=== PATIENT | male | born 1945 | race Caucasian/White ===

== ENCOUNTER 2021-08-14 10:15 | Inpatient (IN) | payer MEDICARE, SELFPAY ==
--- NOTE | ~2021-08-14 | CT_ITS ---
EXAMINATION: CT HEAD WITHOUT CONTRAST CLINICAL INFORMATION: New onset of psychosis. COMPARISON: No relevant prior imaging. TECHNIQUE: Contiguous axial imaging was performed from the skull base to vertex without intravenous administration of contrast. This CT examination was performed using dose optimization techniques as appropriate, variously including the following: *Automated exposure control *Adjustment of mA and/or kV according to patient size (this includes techniques or standardized protocols for targeted exams where dose is matched to indication/reason for exam; i.e. extremities or head) *Use of iterative reconstruction technique DLP: 1026 mGy-cm FINDINGS: There is gliosis and encephalomalacia involving left posterior temporal lobe that most likely represents chronic changes of an old infarct within the vascular territory of the left middle cerebral artery. Scattered chronic small vessel ischemic changes are visualized numerous chronic small vessel seen changes are also visualized within the supratentorial white matter. Grossly no evidence of acute territorial infarct. No acute hemorrhage or abnormal extra-axial collection. Lateral and third ventricles are proportionate to the subarachnoid spaces. No hydrocephalus. The calvarium and skull base are intact. Mastoid air cells and middle ear cavities are well-aerated. No active paranasal sinus disease. CT/CT head/brain wo con IMPRESSION: There are chronic changes related to an old infarct within the vascular territory of left middle cerebral artery and scattered chronic small vessel ischemic changes within the supratentorial white matter. No evidence of acute territorial infarct or hemorrhage.
[2021-08-14 11:03] VITALS: BMI 30.8
[2021-08-14 11:07] VITALS: BP 119/63; PULSE 79; TEMP 35.2; O2SAT 97
--- NOTE | 2021-08-14 14:44 | PC.ADMIT ---
Patient 75 years old Telugu speaking. Admitted in the Unit today ( 08/14/21) at 10:37 AM, for the diagnosis of Adjustment D/O with disturbance of conduct. Referred from [facility] accompanies with his . Appeared Anxious, well dressed . Hx of hemorrhagic stroke and Chronic Hypertension controlled with medications. Reported hallucinations (visual and auditory).Denies SI/HI Patient alert , oriented in person and place. Patient Ambulated around the unit independently. No complaint of chest pain.No jugular vein distention,no edema, HS/LS/ BS not listen to. Patient declined complete assessment . No complaint about nausea, no vomiting, no constipation. Pressure ulcer stage 1 in the lower back. Patient admitted for evaluation and treatment.
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
--- NOTE | 2021-08-14 16:12 | MHC.CLN ---
NUTRITION RECOMMEND DIET CHANGE FROM REGULAR TO 2 GRAM SODIUM DUE TO HX STROKE AND CHRONIC HTN.
[2021-08-14 19:30] VITALS: BP 118/90; PULSE 72; RESP 18; TEMP 36.6; O2SAT 92
[2021-08-14] MEDS: Haloperidol Lactate 5 MG/ML VIAL IM (19:34)
[2021-08-14 19:45] VITALS: BP 126/98; PULSE 66; RESP 18; TEMP 36.6
[2021-08-14 20:00] VITALS: BP 112/72; PULSE 83; RESP 18; TEMP 36.7
[2021-08-14] MEDS: Rivastigmine Tartrate 1.5 MG CAPSULE PO (22:38)
[2021-08-14] MEDS: risperiDONE 0.25 MG TABLET PO (22:39)
[2021-08-14] MEDS: traZODone HCL 50 MG TABLET PO (22:39)
--- NOTE | 2021-08-14 23:23 | PC.NURSE ---
1600 to 1900 pt. with increasingly intrusive, aggressive behavior due to sundowning. Attempting to touch/hold hands with female pts. Wandering into rooms. Stealing food at mealtimes from other residents and food truck. Increasingly angry affect , restlessness, and agitation with redirection. Staff met physioloigic needs, attempted to provide low stim, diversional activities, and arranged chairs in environment arms length apart. Contacted psych and received order for oral PRN, which pt. refused. At approx. 1900 resident attempting to lift furniture in common area and then wandered down hallway. Two staff distantly escorted resident and he charged at staff with raised fist but did not make contact. Code assist called with response from security, who escorted him to his room. call or contact centre coach psych notified and ordered Haldol IM stat. Medication restraint protocol initiated. Medication administered IM without need for physical hold. Hospitalist notified 1954. Resident placed on 1:1 with male staff. /HCP given update at 2014. She confirms that he responds better to male staff. Pt. continued with restless behavior in room. Had one more minor episode of aggression toward 1:1. Took scheduled meds fed to him in apple sauce without difficulty and rested in bed at 2230.
[2021-08-15 07:00] VITALS: BMI 31.8
[2021-08-15 08:16] VITALS: BP 109/57; PULSE 64
[2021-08-15] MEDS: Sertraline HCL 50 MG TABLET PO (08:16)
[2021-08-15] MEDS: Cyanocobalamin (Vitamin B-12) 1,000 MCG TABLET 1000 MCG PO (08:16)
[2021-08-15] MEDS: risperiDONE 0.25 MG TABLET PO ×3 (08:16→18:32)
[2021-08-15] MEDS: atenoloL 50 MG TABLET PO (08:16)
[2021-08-15] MEDS: Rivastigmine Tartrate 1.5 MG CAPSULE PO ×2 (08:16→19:44)
[2021-08-15 08:54] VITALS: BP 109/57; PULSE 64; TEMP 35.6; O2SAT 95
--- NOTE | 2021-08-15 12:15 | P.PNPSI_ITS ---
Subjective Subjective Date of Service: 08/15/21 Reason For Visit: Adjustment D/O w/Distrubance of conduct Subjective Notes: Conditional Voluntary Healthcare Proxy: Yes Guardianship: No Medical Problems Affecting Mental Status: No Interim History: The nursing staff reported that the patient was barely oriented to self and yesterday he got agitated and needed to be restrained chemically. Current he is on one-to-one for safety. On interview, the patient was pleasantly confused and could not remember what happened yesterday. We will continue the titration of Risperdal as per the plan that we had with her Review of Systems Acute medical concerns: No Medical Review of Systems: unchanged Mental Status Exam Mental Status Exam Patient Appearance: Well Grooomed Patient Orientation: Person Level of Consciousness: Alert Patient Behavior: Guarded and Passive Mood Description: Constricted Affect Description: Depressed Patient Cognition Impaired: Yes Ability to Follow Directions: Fair Speech Pattern: Aphasic Hallucinations: Auditory Delusions: Paranoid Ideation Thought Process: Illogical and Evasive Thought Content: positive for Poverty of Content and positive for Thought Blocking Judgement: Fair Diagnostics Vital Signs (24Hr): Vital Signs - 24 hr 08/14/21 19:30 08/14/21 19:45 08/14/21 20:00 Temperature 97.9 F 97.8 F 98.1 F Pulse Rate 72 66 83 Respiratory Rate 18 18 18 Blood Pressure 118/90 H 126/98 H 112/72 Pulse Oximetry 92 08/15/21 08:16 08/15/21 08:54 Temperature 96.1 F L Pulse Rate 64 64 Respiratory Rate Blood Pressure 109/57 L 109/57 L Pulse Oximetry 95 Body Mass Index 31.8 Medications Medications Current Medications Acetaminophen (Acetaminophen 325 Mg Tablet) 650 mg PO Q6H PRN PRN Reason: Headache/Pain Mild Scale (1-3) Al Hydroxide/Mg Hydroxide (Magnesium Hydrox/Alum Hydrox 30 Ml Oral.Susp) 30 ml PO Q6H PRN PRN Reason: Heartburn/Nausea Atenolol (Atenolol 50 Mg Tablet) 50 mg PO DAILY MDEARDO; Protocol Last Admin: 08/15/21 08:16 Dose: 50 mg Documented by: Cyanocobalamin (Cyanocobalamin (Vitamin B-12) 1,000 Mcg Tablet) 1,000 mcg PO DAILY [facility]ARD[facility] Last Admin: 08/15/21 08:16 Dose: 1,000 mcg Documented by: Magnesium Hydroxide (Milk Of Magnesia 30 Ml Oral.Susp) 30 ml PO DAILY PRN PRN Reason: Constipation Risperidone (Risperidone 0.25 Mg Tablet) 0.25 mg PO TID [facility] Last Admin: 08/15/21 08:16 Dose: 0.25 mg Documented by: Risperidone (Risperidone 0.25 Mg Tablet) 0.25 mg PO Q4H PRN PRN Reason: anxiety/restlessness Rivastigmine Tartrate (Rivastigmine Tartrate 1.5 Mg Capsule) 1.5 mg PO BID [facility] Last Admin: 08/15/21 08:16 Dose: 1.5 mg Documented by: Sertraline HCl (Sertraline Hcl 50 Mg Tablet) 50 mg PO DAILY [facility] Last Admin: 08/15/21 08:16 Dose: 50 mg Documented by: Trazodone HCl (Trazodone Hcl 50 Mg Tablet) 50 mg PO BEDTIME PRN PRN Reason: Insomnia Trazodone HCl (Trazodone Hcl 50 Mg Tablet) 50 mg PO BEDTIME [facility] Last Admin: 08/14/21 22:39 Dose: 50 mg Documented by: Allergies Allergies Allergy/AdvReac Type Severity Reaction Status Date / Time No Known Allergies Allergy Verified 08/14/21 11:06 Assessment & Plan Assessment & Plan (1) Vascular dementia: Status: Acute Code(s): F01.50 - Vascular dementia without behavioral disturbance (2) Psychosis: Status: Acute Code(s): F29 - Unspecified psychosis not due to a substance or known physiological cond ition Assessment and Plan: The patient is an elderly male, , 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 Plan 1. Increase Risperdal. 2. Gather more collateral I spent minutes with the patient and/or on the patient floor today, greater than?50% of which was spent counseling/coordinating care. Reason for contiued inpatient stay Substantial Risk for: inability to function, rapid decompensation and med/psych decompensation
[2021-08-15] MEDS: risperiDONE 1 MG TABLET PO (16:19)
[2021-08-15] MEDS: traZODone HCL 50 MG TABLET PO ×2 (19:45→21:28)
[2021-08-15 21:00] VITALS: BP 120/61; PULSE 73; RESP 19; TEMP 36.6; O2SAT 98
[2021-08-16 06:00] VITALS: BP 113/65; PULSE 68; TEMP 36.9; O2SAT 98
[2021-08-16] MEDS: Rivastigmine Tartrate 1.5 MG CAPSULE PO ×2 (09:17→19:50)
[2021-08-16] MEDS: Cyanocobalamin (Vitamin B-12) 1,000 MCG TABLET 1000 MCG PO (09:17)
[2021-08-16] MEDS: risperiDONE 0.25 MG TABLET PO (09:18)
[2021-08-16] MEDS: Sertraline HCL 50 MG TABLET PO (09:18)
[2021-08-16] MEDS: atenoloL 50 MG TABLET PO (09:18)
[2021-08-16] MEDS: Donepezil HCl 10 MG TABLET PO (09:18)
--- NOTE | 2021-08-16 14:08 | P.PNPSI_ITS ---
Subjective Subjective Date of Service: 08/16/21 Reason For Visit: Adjustment D/O w/Distrubance of conduct Subjective Notes: Conditional Voluntary Interim History: The nursing staff reported the patient had several PRNs last day. He took Risperdal at 17:00 and he was agitated and aggressive. The staff has noticed that the patient starts ing at 14:00 approximately. On interview, the patient was pleasantly confused. Medication Compliance: Yes Side effects from medications: No Attending Groups: Intermittent Review of Systems Acute medical concerns: No Medical Review of Systems: unchanged Mental Status Exam Mental Status Exam Patient Appearance: Well Grooomed Patient Orientation: Person Level of Consciousness: Awake, Disoriented and Restless Patient Behavior: Restless Mood Description: Withdrawn Affect Description: Labile Patient Cognition Impaired: Yes Ability to Follow Directions: Fair Speech Pattern: Clear Hallucinations: None Delusions: Not Present Thought Process: Illogical Thought Content: positive for Poverty of Content and positive for Tangential Judgement: Poor Diagnostics Vital Signs (24Hr): Vital Signs - 24 hr 08/15/21 21:00 08/16/21 06:00 Temperature 97.8 F 98.4 F Pulse Rate 73 68 Respiratory Rate 19 Blood Pressure 120/61 113/65 Pulse Oximetry 98 98 Body Mass Index 31.8 Imaging Radiology Impressions: ITS Impressions Head CT 08/15/21 09:00 IMPRESSION: There are chronic changes related to an old infarct within the vascular territory of left middle cerebral artery and scattered chronic small vessel ischemic changes within the supratentorial white matter. No evidence of acute territorial infarct or hemorrhage. Medications Medications Current Medications Acetaminophen (Acetaminophen 325 Mg Tablet) 650 mg PO Q6H PRN PRN Reason: Headache/Pain Mild Scale (1-3) Al Hydroxide/Mg Hydroxide (Magnesium Hydrox/Alum Hydrox 30 Ml Oral.Susp) 30 ml PO Q6H PRN PRN Reason: Heartburn/Nausea Atenolol (Atenolol 50 Mg Tablet) 50 mg PO DAILY [facility]; Protocol Last Admin: 08/16/21 09:18 Dose: 50 mg Documented by: Atorvastatin Calcium (Atorvastatin Calcium 10 Mg Tablet) 10 mg PO BEDTIME MEDARD[facility] Cyanocobalamin (Cyanocobalamin (Vitamin B-12) 1,000 Mcg Tablet) 1,000 mcg PO DAILY [facility] Last Admin: 08/16/21 09:17 Dose: 1,000 mcg Documented by: Donepezil HCl (Donepezil Hcl 10 Mg Tablet) 10 mg PO DAILY [facility] Last Admin: 08/16/21 09:18 Dose: 10 mg Documented by: Magnesium Hydroxide (Milk Of Magnesia 30 Ml Oral.Susp) 30 ml PO DAILY PRN PRN Reason: Constipation Risperidone (Risperidone 0.25 Mg Tablet) 0.25 mg PO Q4H PRN PRN Reason: anxiety/restlessness Last Admin: 08/15/21 18:32 Dose: 0.25 mg Documented by: Risperidone (Risperidone 0.25 Mg Tablet) 0.25 mg PO DAILY [facility] Last Admin: 08/16/21 09:18 Dose: 0.25 mg Documented by: Risperidone (Risperidone 1 Mg Tablet) 1 mg PO DAILY@1700 [facility] Last Admin: 08/15/21 16:19 Dose: 1 mg Documented by: Rivastigmine Tartrate (Rivastigmine Tartrate 1.5 Mg Capsule) 1.5 mg PO BID [facility] Last Admin: 08/16/21 09:17 Dose: 1.5 mg Documented by: Sertraline HCl (Sertraline Hcl 50 Mg Tablet) 50 mg PO DAILY [facility] Last Admin: 08/16/21 09:18 Dose: 50 mg Documented by: Trazodone HCl (Trazodone Hcl 50 Mg Tablet) 50 mg PO BEDTIME PRN PRN Reason: Insomnia Last Admin: 08/15/21 21:28 Dose: 50 mg Documented by: Trazodone HCl (Trazodone Hcl 50 Mg Tablet) 50 mg PO BEDTIME [facility] Last Admin: 08/15/21 19:45 Dose: 50 mg Documented by: Allergies Allergies Allergy/AdvReac Type Severity Reaction Status Date / Time No Known Allergies Allergy Verified 08/14/21 11:06 Assessment & Plan Assessment & Plan (1) Vascular dementia: Status: Acute Code(s): F01.50 - Vascular dementia without behavioral disturbance (2) Psychosis: Status: Acute Code(s): F29 - Unspecified psychosis not due to a substance or known physiological condition Assessment and Plan: The patient is an elderly male, , 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 Plan 1. Increase Risperdal. 2. Gather more collateral. 3. Add trazodone 25 mg at 15:00 I spent minutes with the patient and/or on the patient floor today, greater than?50% of which was spent counseling/coordinating care. Reason for contiued inpatient stay Substantial Risk for: stable for discharge, rapid decompensation and med/psych decompensation
[2021-08-16] MEDS: traZODone HCL 25 MG HALFTAB PO (15:29)
[2021-08-16] MEDS: risperiDONE 1 MG TABLET PO ×2 (17:15→19:51)
[2021-08-16] MEDS: Atorvastatin Calcium 10 MG TABLET PO (19:50)
[2021-08-16] MEDS: traZODone HCL 50 MG TABLET PO (20:28)
[2021-08-16 20:54] VITALS: BP 112/80; PULSE 75; RESP 19; TEMP 36.9; O2SAT 95
[2021-08-17] MEDS: Donepezil HCl 10 MG TABLET PO (08:01)
[2021-08-17] MEDS: Rivastigmine Tartrate 1.5 MG CAPSULE PO ×2 (08:01→19:34)
[2021-08-17] MEDS: Sertraline HCL 50 MG TABLET PO (08:01)
[2021-08-17] MEDS: traZODone HCL 25 MG HALFTAB PO (08:01)
[2021-08-17] MEDS: Cyanocobalamin (Vitamin B-12) 1,000 MCG TABLET 1000 MCG PO (08:02)
[2021-08-17] MEDS: atenoloL 50 MG TABLET PO (08:02)
[2021-08-17 09:04] VITALS: BP 92/55; PULSE 71; RESP 14; TEMP 36.3; O2SAT 94
[2021-08-17] MEDS: risperiDONE 0.25 MG TABLET PO ×3 (13:00→21:53)
--- NOTE | 2021-08-17 13:45 | HO.PSYCHPN ---
Subjective Subjective Date of Service: 08/17/21 Reason For Visit: Adjustment D/O w/Distrubance of conduct Interim History: Patient seen and discussed with his that was visiting. Patient has new onset GILL. says this is completely new. Patient has no CP, SOB. No hx of kidney or liver disease. Disinhibited per staff. Needs PRNs which is helping. He took Risperdal at 17:00 The staff has noticed that the patient starts sundowning at 14:00 approximately. On interview, the patient was pleasantly confused. Medication Compliance: Yes Side effects from medications: No Review of Systems Acute medical concerns: Yes 2-3 + GILL Review of Systems Review of Systems Yes all other systems are reviewed and are negative Mental Status Exam Mental Status Exam Patient Appearance: Well Grooomed Patient Orientation: Person Level of Consciousness: Awake, Disoriented and Restless Patient Behavior: Restless Mood Description: Withdrawn Affect Description: Calm and Relaxed Patient Cognition Impaired: Yes Ability to Follow Directions: Fair Speech Pattern: Clear Memory Description: Immediate Impaired Thought Process: Disoriented and Confusion Diagnostics Vital Signs (24Hr): Vital Signs - 24 hr 08/16/21 20:54 08/17/21 09:04 Temperature 98.4 F 97.4 F Pulse Rate 75 71 Respiratory Rate 19 14 Blood Pressure 112/80 92/55 L Pulse Oximetry 95 94 Body Mass Index 31.8 Imaging Radiology Impressions: ITS Impressions Head CT 08/15/21 09:00 IMPRESSION: There are chronic changes related to an old infarct within the vascular territory of left middle cerebral artery and scattered chronic small vessel ischemic changes within the supratentorial white matter. No evidence of acute territorial infarct or hemorrhage. Medications Medications Current Medications Acetaminophen (Acetaminophen 325 Mg Tablet) 650 mg PO Q6H PRN PRN Reason: Headache/Pain Mild Scale (1-3) Al Hydroxide/Mg Hydroxide (Magnesium Hydrox/Alum Hydrox 30 Ml Oral.Susp) 30 ml PO Q6H PRN PRN Reason: Heartburn/Nausea Atenolol (Atenolol 50 Mg Tablet) 50 mg PO DAILY [facility]; Protocol Last Admin: 08/17/21 08:02 Dose: 50 mg Documented by: Atorvastatin Calcium (Atorvastatin Calcium 10 Mg Tablet) 10 mg PO BEDTIME [facility] Last Admin: 08/16/21 19:50 Dose: 10 mg Documented by: Cyanocobalamin (Cyanocobalamin (Vitamin B-12) 1,000 Mcg Tablet) 1,000 mcg PO DAILY [facility] Last Admin: 08/17/21 08:02 Dose: 1,000 mcg Documented by: Donepezil HCl (Donepezil Hcl 10 Mg Tablet) 10 mg PO DAILY [facility] Last Admin: 08/17/21 08:01 Dose: 10 mg Documented by: Magnesium Hydroxide (Milk Of Magnesia 30 Ml Oral.Susp) 30 ml PO DAILY PRN PRN Reason: Constipation Risperidone (Risperidone 0.25 Mg Tablet) 0.25 mg PO Q4H PRN PRN Reason: anxiety/restlessness Last Admin: 08/17/21 13:00 Dose: 0.25 mg Documented by: Risperidone (Risperidone 1 Mg Tablet) 1 mg PO DAILY@1700 [facility] Last Admin: 08/16/21 17:15 Dose: 1 mg Documented by: Risperidone (Risperidone 1 Mg Tablet) 1 mg PO BEDTIME [facility] Last Admin: 08/16/21 19:51 Dose: 1 mg Documented by: Rivastigmine Tartrate (Rivastigmine Tartrate 1.5 Mg Capsule) 1.5 mg PO BID [facility] Last Admin: 08/17/21 08:01 Dose: 1.5 mg Documented by: Sertraline HCl (Sertraline Hcl 50 Mg Tablet) 50 mg PO DAILY [facility] Last Admin: 08/17/21 08:01 Dose: 50 mg Documented by: Trazodone HCl (Trazodone Hcl 50 Mg Tablet) 50 mg PO BEDTIME PRN PRN Reason: Insomnia Last Admin: 08/15/21 21:28 Dose: 50 mg Documented by: Trazodone HCl (Trazodone Hcl 50 Mg Tablet) 50 mg PO BEDTIME [facility] Last Admin: 08/16/21 20:28 Dose: 50 mg Documented by: Trazodone HCl (Trazodone Hcl 25 Mg Halftab) 25 mg PO DAILY [facility] Last Admin: 08/17/21 08:01 Dose: 25 mg Documented by: Allergies Allergies Allergy/AdvReac Type Severity Reaction Status Date / Time No Known Allergies Allergy Verified 08/14/21 11:06 Assessment & Plan Assessment & Plan (1) Vascular dementia: Status: Acute Code(s): F01.50 - Vascular dementia without behavioral disturbance (2) Psychosis: Status: Acute Code(s): F29 - Unspecified psychosis not due to a substance or known physiological condition Assessment and Plan: The patient is an elderly male, , 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 Plan - Continue current medications. Responds well to PRN. - Consult medicine for new onset GILL. I spent minutes with the patient and/or on the patient floor today, greater than?50% of which was spent counseling/coordinating care. Reason for contiued inpatient stay Substantial Risk for: harm to others, inability to function and rapid decompensation
[2021-08-17] MEDS: traZODone HCL 50 MG TABLET PO ×2 (14:48→21:53)
[2021-08-17] MEDS: risperiDONE 1 MG TABLET PO ×2 (16:39→19:33)
[2021-08-17] MEDS: Loperamide HCl 2 MG CAPSULE 4 MG PO (16:39)
[2021-08-17] MEDS: Atorvastatin Calcium 10 MG TABLET PO (19:33)
[2021-08-17 21:05] VITALS: BP 112/65; PULSE 75; RESP 18; TEMP 36.4; O2SAT 95
[2021-08-18 11:05] VITALS: BP 106/78; PULSE 73
[2021-08-18] MEDS: Sertraline HCL 50 MG TABLET PO (11:05)
[2021-08-18] MEDS: atenoloL 50 MG TABLET PO (11:05)
[2021-08-18] MEDS: Donepezil HCl 10 MG TABLET PO (11:05)
[2021-08-18] MEDS: Cyanocobalamin (Vitamin B-12) 1,000 MCG TABLET 1000 MCG PO (11:05)
[2021-08-18] MEDS: traZODone HCL 25 MG HALFTAB PO (11:05)
[2021-08-18] MEDS: Rivastigmine Tartrate 1.5 MG CAPSULE PO ×2 (11:05→19:43)
[2021-08-18 11:16] VITALS: BP 106/78; PULSE 73; RESP 14; TEMP 36.2; O2SAT 94
[2021-08-18] MEDS: risperiDONE 0.25 MG TABLET PO ×2 (13:25→17:52)
[2021-08-18] MEDS: traZODone HCL 50 MG TABLET PO ×2 (13:47→19:43)
--- NOTE | 2021-08-18 16:16 | HO.PM.IMCN ---
History of Present Illness Data of Consult Service Date: 08/18/21 Requesting physician: Con Epstein HPI Asked to see this 75-year-old gentleman for concerns of bilateral lower leg edema. Per staff patient has not been exhibiting any signs of shortness of breath or volunteering any cardiac symptoms. Vital signs including sats have been stable Review of Systems Review of Systems: Review with staff: Denies chest pain Denies shortness of breath Denies nausea vomiting diarrhea PMFSH Pertinent family history: . Social History Household Members: Spouse Housing: Condominium Do you presently have visiting nurse or other home services: No Patient Tobacco Use Status: Former Tobacco user Smoked in Last 30 Days: No Patient Interested in Nicotine Replacement: No Second Hand Smoke Exposure: No Use of substances other than those prescribed or required for medical reasons: No Currently Displaying Signs/Symptoms of Drug Intoxication Withdrawal: No Have you been hit, kicked, punched, or otherwise hurt by someone within the past year? If so, by whom?: No Do you feel safe in your current relationship?: No Is there a partner from a previous relationship who is making you feel unsafe now?: No Are you made to feel afraid or neglected: No Advance Directives: Yes Advance Directives Information Provided: No (declined) Advance Directives on File: No Do you have thoughts of harming others: None Do you have a plan to hurt others: No Plan Recently lost weight without trying: No How much weight loss: Not applicable Eating poorly because of decreased appetite: No Nutrition screen score: 0 Nutrition Risks: No Nutritional Risk Poor oral hygiene: No service: No Sexual orientation: Straight/Heterosexual Meds Allergies Allergy/AdvReac Type Severity Reaction Status Date / Time No Known Allergies Allergy Verified 08/14/21 11:06 Active Medications: Current Medications Acetaminophen (Acetaminophen 325 Mg Tablet) 650 mg PO Q6H PRN PRN Reason: Headache/Pain Mild Scale (1-3) Al Hydroxide/Mg Hydroxide (Magnesium Hydrox/Alum Hydrox 30 Ml Oral.Susp) 30 ml PO Q6H PRN PRN Reason: Heartburn/Nausea Atenolol (Atenolol 50 Mg Tablet) 50 mg PO DAILY MEDARDO; Protocol Last Admin: 08/18/21 11:05 Dose: 50 mg Documented by: Atorvastatin Calcium (Atorvastatin Calcium 10 Mg Tablet) 10 mg PO BEDTIME [facility] Last Admin: 08/17/21 19:33 Dose: 10 mg Documented by: Cyanocobalamin (Cyanocobalamin (Vitamin B-12) 1,000 Mcg Tablet) 1,000 mcg PO DAILY [facility] Last Admin: 08/18/21 11:05 Dose: 1,000 mcg Documented by: Donepezil HCl (Donepezil Hcl 10 Mg Tablet) 10 mg PO DAILY [facility] Last Admin: 08/18/21 11:05 Dose: 10 mg Documented by: Loperamide HCl (Loperamide Hcl 2 Mg Capsule) 4 mg PO Q4H PRN PRN Reason: Diarrhea Last Admin: 08/17/21 16:39 Dose: 4 mg Documented by: Magnesium Hydroxide (Milk Of Magnesia 30 Ml Oral.Susp) 30 ml PO DAILY PRN PRN Reason: Constipation Risperidone (Risperidone 0.25 Mg Tablet) 0.25 mg PO Q4H PRN PRN Reason: anxiety/restlessness Last Admin: 08/18/21 13:25 Dose: 0.25 mg Documented by: Risperidone (Risperidone 1 Mg Tablet) 1 mg PO DAILY@1700 [facility] Last Admin: 08/17/21 16:39 Dose: 1 mg Documented by: Risperidone (Risperidone 1 Mg Tablet) 1 mg PO BEDTIME [facility] Last Admin: 08/17/21 19:33 Dose: 1 mg Documented by: Rivastigmine Tartrate (Rivastigmine Tartrate 1.5 Mg Capsule) 1.5 mg PO BID [facility] Last Admin: 08/18/21 11:05 Dose: 1.5 mg Documented by: Sertraline HCl (Sertraline Hcl 50 Mg Tablet) 50 mg PO DAILY [facility] Last Admin: 08/18/21 11:05 Dose: 50 mg Documented by: Trazodone HCl (Trazodone Hcl 50 Mg Tablet) 50 mg PO BEDTIME PRN PRN Reason: Insomnia Last Admin: 08/18/21 13:47 Dose: 50 mg Documented by: Trazodone HCl (Trazodone Hcl 50 Mg Tablet) 50 mg PO BEDTIME [facility] Last Admin: 08/17/21 14:48 Dose: 50 mg Documented by: Trazodone HCl (Trazodone Hcl 25 Mg Halftab) 25 mg PO DAILY [facility] Last Admin: 08/18/21 11:05 Dose: 25 mg Documented by: Home Medications Medication Instructions Recorded Confirmed Last Taken Type Exelon Patch 1 mg TRANSDERMAL DAILY 08/14/21 08/14/21 08/14/21 09:00 History Seroquel 1 tab PO QPM 08/14/21 08/14/21 Unknown History atenolol 1 mg PO DAILY 08/14/21 08/14/21 Unknown History donepezil 1 tab PO DAILY 08/14/21 08/14/21 Unknown History gabapentin 1 cap PO DAILY 08/14/21 08/14/21 Unknown History lisinopril 1 tab PO DAILY 08/14/21 08/14/21 Unknown History sertraline 1 tab PO DAILY 08/14/21 08/14/21 08/12/21 23:10 History simvastatin 1 tab PO DAILY 08/14/21 08/14/21 Unknown History Physical Exam Vital Signs and Narrative: Vital Signs: Last Vital Signs Temp 97.1 F 08/18/21 11:16 Pulse 73 08/18/21 11:16 Resp 14 08/18/21 11:16 BP 106/78 08/18/21 11:16 Pulse Ox 94 08/18/21 11:16 Body Mass Index 31.8 Const: Other: Awake, confused. No acute distress HENMT: Other: Oral and posterior pharynx clear Neck: Other: No JVD seated upright Resp: Other: Clear to auscultation bilaterally. No rales rhonchi or wheezes Cardio: Other: No S4; positive S1-S2; no S3 murmurs rubs or gallops GI: Other: Soft nontender nondistended with normoactive bowel sounds. There is no appreciable hepatosplenomegaly Neuro: Other: Cranial nerves 2-12 were grossly intact as tested. Motor is 5/5 in all extremities. Sensation intact. Cognition; confuse Extrem: Other: Trace edema bilaterally Assessment and Plan (1) Dependent edema: Status: Acute Discussed with staff states patient's legs are edematous when he goes to bed but when he arises they are completely normal and by lunch time they begin to swell. They are relieved by elevation. At this time no further workup is indicated. Please call if any further issues
[2021-08-18] MEDS: risperiDONE 1 MG TABLET PO ×2 (16:49→19:43)
--- NOTE | 2021-08-18 17:02 | PC.NURSE ---
Patient seen by hospitalist for LLE. No SOB, no cardiac symptoms noted. VSS. Patient encouraged to elevate legs during the day.Will continue to monitor.
[2021-08-18] MEDS: Atorvastatin Calcium 10 MG TABLET PO (19:43)
--- NOTE | 2021-08-18 19:50 | P.PNPSI_ITS ---
Subjective Subjective Date of Service: 08/18/21 Reason For Visit: Adjustment D/O w/Distrubance of conduct Interim History: Patient seen. Had diarrhea yesterday. Responded well to imodium. His GILL is better. Responding to leg elevation. He offers no complaints. His agitation has been controlled with the Trazodone and Risperidone. Patient offers no complaints of chest pain, SOB and has no complaints of pain. On interview, the patient was pleasantly confused. While eating lunch, saw anselmo eldridge take a napkin that was partially in his plate and soaked with gravy, fold the napkin and attempt to eat it. Patient was redirected and he responded. Review of Systems Review of Systems Review with staff: Denies chest pain Denies shortness of breath Denies nausea vomiting diarrhea Yes all other systems are reviewed and are negative Mental Status Exam Mental Status Exam Patient Appearance: Well Grooomed Patient Orientation: Person Level of Consciousness: Awake, Disoriented and Restless Patient Behavior: Restless Mood Description: Withdrawn Affect Description: Calm and Relaxed Patient Cognition Impaired: Yes Ability to Follow Directions: Fair Speech Pattern: Clear Memory Description: Immediate Impaired Diagnostics Vital Signs (24Hr): Vital Signs - 24 hr 08/17/21 21:05 08/18/21 11:05 08/18/21 11:16 Temperature 97.6 F 97.1 F Pulse Rate 75 73 73 Respiratory Rate 18 14 Blood Pressure 112/65 106/78 106/78 Pulse Oximetry 95 94 Body Mass Index 31.8 Imaging Radiology Impressions: ITS Impressions Head CT 08/15/21 09:00 IMPRESSION: There are chronic changes related to an old infarct within the vascular territory of left middle cerebral artery and scattered chronic small vessel ischemic changes within the supratentorial white matter. No evidence of acute territorial infarct or hemorrhage. Medications Medications Current Medications Acetaminophen (Acetaminophen 325 Mg Tablet) 650 mg PO Q6H PRN PRN Reason: Headache/Pain Mild Scale (1-3) Al Hydroxide/Mg Hydroxide (Magnesium Hydrox/Alum Hydrox 30 Ml Oral.Susp) 30 ml PO Q6H PRN PRN Reason: Heartburn/Nausea Atenolol (Atenolol 50 Mg Tablet) 50 mg PO DAILY [facility]ARD[facility]; Protocol Last Admin: 08/18/21 11:05 Dose: 50 mg Documented by: Atorvastatin Calcium (Atorvastatin Calcium 10 Mg Tablet) 10 mg PO BEDTIME [facility] Last Admin: 08/18/21 19:43 Dose: 10 mg Documented by: Cyanocobalamin (Cyanocobalamin (Vitamin B-12) 1,000 Mcg Tablet) 1,000 mcg PO DAILY [facility] Last Admin: 08/18/21 11:05 Dose: 1,000 mcg Documented by: Donepezil HCl (Donepezil Hcl 10 Mg Tablet) 10 mg PO DAILY [facility] Last Admin: 08/18/21 11:05 Dose: 10 mg Documented by: Loperamide HCl (Loperamide Hcl 2 Mg Capsule) 4 mg PO Q4H PRN PRN Reason: Diarrhea Last Admin: 08/17/21 16:39 Dose: 4 mg Documented by: Magnesium Hydroxide (Milk Of Magnesia 30 Ml Oral.Susp) 30 ml PO DAILY PRN PRN Reason: Constipation Risperidone (Risperidone 0.25 Mg Tablet) 0.25 mg PO Q4H PRN PRN Reason: anxiety/restlessness Last Admin: 08/18/21 17:52 Dose: 0.25 mg Documented by: Risperidone (Risperidone 1 Mg Tablet) 1 mg PO DAILY@1700 [facility] Last Admin: 08/18/21 16:49 Dose: 1 mg Documented by: Risperidone (Risperidone 1 Mg Tablet) 1 mg PO BEDTIME [facility] Last Admin: 08/18/21 19:43 Dose: 1 mg Documented by: Rivastigmine Tartrate (Rivastigmine Tartrate 1.5 Mg Capsule) 1.5 mg PO BID [facility] Last Admin: 08/18/21 19:43 Dose: 1.5 mg Documented by: Sertraline HCl (Sertraline Hcl 50 Mg Tablet) 50 mg PO DAILY [facility] Last Admin: 08/18/21 11:05 Dose: 50 mg Documented by: Trazodone HCl (Trazodone Hcl 50 Mg Tablet) 50 mg PO BEDTIME PRN PRN Reason: Insomnia Last Admin: 08/18/21 13:47 Dose: 50 mg Documented by: Trazodone HCl (Trazodone Hcl 50 Mg Tablet) 50 mg PO BEDTIME [facility] Last Admin: 08/18/21 19:43 Dose: 50 mg Documented by: Trazodone HCl (Trazodone Hcl 25 Mg Halftab) 25 mg PO DAILY [facility] Last Admin: 08/18/21 11:05 Dose: 25 mg Documented by: Allergies Allergies Allergy/AdvReac Type Severity Reaction Status Date / Time No Known Allergies Allergy Verified 08/14/21 11:06 Assessment & Plan Assessment & Plan (1) Dependent edema: Status: Acute Code(s): R60.9 - Edema, unspecified (2) Vascular dementia: Status: Acute Code(s): F01.50 - Vascular dementia without behavioral disturbance (3) Psychosis: Status: Acute Code(s): F29 - Unspecified psychosis not due to a substance or known physiological condition Assessment and Plan: The patient is an elderly male, , 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 Plan - Continue current medications. Responds well to PRN. Assessment and Plan: Discussed with staff states patient's legs are edematous when he goes to bed but when he arises they are completely normal and by lunch time they begin to swell. They are relieved by elevation. At this time no further workup is indicated. Please call if any further issues I spent minutes with the patient and/or on the patient floor today, greater than?50% of which was spent counseling/coordinating care. Reason for contiued inpatient stay Substantial Risk for: inability to function and rapid decompensation
[2021-08-18 20:59] VITALS: BP 113/56; PULSE 79; RESP 18; TEMP 36.9; O2SAT 97
[2021-08-19 09:49] VITALS: BP 142/61; PULSE 62; TEMP 35.5; O2SAT 93
[2021-08-19 10:29] VITALS: BP 142/61; PULSE 62
[2021-08-19] MEDS: Rivastigmine Tartrate 1.5 MG CAPSULE PO ×2 (10:29→19:44)
[2021-08-19] MEDS: atenoloL 50 MG TABLET PO (10:29)
[2021-08-19] MEDS: Donepezil HCl 10 MG TABLET PO (10:30)
[2021-08-19] MEDS: Sertraline HCL 50 MG TABLET PO (10:30)
[2021-08-19] MEDS: traZODone HCL 25 MG HALFTAB PO ×2 (10:30→18:07)
[2021-08-19] MEDS: Cyanocobalamin (Vitamin B-12) 1,000 MCG TABLET 1000 MCG PO (10:30)
--- NOTE | 2021-08-19 14:55 | HO.PSYCHPN ---
Subjective Subjective Date of Service: 08/19/21 Reason For Visit: Adjustment D/O w/Distrubance of conduct Subjective Notes: Conditional Voluntary Interim History: The nursing staff reported that over the weekend the patient is nearly all the PRNs of Risperdal and trazodone. It is clear that the patient sundowns nearly every day. We had a family meeting with his and daughter with the social welfare research worker regarding disposition. It was clear that the patient will eat a higher level of care for discharge. On interview, the patient denies new symptoms he is pleasantly confused. We change his medications to prevent sundowning Medication Compliance: Yes Side effects from medications: No Attending Groups: Intermittent Review of Systems Medical Review of Systems: unchanged Mental Status Exam Mental Status Exam Patient Appearance: Well Grooomed Patient Orientation: Person Level of Consciousness: Awake Patient Behavior: Guarded and Passive Mood Description: Relaxed Affect Description: Constricted Patient Cognition Impaired: Yes Ability to Follow Directions: Fair Speech Pattern: Clear Hallucinations: None Delusions: Paranoid Ideation Thought Process: Disoriented Judgement: Poor Diagnostics Vital Signs (24Hr): Vital Signs - 24 hr 08/18/21 20:59 08/19/21 09:49 08/19/21 10:29 Temperature 98.4 F 95.9 F L Pulse Rate 79 62 62 Respiratory Rate 18 Blood Pressure 113/56 L 142/61 H 142/61 H Pulse Oximetry 97 93 Body Mass Index 31.8 Imaging Radiology Impressions: ITS Impressions Head CT 08/15/21 09:00 IMPRESSION: There are chronic changes related to an old infarct within the vascular territory of left middle cerebral artery and scattered chronic small vessel ischemic changes within the supratentorial white matter. No evidence of acute territorial infarct or hemorrhage. Medications Medications Current Medications Acetaminophen (Acetaminophen 325 Mg Tablet) 650 mg PO Q6H PRN PRN Reason: Headache/Pain Mild Scale (1-3) Al Hydroxide/Mg Hydroxide (Magnesium Hydrox/Alum Hydrox 30 Ml Oral.Susp) 30 ml PO Q6H PRN PRN Reason: Heartburn/Nausea Atenolol (Atenolol 50 Mg Tablet) 50 mg PO DAILY [facility]; Protocol Last Admin: 08/19/21 10:29 Dose: 50 mg Documented by: Atorvastatin Calcium (Atorvastatin Calcium 10 Mg Tablet) 10 mg PO BEDTIME [facility] Last Admin: 08/18/21 19:43 Dose: 10 mg Documented by: Cyanocobalamin (Cyanocobalamin (Vitamin B-12) 1,000 Mcg Tablet) 1,000 mcg PO DAILY [facility] Last Admin: 08/19/21 10:30 Dose: 1,000 mcg Documented by: Donepezil HCl (Donepezil Hcl 10 Mg Tablet) 10 mg PO DAILY [facility] Last Admin: 08/19/21 10:30 Dose: 10 mg Documented by: Loperamide HCl (Loperamide Hcl 2 Mg Capsule) 4 mg PO Q4H PRN PRN Reason: Diarrhea Last Admin: 08/17/21 16:39 Dose: 4 mg Documented by: Magnesium Hydroxide (Milk Of Magnesia 30 Ml Oral.Susp) 30 ml PO DAILY PRN PRN Reason: Constipation Risperidone (Risperidone 0.25 Mg Tablet) 0.25 mg PO Q4H PRN PRN Reason: anxiety/restlessness Last Admin: 08/18/21 17:52 Dose: 0.25 mg Documented by: Risperidone (Risperidone 1 Mg Tablet) 1 mg PO DAILY@1700 [facility] Last Admin: 08/18/21 16:49 Dose: 1 mg Documented by: Risperidone (Risperidone 2 Mg Tablet) 2 mg PO BEDTIME [facility] Rivastigmine Tartrate (Rivastigmine Tartrate 1.5 Mg Capsule) 1.5 mg PO BID [facility] Last Admin: 08/19/21 10:29 Dose: 1.5 mg Documented by: Sertraline HCl (Sertraline Hcl 50 Mg Tablet) 50 mg PO DAILY [facility] Last Admin: 08/19/21 10:30 Dose: 50 mg Documented by: Trazodone HCl (Trazodone Hcl 50 Mg Tablet) 50 mg PO BEDTIME PRN PRN Reason: Insomnia Last Admin: 08/18/21 13:47 Dose: 50 mg Documented by: Trazodone HCl (Trazodone Hcl 50 Mg Tablet) 50 mg PO BEDTIME [facility] Last Admin: 08/18/21 19:43 Dose: 50 mg Documented by: Trazodone HCl (Trazodone Hcl 25 Mg Halftab) 25 mg PO TID [facility] Allergies Allergies Allergy/AdvReac Type Severity Reaction Status Date / Time No Known Allergies Allergy Verified 08/14/21 11:06 Assessment & Plan Assessment & Plan (1) Dependent edema: Status: Acute Code(s): R60.9 - Edema, unspecified (2) Vascular dementia: Status: Acute Code(s): F01.50 - Vascular dementia without behavioral disturbance (3) Psychosis: Status: Acute Code(s): F29 - Unspecified psychosis not due to a substance or known physiological condition Assessment and Plan: The patient is an elderly male, , 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 Plan 1. change Risperdal to 1 mg at 15:00 and 2 mg p.o. q.h.s.. 2. Start trazodone 25 mg p.o. t.i.d. Assessment and Plan: Discussed with staff states patient's legs are edematous when he goes to bed but when he arises they are completely normal and by lunch time they begin to swell. They are relieved by elevation. At this time no further workup is indicated. Please call if any further issues I spent minutes with the patient and/or on the patient floor today, greater than?50% of which was spent counseling/coordinating care. Reason for contiued inpatient stay Substantial Risk for: inability to function, rapid decompensation and med/psych decompensation
[2021-08-19] MEDS: risperiDONE 1 MG TABLET PO (17:06)
[2021-08-19] MEDS: risperiDONE 2 MG TABLET PO (19:44)
[2021-08-19] MEDS: traZODone HCL 50 MG TABLET PO (19:44)
[2021-08-19] MEDS: Atorvastatin Calcium 10 MG TABLET PO (19:44)
[2021-08-19 20:09] VITALS: BP 148/72; PULSE 73; RESP 20; TEMP 36.6; O2SAT 97
[2021-08-20 06:00] VITALS: BP 106/52; PULSE 99; RESP 14; TEMP 36.9; O2SAT 92
[2021-08-20] MEDS: Cyanocobalamin (Vitamin B-12) 1,000 MCG TABLET 1000 MCG PO (09:01)
[2021-08-20] MEDS: Donepezil HCl 10 MG TABLET PO (09:01)
[2021-08-20] MEDS: Rivastigmine Tartrate 1.5 MG CAPSULE PO ×2 (09:01→20:38)
[2021-08-20] MEDS: traZODone HCL 25 MG HALFTAB PO ×3 (09:02→20:38)
[2021-08-20] MEDS: Sertraline HCL 50 MG TABLET PO (09:02)
[2021-08-20] MEDS: atenoloL 50 MG TABLET PO (09:02)
[2021-08-20] MEDS: risperiDONE 0.25 MG TABLET PO (13:02)
--- NOTE | 2021-08-20 15:53 | P.PNPSI_ITS ---
Subjective Subjective Date of Service: 08/20/21 Reason For Visit: Adjustment D/O w/Distrubance of conduct Subjective Notes: Conditional Voluntary Interim History: The patient slept for nearly 2 days in a row, he could not sleep over the weekend he was agitated. Yesterday he did not have any PRNs and his level observation has changed to 5 minute checks. On interview, the patient was pleasantly confused, unable to follow the interview. On physical exam we found out that he has mild cogwheeling Mental Status Exam Mental Status Exam Patient Appearance: Well Grooomed Patient Orientation: Person Level of Consciousness: Awake and Disoriented Mood Description: Depressed Affect Description: Constricted Patient Cognition Impaired: No Ability to Follow Directions: Good Speech Pattern: Clear Hallucinations: None Delusions: Paranoid Ideation Thought Process: Distracted and Slowed Thinking Thought Content: positive for Poverty of Content Judgement: Fair Diagnostics Vital Signs (24Hr): Vital Signs - 24 hr 08/19/21 20:09 08/20/21 06:00 Temperature 98 F 98.4 F Pulse Rate 73 99 Respiratory Rate 20 14 Blood Pressure 148/72 H 106/52 L Pulse Oximetry 97 92 Body Mass Index 31.8 Imaging Radiology Impressions: ITS Impressions Head CT 08/15/21 09:00 IMPRESSION: There are chronic changes related to an old infarct within the vascular territory of left middle cerebral artery and scattered chronic small vessel ischemic changes within the supratentorial white matter. No evidence of acute territorial infarct or hemorrhage. Medications Medications Current Medications Acetaminophen (Acetaminophen 325 Mg Tablet) 650 mg PO Q6H PRN PRN Reason: Headache/Pain Mild Scale (1-3) Al Hydroxide/Mg Hydroxide (Magnesium Hydrox/Alum Hydrox 30 Ml Oral.Susp) 30 ml PO Q6H PRN PRN Reason: Heartburn/Nausea Atenolol (Atenolol 50 Mg Tablet) 50 mg PO DAILY [facility]; Protocol Last Admin: 08/20/21 09:02 Dose: 50 mg Documented by: Atorvastatin Calcium (Atorvastatin Calcium 10 Mg Tablet) 10 mg PO BEDTIME [facility] Last Admin: 08/19/21 19:44 Dose: 10 mg Documented by: Cyanocobalamin (Cyanocobalamin (Vitamin B-12) 1,000 Mcg Tablet) 1,000 mcg PO D AILY [facility] Last Admin: 08/20/21 09:01 Dose: 1,000 mcg Documented by: Donepezil HCl (Donepezil Hcl 10 Mg Tablet) 10 mg PO DAILY [facility] Last Admin: 08/20/21 09:01 Dose: 10 mg Documented by: Loperamide HCl (Loperamide Hcl 2 Mg Capsule) 4 mg PO Q4H PRN PRN Reason: Diarrhea Last Admin: 08/17/21 16:39 Dose: 4 mg Documented by: Magnesium Hydroxide (Milk Of Magnesia 30 Ml Oral.Susp) 30 ml PO DAILY PRN PRN Reason: Constipation Risperidone (Risperidone 0.25 Mg Tablet) 0.25 mg PO Q4H PRN PRN Reason: anxiety/restlessness Last Admin: 08/20/21 13:02 Dose: 0.25 mg Documented by: Risperidone (Risperidone 1 Mg Tablet) 1 mg PO DAILY@1700 [facility] Last Admin: 08/19/21 17:06 Dose: 1 mg Documented by: Risperidone (Risperidone 2 Mg Tablet) 2 mg PO BEDTIME [facility] Last Admin: 08/19/21 19:44 Dose: 2 mg Documented by: Rivastigmine Tartrate (Rivastigmine Tartrate 1.5 Mg Capsule) 1.5 mg PO BID [facility] Last Admin: 08/20/21 09:01 Dose: 1.5 mg Documented by: Sertraline HCl (Sertraline Hcl 50 Mg Tablet) 50 mg PO DAILY [facility] Last Admin: 08/20/21 09:02 Dose: 50 mg Documented by: Trazodone HCl (Trazodone Hcl 50 Mg Tablet) 50 mg PO BEDTIME PRN PRN Reason: Insomnia Last Admin: 08/18/21 13:47 Dose: 50 mg Documented by: Trazodone HCl (Trazodone Hcl 50 Mg Tablet) 50 mg PO BEDTIME [facility] Last Admin: 08/19/21 19:44 Dose: 50 mg Documented by: Trazodone HCl (Trazodone Hcl 25 Mg Halftab) 25 mg PO TID [facility] Last Admin: 08/20/21 14:29 Dose: 25 mg Documented by: Allergies Allergies Allergy/AdvReac Type Severity Reaction Status Date / Time No Known Allergies Allergy Verified 08/14/21 11:06 Assessment & Plan Assessment & Plan (1) Dependent edema: Status: Acute Code(s): R60.9 - Edema, unspecified (2) Vascular dementia: Status: Acute Code(s): F01.50 - Vascular dementia without behavioral disturbance (3) Psychosis: Status: Acute Code(s): F29 - Unspecified psychosis not due to a substance or known physiological condition Assessment and Plan: The patient is an elderly male, , 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 Plan 1. change Risperdal to 1 mg at 15:00 and 2 mg p.o. q.h.s.. 2. Start trazodone 25 mg p.o. t.i.d. Assessment and Plan: Discussed with staff states patient's legs are edematous when he goes to bed but when he arises they are completely normal and by lunch time they begin to swell. They are relieved by elevation. At this time no further workup is indicated. Please call if any further issues I spent minutes with the patient and/or on the patient floor today, greater than?50% of which was spent counseling/coordinating care. Reason for contiued inpatient stay Substantial Risk for: inability to function, rapid decompensation and med/psych decompensation
[2021-08-20] MEDS: risperiDONE 1 MG TABLET PO (16:59)
[2021-08-20 18:00] VITALS: BP 166/75; PULSE 76; RESP 16; TEMP 36
[2021-08-20] MEDS: risperiDONE 2 MG TABLET PO (20:38)
[2021-08-20] MEDS: traZODone HCL 50 MG TABLET PO (20:38)
[2021-08-20] MEDS: Atorvastatin Calcium 10 MG TABLET PO (20:38)
[2021-08-21 08:03] VITALS: BP 119/65; PULSE 84; RESP 17; TEMP 36.3; O2SAT 93
[2021-08-21 09:29] VITALS: BP 109/68; PULSE 67; RESP 15; O2SAT 97
[2021-08-21 09:32] VITALS: BP 109/68; PULSE 67
[2021-08-21] MEDS: Cyanocobalamin (Vitamin B-12) 1,000 MCG TABLET 1000 MCG PO (09:32)
[2021-08-21] MEDS: Rivastigmine Tartrate 1.5 MG CAPSULE PO ×2 (09:32→20:47)
[2021-08-21] MEDS: Sertraline HCL 50 MG TABLET PO (09:32)
[2021-08-21] MEDS: Donepezil HCl 10 MG TABLET PO (09:32)
[2021-08-21] MEDS: atenoloL 50 MG TABLET PO (09:32)
[2021-08-21 12:56] LABS: Glucose, Whole Blood 147 mg/dL (60-115)
--- NOTE | 2021-08-21 15:04 | PC.NURSE ---
Patient appeared to be sedated majority of the day. Trazadone morning and afternoon doses were held per MD. In early afternoon patient was observed to have increasing tremors on right side involving hand and arm, as well as head side to side. MD was notified. MD ordered cogentin BID.
--- NOTE | 2021-08-21 15:58 | P.PNPSI_ITS ---
Subjective Subjective Date of Service: 08/21/21 Reason For Visit: Adjustment D/O w/Distrubance of conduct Subjective Notes: Conditional Voluntary Interim History: The patient is on one-to-one observation as per nursing since he has been unable to be safe on the less restrictive of perseveration. He wanders into others people's rooms and he is unpredictable. On interview, the patient denies new symptoms he looks confused. On physical exam there is mild cogwheeling. Review of Systems Acute medical concerns: No Medical Review of Systems: unchanged Mental Status Exam Mental Status Exam Patient Appearance: Well Grooomed Patient Orientation: Person Level of Consciousness: Awake and Disoriented Patient Behavior: Cooperative Mood Description: Depressed Affect Description: Constricted Patient Cognition Impaired: Yes Speech Pattern: Clear Delusions: Not Present Thought Process: Disoriented and Distracted Thought Content: positive for Loose Associations Judgement: Poor Diagnostics Vital Signs (24Hr): Vital Signs - 24 hr 08/20/21 18:00 08/21/21 08:03 08/21/21 09:29 Temperature 96.8 F 97.4 F Pulse Rate 76 84 67 Respiratory Rate 16 17 15 Blood Pressure 166/75 H 119/65 109/68 Pulse Oximetry 93 97 08/21/21 09:32 Temperature Pulse Rate 67 Respiratory Rate Blood Pressure 109/68 Pulse Oximetry Body Mass Index 31.8 Labs Labs: Laboratory Results - last 48 hr 08/21/21 12:52 POC Glucose 147 H Imaging Radiology Impressions: ITS Impressions Head CT 08/15/21 09:00 IMPRESSION: There are chronic changes related to an old infarct within the vascular territory of left middle cerebral artery and scattered chronic small vessel ischemic changes within the supratentorial white matter. No evidence of acute territorial infarct or hemorrhage. Medications Medications Current Medications Acetaminophen (Acetaminophen 325 Mg Tablet) 650 mg PO Q6H PRN PRN Reason: Headache/Pain Mild Scale (1-3) Al Hydroxide/Mg Hydroxide (Magnesium Hydrox/Alum Hydrox 30 Ml Oral.Susp) 30 ml PO Q6H PRN PRN Reason: Heartburn/Nausea Atenolol (Atenolol 50 Mg Tablet) 50 mg PO DAILY [facility]; Protocol Last Admin: 08/21/21 09:32 Dose: 50 mg Documented by: Atorvastatin Calcium (Atorvastatin Calcium 10 Mg Tablet) 10 mg PO BEDTIME [facility] Last Admin: 08/20/21 20:38 Dose: 10 mg Documented by: Benztropine Mesylate (Benztropine Mesylate 0.5 Mg Tablet) 0.5 mg PO BID [facility] Cyanocobalamin (Cyanocobalamin (Vitamin B-12) 1,000 Mcg Tablet) 1,000 mcg PO DAILY [facility] Last Admin: 08/21/21 09:32 Dose: 1,000 mcg Documented by: Donepezil HCl (Donepezil Hcl 10 Mg Tablet) 10 mg PO DAILY [facility] Last Admin: 08/21/21 09:32 Dose: 10 mg Documented by: Loperamide HCl (Loperamide Hcl 2 Mg Capsule) 4 mg PO Q4H PRN PRN Reason: Diarrhea Last Admin: 08/17/21 16:39 Dose: 4 mg Documented by: Magnesium Hydroxide (Milk Of Magnesia 30 Ml Oral.Susp) 30 ml PO DAILY PRN PRN Reason: Constipation Risperidone (Risperidone 0.25 Mg Tablet) 0.25 mg PO Q4H PRN PRN Reason: anxiety/restlessness Last Admin: 08/20/21 13:02 Dose: 0.25 mg Documented by: Risperidone (Risperidone 2 Mg Tablet) 2 mg PO BEDTIME [facility] Last Admin: 08/20/21 20:38 Dose: 2 mg Documented by: Risperidone (Risperidone 0.5 Mg Tablet) 0.5 mg PO DAILY@1700 [facility] Rivastigmine Tartrate (Rivastigmine Tartrate 1.5 Mg Capsule) 1.5 mg PO BID [facility] Last Admin: 08/21/21 09:32 Dose: 1.5 mg Documented by: Sertraline HCl (Sertraline Hcl 50 Mg Tablet) 50 mg PO DAILY [facility] Last Admin: 08/21/21 09:32 Dose: 50 mg Documented by: Trazodone HCl (Trazodone Hcl 50 Mg Tablet) 50 mg PO BEDTIME PRN PRN Reason: Insomnia Last Admin: 08/18/21 13:47 Dose: 50 mg Documented by: Trazodone HCl (Trazodone Hcl 50 Mg Tablet) 50 mg PO BEDTIME [facility] Last Admin: 08/20/21 20:38 Dose: 50 mg Documented by: Trazodone HCl (Trazodone Hcl 25 Mg Halftab) 25 mg PO TID [facility] Last Admin: 08/21/21 15:12 Dose: Not Given Documented by: Allergies Allergies Allergy/AdvReac Type Severity Reaction Status Date / Time No Known Allergies Allergy Verified 08/14/21 11:06 Assessment & Plan Assessment & Plan (1) Dependent edema: Status: Acute Code(s): R60.9 - Edema, unspecified (2) Vascular dementia: Status: Acute Code(s): F01.50 - Vascular dementia without behavioral disturbance (3) Psychosis: Status: Acute Code(s): F29 - Unspecified psychosis not due to a substance or known physiological condition Assessment and Plan: The patient is an elderly male, , 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 Plan 1. change Risperdal to 0.5 mg at 15:00 and 2 mg p.o. q.h.s.. 2. Start trazodone 25 mg p.o. t.i.d. Assessment and Plan: Discussed with staff states patient's legs are edematous when he goes to bed but when he arises they are completely normal and by lunch time they begin to swell. They are relieved by elevation. At this time no further workup is indicated. Please call if any further issues I spent minutes with the patient and/or on the patient floor today, greater than?50% of which was spent counseling/coordinating care. Reason for contiued inpatient stay Substantial Risk for: inability to function, rapid decompensation and med/psych decompensation
[2021-08-21] MEDS: risperiDONE 0.5 MG TABLET PO (17:50)
[2021-08-21 18:00] VITALS: BP 126/69; PULSE 63; RESP 19; TEMP 36.7; O2SAT 95
[2021-08-21] MEDS: Benztropine Mesylate 0.5 MG TABLET PO (20:47)
[2021-08-21] MEDS: traZODone HCL 25 MG HALFTAB PO (20:47)
[2021-08-21] MEDS: Atorvastatin Calcium 10 MG TABLET PO (20:47)
[2021-08-21] MEDS: risperiDONE 2 MG TABLET PO (20:47)
[2021-08-21] MEDS: traZODone HCL 50 MG TABLET PO (20:47)
[2021-08-22] MEDS: Donepezil HCl 10 MG TABLET PO (09:26)
[2021-08-22] MEDS: Cyanocobalamin (Vitamin B-12) 1,000 MCG TABLET 1000 MCG PO (09:26)
[2021-08-22] MEDS: Rivastigmine Tartrate 1.5 MG CAPSULE PO ×2 (09:26→20:23)
[2021-08-22 09:27] VITALS: BP 129/100; PULSE 118
[2021-08-22] MEDS: Benztropine Mesylate 0.5 MG TABLET PO ×2 (09:27→20:23)
[2021-08-22] MEDS: Sertraline HCL 50 MG TABLET PO (09:27)
[2021-08-22] MEDS: atenoloL 50 MG TABLET PO (09:27)
[2021-08-22 10:20] VITALS: BP 129/100; PULSE 118; TEMP 35.3; O2SAT 95
[2021-08-22] MEDS: risperiDONE 0.25 MG TABLET PO (13:36)
--- NOTE | 2021-08-22 16:39 | HO.PSYCHPN ---
Subjective Subjective Date of Service: 08/22/21 Reason For Visit: Adjustment D/O w/Distrubance of conduct Subjective Notes: Conditional Voluntary Interim History: The nursing staff reported that the patient had been over-sedated. Also they notice that he has a mild tremor on his limbs. On interview, the patient was pleasantly confused unable to provide details. Medication Compliance: Yes Review of Systems Acute medical concerns: No Medical Review of Systems: unchanged Mental Status Exam Mental Status Exam Patient Appearance: Well Grooomed Patient Orientation: Person Level of Consciousness: Disoriented Patient Behavior: Passive Mood Description: Depressed Affect Description: Constricted Patient Cognition Impaired: Yes Ability to Follow Directions: Fair Speech Pattern: No Speech Hallucinations: None Delusions: Paranoid Ideation Thought Process: Illogical and Distracted Thought Content: positive for Poverty of Content Judgement: Fair Diagnostics Vital Signs (24Hr): Vital Signs - 24 hr 08/21/21 18:00 08/22/21 09:27 08/22/21 10:20 Temperature 98.1 F 95.6 F L Pulse Rate 63 118 H 118 H Respiratory Rate 19 Blood Pressure 126/69 129/100 H 129/100 H Pulse Oximetry 95 95 Body Mass Index 31.8 Labs Labs: Laboratory Results - last 48 hr 08/21/21 12:52 POC Glucose 147 H Imaging Radiology Impressions: ITS Impressions Head CT 08/15/21 09:00 IMPRESSION: There are chronic changes related to an old infarct within the vascular territory of left middle cerebral artery and scattered chronic small vessel ischemic changes within the supratentorial white matter. No evidence of acute territorial infarct or hemorrhage. Medications Medications Current Medications Acetaminophen (Acetaminophen 325 Mg Tablet) 650 mg PO Q6H PRN PRN Reason: Headache/Pain Mild Scale (1-3) Al Hydroxide/Mg Hydroxide (Magnesium Hydrox/Alum Hydrox 30 Ml Oral.Susp) 30 ml PO Q6H PRN PRN Reason: Heartburn/Nausea Atenolol (Atenolol 50 Mg Tablet) 50 mg PO DAILY [facility]; Protocol Last Admin: 08/22/21 09:27 Dose: 50 mg Documented by: Atorvastatin Calcium (Atorvastatin Calcium 10 Mg Tablet) 10 mg PO BEDTIME [facility] Last Admin: 08/21/21 20:47 Dose: 10 mg Documented by: Benztropine Mesylate (Benztropine Mesylate 0.5 Mg Tablet) 0.5 mg PO BID [facility] Last Admin: 08/22/21 09:27 Dose: 0.5 mg Documented by: Cyanocobalamin (Cyanocobalamin (Vitamin B-12) 1,000 Mcg Tablet) 1,000 mcg PO DAILY [facility] Last Admin: 08/22/21 09:26 Dose: 1,000 mcg Documented by: Donepezil HCl (Donepezil Hcl 10 Mg Tablet) 10 mg PO DAILY [facility] Last Admin: 08/22/21 09:26 Dose: 10 mg Documented by: Loperamide HCl (Loperamide Hcl 2 Mg Capsule) 4 mg PO Q4H PRN PRN Reason: Diarrhea Last Admin: 08/17/21 16:39 Dose: 4 mg Documented by: Magnesium Hydroxide (Milk Of Magnesia 30 Ml Oral.Susp) 30 ml PO DAILY PRN PRN Reason: Constipation Risperidone (Risperidone 0.25 Mg Tablet) 0.25 mg PO Q4H PRN PRN Reason: anxiety/restlessness Last Admin: 08/22/21 13:36 Dose: 0.25 mg Documented by: Risperidone (Risperidone 2 Mg Tablet) 2 mg PO BEDTIME [facility] Last Admin: 08/21/21 20:47 Dose: 2 mg Documented by: Risperidone (Risperidone 0.5 Mg Tablet) 0.5 mg PO DAILY@1700 [facility] Last Admin: 08/21/21 17:50 Dose: 0.5 mg Documented by: Rivastigmine Tartrate (Rivastigmine Tartrate 1.5 Mg Capsule) 1.5 mg PO BID [facility] Last Admin: 08/22/21 09:26 Dose: 1.5 mg Documented by: Sertraline HCl (Sertraline Hcl 50 Mg Tablet) 50 mg PO DAILY [facility] Last Admin: 08/22/21 09:27 Dose: 50 mg Documented by: Trazodone HCl (Trazodone Hcl 50 Mg Tablet) 50 mg PO BEDTIME PRN PRN Reason: Insomnia Last Admin: 08/18/21 13:47 Dose: 50 mg Documented by: Trazodone HCl (Trazodone Hcl 50 Mg Tablet) 50 mg PO BEDTIME [facility] Last Admin: 08/21/21 20:47 Dose: 50 mg Documented by: Trazodone HCl (Trazodone Hcl 25 Mg Halftab) 25 mg PO TID [facility] Last Admin: 08/22/21 16:11 Dose: Not Given Documented by: Allergies Allergies Allergy/AdvReac Type Severity Reaction Status Date / Time No Known Allergies Allergy Verified 08/14/21 11:06 Assessment & Plan Assessment & Plan (1) Dependent edema: Status: Acute Code(s): R60.9 - Edema, unspecified (2) Vascular dementia: Status: Acute Code(s): F01.50 - Vascular dementia without behavioral disturbance (3) Psychosis: Status: Acute Code(s): F29 - Unspecified psychosis not due to a substance or known physiological condition Assessment and Plan: The patient is an elderly male, , 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 Plan 1. change Risperdal to 0.5 mg at 15:00 and 2 mg p.o. q.h.s.. 2. Cause either changing trazodone 25 mg p.o. t.i.d. Assessment and Plan: Discussed with staff states patient's legs are edematous when he goes to bed but when he arises they are completely normal and by lunch time they begin to swell. They are relieved by elevation. At this time no further workup is indicated. Please call if any further issues I spent minutes with the patient and/or on the patient floor today, greater than?50% of which was spent counseling/coordinating care. Reason for contiued inpatient stay Substantial Risk for: harm to others, rapid decompensation and med/psych decompensation
[2021-08-22] MEDS: risperiDONE 0.5 MG TABLET PO (17:55)
[2021-08-22] MEDS: risperiDONE 2 MG TABLET PO (20:23)
[2021-08-22] MEDS: traZODone HCL 25 MG HALFTAB PO (20:23)
[2021-08-22] MEDS: Atorvastatin Calcium 10 MG TABLET PO (20:23)
[2021-08-22] MEDS: traZODone HCL 50 MG TABLET PO (20:26)
[2021-08-22 21:13] VITALS: BP 122/75; PULSE 78; RESP 19; TEMP 36.6; O2SAT 96
[2021-08-22 21:17] VITALS: BMI 31.7
--- NOTE | 2021-08-23 14:17 | P.PNPSI_ITS ---
Subjective Subjective Date of Service: 08/23/21 Reason For Visit: Adjustment D/O w/Distrubance of conduct Subjective Notes: Conditional Voluntary Interim History: The nursing staff reported the patient was pleasantly confused yesterday but on the evening she was combative with the staff from personal care. He was on one-to-one for safety. The staff also reported over-sedation with risperidone and trazodone he has EPS. We had a very low dose of Cogentin to address to EPS but eventually we will stop it Nikita's anticholinergics can worsen his cognition. On interview, the patient was pleasantly confused, he was coloring a picture and he was easily redirectable. Nonverbal at this moment Medication Compliance: Yes Side effects from medications: No Attending Groups: Intermittent Review of Systems Acute medical concerns: No Medical Review of Systems: unchanged Mental Status Exam Mental Status Exam Patient Appearance: Well Grooomed Patient Orientation: Person Level of Consciousness: Awake Patient Behavior: Guarded, Distractible and Impulsive Mood Description: Constricted Affect Description: Constricted Patient Cognition Impaired: Yes Ability to Follow Directions: Fair Speech Pattern: No Speech Hallucinations: None Delusions: Not Present Thought Process: Illogical, Distracted and Confusion Thought Content: positive for Thought Blocking and positive for Incoherent Judgement: Fair Diagnostics Vital Signs (24Hr): Vital Signs - 24 hr 08/22/21 21:13 Temperature 97.8 F Pulse Rate 78 Respiratory Rate 19 Blood Pressure 122/75 Pulse Oximetry 96 Body Mass Index 31.7 Imaging Radiology Impressions: ITS Impressions Head CT 08/15/21 09:00 IMPRESSION: There are chronic changes related to an old infarct within the vascular territory of left middle cerebral artery and scattered chronic small vessel ischemic changes within the supratentorial white matter. No evidence of acute territorial infarct or hemorrhage. Medications Medications Current Medications Acetaminophen (Acetaminophen 325 Mg Tablet) 650 mg PO Q6H PRN PRN Reason: Headache/Pain Mild Scale (1-3) Al Hydroxide/Mg Hydroxide (Magnesium Hydrox/Alum Hydrox 30 Ml Oral.Susp) 30 ml PO Q6H PRN PRN Reason: Heartburn/Nausea Atenolol (Atenolol 50 Mg Tablet) 50 mg PO DAILY [facility]; Protocol Last Admin: 08/22/21 09:27 Dose: 50 mg Documented by: Atorvastatin Calcium (Atorvastatin Calcium 10 Mg Tablet) 10 mg PO BEDTIME [facility] Last Admin: 08/22/21 20:23 Dose: 10 mg Documented by: Benztropine Mesylate (Benztropine Mesylate 0.5 Mg Tablet) 0.5 mg PO BID [facility] Last Admin: 08/22/21 20:23 Dose: 0.5 mg Documented by: Cyanocobalamin (Cyanocobalamin (Vitamin B-12) 1,000 Mcg Tablet) 1,000 mcg PO DAILY [facility] Last Admin: 08/22/21 09:26 Dose: 1,000 mcg Documented by: Donepezil HCl (Donepezil Hcl 10 Mg Tablet) 10 mg PO DAILY [facility] Last Admin: 08/22/21 09:26 Dose: 10 mg Documented by: Loperamide HCl (Loperamide Hcl 2 Mg Capsule) 4 mg PO Q4H PRN PRN Reason: Diarrhea Last Admin: 08/17/21 16:39 Dose: 4 mg Documented by: Magnesium Hydroxide (Milk Of Magnesia 30 Ml Oral.Susp) 30 ml PO DAILY PRN PRN Reason: Constipation Risperidone (Risperidone 0.25 Mg Tablet) 0.25 mg PO Q4H PRN PRN Reason: anxiety/restlessness Last Admin: 08/22/21 13:36 Dose: 0.25 mg Documented by: Risperidone (Risperidone 2 Mg Tablet) 2 mg PO BEDTIME [facility] Last Admin: 08/22/21 20:23 Dose: 2 mg Documented by: Risperidone (Risperidone 0.5 Mg Tablet) 0.5 mg PO DAILY@1700 [facility] Last Admin: 08/22/21 17:55 Dose: 0.5 mg Documented by: Rivastigmine Tartrate (Rivastigmine Tartrate 1.5 Mg Capsule) 1.5 mg PO BID [facility] Last Admin: 08/22/21 20:23 Dose: 1.5 mg Documented by: Sertraline HCl (Sertraline Hcl 50 Mg Tablet) 50 mg PO DAILY [facility] Last Admin: 08/22/21 09:27 Dose: 50 mg Documented by: Trazodone HCl (Trazodone Hcl 50 Mg Tablet) 50 mg PO BEDTIME PRN PRN Reason: Insomnia Last Admin: 08/18/21 13:47 Dose: 50 mg Documented by: Trazodone HCl (Trazodone Hcl 50 Mg Tablet) 50 mg PO BEDTIME [facility] Last Admin: 08/22/21 20:26 Dose: 50 mg Documented by: Trazodone HCl (Trazodone Hcl 25 Mg Halftab) 25 mg PO TID [facility] Last Admin: 08/22/21 20:23 Dose: 25 mg Documented by: Allergies Allergies Allergy/AdvReac Type Severity Reaction Status Date / Time No Known Allergies Allergy Verified 08/14/21 11:06 Assessment & Plan Assessment & Plan (1) Dependent edema: Status: Acute Code(s): R60.9 - Edema, unspecified (2) Vascular dementia: Status: Acute Code(s): F01.50 - Vascular dementia without behavioral disturbance (3) Psychosis: Status: Acute Code(s): F29 - Unspecified psychosis not due to a substance or known physiological condition Assessment and Plan: The patient is an elderly male, , 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 Plan 1. change Risperdal to 0.5 mg at 15:00 and 2 mg p.o. q.h.s.. 2. Lower trazodone up to 12.5 mg p.o. t.i.d. Assessment and Plan: Discussed with staff states patient's legs are edematous when he goes to bed but when he arises they are completely normal and by lunch time they begin to swell. They are relieved by elevation. At this time no further workup is indicated. Please call if any further issues I spent minutes with the patient and/or on the patient floor today, greater than?50% of which was spent counseling/coordinating care. Reason for contiued inpatient stay Substantial Risk for: inability to function, rapid decompensation and med/psych decompensation
[2021-08-23] MEDS: traZODone HCL 25 MG HALFTAB 12.5 MG PO ×2 (15:00→20:12)
[2021-08-23] MEDS: risperiDONE 0.5 MG TABLET PO (17:19)
[2021-08-23 18:00] VITALS: BP 119/56; PULSE 79; RESP 18; TEMP 37.2; O2SAT 97
[2021-08-23] MEDS: risperiDONE 2 MG TABLET PO (20:10)
[2021-08-23] MEDS: Rivastigmine Tartrate 1.5 MG CAPSULE PO (20:11)
[2021-08-23] MEDS: Atorvastatin Calcium 10 MG TABLET PO (20:11)
[2021-08-23] MEDS: traZODone HCL 50 MG TABLET PO (20:11)
[2021-08-23] MEDS: Benztropine Mesylate 0.5 MG TABLET PO (20:12)
[2021-08-24 09:02] VITALS: BP 142/82; PULSE 62; TEMP 35.5; O2SAT 95
[2021-08-24 10:31] VITALS: BP 142/80; PULSE 62
[2021-08-24] MEDS: Rivastigmine Tartrate 1.5 MG CAPSULE PO ×2 (10:31→19:21)
[2021-08-24] MEDS: atenoloL 50 MG TABLET PO (10:31)
[2021-08-24] MEDS: Donepezil HCl 10 MG TABLET PO (10:31)
[2021-08-24] MEDS: Cyanocobalamin (Vitamin B-12) 1,000 MCG TABLET 1000 MCG PO (10:31)
[2021-08-24] MEDS: traZODone HCL 25 MG HALFTAB 12.5 MG PO ×3 (10:32→19:21)
[2021-08-24] MEDS: Benztropine Mesylate 0.5 MG TABLET PO ×2 (10:33→19:20)
[2021-08-24] MEDS: Sertraline HCL 50 MG TABLET PO (10:33)
[2021-08-24] MEDS: risperiDONE 0.5 MG TABLET PO (17:24)
--- NOTE | 2021-08-24 17:31 | P.PNPSI_ITS ---
Subjective Subjective Date of Service: 08/24/21 Reason For Visit: Adjustment D/O w/Distrubance of conduct Interim History: pt seen lying in his bed. non-verbal, did not acknowledge or respond to MD's questions in any way. spastic spontaneous movements. per 1:1 staff, this presentation is patient's baseline. per staff, confused pt with advanced dementia. generally incontinent, requiring lots of nursing care. on 1:1 for wandering into peers' rooms and hugging others. Mental Status Exam Mental Status Exam Patient Appearance: Disheveled Level of Consciousness: Awake Patient Behavior: Impulsive Affect Description: Constricted Patient Cognition Impaired: Yes Speech Pattern: No Speech Judgement: Fair Diagnostics Vital Signs (24Hr): Vital Signs - 24 hr 08/23/21 18:00 08/24/21 09:02 08/24/21 10:31 Temperature 98.9 F 96 F L Pulse Rate 79 62 62 Respiratory Rate 18 Blood Pressure 119/56 L 142/82 H 142/80 H Pulse Oximetry 97 95 Body Mass Index 31.7 Imaging Radiology Impressions: ITS Impressions Head CT 08/15/21 09:00 IMPRESSION: There are chronic changes related to an old infarct within the vascular territory of left middle cerebral artery and scattered chronic small vessel ischemic changes within the supratentorial white matter. No evidence of acute territorial infarct or hemorrhage. Medications Medications Current Medications Acetaminophen (Acetaminophen 325 Mg Tablet) 650 mg PO Q6H PRN PRN Reason: Headache/Pain Mild Scale (1-3) Al Hydroxide/Mg Hydroxide (Magnesium Hydrox/Alum Hydrox 30 Ml Oral.Susp) 30 ml PO Q6H PRN PRN Reason: Heartburn/Nausea Atenolol (Atenolol 50 Mg Tablet) 50 mg PO DAILY [facility]; Protocol Last Admin: 08/24/21 10:31 Dose: 50 mg Documented by: Atorvastatin Calcium (Atorvastatin Calcium 10 Mg Tablet) 10 mg PO BEDTIME [facility] Last Admin: 08/23/21 20:11 Dose: 10 mg Documented by: Benztropine Mesylate (Benztropine Mesylate 0.5 Mg Tablet) 0.5 mg PO BID [facility] Last Admin: 08/24/21 10:33 Dose: 0.5 mg Documented by: Cyanocobalamin (Cyanocobalamin (Vitamin B-12) 1,000 Mcg Tablet) 1,000 mcg PO DAILY [facility] Last Admin: 08/24/21 10:31 Dose: 1,000 mcg Documented by: Donepezil HCl (Donepezil Hcl 10 Mg Tablet) 10 mg PO DAILY [facility] Last Admin: 08/24/21 10:31 Dose: 10 mg Documented by: Loperamide HCl (Loperamide Hcl 2 Mg Capsule) 4 mg PO Q4H PRN PRN Reason: Diarrhea Last Admin: 08/17/21 16:39 Dose: 4 mg Documented by: Magnesium Hydroxide (Milk Of Magnesia 30 Ml Oral.Susp) 30 ml PO DAILY PRN PRN Reason: Constipation Risperidone (Risperidone 0.25 Mg Tablet) 0.25 mg PO Q4H PRN PRN Reason: anxiety/restlessness Last Admin: 08/22/21 13:36 Dose: 0.25 mg Documented by: Risperidone (Risperidone 2 Mg Tablet) 2 mg PO BEDTIME [facility] Last Admin: 08/23/21 20:10 Dose: 2 mg Documented by: Risperidone (Risperidone 0.5 Mg Tablet) 0.5 mg PO DAILY@1700 [facility] Last Admin: 08/24/21 17:24 Dose: 0.5 mg Documented by: Rivastigmine Tartrate (Rivastigmine Tartrate 1.5 Mg Capsule) 1.5 mg PO BID [facility] Last Admin: 08/24/21 10:31 Dose: 1.5 mg Documented by: Sertraline HCl (Sertraline Hcl 50 Mg Tablet) 50 mg PO DAILY [facility] Last Admin: 08/24/21 10:33 Dose: 50 mg Documented by: Trazodone HCl (Trazodone Hcl 50 Mg Tablet) 50 mg PO BEDTIME PRN PRN Reason: Insomnia Last Admin: 08/18/21 13:47 Dose: 50 mg Documented by: Trazodone HCl (Trazodone Hcl 50 Mg Tablet) 50 mg PO BEDTIME [facility] Last Admin: 08/23/21 20:11 Dose: 50 mg Documented by: Trazodone HCl (Trazodone Hcl 25 Mg Halftab) 12.5 mg PO TID [facility] Last Admin: 08/24/21 15:53 Dose: 12.5 mg Documented by: Allergies Allergies Allergy/AdvReac Type Severity Reaction Status Date / Time No Known Allergies Allergy Verified 08/14/21 11:06 Assessment & Plan Assessment & Plan (1) Dependent edema: Status: Acute Code(s): R60.9 - Edema, unspecified (2) Vascular dementia: Status: Acute Code(s): F01.50 - Vascular dementia without behavioral disturbance (3) Psychosis: Status: Acute Code(s): F29 - Unspecified psychosis not due to a substance or known physiological condition Assessment and Plan: The patient is an elderly male, , 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 Plan 1. change Risperdal to 0.5 mg at 15:00 and 2 mg p.o. q.h.s.. 2. Lower trazodone up to 12.5 mg p.o. t.i.d. Assessment and Plan: Discussed with staff states patient's legs are edematous when he goes to bed but when he arises they are completely normal and by lunch time they begin to swell. They are relieved by elevation. At this time no further workup is indicated. Please call if any further issues I spent minutes with the patient and/or on the patient floor today, greater than?50% of which was spent counseling/coordinating care. Reason for contiued inpatient stay Substantial Risk for: inability to function
[2021-08-24] MEDS: risperiDONE 2 MG TABLET PO (19:21)
[2021-08-24] MEDS: Atorvastatin Calcium 10 MG TABLET PO (19:22)
[2021-08-24] MEDS: traZODone HCL 50 MG TABLET PO (19:22)
[2021-08-24 19:49] VITALS: BP 128/56; PULSE 70; RESP 18; TEMP 36.9; O2SAT 95
[2021-08-25] MEDS: Cyanocobalamin (Vitamin B-12) 1,000 MCG TABLET 1000 MCG PO (09:46)
[2021-08-25] MEDS: Rivastigmine Tartrate 1.5 MG CAPSULE PO ×2 (09:46→20:05)
[2021-08-25] MEDS: traZODone HCL 25 MG HALFTAB 12.5 MG PO ×3 (09:48→20:05)
[2021-08-25] MEDS: Donepezil HCl 10 MG TABLET PO (09:48)
[2021-08-25] MEDS: Sertraline HCL 50 MG TABLET PO (09:48)
[2021-08-25] MEDS: Benztropine Mesylate 0.5 MG TABLET PO ×2 (09:49→20:05)
[2021-08-25 10:07] VITALS: BP 89/53; PULSE 72
[2021-08-25 10:21] VITALS: BP 89/53; PULSE 72; TEMP 35.4; O2SAT 94
--- NOTE | 2021-08-25 15:08 | P.PNPSI_ITS ---
Subjective Subjective Date of Service: 08/25/21 Reason For Visit: Adjustment D/O w/Distrubance of conduct Interim History: pt seen seated at table in the milieu, sitter present. distractable, intermittent eye contact. is able to articulate one word, no, on being asked if there is anything MD can do for him today. otherwise does not respond and appears spastic/choreaic. per staff, essentially non-verbal, on 1:1. poor PO intake. med-compliant, combative with nursing care. Mental Status Exam Mental Status Exam Patient Appearance: Disheveled Level of Consciousness: Awake Patient Behavior: Impulsive Affect Description: Constricted Patient Cognition Impaired: Yes Speech Pattern: Impoverished Judgement: Fair Diagnostics Vital Signs (24Hr): Vital Signs - 24 hr 08/24/21 19:49 08/25/21 10:07 08/25/21 10:21 Temperature 98.5 F 95.8 F L Pulse Rate 70 72 72 Respiratory Rate 18 Blood Pressure 128/56 L 89/53 L 89/53 L Pulse Oximetry 95 94 Body Mass Index 31.7 Imaging Radiology Impressions: ITS Impressions Head CT 08/15/21 09:00 IMPRESSION: There are chronic changes related to an old infarct within the vascular territory of left middle cerebral artery and scattered chronic small vessel ischemic changes within the supratentorial white matter. No evidence of acute territorial infarct or hemorrhage. Medications Medications Current Medications Acetaminophen (Acetaminophen 325 Mg Tablet) 650 mg PO Q6H PRN PRN Reason: Headache/Pain Mild Scale (1-3) Al Hydroxide/Mg Hydroxide (Magnesium Hydrox/Alum Hydrox 30 Ml Oral.Susp) 30 ml PO Q6H PRN PRN Reason: Heartburn/Nausea Atenolol (Atenolol 50 Mg Tablet) 50 mg PO DAILY [facility]; Protocol Last Admin: 08/25/21 10:07 Dose: Not Given Documented by: Atorvastatin Calcium (Atorvastatin Calcium 10 Mg Tablet) 10 mg PO BEDTIME [facility] Last Admin: 08/24/21 19:22 Dose: 10 mg Documented by: Benztropine Mesylate (Benztropine Mesylate 0.5 Mg Tablet) 0.5 mg PO BID [facility] Last Admin: 08/25/21 09:49 Dose: 0.5 mg Documented by: Cyanocobalamin (Cyanocobalamin (Vitamin B-12) 1,000 Mcg Tablet) 1,000 mcg PO DAILY [facility] Last Admin: 08/25/21 09:46 Dose: 1,000 mcg Documented by: Donepezil HCl (Donepezil Hcl 10 Mg Tablet) 10 mg PO DAILY [facility] Last Admin: 08/25/21 09:48 Dose: 10 mg Documented by: Loperamide HCl (Loperamide Hcl 2 Mg Capsule) 4 mg PO Q4H PRN PRN Reason: Diarrhea Last Admin: 08/17/21 16:39 Dose: 4 mg Documented by: Magnesium Hydroxide (Milk Of Magnesia 30 Ml Oral.Susp) 30 ml PO DAILY PRN PRN Reason: Constipation Risperidone (Risperidone 0.25 Mg Tablet) 0.25 mg PO Q4H PRN PRN Reason: anxiety/restlessness Last Admin: 08/22/21 13:36 Dose: 0.25 mg Documented by: Risperidone (Risperidone 2 Mg Tablet) 2 mg PO BEDTIME [facility] Last Admin: 08/24/21 19:21 Dose: 2 mg Documented by: Risperidone (Risperidone 0.5 Mg Tablet) 0.5 mg PO DAILY@1700 [facility] Last Admin: 08/24/21 17:24 Dose: 0.5 mg Documented by: Rivastigmine Tartrate (Rivastigmine Tartrate 1.5 Mg Capsule) 1.5 mg PO BID [facility] Last Admin: 08/25/21 09:46 Dose: 1.5 mg Documented by: Sertraline HCl (Sertraline Hcl 50 Mg Tablet) 50 mg PO DAILY [facility] Last Admin: 08/25/21 09:48 Dose: 50 mg Documented by: Trazodone HCl (Trazodone Hcl 50 Mg Tablet) 50 mg PO BEDTIME PRN PRN Reason: Insomnia Last Admin: 08/18/21 13:47 Dose: 50 mg Documented by: Trazodone HCl (Trazodone Hcl 50 Mg Tablet) 50 mg PO BEDTIME [facility] Last Admin: 08/24/21 19:22 Dose: 50 mg Documented by: Trazodone HCl (Trazodone Hcl 25 Mg Halftab) 12.5 mg PO TID [facility] Last Admin: 08/25/21 09:48 Dose: 12.5 mg Documented by: Allergies Allergies Allergy/AdvReac Type Severity Reaction Status Date / Time No Known Allergies Allergy Verified 08/14/21 11:06 Assessment & Plan Assessment & Plan (1) Dependent edema: Status: Acute Code(s): R60.9 - Edema, unspecified (2) Vascular dementia: Status: Acute Code(s): F01.50 - Vascular dementia without behavioral disturbance (3) Psychosis: Status: Acute Code(s): F29 - Unspecified psychosis not due to a substance or known physiological condition Assessment and Plan: The patient is an elderly male, , 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 Plan 1. change Risperdal to 0.5 mg at 15:00 and 2 mg p.o. q.h.s.. 2. Lower trazodone up to 12.5 mg p.o. t.i.d. Assessment and Plan: Discussed with staff states patient's legs are edematous when he goes to bed but when he arises they are completely normal and by lunch time they begin to swell. They are relieved by elevation. At this time no further workup is indicated. Please call if any further issues I spent minutes with the patient and/or on the patient floor today, greater than?50% of which was spent counseling/coordinating care. Reason for contiued inpatient stay Substantial Risk for: inability to function
[2021-08-25] MEDS: risperiDONE 0.5 MG TABLET PO (17:02)
[2021-08-25 18:00] VITALS: RESP 20; TEMP 36.6
[2021-08-25] MEDS: traZODone HCL 50 MG TABLET PO (20:04)
[2021-08-25] MEDS: risperiDONE 2 MG TABLET PO (20:04)
[2021-08-25] MEDS: Atorvastatin Calcium 10 MG TABLET PO (20:05)
[2021-08-26 08:51] VITALS: BP 110/70; PULSE 68
[2021-08-26] MEDS: atenoloL 50 MG TABLET PO (08:51)
[2021-08-26] MEDS: Rivastigmine Tartrate 1.5 MG CAPSULE PO ×2 (08:51→20:01)
[2021-08-26] MEDS: Sertraline HCL 50 MG TABLET PO (08:51)
[2021-08-26] MEDS: Cyanocobalamin (Vitamin B-12) 1,000 MCG TABLET 1000 MCG PO (08:51)
[2021-08-26] MEDS: Donepezil HCl 10 MG TABLET PO (08:51)
[2021-08-26] MEDS: traZODone HCL 25 MG HALFTAB 12.5 MG PO ×3 (08:52→20:02)
[2021-08-26] MEDS: Benztropine Mesylate 0.5 MG TABLET PO (08:52)
[2021-08-26 09:43] VITALS: BP 110/70; PULSE 68; TEMP 35.5; O2SAT 96
--- NOTE | 2021-08-26 16:41 | HO.PSYCHPN ---
Subjective Subjective Date of Service: 08/26/21 Reason For Visit: Adjustment D/O w/Distrubance of conduct Subjective Notes: Conditional Voluntary Interim History: The nursing staff reported the patient is one-to-one while awake since he is very unpredictable and needs assistance for ADL less. His affect is flat. On interview, the patient was unable to answer but it was clear that he has EPS. We will discontinue Cogentin since it can worsen his confusion I will lower Risperdal to 1.5 at night and start Depakote 125 t.i.d. to target impulsivity Mental Status Exam Mental Status Exam Patient Appearance: Well Grooomed and Unkempt Patient Orientation: Person and Situation Level of Consciousness: Awake and Disoriented Patient Behavior: Passive Mood Description: Constricted Affect Description: Constricted Patient Cognition Impaired: Yes Speech Pattern: Impoverished Hallucinations: None Delusions: Not Present Thought Process: Illogical Thought Content: positive for Thought Blocking Judgement: Poor Diagnostics Vital Signs (24Hr): Vital Signs - 24 hr 08/25/21 18:00 08/26/21 08:51 08/26/21 09:43 Temperature 97.9 F 96 F L Pulse Rate 68 68 Respiratory Rate 20 Blood Pressure 110/70 110/70 Pulse Oximetry 96 Body Mass Index 31.7 Imaging Radiology Impressions: ITS Impressions Head CT 08/15/21 09:00 IMPRESSION: There are chronic changes related to an old infarct within the vascular territory of left middle cerebral artery and scattered chronic small vessel ischemic changes within the supratentorial white matter. No evidence of acute territorial infarct or hemorrhage. Medications Medications Current Medications Acetaminophen (Acetaminophen 325 Mg Tablet) 650 mg PO Q6H PRN PRN Reason: Headache/Pain Mild Scale (1-3) Al Hydroxide/Mg Hydroxide (Magnesium Hydrox/Alum Hydrox 30 Ml Oral.Susp) 30 ml PO Q6H PRN PRN Reason: Heartburn/Nausea Atenolol (Atenolol 50 Mg Tablet) 50 mg PO DAILY [facility]; Protocol Last Admin: 08/26/21 08:51 Dose: 50 mg Documented by: Atorvastatin Calcium (Atorvastatin Calcium 10 Mg Tablet) 10 mg PO BEDTIME [facility] Last Admin: 08/25/21 20:05 Dose: 10 mg Documented by: Benztropine Mesylate (Benztropine Mesylate 0.5 Mg Tablet) 0.5 mg PO BID [facility] Last Admin: 08/26/21 08:52 Dose: 0.5 mg Documented by: Cyanocobalamin (Cyanocobalamin (Vitamin B-12) 1,000 Mcg Tablet) 1,000 mcg PO DAILY [facility] Last Admin: 08/26/21 08:51 Dose: 1,000 mcg Documented by: Donepezil HCl (Donepezil Hcl 10 Mg Tablet) 10 mg PO DAILY [facility] Last Admin: 08/26/21 08:51 Dose: 10 mg Documented by: Loperamide HCl (Loperamide Hcl 2 Mg Capsule) 4 mg PO Q4H PRN PRN Reason: Diarrhea Last Admin: 08/17/21 16:39 Dose: 4 mg Documented by: Magnesium Hydroxide (Milk Of Magnesia 30 Ml Oral.Susp) 30 ml PO DAILY PRN PRN Reason: Constipation Risperidone (Risperidone 0.25 Mg Tablet) 0.25 mg PO Q4H PRN PRN Reason: anxiety/restlessness Last Admin: 08/22/21 13:36 Dose: 0.25 mg Documented by: Risperidone (Risperidone 2 Mg Tablet) 2 mg PO BEDTIME [facility] Last Admin: 08/25/21 20:04 Dose: 2 mg Documented by: Risperidone (Risperidone 0.5 Mg Tablet) 0.5 mg PO DAILY@1700 [facility] Last Admin: 08/25/21 17:02 Dose: 0.5 mg Documented by: Rivastigmine Tartrate (Rivastigmine Tartrate 1.5 Mg Capsule) 1.5 mg PO BID [facility] Last Admin: 08/26/21 08:51 Dose: 1.5 mg Documented by: Sertraline HCl (Sertraline Hcl 50 Mg Tablet) 50 mg PO DAILY [facility] Last Admin: 08/26/21 08:51 Dose: 50 mg Documented by: Trazodone HCl (Trazodone Hcl 50 Mg Tablet) 50 mg PO BEDTIME PRN PRN Reason: Insomnia Last Admin: 08/18/21 13:47 Dose: 50 mg Documented by: Trazodone HCl (Trazodone Hcl 50 Mg Tablet) 50 mg PO BEDTIME [facility] Last Admin: 08/25/21 20:04 Dose: 50 mg Documented by: Trazodone HCl (Trazodone Hcl 25 Mg Halftab) 12.5 mg PO TID [facility] Last Admin: 08/26/21 15:36 Dose: 12.5 mg Documented by: Allergies Allergies Allergy/AdvReac Type Severity Reaction Status Date / Time No Known Allergies Allergy Verified 08/14/21 11:06 Assessment & Plan Assessment & Plan (1) Dependent edema: Status: Acute Code(s): R60.9 - Edema, unspecified (2) Vascular dementia: Status: Acute Code(s): F01.50 - Vascular dementia without behavioral disturbance (3) Psychosis: Status: Acute Code(s): F29 - Unspecified psychosis not due to a substance or known physiological condition Assessment and Plan: The patient is an elderly male, , 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 Plan 1. change Risperdal to 0.5 mg at 15:00 and 1.5 mg p.o. q.h.s.. 2. Lower trazodone up to 12.5 mg p.o. t.i.d. 3. Discontinue Cogentin. 4. Start Depakote 125 p.o. t.i.d. Assessment and Plan: Discussed with staff states patient's legs are edematous when he goes to bed but when he arises they are completely normal and by lunch time they begin to swell. They are relieved by elevation. At this time no further workup is indicated. Please call if any further issues I spent minutes with the patient and/or on the patient floor today, greater than?50% of which was spent counseling/coordinating care. Reason for contiued inpatient stay Substantial Risk for: inability to function, rapid decompensation and med/psych decompensation
[2021-08-26] MEDS: risperiDONE 0.5 MG TABLET PO (17:06)
[2021-08-26] MEDS: Divalproex Sodium 250 MG TABLET.DR 125 MG PO (20:00)
[2021-08-26] MEDS: Atorvastatin Calcium 10 MG TABLET PO (20:00)
[2021-08-26] MEDS: risperiDONE 0.5 MG TABLET 1.5 MG PO (20:01)
[2021-08-26] MEDS: traZODone HCL 50 MG TABLET PO (20:08)
[2021-08-27 06:00] VITALS: BP 129/73; PULSE 60; RESP 16; TEMP 36.7; O2SAT 95
--- NOTE | 2021-08-27 14:37 | P.PNPSI_ITS ---
Subjective Subjective Date of Service: 08/27/21 Reason For Visit: Adjustment D/O w/Distrubance of conduct Subjective Notes: Conditional Voluntary Interim History: The nursing staff reports that he is on one-to-one while awake due to agitation and disorganized behavior. The staff has noticed that the tremor has lowered with the lowering of Risperdal. On interview, today in the morning, he was sleeping, he could not take breakfast and on physical exam there was still EPS. Mental Status Exam Mental Status Exam Patient Appearance: Disheveled Patient Orientation: Person Level of Consciousness: Drowsy and Sedated Patient Behavior: Asleep and Restless Mood Description: Constricted Affect Description: Constricted Patient Cognition Impaired: Yes Ability to Follow Directions: Poor Speech Pattern: No Speech Hallucinations: None Delusions: Not Present Thought Process: Disoriented Thought Content: positive for Loose Associations Judgement: Poor Diagnostics Vital Signs (24Hr): Body Mass Index 31.7 Imaging Radiology Impressions: ITS Impressions Head CT 08/15/21 09:00 IMPRESSION: There are chronic changes related to an old infarct within the vascular territory of left middle cerebral artery and scattered chronic small vessel ischemic changes within the supratentorial white matter. No evidence of acute territorial infarct or hemorrhage. Medications Medications Current Medications Acetaminophen (Acetaminophen 325 Mg Tablet) 650 mg PO Q6H PRN PRN Reason: Headache/Pain Mild Scale (1-3) Al Hydroxide/Mg Hydroxide (Magnesium Hydrox/Alum Hydrox 30 Ml Oral.Susp) 30 ml PO Q6H PRN PRN Reason: Heartburn/Nausea Atenolol (Atenolol 50 Mg Tablet) 50 mg PO DAILY [facility]; Protocol Last Admin: 08/27/21 10:24 Dose: Not Given Documented by: Atorvastatin Calcium (Atorvastatin Calcium 10 Mg Tablet) 10 mg PO BEDTIME [facility] Last Admin: 08/26/21 20:00 Dose: 10 mg Documented by: Cyanocobalamin (Cyanocobalamin (Vitamin B-12) 1,000 Mcg Tablet) 1,000 mcg PO DAILY [facility] Last Admin: 08/27/21 10:24 Dose: Not Given Documented by: Divalproex Sodium (Divalproex Sodium 250 Mg Tablet.) 125 mg PO TID [facility] Last Admin: 08/27/21 10:25 Dose: Not Given Documented by: Donepezil HCl (Donepezil Hcl 10 Mg Tablet) 10 mg PO DAILY [facility] Last Admin: 08/27/21 10:25 Dose: Not Given Documented by: Loperamide HCl (Loperamide Hcl 2 Mg Capsule) 4 mg PO Q4H PRN PRN Reason: Diarrhea Last Admin: 08/17/21 16:39 Dose: 4 mg Documented by: Magnesium Hydroxide (Milk Of Magnesia 30 Ml Oral.Susp) 30 ml PO DAILY PRN PRN Reason: Constipation Risperidone (Risperidone 0.25 Mg Tablet) 0.25 mg PO Q4H PRN PRN Reason: anxiety/restlessness Last Admin: 08/22/21 13:36 Dose: 0.25 mg Documented by: Risperidone (Risperidone 0.5 Mg Tablet) 0.5 mg PO DAILY@1700 [facility] Last Admin: 08/26/21 17:06 Dose: 0.5 mg Documented by: Risperidone (Risperidone 0.5 Mg Tablet) 1.5 mg PO BEDTIME [facility] Last Admin: 08/26/21 20:01 Dose: 1.5 mg Documented by: Rivastigmine Tartrate (Rivastigmine Tartrate 1.5 Mg Capsule) 1.5 mg PO BID [facility] Last Admin: 08/27/21 10:25 Dose: Not Given Documented by: Sertraline HCl (Sertraline Hcl 50 Mg Tablet) 50 mg PO DAILY [facility] Last Admin: 08/27/21 10:25 Dose: Not Given Documented by: Trazodone HCl (Trazodone Hcl 50 Mg Tablet) 50 mg PO BEDTIME PRN PRN Reason: Insomnia Last Admin: 08/18/21 13:47 Dose: 50 mg Documented by: Trazodone HCl (Trazodone Hcl 50 Mg Tablet) 50 mg PO BEDTIME [facility] Last Admin: 08/26/21 20:08 Dose: 50 mg Documented by: Trazodone HCl (Trazodone Hcl 25 Mg Halftab) 12.5 mg PO TID [facility] Last Admin: 08/27/21 10:26 Dose: Not Given Documented by: Allergies Allergies Allergy/AdvReac Type Severity Reaction Status Date / Time No Known Allergies Allergy Verified 08/14/21 11:06 Assessment & Plan Assessment & Plan (1) Dependent edema: Status: Acute Code(s): R60.9 - Edema, unspecified (2) Vascular dementia: Status: Acute Code(s): F01.50 - Vascular dementia without behavioral disturbance (3) Psychosis: Status: Acute Code(s): F29 - Unspecified psychosis not due to a substance or known physiological condition Assessment and Plan: The patient is an elderly male, , 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 Plan 1. change Risperdal to 0.5 mg at 15:00 and 1.0 mg p.o. q.h.s.. 2. Lower trazodone up to 12.5 mg p.o. t.i.d. 3. Discontinue Cogentin. 4. Start Depakote 125 p.o. t.i.d. Assessment and Plan: Discussed with staff states patient's legs are edematous when he goes to bed but when he arises they are completely normal and by lunch time they begin to swell. They are relieved by elevation. At this time no further workup is indicated. Please call if any further issues I spent minutes with the patient and/or on the patient floor today, greater than?50% of which was spent counseling/coordinating care. Reason for contiued inpatient stay Substantial Risk for: inability to function, rapid decompensation and med/psych decompensation
[2021-08-27] MEDS: Divalproex Sodium 250 MG TABLET.DR 125 MG PO ×2 (14:47→20:20)
[2021-08-27] MEDS: traZODone HCL 25 MG HALFTAB 12.5 MG PO ×2 (15:00→20:22)
[2021-08-27] MEDS: risperiDONE 0.5 MG TABLET PO (16:50)
[2021-08-27 18:00] VITALS: BP 145/67; PULSE 67; RESP 18; TEMP 37.1; O2SAT 95
[2021-08-27] MEDS: Atorvastatin Calcium 10 MG TABLET PO (20:20)
[2021-08-27] MEDS: Rivastigmine Tartrate 1.5 MG CAPSULE PO (20:21)
[2021-08-27] MEDS: risperiDONE 1 MG TABLET PO (20:21)
[2021-08-27] MEDS: traZODone HCL 50 MG TABLET PO (20:22)
[2021-08-28 06:00] VITALS: BP 121/82; PULSE 70; TEMP 35.5; O2SAT 96
[2021-08-28] MEDS: Sertraline HCL 50 MG TABLET PO (10:09)
[2021-08-28] MEDS: Cyanocobalamin (Vitamin B-12) 1,000 MCG TABLET 1000 MCG PO (10:10)
[2021-08-28] MEDS: traZODone HCL 25 MG HALFTAB 12.5 MG PO ×3 (10:10→19:51)
[2021-08-28] MEDS: Divalproex Sodium 250 MG TABLET.DR 125 MG PO ×3 (10:10→19:52)
[2021-08-28] MEDS: Donepezil HCl 10 MG TABLET PO (10:10)
[2021-08-28 10:11] VITALS: BP 121/82; PULSE 70
[2021-08-28] MEDS: Rivastigmine Tartrate 1.5 MG CAPSULE PO ×2 (10:11→19:54)
[2021-08-28] MEDS: atenoloL 50 MG TABLET PO (10:11)
--- NOTE | 2021-08-28 12:56 | P.PNPSI_ITS ---
Subjective Subjective Date of Service: 08/28/21 Reason For Visit: Adjustment D/O w/Distrubance of conduct Subjective Notes: Conditional Voluntary Interim History: The patient remains on one-to-one since he is very disorganized and demented. He has full care, he needs assistance for feeding and other ADL is. The patient usually gets agitated with care. On interview, the patient was confused but pleasant Mental Status Exam Mental Status Exam Patient Appearance: Well Grooomed Patient Orientation: Person Level of Consciousness: Restless and Alert Patient Behavior: Suspicious and Timid Mood Description: Labile Affect Description: Constricted and Flat Patient Cognition Impaired: Yes Ability to Follow Directions: Fair Speech Pattern: Delayed Hallucinations: None Delusions: Not Present Thought Process: Illogical Thought Content: positive for Loose Associations Judgement: Poor Diagnostics Vital Signs (24Hr): Vital Signs - 24 hr 08/27/21 18:00 08/28/21 06:00 08/28/21 10:11 Temperature 98.8 F 96 F L Pulse Rate 67 70 70 Respiratory Rate 18 Blood Pressure 145/67 H 121/82 121/82 Pulse Oximetry 95 96 Body Mass Index 31.7 Imaging Radiology Impressions: ITS Impressions Head CT 08/15/21 09:00 IMPRESSION: There are chronic changes related to an old infarct within the vascular territory of left middle cerebral artery and scattered chronic small vessel ischemic changes within the supratentorial white matter. No evidence of acute territorial infarct or hemorrhage. Medications Medications Current Medications Acetaminophen (Acetaminophen 325 Mg Tablet) 650 mg PO Q6H PRN PRN Reason: Headache/Pain Mild Scale (1-3) Al Hydroxide/Mg Hydroxide (Magnesium Hydrox/Alum Hydrox 30 Ml Oral.Susp) 30 ml PO Q6H PRN PRN Reason: Heartburn/Nausea Atenolol (Atenolol 50 Mg Tablet) 50 mg PO DAILY [facility]; Protocol Last Admin: 08/28/21 10:11 Dose: 50 mg Documented by: Atorvastatin Calcium (Atorvastatin Calcium 10 Mg Tablet) 10 mg PO BEDTIME [facility] Last Admin: 08/27/21 20:20 Dose: 10 mg Documented by: Cyanocobalamin (Cyanocobalamin (Vitamin B-12) 1,000 Mcg Tablet) 1,000 mcg PO DAILY [facility] Last Admin: 08/28/21 10:10 Dose: 1,000 mcg Documented by: Divalproex Sodium (Divalproex Sodium 250 Mg Tablet.) 125 mg PO TID [facility] Last Admin: 08/28/21 10:10 Dose: 125 mg Documented by: Donepezil HCl (Donepezil Hcl 10 Mg Tablet) 10 mg PO DAILY [facility] Last Admin: 08/28/21 10:10 Dose: 10 mg Documented by: Loperamide HCl (Loperamide Hcl 2 Mg Capsule) 4 mg PO Q4H PRN PRN Reason: Diarrhea Last Admin: 08/17/21 16:39 Dose: 4 mg Documented by: Magnesium Hydroxide (Milk Of Magnesia 30 Ml Oral.Susp) 30 ml PO DAILY PRN PRN Reason: Constipation Risperidone (Risperidone 0.25 Mg Tablet) 0.25 mg PO Q4H PRN PRN Reason: anxiety/restlessness Last Admin: 08/22/21 13:36 Dose: 0.25 mg Documented by: Risperidone (Risperidone 0.5 Mg Tablet) 0.5 mg PO DAILY@1700 [facility] Last Admin: 08/27/21 16:50 Dose: 0.5 mg Documented by: Risperidone (Risperidone 1 Mg Tablet) 1 mg PO BEDTIME [facility] Last Admin: 08/27/21 20:21 Dose: 1 mg Documented by: Rivastigmine Tartrate (Rivastigmine Tartrate 1.5 Mg Capsule) 1.5 mg PO BID [facility] Last Admin: 08/28/21 10:11 Dose: 1.5 mg Documented by: Sertraline HCl (Sertraline Hcl 50 Mg Tablet) 50 mg PO DAILY [facility] Last Admin: 08/28/21 10:09 Dose: 50 mg Documented by: Trazodone HCl (Trazodone Hcl 50 Mg Tablet) 50 mg PO BEDTIME PRN PRN Reason: Insomnia Last Admin: 08/18/21 13:47 Dose: 50 mg Documented by: Trazodone HCl (Trazodone Hcl 50 Mg Tablet) 50 mg PO BEDTIME [facility] Last Admin: 08/27/21 20:22 Dose: 50 mg Documented by: Trazodone HCl (Trazodone Hcl 25 Mg Halftab) 12.5 mg PO TID [facility] Last Admin: 08/28/21 10:10 Dose: 12.5 mg Documented by: Allergies Allergies Allergy/AdvReac Type Severity Reaction Status Date / Time No Known Allergies Allergy Verified 08/14/21 11:06 Assessment & Plan Assessment & Plan (1) Dependent edema: Status: Acute Code(s): R60.9 - Edema, unspecified (2) Vascular dementia: Status: Acute Code(s): F01.50 - Vascular dementia without behavioral disturbance (3) Psychosis: Status: Acute Code(s): F29 - Unspecified psychosis not due to a substance or known physiological condition Assessment and Plan: The patient is an elderly male, , 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 Plan 1. change Risperdal to 0.5 mg at 15:00 and 1.0 mg p.o. q.h.s.. 2. Lower trazodone up to 12.5 mg p.o. t.i.d. 3. Discontinue Cogentin. 4. Start Depakote 125 p.o. t.i.d. Assessment and Plan: Discussed with staff states patient's legs are edematous when he goes to bed but when he arises they are completely normal and by lunch time they begin to swell. They are relieved by elevation. At this time no further workup is indicated. Please call if any further issues I spent minutes with the patient and/or on the patient floor today, greater than?50% of which was spent counseling/coordinating care. Reason for contiued inpatient stay Substantial Risk for: inability to function, rapid decompensation and med/psych decompensation
[2021-08-28] MEDS: risperiDONE 0.5 MG TABLET PO (16:24)
[2021-08-28] MEDS: traZODone HCL 50 MG TABLET PO (19:51)
[2021-08-28] MEDS: Atorvastatin Calcium 10 MG TABLET PO (19:52)
[2021-08-28] MEDS: risperiDONE 1 MG TABLET PO (19:53)
[2021-08-28 20:41] VITALS: BP 124/58; PULSE 77; RESP 19; TEMP 36.9; O2SAT 97
[2021-08-29 09:58] VITALS: BP 136/68; PULSE 66; TEMP 36.6
[2021-08-29] MEDS: Cyanocobalamin (Vitamin B-12) 1,000 MCG TABLET 1000 MCG PO (11:32)
[2021-08-29] MEDS: Donepezil HCl 10 MG TABLET PO (11:32)
[2021-08-29 11:33] VITALS: BP 138/68; PULSE 66
[2021-08-29] MEDS: Divalproex Sodium 250 MG TABLET.DR 125 MG PO ×3 (11:33→20:30)
[2021-08-29] MEDS: Sertraline HCL 50 MG TABLET PO (11:33)
[2021-08-29] MEDS: atenoloL 50 MG TABLET PO (11:33)
[2021-08-29] MEDS: traZODone HCL 25 MG HALFTAB 12.5 MG PO ×3 (11:34→20:33)
[2021-08-29] MEDS: Rivastigmine Tartrate 1.5 MG CAPSULE PO ×2 (11:34→20:32)
--- NOTE | 2021-08-29 15:03 | P.PNPSI_ITS ---
Subjective Subjective Date of Service: 08/29/21 Reason For Visit: Adjustment D/O w/Distrubance of conduct Subjective Notes: Conditional Voluntary Interim History: The nursing staff reports that the patient is confused, he needs 3 staff for ADL less since his resistant to care, no changes on his mental status. On interview, the patient was confused and pleasant no evidence of over-sedation Mental Status Exam Mental Status Exam Patient Appearance: Well Grooomed Patient Orientation: Person Level of Consciousness: Awake Patient Behavior: Passive and Restless Mood Description: Labile Affect Description: Constricted Patient Cognition Impaired: Yes Ability to Follow Directions: Poor Speech Pattern: Clear and Impoverished Hallucinations: None Delusions: Not Present Thought Process: Illogical Thought Content: positive for Poverty of Content and positive for Thought Blocking Judgement: Poor Diagnostics Vital Signs (24Hr): Vital Signs - 24 hr 08/28/21 20:41 08/29/21 09:58 08/29/21 11:33 Temperature 98.4 F 97.9 F Pulse Rate 77 66 66 Respiratory Rate 19 Blood Pressure 124/58 L 136/68 138/68 Pulse Oximetry 97 Body Mass Index 31.7 Imaging Radiology Impressions: ITS Impressions Head CT 08/15/21 09:00 IMPRESSION: There are chronic changes related to an old infarct within the vascular territory of left middle cerebral artery and scattered chronic small vessel ischemic changes within the supratentorial white matter. No evidence of acute territorial infarct or hemorrhage. Medications Medications Current Medications Acetaminophen (Acetaminophen 325 Mg Tablet) 650 mg PO Q6H PRN PRN Reason: Headache/Pain Mild Scale (1-3) Al Hydroxide/Mg Hydroxide (Magnesium Hydrox/Alum Hydrox 30 Ml Oral.Susp) 30 ml PO Q6H PRN PRN Reason: Heartburn/Nausea Atenolol (Atenolol 50 Mg Tablet) 50 mg PO DAILY COUNTS INCLUDE 234 BEDS AT THE [facility]; Protocol Last Admin: 08/29/21 11:33 Dose: 50 mg Documented by: Atorvastatin Calcium (Atorvastatin Calcium 10 Mg Tablet) 10 mg PO BEDTIME MEDARDO Last Admin: 08/28/21 19:52 Dose: 10 mg Documented by: Cyanocobalamin (Cyanocobalamin (Vitamin B-12) 1,000 Mcg Tablet) 1,000 mcg PO DAILY COUNTS INCLUDE 234 BEDS AT THE [facility] Last Admin: 08/29/21 11:32 Dose: 1,000 mcg Documented by: Divalproex Sodium (Divalproex Sodium 250 Mg Tablet.) 125 mg PO TID COUNTS INCLUDE 234 BEDS AT THE [facility] Last Admin: 08/29/21 11:33 Dose: 125 mg Documented by: Donepezil HCl (Donepezil Hcl 10 Mg Tablet) 10 mg PO DAILY COUNTS INCLUDE 234 BEDS AT THE [facility] Last Admin: 08/29/21 11:32 Dose: 10 mg Documented by: Loperamide HCl (Loperamide Hcl 2 Mg Capsule) 4 mg PO Q4H PRN PRN Reason: Diarrhea Last Admin: 08/17/21 16:39 Dose: 4 mg Documented by: Magnesium Hydroxide (Milk Of Magnesia 30 Ml Oral.Susp) 30 ml PO DAILY PRN PRN Reason: Constipation Risperidone (Risperidone 0.25 Mg Tablet) 0.25 mg PO Q4H PRN PRN Reason: anxiety/restlessness Last Admin: 08/22/21 13:36 Dose: 0.25 mg Documented by: Risperidone (Risperidone 0.5 Mg Tablet) 0.5 mg PO DAILY@1700 COUNTS INCLUDE 234 BEDS AT THE [facility] Last Admin: 08/28/21 16:24 Dose: 0.5 mg Documented by: Risperidone (Risperidone 1 Mg Tablet) 1 mg PO BEDTIME COUNTS INCLUDE 234 BEDS AT THE [facility] Last Admin: 08/28/21 19:53 Dose: 1 mg Documented by: Rivastigmine Tartrate (Rivastigmine Tartrate 1.5 Mg Capsule) 1.5 mg PO BID COUNTS INCLUDE 234 BEDS AT THE [facility] Last Admin: 08/29/21 11:34 Dose: 1.5 mg Documented by: Sertraline HCl (Sertraline Hcl 50 Mg Tablet) 50 mg PO DAILY COUNTS INCLUDE 234 BEDS AT THE [facility] Last Admin: 08/29/21 11:33 Dose: 50 mg Documented by: Trazodone HCl (Trazodone Hcl 50 Mg Tablet) 50 mg PO BEDTIME PRN PRN Reason: Insomnia Last Admin: 08/18/21 13:47 Dose: 50 mg Documented by: Trazodone HCl (Trazodone Hcl 50 Mg Tablet) 50 mg PO BEDTIME COUNTS INCLUDE 234 BEDS AT THE [facility] Last Admin: 08/28/21 19:51 Dose: 50 mg Documented by: Trazodone HCl (Trazodone Hcl 25 Mg Halftab) 12.5 mg PO TID COUNTS INCLUDE 234 BEDS AT THE [facility] Last Admin: 08/29/21 11:34 Dose: 12.5 mg Documented by: Allergies Allergies Allergy/AdvReac Type Severity Reaction Status Date / Time No Known Allergies Allergy Verified 08/14/21 11:06 Assessment & Plan Assessment & Plan (1) Dependent edema: Status: Acute Code(s): R60.9 - Edema, unspecified (2) Vascular dementia: Status: Acute Code(s): F01.50 - Vascular dementia without behavioral disturbance (3) Psychosis: Status: Acute Code(s): F29 - Unspecified psychosis not due to a substance or known physiological condition Assessment and Plan: The patient is an elderly male, , 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 Plan 1. change Risperdal to 0.5 mg at 15:00 and 1.0 mg p.o. q.h.s.. 2. Lower trazodone up to 12.5 mg p.o. t.i.d. 3. Discontinue Cogentin. 4. Continue Depakote 125 p.o. t.i.d. Assessment and Plan: Discussed with staff states patient's legs are edematous when he goes to bed but when he arises they are completely normal and by lunch time they begin to swell. They are relieved by elevation. At this time no further workup is indicated. Please call if any further issues I spent minutes with the patient and/or on the patient floor today, greater than?50% of which was spent counseling/coordinating care. Reason for contiued inpatient stay Substantial Risk for: inability to function, rapid decompensation and med/psych decompensation
[2021-08-29] MEDS: risperiDONE 0.5 MG TABLET PO (17:18)
[2021-08-29] MEDS: Atorvastatin Calcium 10 MG TABLET PO (20:30)
[2021-08-29] MEDS: risperiDONE 1 MG TABLET PO (20:32)
[2021-08-29] MEDS: traZODone HCL 50 MG TABLET PO (20:32)
[2021-08-29 21:39] VITALS: BP 138/65; PULSE 76; RESP 19; TEMP 36.9; O2SAT 96
[2021-08-30 08:51] VITALS: BP 139/73; PULSE 66; TEMP 35.2; O2SAT 92
[2021-08-30] MEDS: Cyanocobalamin (Vitamin B-12) 1,000 MCG TABLET 1000 MCG PO (10:13)
[2021-08-30] MEDS: Rivastigmine Tartrate 1.5 MG CAPSULE PO ×2 (10:13→19:01)
[2021-08-30 10:21] VITALS: BP 139/53; PULSE 66
[2021-08-30] MEDS: traZODone HCL 25 MG HALFTAB 12.5 MG PO ×2 (10:21→16:01)
[2021-08-30] MEDS: atenoloL 50 MG TABLET PO (10:21)
[2021-08-30] MEDS: Divalproex Sodium 250 MG TABLET.DR 125 MG PO ×3 (10:21→19:00)
[2021-08-30] MEDS: Donepezil HCl 10 MG TABLET PO (10:22)
[2021-08-30] MEDS: Sertraline HCL 50 MG TABLET PO (10:22)
--- NOTE | 2021-08-30 13:56 | HO.PSYCHPN ---
Subjective Subjective Date of Service: 08/30/21 Reason For Visit: Adjustment D/O w/Distrubance of conduct Subjective Notes: Conditional Voluntary Interim History: The nursing staff reports no changes in mental status, he is confused and needs 3 people for care. On interview, the patient was in the common area trying to eat and he needed to be fed. Staff has reported episodes of over-sedation so we will stop the trazodone Mental Status Exam Mental Status Exam Patient Appearance: Disheveled and Unkempt Patient Orientation: Person Level of Consciousness: Awake, Disoriented and Restless Patient Behavior: Suspicious and Restless Mood Description: Blunted Affect Description: Constricted Patient Cognition Impaired: Yes Ability to Follow Directions: Fair Speech Pattern: No Speech Hallucinations: None Delusions: Not Present Thought Process: Illogical, Distracted and Slowed Thinking Thought Content: positive for Poverty of Content Judgement: Poor Diagnostics Vital Signs (24Hr): Vital Signs - 24 hr 08/29/21 21:39 08/30/21 08:51 08/30/21 10:21 Temperature 98.4 F 95.3 F L Pulse Rate 76 66 66 Respiratory Rate 19 Blood Pressure 138/65 139/73 139/53 L Pulse Oximetry 96 92 Body Mass Index 31.7 Imaging Radiology Impressions: ITS Impressions Head CT 08/15/21 09:00 IMPRESSION: There are chronic changes related to an old infarct within the vascular territory of left middle cerebral artery and scattered chronic small vessel ischemic changes within the supratentorial white matter. No evidence of acute territorial infarct or hemorrhage. Medications Medications Current Medications Acetaminophen (Acetaminophen 325 Mg Tablet) 650 mg PO Q6H PRN PRN Reason: Headache/Pain Mild Scale (1-3) Al Hydroxide/Mg Hydroxide (Magnesium Hydrox/Alum Hydrox 30 Ml Oral.Susp) 30 ml PO Q6H PRN PRN Reason: Heartburn/Nausea Atenolol (Atenolol 50 Mg Tablet) 50 mg PO DAILY [facility]; Protocol Last Admin: 08/30/21 10:21 Dose: 50 mg Documented by: Atorvastatin Calcium (Atorvastatin Calcium 10 Mg Tablet) 10 mg PO BEDTIME MEDARDO Last Admin: 08/29/21 20:30 Dose: 10 mg Documented by: Cyanocobalamin (Cyanocobalamin (Vitamin B-12) 1,000 Mcg Tablet) 1,000 mcg PO DAILY [facility] Last Admin: 08/30/21 10:13 Dose: 1,000 mcg Documented by: Divalproex Sodium (Divalproex Sodium 250 Mg Tablet.Dr) 125 mg PO TID [facility] Last Admin: 08/30/21 10:21 Dose: 125 mg Documented by: Donepezil HCl (Donepezil Hcl 10 Mg Tablet) 10 mg PO DAILY [facility] Last Admin: 08/30/21 10:22 Dose: 10 mg Documented by: Loperamide HCl (Loperamide Hcl 2 Mg Capsule) 4 mg PO Q4H PRN PRN Reason: Diarrhea Last Admin: 08/17/21 16:39 Dose: 4 mg Documented by: Magnesium Hydroxide (Milk Of Magnesia 30 Ml Oral.Susp) 30 ml PO DAILY PRN PRN Reason: Constipation Risperidone (Risperidone 0.25 Mg Tablet) 0.25 mg PO Q4H PRN PRN Reason: anxiety/restlessness Last Admin: 08/22/21 13:36 Dose: 0.25 mg Documented by: Risperidone (Risperidone 0.5 Mg Tablet) 0.5 mg PO DAILY@1700 [facility] Last Admin: 08/29/21 17:18 Dose: 0.5 mg Documented by: Risperidone (Risperidone 1 Mg Tablet) 1 mg PO BEDTIME [facility] Last Admin: 08/29/21 20:32 Dose: 1 mg Documented by: Rivastigmine Tartrate (Rivastigmine Tartrate 1.5 Mg Capsule) 1.5 mg PO BID [facility] Last Admin: 08/30/21 10:13 Dose: 1.5 mg Documented by: Sertraline HCl (Sertraline Hcl 50 Mg Tablet) 50 mg PO DAILY [facility] Last Admin: 08/30/21 10:22 Dose: 50 mg Documented by: Trazodone HCl (Trazodone Hcl 50 Mg Tablet) 50 mg PO BEDTIME PRN PRN Reason: Insomnia Last Admin: 08/18/21 13:47 Dose: 50 mg Documented by: Trazodone HCl (Trazodone Hcl 50 Mg Tablet) 50 mg PO BEDTIME [facility] Last Admin: 08/29/21 20:32 Dose: 50 mg Documented by: Trazodone HCl (Trazodone Hcl 25 Mg Halftab) 12.5 mg PO TID [facility] Last Admin: 08/30/21 10:21 Dose: 12.5 mg Documented by: Allergies Allergies Allergy/AdvReac Type Severity Reaction Status Date / Time No Known Allergies Allergy Verified 08/14/21 11:06 Assessment & Plan Assessment & Plan (1) Dependent edema: Status: Acute Code(s): R60.9 - Edema, unspecified (2) Vascular dementia: Status: Acute Code(s): F01.50 - Vascular dementia without behavioral disturbance (3) Psychosis: Status: Acute Code(s): F29 - Unspecified psychosis not due to a substance or known physiological condition Assessment and Plan: The patient is an elderly male, , 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 Plan 1. change Risperdal to 0.5 mg at 15:00 and 1.0 mg p.o. q.h.s.. 2. Discontinue trazodone up to 12.5 mg p.o. t.i.d. 3. Discontinue Cogentin. 4. Continue Depakote 125 p.o. t.i.d. Assessment and Plan: Discussed with staff states patient's legs are edematous when he goes to bed but when he arises they are completely normal and by lunch time they begin to swell. They are relieved by elevation. At this time no further workup is indicated. Please call if any further issues I spent minutes with the patient and/or on the patient floor today, greater than?50% of which was spent counseling/coordinating care. Reason for contiued inpatient stay Substantial Risk for: inability to function, rapid decompensation and med/psych decompensation
[2021-08-30] MEDS: risperiDONE 0.5 MG TABLET PO (16:42)
[2021-08-30] MEDS: Atorvastatin Calcium 10 MG TABLET PO (19:00)
[2021-08-30] MEDS: traZODone HCL 50 MG TABLET PO (19:01)
[2021-08-30] MEDS: risperiDONE 1 MG TABLET PO (19:01)
[2021-08-30 21:00] VITALS: PULSE 68; RESP 17; TEMP 37; O2SAT 95
[2021-08-31] MEDS: traZODone HCL 25 MG HALFTAB 12.5 MG PO ×4 (03:47→19:38)
--- NOTE | 2021-08-31 09:54 | P.PNPSI_ITS ---
Subjective Subjective Date of Service: 08/31/21 Reason For Visit: Adjustment D/O w/Distrubance of conduct Subjective Notes: Conditional Voluntary Interim History: The nursing staff reports that he is declining, his resistive to care and he needs total help for all his ADLs and he is incontinent with urine. On interview, the patient refused to engage on conversation he was more focused and preoccupied on coloring and doing some tasks from occupational therapy. Mental Status Exam Mental Status Exam Patient Appearance: Well Grooomed and Unkempt Patient Orientation: Person and Situation Level of Consciousness: Disoriented and Restless Patient Behavior: Dependent and Passive Mood Description: Blunted Affect Description: Constricted Patient Cognition Impaired: No Ability to Follow Directions: Good Speech Pattern: Clear Hallucinations: None Delusions: Not Present Thought Content: positive for Poverty of Content and positive for Thought Blocking Judgement: Poor Diagnostics Vital Signs (24Hr): Vital Signs - 24 hr 08/30/21 10:21 08/30/21 21:00 Temperature 98.6 F Pulse Rate 66 68 Respiratory Rate 17 Blood Pressure 139/53 L Pulse Oximetry 95 Body Mass Index 31.7 Imaging Radiology Impressions: ITS Impressions Head CT 08/15/21 09:00 IMPRESSION: There are chronic changes related to an old infarct within the vascular territory of left middle cerebral artery and scattered chronic small vessel ischemic changes within the supratentorial white matter. No evidence of acute territorial infarct or hemorrhage. Medications Medications Current Medications Acetaminophen (Acetaminophen 325 Mg Tablet) 650 mg PO Q6H PRN PRN Reason: Headache/Pain Mild Scale (1-3) Al Hydroxide/Mg Hydroxide (Magnesium Hydrox/Alum Hydrox 30 Ml Oral.Susp) 30 ml PO Q6H PRN PRN Reason: Heartburn/Nausea Atenolol (Atenolol 50 Mg Tablet) 50 mg PO DAILY [facility]; Protocol Last Admin: 08/30/21 10:21 Dose: 50 mg Documented by: Atorvastatin Calcium (Atorvastatin Calcium 10 Mg Tablet) 10 mg PO BEDTIME MEDARDO Last Admin: 08/30/21 19:00 Dose: 10 mg Documented by: Cyanocobalamin (Cyanocobalamin (Vitamin B-12) 1,000 Mcg Tablet) 1,000 mcg PO DAILY [facility] Last Admin: 08/30/21 10:13 Dose: 1,000 mcg Documented by: Divalproex Sodium (Divalproex Sodium 250 Mg Tablet.) 125 mg PO TID [facility] Last Admin: 08/30/21 19:00 Dose: 125 mg Documented by: Donepezil HCl (Donepezil Hcl 10 Mg Tablet) 10 mg PO DAILY [facility] Last Admin: 08/30/21 10:22 Dose: 10 mg Documented by: Loperamide HCl (Loperamide Hcl 2 Mg Capsule) 4 mg PO Q4H PRN PRN Reason: Diarrhea Last Admin: 08/17/21 16:39 Dose: 4 mg Documented by: Magnesium Hydroxide (Milk Of Magnesia 30 Ml Oral.Susp) 30 ml PO DAILY PRN PRN Reason: Constipation Risperidone (Risperidone 0.25 Mg Tablet) 0.25 mg PO Q4H PRN PRN Reason: anxiety/restlessness Last Admin: 08/22/21 13:36 Dose: 0.25 mg Documented by: Risperidone (Risperidone 0.5 Mg Tablet) 0.5 mg PO DAILY@1700 [facility] Last Admin: 08/30/21 16:42 Dose: 0.5 mg Documented by: Risperidone (Risperidone 1 Mg Tablet) 1 mg PO BEDTIME [facility] Last Admin: 08/30/21 19:01 Dose: 1 mg Documented by: Rivastigmine Tartrate (Rivastigmine Tartrate 1.5 Mg Capsule) 1.5 mg PO BID [facility] Last Admin: 08/30/21 19:01 Dose: 1.5 mg Documented by: Sertraline HCl (Sertraline Hcl 50 Mg Tablet) 50 mg PO DAILY [facility] Last Admin: 08/30/21 10:22 Dose: 50 mg Documented by: Trazodone HCl (Trazodone Hcl 50 Mg Tablet) 50 mg PO BEDTIME PRN PRN Reason: Insomnia Last Admin: 08/18/21 13:47 Dose: 50 mg Documented by: Trazodone HCl (Trazodone Hcl 50 Mg Tablet) 50 mg PO BEDTIME [facility] Last Admin: 08/30/21 19:01 Dose: 50 mg Documented by: Trazodone HCl (Trazodone Hcl 25 Mg Halftab) 12.5 mg PO TID [facility] Last Admin: 08/31/21 03:47 Dose: 12.5 mg Documented by: Allergies Allergies Allergy/AdvReac Type Severity Reaction Status Date / Time No Known Allergies Allergy Verified 08/14/21 11:06 Assessment & Plan Assessment & Plan (1) Dependent edema: Status: Acute Code(s): R60.9 - Edema, unspecified (2) Vascular dementia: Status: Acute Code(s): F01.50 - Vascular dementia without behavioral disturbance (3) Psychosis: Status: Acute Code(s): F29 - Unspecified psychosis not due to a substance or known physiological condition Assessment and Plan: The patient is an elderly male, , 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 Plan 1. change Risperdal to 0.5 mg at 15:00 and 1.0 mg p.o. q.h.s.. 2. Discontinue trazodone up to 12.5 mg p.o. t.i.d. 3. Discontinue Cogentin. 4. Continue Depakote 125 p.o. t.i.d. Assessment and Plan: Discussed with staff states patient's legs are edematous when he goes to bed but when he arises they are completely normal and by lunch time they begin to swell. They are relieved by elevation. At this time no further workup is indicated. Please call if any further issues I spent minutes with the patient and/or on the patient floor today, greater than?50% of which was spent counseling/coordinating care. Reason for contiued inpatient stay Substantial Risk for: inability to function, rapid decompensation and med/psych decompensation
[2021-08-31 10:00] VITALS: BP 132/72; PULSE 68; RESP 16; TEMP 36.6; O2SAT 96
[2021-08-31] MEDS: Rivastigmine Tartrate 1.5 MG CAPSULE PO ×2 (10:43→19:39)
[2021-08-31] MEDS: Cyanocobalamin (Vitamin B-12) 1,000 MCG TABLET 1000 MCG PO (10:44)
[2021-08-31] MEDS: Donepezil HCl 10 MG TABLET PO (10:44)
[2021-08-31 10:45] VITALS: BP 130/72; PULSE 68
[2021-08-31] MEDS: atenoloL 50 MG TABLET PO (10:45)
[2021-08-31] MEDS: Sertraline HCL 50 MG TABLET PO (11:00)
[2021-08-31] MEDS: traZODone HCL 50 MG TABLET PO (19:38)
[2021-08-31] MEDS: Atorvastatin Calcium 10 MG TABLET PO (19:39)
[2021-08-31] MEDS: risperiDONE 1 MG TABLET PO (19:39)
[2021-08-31] MEDS: risperiDONE 0.5 MG TABLET PO (19:40)
[2021-08-31 20:59] VITALS: BP 140/98; PULSE 63; RESP 18; TEMP 36.5; O2SAT 95
[2021-08-31 22:10] LABS: Appearance Urine CLEAR; Color Urine OTHER; Glucose Urine UA NEG (NEG); Leukocyte Esterase Urine NEG (NEG); Nitrite Urine NEG (NEG); Urine Blood NEG (NEG); Urine Ketones NEG (NEG); Urine Protein 1+ MG/DL (NEG-TRACE)
[2021-08-31 22:34] LABS: Mucus Urine TRACE /LPF; RBC Urine 0 /HPF (0); Squamous Epithelial Cell Urine TRACE /LPF; WBC Urine 0-2 /HPF (0-4)
--- NOTE | 2021-08-31 23:03 | PC.NURSE ---
MD Ren called to confirm that UA and culture still needed on PT. New order for straight cath and sample for UA and culture, PT straight cathed used 4 people assist per protocol. PT tolerated procedure with little resistance. PVR obtained from straight cath was 1200ml. MD Ren notified and new order to bladder scan PT as needed every 8 hrs to obtain PVR. PT was [address] into bed this evening, PT too tired to stand.
--- NOTE | 2021-09-01 10:25 | P.PNPSI_ITS ---
Subjective Subjective Date of Service: 09/01/21 Reason For Visit: Adjustment D/O w/Distrubance of conduct Subjective Notes: Conditional Voluntary (HCP invoked) Interim History: The nursing staff reported that they need several staff members to shower him. The staff has realized that the patient sometimes doesn't understand directions. He is on 1:1 observation for safety. The staff has realized also that he is oversedated so we will lower his Depakote Today, RN realized that he had over 600 cc of urine and needed to be straight cath. On interview, he was not able to articulate words and he was mostly despondant. Later, while we tried to cath him, blood came out and he was more delirious than usual. CBC, BMP, U/A with culture ordered and I tried to contact the hospitalist, VS stable at this moment. Mental Status Exam Mental Status Exam Patient Appearance: Well Grooomed Patient Orientation: Person Level of Consciousness: Awake and Disoriented Patient Behavior: Guarded and Passive Mood Description: Withdrawn and Apprehensive Affect Description: Constricted Patient Cognition Impaired: Yes Ability to Follow Directions: Fair Speech Pattern: No Speech Hallucinations: None Delusions: Not Present Thought Process: Illogical and Distracted Thought Content: positive for [place] and positive for Poverty of Content Judgement: Fair Diagnostics Vital Signs (24Hr): Vital Signs - 24 hr 08/31/21 20:59 Temperature 97.7 F Pulse Rate 63 Respiratory Rate 18 Blood Pressure 140/98 H Pulse Oximetry 95 Body Mass Index 31.7 Labs Labs: Laboratory Results - last 48 hr 08/31/21 21:54 Urine Color OTHER Urine Appearance CLEAR Urine pH 6.0 Ur Specific [place] 1.020 Urine Protein 1+ H Urine Glucose (UA) NEG Urine Ketones NEG Urine Blood NEG Urine Nitrite NEG Ur Leukocyte Esterase NEG Urine RBC 0 Urine WBC 0-2 Ur Squamous Epith Cells TRACE Urine Bacteria NONE Urine Mucus TRACE Imaging Radiology Impressions: ITS Impressions Head CT 08/15/21 09:00 IMPRESSION: There are chronic changes related to an old infarct within the vascular territory of left middle cerebral artery and scattered chronic small vessel ischemic changes within the supratentorial white matter. No evidence of acute territorial infarct or hemorrhage. Medications Medications Current Medications Acetaminophen (Acetaminophen 325 Mg Tablet) 650 mg PO Q6H PRN PRN Reason: Headache/Pain Mild Scale (1-3) Al Hydroxide/Mg Hydroxide (Magnesium Hydrox/Alum Hydrox 30 Ml Oral.Susp) 30 ml PO Q6H PRN PRN Reason: Heartburn/Nausea Atenolol (Atenolol 50 Mg Tablet) 50 mg PO DAILY [facility]; Protocol Last Admin: 08/31/21 10:45 Dose: 50 mg Documented by: Atorvastatin Calcium (Atorvastatin Calcium 10 Mg Tablet) 10 mg PO BEDTIME [facility] Last Admin: 08/31/21 19:39 Dose: 10 mg Documented by: Cyanocobalamin (Cyanocobalamin (Vitamin B-12) 1,000 Mcg Tablet) 1,000 mcg PO DAILY [facility] Last Admin: 08/31/21 10:44 Dose: 1,000 mcg Documented by: Donepezil HCl (Donepezil Hcl 10 Mg Tablet) 10 mg PO DAILY [facility] Last Admin: 08/31/21 10:44 Dose: 10 mg Documented by: Loperamide HCl (Loperamide Hcl 2 Mg Capsule) 4 mg PO Q4H PRN PRN Reason: Diarrhea Last Admin: 08/17/21 16:39 Dose: 4 mg Documented by: Magnesium Hydroxide (Milk Of Magnesia 30 Ml Oral.Susp) 30 ml PO DAILY PRN PRN Reason: Constipation Risperidone (Risperidone 0.25 Mg Tablet) 0.25 mg PO Q4H PRN PRN Reason: anxiety/restlessness Last Admin: 08/22/21 13:36 Dose: 0.25 mg Documented by: Risperidone (Risperidone 0.5 Mg Tablet) 0.5 mg PO DAILY@1700 [facility] Last Admin: 08/31/21 19:40 Dose: 0.5 mg Documented by: Risperidone (Risperidone 1 Mg Tablet) 1 mg PO BEDTIME [facility] Last Admin: 08/31/21 19:39 Dose: 1 mg Documented by: Rivastigmine Tartrate (Rivastigmine Tartrate 1.5 Mg Capsule) 1.5 mg PO BID [facility] Last Admin: 08/31/21 19:39 Dose: 1.5 mg Documented by: Sertraline HCl (Sertraline Hcl 50 Mg Tablet) 50 mg PO DAILY [facility] Last Admin: 08/31/21 11:00 Dose: 50 mg Documented by: Trazodone HCl (Trazodone Hcl 50 Mg Tablet) 50 mg PO BEDTIME PRN PRN Reason: Insomnia Last Admin: 08/18/21 13:47 Dose: 50 mg Documented by: Trazodone HCl (Trazodone Hcl 50 Mg Tablet) 50 mg PO BEDTIME [facility] Last Admin: 08/31/21 19:38 Dose: 50 mg Documented by: Trazodone HCl (Trazodone Hcl 25 Mg Halftab) 12.5 mg PO TID [facility] Last Admin: 08/31/21 19:38 Dose: 12.5 mg Documented by: Valproic Acid (Valproic Acid (As Sodium Salt) 250 Mg/5 Ml Solution) 125 mg PO TID [facility] Last Admin: 08/31/21 19:34 Dose: 125 mg Documented by: Allergies Allergies Allergy/AdvReac Type Severity Reaction Status Date / Time No Known Allergies Allergy Verified 08/14/21 11:06 Assessment & Plan Assessment & Plan (1) Dependent edema: Status: Acute Code(s): R60.9 - Edema, unspecified (2) Vascular dementia: Status: Acute Code(s): F01.50 - Vascular dementia without behavioral disturbance (3) Psychosis: Status: Acute Code(s): F29 - Unspecified psychosis not due to a substance or known physiological condition Assessment and Plan: The patient is an elderly male, , 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 Plan 1. change Risperdal to 0.5 mg at 15:00 and 1.0 mg p.o. q.h.s.. 2. Discontinue trazodone up to 12.5 mg p.o. t.i.d. 3. Discontinue Cogentin. 4. Discontinue Depakote 125 p.o. t.i.d. 5. Hospitalist consult with new workout for possible UTI. Assessment and Plan: Discussed with staff states patient's legs are edematous when he goes to bed but when he arises they are completely normal and by lunch time they begin to swell. They are relieved by elevation. At this time no further workup is indicated. Please call if any further issues I spent minutes with the patient and/or on the patient floor today, greater than?50% of which was spent counseling/coordinating care. Reason for contiued inpatient stay Substantial Risk for: inability to function, rapid decompensation and med/psych decompensation
[2021-09-01 11:09] VITALS: BP 138/69; PULSE 63; RESP 16; TEMP 36.6; O2SAT 91
[2021-09-01] MEDS: Donepezil HCl 10 MG TABLET PO (11:10)
[2021-09-01] MEDS: Cyanocobalamin (Vitamin B-12) 1,000 MCG TABLET 1000 MCG PO (11:11)
[2021-09-01] MEDS: traZODone HCL 25 MG HALFTAB 12.5 MG PO ×3 (11:11→20:00)
[2021-09-01] MEDS: Rivastigmine Tartrate 1.5 MG CAPSULE PO ×2 (11:11→19:46)
[2021-09-01 11:12] VITALS: BP 138/69; PULSE 63
[2021-09-01] MEDS: Sertraline HCL 50 MG TABLET PO (11:12)
[2021-09-01] MEDS: atenoloL 50 MG TABLET PO (11:12)
[2021-09-01 11:20] LABS: Appearance Urine CLOUDY; Color Urine DK YELLOW; Glucose Urine UA NEG (NEG); Leukocyte Esterase Urine NEG (NEG); Nitrite Urine NEG (NEG); UACC Culture Trigger NO; Urine Blood 3+ (NEG); Urine Ketones 5 MG/DL (NEG); Urine Protein 3+ MG/DL (NEG-TRACE)
[2021-09-01 11:34] LABS: Amorphous Sediment Urine 1+ /LPF; RBC Urine TNTC /HPF (0); WBC Urine 0-2 /HPF (0-4)
[2021-09-01 11:44] LABS: MANUAL DIFF FLAG NO
[2021-09-01 11:55] LABS: Basophils Percent Auto 0.5 % (0-2); Eosinophils Absolute Auto 0.2 X10*3/uL (0.0-0.4); Hematocrit 38.2 % (42.0-52.0); Hemoglobin 12.6 g/dl (14.0-18.0); Imm Gran Abs Auto 0.06 X10*3/uL (0.00-0.03); Imm Gran Pct Auto 0.9 % (0.0-0.4); Lymphocytes Percent Auto 15.1 % (20-40); Mean Corpuscular Hemoglobin 31.1 pg (27.0-33.0); Mean Corpuscular Volume 94.3 fL (80.0-98.0); Mean Platelet Volume 9.2 fL (9.4-12.4); Monocytes Absolute Auto 0.8 X10*3/uL (0.1-1.2); Monocytes Percent Auto 12.6 % (2-11); Neutrophils Absolute Auto 4.3 x10*3/uL (2.0-8.3); Neutrophils Percent Auto 67.9 % (45-73); Platelet Count 119 X10*3/uL (160-400); Red Blood Count 4.05 X10*6/uL (4.60-5.80); Red Cell Distribution Width 12.7 % (11.0-16.0); White Blood Count 6.4 X10*3/uL (4.8-10.8)
[2021-09-01 12:00] LABS: Anion Gap 10 (12-20); Blood Urea Nitrogen 13 mg/dL (9-16); Calcium 8.1 mg/dL (8.4-10.2); Carbon Dioxide 31 mmol/L (22-29); Chloride 107 mmol/L (96-108); Creatinine Clr Calc Pharmacy 92.1; Estimated Glomerular Filt Rate > 60; Glucose Random 105 mg/dL (60-115); Potassium 4.1 mmol/L (3.3-5.1); Sodium 144 mmol/L (135-145)
--- NOTE | 2021-09-01 15:32 | PM.EVENT ---
Documented by User: IVET Velasquez 09/01/21 15:46 Event Note Date of Service: 09/01/21 Event Note: called to evaluate patient due to hematuria. pt has been having urinary retention with increased PVRs (1200, 512, 694). Has required straight catheterization x2. Earlier today nurse reported that she was able to straight cath without resistance but drained yellow urine followed by sediment and blood clots. Patient has h/o cva and vascular dementia PE: General:Patient observed sitting in group area at table, eyes closed. Opens eyes and mumbles intermittently. Does not answer questions. Appears comfortable Pulm: breathing unlabored abdomen soft, non-distended, non-tender Vital signs, Labs and UA reviewed No fever. No leukocytosis. No evidence of renal dysfunction. UA showing hematuria, no evidence of infection A/P: Given elevated PVRs would recommend placement of Willams catheter No indication for antibiotics at this time Recommend urology evaluation for urinary rentenion and hematuria Avoid medications causing urinary retention Minimize sedating medications if possible Documented by User: Cedric Langston DO 10/08/21 12:54 Event Note Date of Service: 10/08/21 Event Note: called to evaluate patient due to hematuria. pt has been having urinary retention with increased PVRs (1200, 512, 694). Has required straight catheterization x2. Earlier today nurse reported that she was able to straight cath without resistance but drained yellow urine followed by sediment and blood clots. Patient has h/o cva and vascular dementia PE: General:Patient observed sitting in group area at table, eyes closed. Opens eyes and mumbles intermittently. Does not answer questions. Appears comfortable Pulm: breathing unlabored abdomen soft, non-distended, non-tender Vital signs, Labs and UA reviewed No fever. No leukocytosis. No evidence of renal dysfunction. UA showing hematuria, no evidence of infection A/P: Given elevated PVRs would recommend placement of Willams catheter No indication for antibiotics at this time Recommend urology evaluation for urinary rentenion and hematuria Avoid medications causing urinary retention Minimize sedating medications if possible I personally examined patient reviewed chart. Agree with history and physical and plan of care as per Ms. Guilherme SPEARS
[2021-09-01 18:00] VITALS: BP 134/58; PULSE 69; RESP 16; O2SAT 96
[2021-09-01] MEDS: risperiDONE 0.5 MG TABLET PO (18:05)
[2021-09-01] MEDS: Atorvastatin Calcium 10 MG TABLET PO (19:46)
[2021-09-01] MEDS: risperiDONE 1 MG TABLET PO (19:46)
[2021-09-01] MEDS: traZODone HCL 50 MG TABLET PO (20:01)
--- NOTE | 2021-09-02 | ECG_ITS ---
Test Reason : ams, cardiovasc Blood Pressure : / mmHG Vent. Rate : 066 BPM Atrial Rate : 066 BPM P-R Int : 160 ms QRS Dur : 082 ms QT Int : 426 ms P-R-T Axes : 058 -07 005 degrees QTc Int : 446 ms Normal sinus rhythm Left axis deviation Nonspecific T wave abnormality Inferior leads Abnormal ECG No previous ECGs available Referred By: Con Epstein Electronically Signed By:RONA FAM MD
[2021-09-02 09:02] VITALS: BP 135/96; PULSE 60; TEMP 35.9; O2SAT 96
[2021-09-02 10:02] VITALS: BP 135/96; PULSE 60
[2021-09-02] MEDS: Sertraline HCL 50 MG TABLET PO (10:02)
[2021-09-02] MEDS: traZODone HCL 25 MG HALFTAB 12.5 MG PO (10:02)
[2021-09-02] MEDS: atenoloL 50 MG TABLET PO (10:02)
[2021-09-02] MEDS: Donepezil HCl 10 MG TABLET PO (10:03)
[2021-09-02] MEDS: Rivastigmine Tartrate 1.5 MG CAPSULE PO (10:03)
[2021-09-02] MEDS: Cyanocobalamin (Vitamin B-12) 1,000 MCG TABLET 1000 MCG PO (10:03)
--- NOTE | 2021-09-02 11:36 | PC.NURSE ---
Patient confused, oriented to name only. Found this morning ( 9:00 AM ) with indwelling catheter in place with 100cc bloody urine. Bladder scan at 9:15 AM ,PRV was 67 cc. At 11:30 AM , patient re-evaluated by RN, found 260cc bloody urine in the catheter bag. notified for MD evaluation. Will continue monitoring.
[2021-09-02 11:54] LABS: Basophils Percent Auto 0.4 % (0-2); Hemoglobin 13.4 g/dl (14.0-18.0); MANUAL DIFF FLAG SCAN; Mean Corpuscular Volume 93.1 fL (80.0-98.0); PLT CLUMP 1; Red Cell Distribution Width 12.7 % (11.0-16.0); SCAN SMEAR FLAG 1
[2021-09-02 11:56] LABS: Eosinophils Absolute Auto 0.3 X10*3/uL (0.0-0.4); Eosinophils Percent Auto 3.9 % (0-4); Hematocrit 40.7 % (42.0-52.0); Imm Gran Abs Auto 0.06 X10*3/uL (0.00-0.03); Imm Gran Pct Auto 0.9 % (0.0-0.4); Lymphocytes Absolute Auto 0.7 X10*3/uL (1.2-4.9); Lymphocytes Percent Auto 9.8 % (20-40); Mean Corpuscular HGB Conc 32.9 g/dl (31.0-36.0); Mean Corpuscular Hemoglobin 30.7 pg (27.0-33.0); Mean Platelet Volume 8.6 fL (9.4-12.4); Monocytes Absolute Auto 0.7 X10*3/uL (0.1-1.2); Monocytes Percent Auto 10.5 % (2-11); Neutrophils Absolute Auto 5.1 x10*3/uL (2.0-8.3); Neutrophils Percent Auto 74.5 % (45-73); Platelet Count 135 X10*3/uL (160-400); Red Blood Count 4.37 X10*6/uL (4.60-5.80); White Blood Count 6.9 X10*3/uL (4.8-10.8)
[2021-09-02 12:11] LABS: Anion Gap 12 (12-20); Blood Urea Nitrogen 12 mg/dL (9-16); Calcium 8.4 mg/dL (8.4-10.2); Carbon Dioxide 27 mmol/L (22-29); Chloride 106 mmol/L (96-108); Creatinine Clr Calc Pharmacy 87.5; Estimated Glomerular Filt Rate > 60; Glucose Random 132 mg/dL (60-115); Potassium 4.1 mmol/L (3.3-5.1); Sodium 141 mmol/L (135-145)
--- NOTE | 2021-09-02 16:14 | P.PNPSI_ITS ---
Subjective Subjective Date of Service: 09/02/21 Reason For Visit: Adjustment D/O w/Distrubance of conduct Subjective Notes: Conditional Voluntary Interim History: The nursing staff reported the patient has being mostly in his bed, the ureters, over-sedated confused and unable to talk. At this moment his own Willams catheter. Yesterday the medical team assessed him and suggested a urology consult. So far, his vital signs are stable and blood work came back with normal BMP and CBC. His UA came up with no evidence of UTI. On interview, the patient is not responding to verbal stimuli and. We discussed with the family about end of life decisions and they sign a MOLST. I discussed the case with the medical team and they will assess him later. Aortic new CT scan follow-up Mental Status Exam Mental Status Exam Patient Appearance: Disheveled Level of Consciousness: Drowsy, Disoriented and Lethargic Patient Behavior: Asleep Mood Description: Blunted Affect Description: Flat Patient Cognition Impaired: Yes Ability to Follow Directions: Poor Speech Pattern: No Speech Thought Process: Confusion Thought Content: positive for Disorganized Judgement: Poor Diagnostics Vital Signs (24Hr): Vital Signs - 24 hr 09/01/21 18:00 09/02/21 09:02 09/02/21 10:02 Temperature 96.7 F L Pulse Rate 69 60 60 Respiratory Rate 16 Blood Pressure 134/58 L 135/96 H 135/96 H Pulse Oximetry 96 96 Body Mass Index 31.7 Labs Results: 09/02/21 11:49 09/02/21 11:49 Labs: Laboratory Results - last 48 hr 08/31/21 09/01/21 09/01/21 21:54 10:51 11:27 WBC 6.4 RBC 4.05 L Hgb 12.6 L Hct 38.2 L MCV 94.3 MCH 31.1 MCHC 33.0 RDW 12.7 Plt Count 119 L MPV 9.2 L Immature Gran % (Auto) 0.9 H Neut % (Auto) 67.9 Lymph % (Auto) 15.1 L [place] % (Auto) 12.6 H Eos % (Auto) 3.0 Baso % (Auto) 0.5 Lymph # (Auto) 1.0 L [place] # (Auto) 0.8 Eos # (Auto) 0.2 Baso # (Auto) 0.0 Abs Immat Gran (auto) 0.06 H Absolute Neuts (auto) 4.3 Absolute Nucleated RBC 0.000 Nucleated RBC % (auto) 0.0 Smear Tech's Comments Sodium Potassium Chloride Carbon Dioxide Anion Gap BUN Creatinine Estim Creat Clear Calc Estimated GFR Random Glucose Calcium Urine Color OTHER DK YELLOW Urine Appearance CLEAR CLOUDY Urine pH 6.0 7.0 Ur Specific [place] 1.020 1.020 Urine Protein 1+ H 3+ H Urine Glucose (UA) NEG NEG Urine Ketones NEG 5 Urine Blood NEG 3+ H Urine Nitrite NEG NEG Ur Leukocyte Esterase NEG NEG Urine RBC 0 TNTC H Urine WBC 0-2 0-2 Ur Squamous Epith Cells TRACE NONE Amorphous Sediment 1+ Urine Bacteria NONE NONE Urine Mucus TRACE 09/01/21 09/02/21 09/02/21 11:27 11:49 11:49 WBC 6.9 RBC 4.37 L Hgb 13.4 L Hct 40.7 L MCV 93.1 MCH 30.7 MCHC 32.9 RDW 12.7 Plt Count 135 L MPV 8.6 L Immature Gran % (Auto) 0.9 H Neut % (Auto) 74.5 H Lymph % (Auto) 9.8 L [place] % (Auto) 10.5 Eos % (Auto) 3.9 Baso % (Auto) 0.4 Lymph # (Auto) 0.7 L [place] # (Auto) 0.7 Eos # (Auto) 0.3 Baso # (Auto) 0.0 Abs Immat Gran (auto) 0.06 H Absolute Neuts (auto) 5.1 Absolute Nucleated RBC 0.000 Nucleated RBC % (auto) 0.0 Smear Tech's Comments Not Reportable Sodium 144 141 Potassium 4.1 4.1 Chloride 107 106 Carbon Dioxide 31 H 27 Anion Gap 10 L 12 BUN 13 12 Creatinine 0.76 0.80 Estim Creat Clear Calc 92.1 87.5 Estimated GFR > 60 > 60 Random Glucose 105 132 H Calcium 8.1 L 8.4 Urine Color Urine Appearance Urine pH Ur Specific [place] Urine Protein Urine Glucose (UA) Urine Ketones Urine Blood Urine Nitrite Ur Leukocyte Esterase Urine RBC Urine WBC Ur Squamous Epith Cells Amorphous Sediment Urine Bacteria Urine Mucus Imaging Radiology Impressions: ITS Impressions Head CT 08/15/21 09:00 IMPRESSION: There are chronic changes related to an old infarct within the vascular territory of left middle cerebral artery and scattered chronic small vessel ischemic changes within the supratentorial white matter. No evidence of acute territorial infarct or hemorrhage. Medications Medications Current Medications Acetaminophen (Acetaminophen 325 Mg Tablet) 650 mg PO Q6H PRN PRN Reason: Headache/Pain Mild Scale (1-3) Al Hydroxide/Mg Hydroxide (Magnesium Hydrox/Alum Hydrox 30 Ml Oral.Susp) 30 ml PO Q6H PRN PRN Reason: Heartburn/Nausea Atenolol (Atenolol 50 Mg Tablet) 50 mg PO DAILY [facility]; Protocol Last Admin: 09/02/21 10:02 Dose: 50 mg Documented by: Atorvastatin Calcium (Atorvastatin Calcium 10 Mg Tablet) 10 mg PO BEDTIME [facility] Last Admin: 09/01/21 19:46 Dose: 10 mg Documented by: Cyanocobalamin (Cyanocobalamin (Vitamin B-12) 1,000 Mcg Tablet) 1,000 mcg PO DAILY [facility] Last Admin: 09/02/21 10:03 Dose: 1,000 mcg Documented by: Donepezil HCl (Donepezil Hcl 10 Mg Tablet) 10 mg PO DAILY [facility] Last Admin: 09/02/21 10:03 Dose: 10 mg Documented by: Loperamide HCl (Loperamide Hcl 2 Mg Capsule) 4 mg PO Q4H PRN PRN Reason: Diarrhea Last Admin: 08/17/21 16:39 Dose: 4 mg Documented by: Magnesium Hydroxide (Milk Of Magnesia 30 Ml Oral.Susp) 30 ml PO DAILY PRN PRN Reason: Constipation Risperidone (Risperidone 0.25 Mg Tablet) 0.25 mg PO Q4H PRN PRN Reason: anxiety/restlessness Last Admin: 08/22/21 13:36 Dose: 0.25 mg Documented by: Risperidone (Risperidone 0.5 Mg Tablet) 0.5 mg PO DAILY@1700 [facility] Last Admin: 09/01/21 18:05 Dose: 0.5 mg Documented by: Risperidone (Risperidone 1 Mg Tablet) 1 mg PO BEDTIME [facility] Last Admin: 09/01/21 19:46 Dose: 1 mg Documented by: Rivastigmine Tartrate (Rivastigmine Tartrate 1.5 Mg Capsule) 1.5 mg PO BID [facility] Last Admin: 09/02/21 10:03 Dose: 1.5 mg Documented by: Sertraline HCl (Sertraline Hcl 50 Mg Tablet) 50 mg PO DAILY [facility] Last Admin: 09/02/21 10:02 Dose: 50 mg Documented by: Trazodone HCl (Trazodone Hcl 50 Mg Tablet) 50 mg PO BEDTIME PRN PRN Reason: Insomnia Last Admin: 08/18/21 13:47 Dose: 50 mg Documented by: Allergies Allergies Allergy/AdvReac Type Severity Reaction Status Date / Time No Known Allergies Allergy Verified 08/14/21 11:06 Assessment & Plan Assessment & Plan (1) Dependent edema: Status: Acute Code(s): R60.9 - Edema, unspecified (2) Vascular dementia: Status: Acute Code(s): F01.50 - Vascular dementia without behavioral disturbance (3) Psychosis: Status: Acute Code(s): F29 - Unspecified psychosis not due to a substance or known physiological condition Assessment and Plan: The patient is an elderly male, , 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 Plan 1. change Risperdal to 0.5 mg at 15:00 and 1.0 mg p.o. q.h.s.. 2. Discontinue trazodone up to 12.5 mg p.o. t.i.d. 3. Discontinue Cogentin. 4. Discontinue Depakote 125 p.o. t.i.d. 5. Hospitalist consult with new workout for possible UTI, and infection episode or a new CVA. CT scan ordered Assessment and Plan: Discussed with staff states patient's legs are edematous when he goes to bed but when he arises they are completely normal and by lunch time they begin to swell. They are relieved by elevation. At this time no further workup is indicated. Please call if any further issues I spent minutes with the patient and/or on the patient floor today, greater than?50% of which was spent counseling/coordinating care. Reason for contiued inpatient stay Substantial Risk for: inability to function, rapid decompensation and med/psych decompensation
--- NOTE | 2021-09-02 16:32 | PM.PSYDC ---
DS: Providers Provider Date of Service: 09/02/21 Date of admission: 08/14/21 10:15 Date of discharge: 09/02/21 Primary care physician: Unknown Physician Consults: 08/14/21 11:13 Consult to Hospitalist Routine Consulting Provider: Hospitalist Reason For Exam: Direct admission 08/17/21 13:43 Consult to Hospitalist Routine Consulting Provider: Hospitalist Reason For Exam: New onset, 2 days of +2-3 bilateral LE edema 09/01/21 15:31 Consult to Urology Routine Consulting Provider: Dexter Caceres Reason for consultation: urinary retention, hematuria Has provider been notified: No Attending physician on discharge: Con Epstein DS: Diagnosis Discharge Diagnosis (1) Dependent edema: Status: Acute (2) Vascular dementia: Status: Acute (3) Psychosis: Status: Acute DS: Medications Discharge Medications Home Medications: Home Medications Medication Instructions Recorded Confirmed Exelon Patch 1 mg TRANSDERMAL DAILY 08/14/21 08/14/21 Seroquel 1 tab PO QPM 08/14/21 08/14/21 atenolol 1 mg PO DAILY 08/14/21 08/14/21 donepezil 1 tab PO DAILY 08/14/21 08/14/21 gabapentin 1 cap PO DAILY 08/14/21 08/14/21 lisinopril 1 tab PO DAILY 08/14/21 08/14/21 sertraline 1 tab PO DAILY 08/14/21 08/14/21 simvastatin 1 tab PO DAILY 08/14/21 08/14/21 Mental Status Exam Mental Status Exam Patient Appearance: Disheveled Level of Consciousness: Drowsy Patient Behavior: Asleep and Restless Mood Description: Blunted Affect Description: Blunted Patient Cognition Impaired: Yes Ability to Follow Directions: Poor Speech Pattern: No Speech Hallucinations: None Delusions: Not Present Thought Process: Illogical Thought Content: positive for Poverty of Content Abnormal Motor Activity Signs and Symptoms: Psychomotor Retardation Judgement: Poor Data Data Completed and Pending Completed studies during hospitalization [Text1]: 08/31/21 09/01/21 09/01/21 21:54 10:51 11:27 WBC 6.4 RBC 4.05 L Hgb 12.6 L Hct 38.2 L MCV 94.3 MCH 31.1 MCHC 33.0 RDW 12.7 Plt Count 119 L MPV 9.2 L Immature Gran % (Auto) 0.9 H Neut % (Auto) 67.9 Lymph % (Auto) 15.1 L [place] % (Auto) 12.6 H Eos % (Auto) 3.0 Baso % (Auto) 0.5 Lymph # (Auto) 1.0 L [place] # (Auto) 0.8 Eos # (Auto) 0.2 Baso # (Auto) 0.0 Abs Immat Gran (auto) 0.06 H Absolute Neuts (auto) 4.3 Absolute Nucleated RBC 0.000 Nucleated RBC % (auto) 0.0 Smear Tech's Comments Sodium Potassium Chloride Carbon Dioxide Anion Gap BUN Creatinine Estim Creat Clear Calc Estimated GFR Random Glucose Calcium Urine Color OTHER DK YELLOW Urine Appearance CLEAR [place] Urine pH 6.0 7.0 Ur Specific [place] 1.020 1.020 Urine Protein 1+ H 3+ H Urine Glucose (UA) NEG NEG Urine Ketones NEG 5 Urine Blood NEG 3+ H Urine Nitrite NEG NEG Ur Leukocyte Esterase NEG NEG Urine RBC 0 TNTC H Urine WBC 0-2 0-2 Ur Squamous Epith Cells TRACE NONE Amorphous Sediment 1+ Urine Bacteria NONE NONE Urine Mucus TRACE 09/01/21 09/02/21 09/02/21 11:27 11:49 11:49 WBC 6.9 RBC 4.37 L Hgb 13.4 L Hct 40.7 L MCV 93.1 MCH 30.7 MCHC 32.9 RDW 12.7 Plt Count 135 L MPV 8.6 L Immature Gran % (Auto) 0.9 H Neut % (Auto) 74.5 H Lymph % (Auto) 9.8 L [place] % (Auto) 10.5 Eos % (Auto) 3.9 Baso % (Auto) 0.4 Lymph # (Auto) 0.7 L [place] # (Auto) 0.7 Eos # (Auto) 0.3 Baso # (Auto) 0.0 Abs Immat Gran (auto) 0.06 H Absolute Neuts (auto) 5.1 Absolute Nucleated RBC 0.000 Nucleated RBC % (auto) 0.0 Smear Tech's Comments Not Reportable Sodium 144 141 Potassium 4.1 4.1 Chloride 107 106 Carbon Dioxide 31 H 27 Anion Gap 10 L 12 BUN 13 12 Creatinine 0.76 0.80 Estim Creat Clear Calc 92.1 87.5 Estimated GFR > 60 > 60 Random Glucose 105 132 H Calcium 8.1 L 8.4 Urine Color Urine Appearance Urine pH Ur Specific [place] Urine Protein Urine Glucose (UA) Urine Ketones Urine Blood Urine Nitrite Ur Leukocyte Esterase Urine RBC Urine WBC Ur Squamous Epith Cells Amorphous Sediment Urine Bacteria Urine Mucus Imaging Diagnostic Imaging Impressions Head CT 08/15/21 09:00 IMPRESSION: There are chronic changes related to an old infarct within the vascular territory of left middle cerebral artery and scattered chronic small vessel ischemic changes within the supratentorial white matter. No evidence of acute territorial infarct or hemorrhage. DS: Summary Hospital Course Hospital Course: Please see HPI for more details on the admission note. On the last 4 days, the patient's mental status has worsened. He began daily use, most of the time on his bed and unable to participate in any groups. Later 3 days ago, he started having urinary retention and he stop eating. Even though, his vital signs were stable and he is blood work did not showed any UTI or acute infection. We contacted the medical team, he was assessed by the team and they decided to transfer him to Medicine for stabilization. Time spent discussing smoking cessation with patient: 3 to 10 minutes Status at Discharge Cognitive/behavioral status at discharge: Delirious Functional status at discharge: bed bound Overall status at discharge: patient is not back to baseline Time Spent with Patient Time attestation: Total time spent providing and/or coordinating discharge services: Time spent: Less than 30 minutes Discharge Plan Discharge Patient Disposition: Xfer [facility] Discharge Diagnosis: Altered mental status Referrals: Physician,Unknown J [Primary Care Provider] - 1 Week Discharge Medications: New rivastigmine tartrate 1.5 mg Capsule 1.5 mg PO BID Qty: 30 RF: 0 donepezil 10 mg Tablet 10 mg PO DAILY Qty: 30 RF: 0 cyanocobalamin (vitamin B-12) [Vitamin B-12] 1,000 mcg Tablet 1,000 mcg PO DAILY Qty: 30 RF: 0 risperidone 0.25 mg Tablet 0.25 mg PO Q4H PRN (Reason: Anxiety/Restlessness) Qty: 30 RF: 0 sertraline 50 mg Tablet 50 mg PO DAILY Qty: 30 RF: 0 risperidone 1 mg Tablet 1 mg PO BEDTIME Qty: 30 RF: 0 atenolol 50 mg Tablet 50 mg PO DAILY Qty: 30 RF: 0 risperidone 0.5 mg Tablet 0.5 mg PO DAILY@1700 Qty: 30 RF: 0 Discontinued Seroquel 25 mg tablet 1 tab PO QPM RF: 0 gabapentin 100 mg capsule 1 cap PO DAILY RF: 0 Exelon Patch 4.6 mg/24 hour patch 1 mg transdermal DAILY RF: 0 atenolol 50 mg tablet 1 mg PO DAILY RF: 0 donepezil 10 mg tablet 1 tab PO DAILY RF: 0 lisinopril 20 mg tablet 1 tab PO DAILY RF: 0 sertraline 50 mg tablet 1 tab PO DAILY RF: 0 simvastatin 20 mg tablet 1 tab PO DAILY RF: 0 Discharge Orders: Discharge Order (Routine); Ordered 09/02/21 Ordered By: Con Epstein Diet: advance to usual diet Activity on Discharge: As tolerated Stand Alone Forms: Patient Portal Discharge page Care Plan Goals: Patient transferred to Medicine due to acute changes of mental status Health Concerns: To be followed by the medical team Plan of Treatment: Continue medication treatment Assessment: Elderly male with a long history of vascular dementia that was worsened after numerous stroke several years ago. Currently he decompensated medical and he is transferred to the medical floor for stabilization
--- NOTE | 2021-09-02 18:02 | PC.NURSE ---
Pt being transferred to [facility] for functional decline.
== END 2021-09-02 18:04 | disposition critical access hospital (66) | DRG 57 ==
PROVIDERS: Registered Nurse; Admitting Provider Psychiatry & Neurology Psychiatry; Visit Provider Psychiatry & Neurology Psychiatry
DX: I69.318 Other symptoms and signs involving cognitive functions following cerebral infarction (principal); F01.51 Vascular dementia, unspecified severity, with behavioral disturbance; F01.50 Vascular dementia, unspecified severity, without behavioral disturbance, psychotic disturbance, mood disturbance, and anxiety; F29 Unspecified psychosis not due to a substance or known physiological condition; R31.0 Gross hematuria; R60.9 Edema, unspecified; R33.9 Retention of urine, unspecified; E78.5 Hyperlipidemia, unspecified; Z79.899 Other long term (current) drug therapy
CPT/HCPCS: 36415; 70450; 80048; 81001; 82947; 85025; 93005; C1758

== ENCOUNTER 2021-09-02 17:03 | Inpatient (IN) | payer MEDICARE, SELFPAY ==
--- NOTE | ~2021-09-02 | CT_ITS ---
EXAMINATION: CT HEAD WITHOUT CONTRAST CLINICAL INFORMATION: History of CVA. Dementia. Increasing confusion and lethargy. COMPARISON: CT head August 15, 2021 TECHNIQUE: Contiguous axial imaging was performed from the skull base to vertex without intravenous administration of contrast. Coronal and sagittal reformatted images are performed at the CT scanner. [This CT examination was performed using dose optimization techniques as appropriate, variously including the following: *Automated exposure control *Adjustment of mA and/or kV according to patient size (this includes techniques or standardized protocols for targeted exams where dose is matched to indication/reason for exam; i.e. extremities or head) *Use of iterative reconstruction technique] DLP: 696 mGy-cm. FINDINGS: There is no evidence of acute intracranial hemorrhage or acute territorial infarction. There is a chronic old infarct with encephalomalacia involving the left posterior temporal lobe. No abnormal mass-effect or midline shift is seen. Potter to white matter differentiation is well preserved. No extra-axial fluid collections are identified. There is generalized global volume loss. There is moderate prominence of the ventricles and the sulci . There is mild hypodensity of the periventricular white matter due to chronic small vessel ischemic disease. There are vascular calcifications of the internal carotid arteries bilaterally. There is no osseous abnormality. The mastoid air cells and visualized portions of the paranasal sinuses are well-aerated. CT/CT head/brain wo con IMPRESSION: No acute intracranial pathology. Chronic old infarct in the left temporal lobe.
--- NOTE | 2021-09-02 17:23 | P.HPHOSP_ITS ---
History of Present Illness Date of Service: 09/02/21 <IVET Velasquez - Last Filed: 09/02/21 18:10> Attending physician on admission: Cb Razo <IVET Velasquez - Last Filed: 09/02/21 18:10> Chief Complaint: AMS <IVET Velasquez - Last Filed: 09/02/21 18:10> This is a 75 year old male with history of hemorrhagic stroke and dementia, currently being treated on the Geriatric psych floor for new onset of psychotic symptoms and disorganized behavior. In 2009 patient suffered a hemorrhagic stroke and since that time his cognition has declined. Six months ago his memory became worse and he was evaluated at the [facility] where he was diagnosed with vascular dementia. He was becoming more irritable. A week and half prior to his admission he became paranoid and anxious. He was brought to [facility] and eventually referred to [facility] psych floor for further management. His medications have been adjusted. At baseline he seems to be minimally verbal but able to follow basic commands. Over the past day or two staff has noticed that he has become less active, not following commands as easily and not eating or drinking much. He also began retaining urine and a arriaza catheter was placed. He is unable to provide any medical history. <IVET Velasquez - Last Filed: 09/02/21 18:10> Review of Systems Review of Systems: Yes Unobtainable due to mental condition <IVET Velasquez - Last Filed: 09/02/21 18:10> [facility], LAT[facility] Medical History: Medical History (Updated 09/21/21 @ 00:03 by Efren Velarde) Dementia Hemorrhagic stroke HLD (hyperlipidemia) HTN (hypertension) Vascular dementia <IVET Velasquez - Last Filed: 09/02/21 18:10> Pertinent family history: unable to obtain due to patient's dementia <IVET Velasquez - Last Filed: 09/02/21 18:10> Social History: Social History Household Members: Spouse Housing: House Do you presently have visiting nurse or other home services: No Unable to assess alcohol history related to: Unable to respond Patient Tobacco Use Status: Former Tobacco user Second Hand Smoke Exposure: No service: No Sexual orientation: Straight/Heterosexual <IVET Velasquez - Last Filed: 09/02/21 18:10> Meds Allergies/Adverse reactions: Allergies Allergy/AdvReac Type Severity Reaction Status Date / Time No Known Allergies Allergy Verified 08/14/21 11:06 <IVET Velasquez - Last Filed: 09/02/21 18:10> Active Medications: Current Medications Acetaminophen (Acetaminophen 325 Mg Tablet) 650 mg PO Q6H PRN PRN Reason: Pain, Mild (Pain Scale 1-3) Docusate Sodium (Docusate Sodium 100 Mg Capsule) 100 mg PO DAILY [facility] Pharmacy Consult (Consult Rx Perform Med Rec) 1 each MISCELLANE ONCE PRN PRN Reason: Consult order Sodium Chloride (0.9 % Sodium Chloride Flush 3 Ml Syringe) 3 ml IVFLUSH QSHIFT [facility] <IVET Velasquez - Last Filed: 09/02/21 18:10> Home medications: Home Medications Medication Instructions Recorded Confirmed Last Taken Type acetaminophen 325 mg tablet 650 mg PO Q6H PRN 09/02/21 09/02/21 09/02/21 History aluminum-mag hydroxide-simethicone 30 ml PO DAILY PRN 09/02/21 09/02/21 Unknown History 200 mg-200 mg-20 mg/5 mL oral susp atorvastatin 10 mg tablet 10 mg PO BEDTIME 09/02/21 09/02/21 09/01/21 History loperamide 2 mg tablet 4 mg PO Q4H PRN 09/02/21 09/02/21 08/31/21 History magnesium hydroxide 400 mg/5 mL 2,400 mg PO DAILY PRN 09/02/21 09/02/21 Unknown History oral suspension trazodone 50 mg tablet 50 mg PO BEDTIME PRN 09/02/21 09/02/21 08/18/21 History <IVET Velasquez - Last Filed: 09/02/21 18:10> Physical Exam Const: Other: patient observed lying in bed; intermittently laughing; i ntermittently reaching out to grab the air; follows some simple commands; intermittent murmuring but does not answer any direct questions; appears comfortable and in no acute distress <IVET Velasquez - Last Filed: 09/02/21 18:10> Nutritional Appearance: well nourished <IVET Velasquez - Last Filed: 09/02/21 18:10> HENMT: Other: dry mucous membranes <IVET Velasquez - Last Filed: 09/02/21 18:10> Head: Yes normocephalic and Yes atraumatic <IVET Velasquez - Last Filed: 09/02/21 18:10> Eyes: Sclerae: sclerae normal <IVET Velasquez - Last Filed: 09/02/21 18:10> Pupils: Equal, round and reactive pupils present <IVET Velasquez - Last Filed: 09/02/21 18:10> Resp: Effort & Inspection: normal respiratory effort and no respiratory distress <IVET Velasquez - Last Filed: 09/02/21 18:10> Cardio: Rate: regular rate <IVET Velasquez - Last Filed: 09/02/21 18:10> Heart sounds: S1 normal heart sound present and S2 normal heart sound present <IVET Velasquez - Last Filed: 09/02/21 18:10> GI: Other: abdomen soft, non-distended, appears non-tender <IVET Velasquez - Last Filed: 09/02/21 18:10> : Other: arriaza in place, draining bloody urine <IVET Velasquez - Last Filed: 09/02/21 18:10> Neuro: Other: difficult to assess; hand grasp equal b/l; moving all extremities; awake but not responding verbally; only following some simple commands <IVET Velasquez - Last Filed: 09/02/21 18:10> Cranial nerves: Yes CN's II-XII intact bilaterally, Yes Equal, round and reactive pupils present and Yes Bilaterally intact EOM present <IVET Velasquez - Last Filed: 09/02/21 18:10> Extrem: Other: able to move all four extremities spontaneously <IVET Velasquez - Last Filed: 09/02/21 18:10> Results Labs CBC and Chem 7: : 09/05/21 06:13 09/12/21 05:54 <IVET Velasquez - Last Filed: 09/02/21 18:10> Assessment and Plan (1) Altered mental status: Status: Resolved <IVET Velasquez - Last Filed: 09/02/21 18:10> This is a 75 year old male with a history of hemorrhagic stroke with resulting vascular dementia, HTN, HLD admitted to the [facility] floor for increasing paranoia, anxiety and disorganized behavior. His inpatient psychiatric stay was complicated initially by agitation, aggression, unpredictable behavior and sundowning. For the past day or two he has become more lethargic, with decreased PO intake and requiring more nursing care and is being transferred to the medical floor for further management. Encephalopathy (work up for etiology in progress) on a background of vascular dementia seems to be minimally verbal at baseline CT brain from 08/15 showing old infarct in Left MCA territory as well as chronic small vessel ischemic changes was initially agitated and aggressive upon admission, now becoming more hypoactive and lethargic possibly due to medications. will eval for other causes has been afebrile, no leukocytosis to suggest infection; UA from 09/01 not indicative of infection -brain ct -neurology consult -IVF -check basic labs CBC, BMP. liver profile, b12, folate, TSH mood continue zoloft hold scheduled risperidone continue prn risperidone Urinary retention arriaza catheter in place urology consult hematuria avoid AC, [facility] urology consult follow cbc thrombocytopenia no baseline for comparison follow cbc dementia continue aricept, exelon HLD continue statin HTN continue atenolol dvt ppx - mechanical devices due to hematuria code status - DNR/DNI; confirmed with Attending: Dr. Razo <IVET Velasquez - Last Filed: 09/02/21 18:10> This is a 75 year old male with a history of hemorrhagic stroke with resulting vascular dementia, HTN, HLD admitted to the [facility] floor for increasing paranoia, anxiety and disorganized behavior. His inpatient psychiatric stay was complicated initially by agitation, aggression, unpredic table behavior and sundowning. For the past day or two he has become more lethargic, with decreased PO intake and requiring more nursing care and is being transferred to the medical floor for further management. Encephalopathy (work up for etiology in progress) on a background of vascular dementia seems to be minimally verbal at baseline CT brain from 08/15 showing old infarct in Left MCA territory as well as chronic small vessel ischemic changes was initially agitated and aggressive upon admission, now becoming more hypoactive and lethargic possibly due to medications. will eval for other causes has been afebrile, no leukocytosis to suggest infection; UA from 09/01 not indicative of infection -brain ct -neurology consult -IVF -check basic labs CBC, BMP. liver profile, b12, folate, TSH mood continue zoloft hold scheduled risperidone continue prn risperidone Urinary retention arriaza catheter in place urology consult hematuria avoid AC, [facility] urology consult follow cbc thrombocytopenia no baseline for comparison follow cbc dementia continue aricept, exelon HLD continue statin HTN continue atenolol dvt ppx - mechanical devices due to hematuria code status - DNR/DNI; confirmed with Attending: Dr. Razo I saw and examined patient and discussed findings with midlevel provider and i agree with the above <Cbrichard Razo MD - Last Filed: 09/21/21 16:30> Quality Stroke Does the patient have a stroke diagnosis?: No <IVET Velasquez - Last Filed: 09/02/21 18:10> VTE Prior VTE?: No <IVET Velasquez - Last Filed: 09/02/21 18:10> VTE Risk Level:: Medical - moderate - high <IVET Velasquez - Last Filed: 09/02/21 18:10> VTE Device Contraindication: N/A - Device Ordered <IVET Velasquez - Last Filed: 09/02/21 18:10> VTE Drug Contraindication: Treatment Not Indicated <IVET Velasquez - Last Filed: 09/02/21 18:10>
[2021-09-02 20:00] VITALS: BP 127/63; PULSE 77; RESP 18; TEMP 37.4; O2SAT 93
[2021-09-02 23:23] VITALS: BP 116/61; PULSE 68; RESP 20; TEMP 36.6; O2SAT 96
[2021-09-03] VITALS (7 sets, daily range): BP systolic 99–141; BP diastolic 51–69; PULSE 52–65; RESP 16–20; TEMP 36.3–37.4; O2SAT 92–96; BMI 30.9
[2021-09-03 07:10] LABS: MANUAL DIFF FLAG NO
[2021-09-03 07:14] LABS: Basophils Percent Auto 0.5 % (0-2); Eosinophils Absolute Auto 0.5 X10*3/uL (0.0-0.4); Eosinophils Percent Auto 7.1 % (0-4); Hematocrit 37.4 % (42.0-52.0); Imm Gran Abs Auto 0.04 X10*3/uL (0.00-0.03); Imm Gran Pct Auto 0.6 % (0.0-0.4); Lymphocytes Absolute Auto 0.8 X10*3/uL (1.2-4.9); Mean Corpuscular HGB Conc 32.1 g/dl (31.0-36.0); Mean Corpuscular Hemoglobin 30.5 pg (27.0-33.0); Mean Corpuscular Volume 94.9 fL (80.0-98.0); Monocytes Absolute Auto 0.9 X10*3/uL (0.1-1.2); Monocytes Percent Auto 13.3 % (2-11); Neutrophils Absolute Auto 4.2 x10*3/uL (2.0-8.3); Neutrophils Percent Auto 65.5 % (45-73); Platelet Count 100 X10*3/uL (160-400); Red Blood Count 3.94 X10*6/uL (4.60-5.80); Red Cell Distribution Width 12.5 % (11.0-16.0); White Blood Count 6.4 X10*3/uL (4.8-10.8)
[2021-09-03 08:03] LABS: Alanine Aminotransferase 14 U/L (0-40); Albumin Level 2.9 g/dL (3.5-5.0); Alkaline Phosphatase 75 U/L (39-117); Anion Gap 11 (12-20); Aspartate Amino Transferase 15 U/L (5-37); Bilirubin Direct 0.3 mg/dL (0.0-0.5); Bilirubin Total 0.7 mg/dL (0.0-1.0); Blood Urea Nitrogen 10 mg/dL (9-16); Calcium 7.7 mg/dL (8.4-10.2); Carbon Dioxide 26 mmol/L (22-29); Chloride 106 mmol/L (96-108); Estimated Glomerular Filt Rate > 60; Glucose Random 90 mg/dL (60-115); Potassium 3.9 mmol/L (3.3-5.1); Sodium 139 mmol/L (135-145); Total Protein 5.1 g/dL (6.5-8.0)
[2021-09-03 08:08] LABS: Thyroid Stimulating Hormone 1.85 uIU/mL (0.32-4.0)
[2021-09-03 09:32] LABS: Folate 7.8 ng/mL (> or = 4.0); Vitamin B12 461 pg/mL (200-900)
[2021-09-03] MEDS: Lactated Ringers 1,000 ML 80 ML IVCONT (10:01)
[2021-09-03] MEDS: Docusate Sodium 100 MG CAPSULE PO (10:13)
[2021-09-03] MEDS: Sertraline HCL 50 MG TABLET PO (10:14)
[2021-09-03] MEDS: atenoloL 50 MG TABLET PO (10:14)
[2021-09-03] MEDS: Cyanocobalamin (Vitamin B-12) 1,000 MCG TABLET 1000 MCG PO (10:14)
[2021-09-03] MEDS: 0.9 % Sodium Chloride Flush 3 ML SYRINGE IVFLUSH (10:14)
[2021-09-03] MEDS: Donepezil HCl 10 MG TABLET PO (10:14)
--- NOTE | 2021-09-03 10:18 | PC.NURSE ---
With assistance pt tolerated taking PO meds, crushed in apple sauce.
--- NOTE | 2021-09-03 10:44 | P.PNIM_ITS ---
Subjective Subjective Date of Service: 09/03/21 <IVET Velasquez - Last Filed: 09/03/21 10:54> 09/03/21 <Rodrigo Butler MD - Last Filed: 09/03/21 16:40> Interval History: seen and examined this morning follow up for lethargy no overnight events woke patient up from sleep, appeared comfortable not able to provide any history <IVET Velasquez Last Filed: 09/03/21 10:54> Review of Systems Review of Systems: Yes Unobtainable due to mental status <IVET Velasquez Last Filed: 09/03/21 10:54> Physical Exam Vital Signs: Vital Signs: Last Vital Signs Temp 97.3 F 09/03/21 07:41 Pulse 58 09/03/21 07:41 Resp 16 09/03/21 07:41 BP 141/66 H 09/03/21 07:41 Pulse Ox 94 09/03/21 07:41 <IVET Velasquez - Last Filed: 09/03/21 10:54> Const: Other: patient observed lying in bed; appears comfortable and in no acute distress; sleepy, resisting to open eyes <IVET Velasquez Last Filed: 09/03/21 10:54> Nutritional Appearance: well nourished <IVET Velasquez Last Filed: 09/03/21 10:54> HENMT: Other: dry mucous membranes <IVET Velasquez Last Filed: 09/03/21 10:54> Head: Yes normocephalic and Yes atraumatic <IVET Velasquez Last Filed: 09/03/21 10:54> Eyes: Sclerae: sclerae normal <IVET Velasquez Last Filed: 09/03/21 10:54> Pupils: Equal, round and reactive pupils present <IVET Velasquez Last Filed: 09/03/21 10:54> Resp: Effort & Inspection: normal respiratory effort and no respiratory distress <IVET Velasquez Last Filed: 09/03/21 10:54> Cardio: Rate: regular rate <IVET Velasquez Last Filed: 09/03/21 10:54> Heart sounds: S1 normal heart sound present and S2 normal heart sound present <IVET Velasquez Last Filed: 09/03/21 10:54> GI: Other: abdomen soft, non-distended, appears non-tender <IVET Velasquez Last Filed: 09/03/21 10:54> : Other: arriaza in place, draining bloody urine <IVET Velasquez Last Filed: 09/03/21 10:54> Neuro: Other: difficult to assess; hand grasp equal b/l; moving all extremities; awake but not responding verbally <IVET Velasquez Last Filed: 09/03/21 10:54> Cranial nerves: Yes CN's II-XII intact bilaterally, Yes Equal, round and reactive pupils present and Yes Bilaterally intact EOM present <IVET Velasquez Last Filed: 09/03/21 10:54> Extrem: Other: able to move all four extremities spontaneously <IVET Velasquez Last Filed: 09/03/21 10:54> Objective Data Active Medications Acetaminophen (Acetaminophen 325 Mg Tablet) 650 mg PO Q6H PRN PRN Reason: Pain, Mild (Pain Scale 1-3) Al Hydroxide/Mg Hydroxide (Magnesium Hydrox/Alum Hydrox 30 Ml Oral.Susp) 30 ml PO DAILY PRN PRN Reason: Acid Reflux Atenolol (Atenolol 50 Mg Tablet) 50 mg PO DAILY [facility]; Protocol Last Admin: 09/03/21 10:14 Dose: 50 mg Documented by: HELEN Atorvastatin Calcium (Atorvastatin Calcium 10 Mg Tablet) 10 mg PO BEDTIME [facility] Last Admin: 09/02/21 22:19 Dose: Not Given Documented by: PARISH Non-Admin Reason: Patient Refused Cyanocobalamin (Cyanocobalamin (Vitamin B-12) 1,000 Mcg Tablet) 1,000 mcg PO DAILY [facility] Last Admin: 09/03/21 10:14 Dose: 1,000 mcg Documented by: HELEN Docusate Sodium (Docusate Sodium 100 Mg Capsule) 100 mg PO DAILY [facility] Last Admin: 09/03/21 10:13 Dose: 100 mg Documented by: HELEN Donepezil HCl (Donepezil Hcl 10 Mg Tablet) 10 mg PO DAILY [facility] Last Admin: 09/03/21 10:14 Dose: 10 mg Documented by: HELEN Lactated Ringer's (Lr) 1,000 mls @ 80 mls/hr IVCONT .[id number] [facility] Last Admin: 09/03/21 10:01 Dose: 80 mls/hr Documented by: HELEN Magnesium Hydroxide (Milk Of Magnesia 30 Ml Oral.Susp) 30 ml PO DAILY PRN PRN Reason: Acid Reflux Pharmacy Consult (Consult Rx Perform Med Rec) 1 each MISCELLANE ONCE PRN PRN Reason: Consult order Risperidone (Risperidone 0.25 Mg Tablet) 0.25 mg PO Q4H PRN PRN Reason: Anxiety/Restlessness Rivastigmine Tartrate (Rivastigmine Tartrate 1.5 Mg Capsule) 1.5 mg PO BID [facility] Last Admin: 09/02/21 22:19 Dose: Not Given Documented by: PARISH Non-Admin Reason: Patient Refused Sertraline HCl (Sertraline Hcl 50 Mg Tablet) 50 mg PO DAILY [facility] Last Admin: 09/03/21 10:14 Dose: 50 mg Documented by: HELEN Sodium Chloride (0.9 % Sodium Chloride Flush 3 Ml Syringe) 3 ml IVFLUSH QSHIFT [facility] Last Admin: 09/03/21 10:14 Dose: 3 ml Documented by: HELEN Trazodone HCl (Trazodone Hcl 50 Mg Tablet) 50 mg PO BEDTIME PRN PRN Reason: Insomnia <IVET Velasquez - Last Filed: 09/03/21 10:54> Labs CBC & Chem 7: : 09/03/21 06:41 09/03/21 06:41 <IVET Velasquez - Last Filed: 09/03/21 10:54> Labs: Laboratory Results - last 24 hr 09/03/21 09/03/21 09/03/21 06:41 06:41 06:41 MCV 94.9 MCH 30.5 MCHC 32.1 RDW 12.5 Plt Count 100 L D MPV 9.0 L Immature Gran % (Auto) 0.6 H Neut % (Auto) 65.5 Lymph % (Auto) 13.0 L Bryan % (Auto) 13.3 H Eos % (Auto) 7.1 H Baso % (Auto) 0.5 Lymph # (Auto) 0.8 L Bryan # (Auto) 0.9 Eos # (Auto) 0.5 H Baso # (Auto) 0.0 Abs Immat Gran (auto) 0.04 H Absolute Neuts (auto) 4.2 Absolute Nucleated RBC 0.000 Nucleated RBC % (auto) 0.0 Anion Gap 11 L Estim Creat Clear Calc TNP Estimated GFR > 60 Random Glucose 90 Calcium 7.7 L D Total Bilirubin 0.7 Direct Bilirubin 0.3 AST 15 ALT 14 Alkaline Phosphatase 75 Total Protein 5.1 L Albumin 2.9 L Vitamin B12 461 Folate 7.8 TSH 1.85 <IVET Velasquez - Last Filed: 09/03/21 10:54> Assessment and Plan (1) Altered mental status: Status: Acute <IVET Velasquez - Last Filed: 09/03/21 10:54> Assessment and Plan: This is a 75 year old male with a history of hemorrhagic stroke with resulting vascular dementia, HTN, HLD admitted to the [facility] floor for increasing paranoia, anxiety and disorganized behavior. His inpatient psychiatric stay was complicated initially by agitation, aggression, unpre dictable behavior and sundowning. For the past day or two he has become more lethargic, with decreased PO intake and requiring more nursing care and is being transferred to the medical floor for further management. Encephalopathy (work up for etiology in progress) on a background of vascular dementia seems to be minimally verbal at baseline CT brain from 08/15 showing old infarct in Left MCA territory as well as chronic small vessel ischemic changes repeat CT brain 09/02 with no acute changes was initially agitated and aggressive upon admission, now becoming more hypoactive and lethargic possibly due to medications. will eval for other causes has been afebrile, no leukocytosis to suggest infection; UA from 09/01 not indicative of infection renal function, liver function, tsh, b12, folate wnl -neurology consult pending -IVF -limit sedating meds mood continue zoloft hold scheduled risperidone continue prn risperidone -psych consult for assistance with med management Urinary retention arriaza catheter in place urology consult hematuria avoid AC, [facility] urology consult follow cbc thrombocytopenia no baseline for comparison follow cbc dementia continue aricept, exelon HLD continue statin HTN continue atenolol dvt ppx - mechanical devices due to hematuria code status - DNR/DNI; confirmed with Attending: Dr. Butler <IVET Velasquez - Last Filed: 09/03/21 10:54> This is a 75 year old male with a history of hemorrhagic stroke with resulting vascular dementia, HTN, HLD admitted to the [facility] floor for increasing paranoia, anxiety and disorganized behavior. His inpatient psychi atric stay was complicated initially by agitation, aggression, unpredictable behavior and sundowning. For the past day or two he has become more lethargic, with decreased PO intake and requiring more nursing care and is being transferred to the medical floor for further management. Encephalopathy (work up for etiology in progress) on a background of vascular dementia seems to be minimally verbal at baseline CT brain from 08/15 showing old infarct in Left MCA territory as well as chronic small vessel ischemic changes repeat CT brain 09/02 with no acute changes was initially agitated and aggressive upon admission, now becoming more hypoactive and lethargic possibly due to medications. will eval for other causes has been afebrile, no leukocytosis to suggest infection; UA from 09/01 not indica tive of infection renal function, liver function, tsh, b12, folate wnl neurology consult pending Continue IVF -limit sedating meds mood continue zoloft hold scheduled risperidone continue prn risperidone -psych consult for assistance with med management Urinary retention arriaza catheter in place urology consult hematuria avoid AC, [facility] urology consult follow cbc thrombocytopenia no baseline for comparison follow cbc dementia continue aricept, exelon HLD continue statin HTN continue atenolol dvt ppx - mechanical devices due to hematuria code status - DNR/DNI; confirmed with Attending: Dr. Butler <Rodrigo Butler MD - Last Filed: 09/03/21 16:40> Quality Stroke Does the patient have a stroke diagnosis?: No <IVET Velasquez - Last Filed: 09/03/21 10:54> VTE Prior VTE?: No <IVET Velasquez - Last Filed: 09/03/21 10:54> VTE Risk Level:: Medical - moderate - high <IVET Velasquez - Last Filed: 09/03/21 10:54> VTE Device Contraindication: N/A - Device Ordered <IVET Velasquez - Last Filed: 09/03/21 10:54> VTE Drug Contraindication: Treatment Not Indicated <IVET Velasquez - Last Filed: 09/03/21 10:54>
--- NOTE | 2021-09-03 13:20 | MHC.CM.PN ---
pt admitted to medical floor from [facility] pt has a sitter ,called and spoke with pts who [facility] ..per pt was lvivng at home but was becoming increasingly confused asnd physical they had no servceis in place prior to admisison his pcp ,is dr eden assimes that he will return to inpt psych when medically stable
[2021-09-03] MEDS: risperiDONE 0.25 MG TABLET PO (16:35)
--- NOTE | 2021-09-03 18:41 | PM.NEUROCN ---
History of Present Illness Data of Consult Service Date: 09/03/21 Primary Care Provider: Unknown Physician HPI Reason for consult: Altered mental status This is a 75-year-old man with a previous left temporal lobe infarct about 10 years ago with dementia thought to be a vascular dementia who had a change in his mental status and was brought in. His had some psychotic episodes as welll and is being followed by psychiatry. At this time the patient is a poorly responsive. He keeps her twitching in his movements picking up things occasionally opens eyes and looks around, does not verbalize or follow any commands. Review of Systems Review of Systems: Yes Unobtainable due to mental condition and Unobtainable due to mental status PMFSH Past Medical History Medical History Dementia Hemorrhagic stroke HLD (hyperlipidemia) HTN (hypertension) Vascular dementia Family History Pertinent family history: unable to obtain due to patient's dementia Social History Social History Household Members: Spouse Housing: House Do you presently have visiting nurse or other home services: No Unable to assess alcohol history related to: Unable to respond Patient Tobacco Use Status: Former Tobacco user Second Hand Smoke Exposure: No Use of substances other than those prescribed or required for medical reasons: Unable to respond Currently Displaying Signs/Symptoms of Drug Intoxication Withdrawal: No Advance Directives: No Advance Directives Information Provided: No Do you have thoughts of harming others: None Do you have a plan to hurt others: No Plan Recently lost weight without trying: Unsure Nutrition Risks: Difficulty swallowing service: No Sexual orientation: Straight/Heterosexual Meds Allergies Allergy/AdvReac Type Severity Reaction Status Date / Time No Known Allergies Allergy Verified 08/14/21 11:06 Active Medications: Current Medications Acetaminophen (Acetaminophen 325 Mg Tablet) 650 mg PO Q6H PRN PRN Reason: Pain, Mild (Pain Scale 1-3) Al Hydroxide/Mg Hydroxide (Magnesium Hydrox/Alum Hydrox 30 Ml Oral.Susp) 30 ml PO DAILY PRN PRN Reason: Acid Reflux Atenolol (Atenolol 50 Mg Tablet) 50 mg PO DAILY [facility]; Protocol Last Admin: 09/03/21 10:14 Dose: 50 mg Documented by: Atorvastatin Calcium (Atorvastatin Calcium 10 Mg Tablet) 10 mg PO BEDTIME [facility] Last Admin: 09/02/21 22:19 Dose: Not Given Documented by: Cyanocobalamin (Cyanocobalamin (Vitamin B-12) 1,000 Mcg Tablet) 1,000 mcg PO DAILY [facility] Last Admin: 09/03/21 10:14 Dose: 1,000 mcg Documented by: Docusate Sodium (Docusate Sodium 100 Mg Capsule) 100 mg PO DAILY [facility] Last Admin: 09/03/21 10:13 Dose: 100 mg Documented by: Donepezil HCl (Donepezil Hcl 10 Mg Tablet) 10 mg PO DAILY [facility] Last Admin: 09/03/21 10:14 Dose: 10 mg Documented by: Lactated Ringer's (Lr) 1,000 mls @ 80 mls/hr IVCONT .[id number] [facility] Last Admin: 09/03/21 10:01 Dose: 80 mls/hr Documented by: Magnesium Hydroxide (Milk Of Magnesia 30 Ml Oral.Susp) 30 ml PO DAILY PRN PRN Reason: Acid Reflux Pharmacy Consult (Consult Rx Perform Med Rec) 1 each MISCELLANE ONCE PRN PRN Reason: Consult order Risperidone (Risperidone 0.25 Mg Tablet) 0.25 mg PO Q4H PRN PRN Reason: Anxiety/Restlessness Last Admin: 09/03/21 16:35 Dose: 0.25 mg Documented by: Rivastigmine Tartrate (Rivastigmine Tartrate 1.5 Mg Capsule) 1.5 mg PO BID [facility] Last Admin: 09/03/21 12:25 Dose: Not Given Documented by: Sertraline HCl (Sertraline Hcl 50 Mg Tablet) 50 mg PO DAILY [facility] Last Admin: 09/03/21 10:14 Dose: 50 mg Documented by: Sodium Chloride (0.9 % Sodium Chloride Flush 3 Ml Syringe) 3 ml IVFLUSH QSHIFT [facility] Last Admin: 09/03/21 15:38 Dose: Not Given Documented by: Trazodone HCl (Trazodone Hcl 50 Mg Tablet) 50 mg PO BEDTIME PRN PRN Reason: Insomnia Home Medications Medication Instructions Recorded Confirmed Last Taken Type acetaminophen 325 mg tablet 650 mg PO Q6H PRN 09/02/21 09/02/21 09/02/21 History aluminum-mag hydroxide-simethicone 30 ml PO DAILY PRN 09/02/21 09/02/21 Unknown History 200 mg-200 mg-20 mg/5 mL oral susp atorvastatin 10 mg tablet 10 mg PO BEDTIME 09/02/21 09/02/21 09/01/21 History loperamide 2 mg tablet 4 mg PO Q4H PRN 09/02/21 09/02/21 08/31/21 History magnesium hydroxide 400 mg/5 mL 2,400 mg PO DAILY PRN 09/02/21 09/02/21 Unknown History oral suspension trazodone 50 mg tablet 50 mg PO BEDTIME PRN 09/02/21 09/02/21 08/18/21 History Physical Exam Vital Signs: Vital Signs: Last Vital Signs Temp 98.5 F 09/03/21 15:25 Pulse 59 09/03/21 15:25 Resp 20 09/03/21 15:25 BP 104/59 L 09/03/21 15:25 Pulse Ox 96 09/03/21 15:25 Body Mass Index 30.9 Const: Other: patient observed lying in bed; appears comfortable and in no acute distress; sleepy, resisting to open eyes Nutritional Appearance: well nourished HENMT: Other: dry mucous membranes Head: Yes normocephalic and Yes atraumatic Eyes: Sclerae: sclerae normal Pupils: Equal, round and reactive pupils present Resp: Effort & Inspection: normal respiratory effort and no respiratory distress Cardio: Rate: regular rate Heart sounds: S1 normal heart sound present and S2 normal heart sound present GI: Other: abdomen soft, non-distended, appears non-tender : Other: arriaza in place, draining bloody urine Neuro: Other: He keeps moving all 4 extremities, making piccking movements with his fingers. Occasionally opens his eyes. Does not verbalize or follow commands. Cranial nerves: Yes CN's II-XII intact bilaterally, Yes Equal, round and reactive pupils present and Yes Bilaterally intact EOM present Extrem: Other: able to move all four extremities spontaneously Results Labs CBC & Chem 7: 09/03/21 06:41 09/03/21 06:41 Labs: Short CBC 09/03/21 Range/Units 06:41 WBC 6.4 (4.8-10.8) X10*3/uL Hgb 12.0 L (14.0-18.0) g/dl Hct 37.4 L (42.0-52.0) % Plt Count 100 L D (160-400) X10*3/uL BMP 09/03/21 06:41 Sodium 139 Potassium 3.9 Chloride 106 Carbon Dioxide 26 BUN 10 Creatinine 0.70 Calcium 7.7 L D Liver Function 09/03/21 Range/Units 06:41 Total Bilirubin 0.7 (0.0-1.0) mg/dL Direct Bilirubin 0.3 (0.0-0.5) mg/dL AST 15 (5-37) U/L ALT 14 (0-40) U/L Alkaline Phosphatase 75 (39-117) U/L Albumin 2.9 L (3.5-5.0) g/dL Assessment and Plan (1) Altered mental status: Status: Acute Encephalopathy superimposed on baseline dementia or possibly vascular dementia. Old left temporal lobe infarct. Recommendation rule out metabolic infectious etiology. Correction of metabolic abnormalities. EEG to rule out subcclinical seizures This is a 75 year old male with a history of hemorrhagic stroke with resulting vascular dementia, HTN, HLD admitted to the [facility] floor for increasing paranoia, anxiety and disorganized behavior. His inpatient psychiatric stay was complicated initially by agitation, aggression, unpredictable behavior and sundowning. For the past day or two he has become more lethargic, with decreased PO intake and requiring more nursing care and is being transferred to the medical floor for further management. Encephalopathy (work up for etiology in progress) on a background of vascular dementia seems to be minimally verbal at baseline CT brain from 08/15 showing old infarct in Left MCA territory as well as chronic small vessel ischemic changes repeat CT brain 09/02 with no acute changes was initially agitated and aggressive upon admission, now becoming more hypoactive and lethargic possibly due to medications. will eval for other causes has been afebrile, no leukocytosis to suggest infection; UA from 09/01 not indicative of infection renal function, liver function, tsh, b12, folate wnl neurology consult pending Continue IVF -limit sedating meds mood continue zoloft hold scheduled risperidone continue prn risperidone -psych consult for assistance with med management Urinary retention arriaza catheter in place urology consult hematuria avoid AC, [facility] urology consult follow cbc thrombocytopenia no baseline for comparison follow cbc dementia continue aricept, exelon HLD continue statin HTN continue atenolol dvt ppx - mechanical devices due to hematuria code status - DNR/DNI; confirmed with Attending: Dr. Butler Procedures Date of Service Date of Service: 09/03/21
[2021-09-03] MEDS: traZODone HCL 50 MG TABLET PO (19:03)
[2021-09-04] VITALS (7 sets, daily range): BP systolic 92–150; BP diastolic 57–68; PULSE 55–76; RESP 15–19; TEMP 36.6–38.1; O2SAT 92–97
--- NOTE | 2021-09-04 | EEG_ITS ---
This is a 16-channel EEG with an EKG lead. The patient is reported awake, but not responding to commands during the tracing. Background EEG rhythm is low amplitude with mostly in theta to delta range with no obvious asymmetry or paroxysmal tendency. Some eye opening and closure muscle artifacts are noted. Photic stimulation does not produce any significant driving. Hyperventilation is not performed. Cardiac lead does not reveal any significant abnormality. IMPRESSION: No significant abnormality noted on this EEG to suggest seizure disorder. MD BETH Perales/ANY / [id number]
[2021-09-04] MEDS: Lactated Ringers 1,000 ML 80 ML IVCONT ×2 (01:18→13:46)
[2021-09-04] MEDS: 0.9 % Sodium Chloride Flush 3 ML SYRINGE IVFLUSH (09:12)
[2021-09-04] MEDS: Cyanocobalamin (Vitamin B-12) 1,000 MCG TABLET 1000 MCG PO (09:12)
[2021-09-04] MEDS: Donepezil HCl 10 MG TABLET PO (09:12)
[2021-09-04] MEDS: Docusate Sodium 100 MG CAPSULE PO (09:12)
[2021-09-04] MEDS: Sertraline HCL 50 MG TABLET PO (09:12)
[2021-09-04] MEDS: atenoloL 50 MG TABLET PO (09:12)
--- NOTE | 2021-09-04 12:53 | MHC.CM.PN ---
per rounds dc plan remains return to [facility] when medically stable
--- NOTE | 2021-09-04 14:07 | HO.PM.IMPN ---
Subjective Subjective Date of Service: 09/04/21 Interval History: cc: ams interval history: still sleepy, no complaints Cardiovascular Cardiovascular: Reports no additional cardiovascular complaints Respiratory Respiratory: Reports no additional respiratory complaints Physical Exam Vital Signs: Vital Signs: Last Vital Signs Temp 98.1 F 09/04/21 11:28 Pulse 67 09/04/21 11:28 Resp 18 09/04/21 11:28 BP 112/59 L 09/04/21 11:28 Pulse Ox 95 09/04/21 11:28 Body Mass Index 30.9 General: AO X 2, no acute distress Resp: CTA bilateral, no accessory muscles used CVS: S1,S2,RRR GI: soft, non tender, non distended Neuro: lethargic but easilty rousable, right sided hemiparesis Psych: appropriate affect, impaired insight Objective Data Active Medications Acetaminophen (Acetaminophen 325 Mg Tablet) 650 mg PO Q6H PRN PRN Reason: Pain, Mild (Pain Scale 1-3) Al Hydroxide/Mg Hydroxide (Magnesium Hydrox/Alum Hydrox 30 Ml Oral.Susp) 30 ml PO DAILY PRN PRN Reason: Acid Reflux Atenolol (Atenolol 50 Mg Tablet) 50 mg PO DAILY [facility]; Protocol Last Admin: 09/04/21 09:12 Dose: 50 mg Documented by: MINERVA Atorvastatin Calcium (Atorvastatin Calcium 10 Mg Tablet) 10 mg PO BEDTIME [facility] Last Admin: 09/03/21 21:21 Dose: Not Given Documented by: DAYSI Non-Admin Reason: Patient Asleep Cyanocobalamin (Cyanocobalamin (Vitamin B-12) 1,000 Mcg Tablet) 1,000 mcg PO DAILY [facility] Last Admin: 09/04/21 09:12 Dose: 1,000 mcg Documented by: MINERVA Docusate Sodium (Docusate Sodium 100 Mg Capsule) 100 mg PO DAILY [facility] Last Admin: 09/04/21 09:12 Dose: 100 mg Documented by: MINERVA Donepezil HCl (Donepezil Hcl 10 Mg Tablet) 10 mg PO DAILY [facility] Last Admin: 09/04/21 09:12 Dose: 10 mg Documented by: MINERVA Lactated Ringer's (Lr) 1,000 mls @ 80 mls/hr IVCONT .[id number] [facility] Last Admin: 09/04/21 13:46 Dose: 80 mls/hr Documented by: MINERVA Magnesium Hydroxide (Milk Of Magnesia 30 Ml Oral.Susp) 30 ml PO DAILY PRN PRN Reason: Acid Reflux Pharmacy Consult (Consult Rx Perform Med Rec) 1 each MISCELLANE ONCE PRN PRN Reason: Consult order Risperidone (Risperidone 0.25 Mg Tablet) 0.25 mg PO Q4H PRN PRN Reason: Anxiety/Restlessness Last Admin: 09/03/21 16:35 Dose: 0.25 mg Documented by: JESS Rivastigmine Tartrate (Rivastigmine Tartrate 1.5 Mg Capsule) 1.5 mg PO BID [facility] Last Admin: 09/04/21 09:19 Dose: Not Given Documented by: MINERVA Non-Admin Reason: Med Not Available Sertraline HCl (Sertraline Hcl 50 Mg Tablet) 50 mg PO DAILY [facility] Last Admin: 09/04/21 09:12 Dose: 50 mg Documented by: MINERVA Sodium Chloride (0.9 % Sodium Chloride Flush 3 Ml Syringe) 3 ml IVFLUSH QSHIFT [facility] Last Admin: 09/04/21 09:12 Dose: 3 ml Documented by: MINERVA Trazodone HCl (Trazodone Hcl 50 Mg Tablet) 50 mg PO BEDTIME PRN PRN Reason: Insomnia Last Admin: 09/03/21 19:03 Dose: 50 mg Documented by: JESS Labs CBC & Chem 7: 09/03/21 06:41 09/03/21 06:41 Assessment and Plan (1) Altered mental status: Status: Acute Assessment and Plan: This is a 75 year old male with a history of hemorrhagic stroke with resulting vascular dementia, HTN, HLD admitted to the [facility] floor for increasing paranoia, anxiety and disorganized behavior. His inpatient psychiatric stay was complicated initially by agitation, aggression, unpredictable behavior and sundowning. then one day or two of lethargy, with decreased PO intake and requiring more nursing care was transferred to the medical floor for further management. Encephalopathy (work up for etiology in progress) on a background of vascular dementia seems to be minimally verbal at baseline CT brain from 08/15 showing old infarct in Left MCA territory as well as chronic small vessel ischemic changes repeat CT brain 09/02 with no acute changes was initially agitated and aggressive upon admission, now becoming more hypoactive and lethargic possibly due to medications, hypoactive delerium, seizure less likely - check eeg, possible KASIA/daytime somnolence - check overnight o2 has been afebrile, no leukocytosis to suggest infection; UA from 09/01 not indicative of infection renal function, liver function, tsh, b12, folate wnl mood continue zoloft hold scheduled risperidone continue prn risperidone -psych consult for assistance with med management Urinary retention arriaza catheter in place urology consult hematuria avoid AC, [facility] urology consult follow cbc thrombocytopenia no baseline for comparison follow cbc dementia continue aricept, exelon HLD continue statin HTN continue atenolol dvt ppx - mechanical devices due to hematuria code status - DNR/DNI; confirmed with [facility] Stroke Does the patient have a stroke diagnosis?: No VTE Prior VTE?: No VTE Risk Level:: Medical - moderate - high VTE Device Contraindication: N/A - Device Ordered VTE Drug Contraindication: Treatment Not Indicated
[2021-09-04] MEDS: Atorvastatin Calcium 10 MG TABLET PO (21:52)
[2021-09-05] MEDS: Lactated Ringers 1,000 ML 80 ML IVCONT (01:25)
[2021-09-05 04:00] VITALS: BP 131/73; PULSE 60; RESP 18; TEMP 36.6; O2SAT 93
[2021-09-05 07:24] LABS: Hemoglobin 12.4 g/dl (14.0-18.0); Mean Corpuscular Volume 91.1 fL (80.0-98.0); PLT CLUMP 1; Red Cell Distribution Width 12.6 % (11.0-16.0)
[2021-09-05 07:26] LABS: Hematocrit 36.7 % (42.0-52.0); Mean Corpuscular HGB Conc 33.8 g/dl (31.0-36.0); Mean Corpuscular Hemoglobin 30.8 pg (27.0-33.0); Mean Platelet Volume 9.1 fL (9.4-12.4); Platelet Count 148 X10*3/uL (160-400); Red Blood Count 4.03 X10*6/uL (4.60-5.80); White Blood Count 7.9 X10*3/uL (4.8-10.8)
[2021-09-05 07:48] LABS: Anion Gap 15 (12-20); Blood Urea Nitrogen 7 mg/dL (9-16); Carbon Dioxide 24 mmol/L (22-29); Chloride 104 mmol/L (96-108); Estimated Glomerular Filt Rate > 60; Glucose Fasting 99 mg/dL (60-99); Potassium 3.6 mmol/L (3.3-5.1); Sodium 139 mmol/L (135-145)
[2021-09-05 08:00] VITALS: BP 153/66; PULSE 71; RESP 18; TEMP 36.4; O2SAT 95
[2021-09-05 10:54] VITALS: BP 153/66; PULSE 71
[2021-09-05] MEDS: atenoloL 50 MG TABLET PO (10:54)
[2021-09-05] MEDS: Cyanocobalamin (Vitamin B-12) 1,000 MCG TABLET 1000 MCG PO (10:54)
[2021-09-05] MEDS: Sertraline HCL 50 MG TABLET PO (10:54)
[2021-09-05 11:46] VITALS: BP 120/87; PULSE 84; RESP 18; TEMP 36.8; O2SAT 98
--- NOTE | 2021-09-05 12:47 | HO.PM.IMPN ---
Subjective Subjective Date of Service: 09/05/21 Interval History: cc: ams interval history: still sleepy, no complaints Cardiovascular Cardiovascular: Reports no additional cardiovascular complaints Respiratory Respiratory: Reports no additional respiratory complaints Physical Exam Vital Signs: Vital Signs: Last Vital Signs Temp 98.3 F 09/05/21 11:46 Pulse 84 09/05/21 11:46 Resp 18 09/05/21 11:46 BP 120/87 09/05/21 11:46 Pulse Ox 98 09/05/21 11:46 Body Mass Index 30.9 General: AO X 2, no acute distress Resp:? CTA bilateral, no accessory muscles used CVS: S1,S2,RRR GI: soft, non tender, non distended Neuro:? lethargic but easilty rousable, right sided hemiparesis Psych: appropriate affect, impaired insight? Objective Data Active Medications Acetaminophen (Acetaminophen 325 Mg Tablet) 650 mg PO Q6H PRN PRN Reason: Pain, Mild (Pain Scale 1-3) Al Hydroxide/Mg Hydroxide (Magnesium Hydrox/Alum Hydrox 30 Ml Oral.Susp) 30 ml PO DAILY PRN PRN Reason: Acid Reflux Atenolol (Atenolol 50 Mg Tablet) 50 mg PO DAILY [facility]; Protocol Last Admin: 09/05/21 10:54 Dose: 50 mg Documented by: MINERVA Atorvastatin Calcium (Atorvastatin Calcium 10 Mg Tablet) 10 mg PO BEDTIME [facility] Last Admin: 09/04/21 21:52 Dose: 10 mg Documented by: KYLAH Cyanocobalamin (Cyanocobalamin (Vitamin B-12) 1,000 Mcg Tablet) 1,000 mcg PO DAILY [facility] Last Admin: 09/05/21 10:54 Dose: 1,000 mcg Documented by: MINERVA Docusate Sodium (Docusate Sodium 100 Mg Capsule) 100 mg PO DAILY [facility] Last Admin: 09/05/21 09:21 Dose: Not Given Documented by: MINERVA Non-Admin Reason: Diarrhea Lactated Ringer's (Lr) 1,000 mls @ 80 mls/hr IVCONT .[id number] [facility] Last Admin: 09/05/21 01:25 Dose: 80 mls/hr Documented by: KYLAH Magnesium Hydroxide (Milk Of Magnesia 30 Ml Oral.Susp) 30 ml PO DAILY PRN PRN Reason: Acid Reflux Pharmacy Consult (Consult Rx Perform Med Rec) 1 each MISCELLANE ONCE PRN PRN Reason: Consult order Risperidone (Risperidone 0.25 Mg Tablet) 0.25 mg PO Q4H PRN PRN Reason: Anxiety/Restlessness Last Admin: 09/03/21 16:35 Dose: 0.25 mg Documented by: JESS Sertraline HCl (Sertraline Hcl 50 Mg Tablet) 50 mg PO DAILY [facility] Last Admin: 09/05/21 10:54 Dose: 50 mg Documented by: MINERVA Sodium Chloride (0.9 % Sodium Chloride Flush 3 Ml Syringe) 3 ml IVFLUSH QSHIFT [facility] Last Admin: 09/05/21 09:21 Dose: Not Given Documented by: MINERVA Non-Admin Reason: IV Running Trazodone HCl (Trazodone Hcl 50 Mg Tablet) 50 mg PO BEDTIME PRN PRN Reason: Insomnia Last Admin: 09/03/21 19:03 Dose: 50 mg Documented by: JESS Labs CBC & Chem 7: 09/05/21 06:13 09/05/21 06:13 Labs: Laboratory Results - last 24 hr 09/05/21 09/05/21 06:13 06:13 MCV 91.1 MCH 30.8 MCHC 33.8 RDW 12.6 Plt Count 148 L D MPV 9.1 L Absolute Nucleated RBC 0.000 Nucleated RBC % (auto) 0.0 Anion Gap 15 Estim Creat Clear Calc 96.0 Estimated GFR > 60 Fasting Glucose 99 Calcium 8.0 L Assessment and Plan (1) Altered mental status: Status: Acute Assessment and Plan: This is a 75 year old male with a history of hemorrhagic stroke with resulting vascular dementia, HTN, HLD admitted to the [facility] floor for increasing paranoia, anxiety and disorganized behavior. His inpatient psychiatric stay was complicated initially by agitation, aggression, unpredictable behavior and sundowning. then one day or two of lethargy, with decreased PO intake and requiring more nursing care was transferred to the medical floor for further management. Encephalopathy (work up for etiology in progress) on a background of vascular dementia seems to be minimally verbal at baseline CT brain from 08/15 showing old infarct in Left MCA territory as well as chronic small vessel ischemic changes repeat CT brain 09/02 with no acute changes was initially agitated and aggressive upon admission, now becoming more hypoactive and lethargic possibly due to medications, hypoactive delerium, seizure less likely - follow up eeg has been afebrile, no leukocytosis to suggest infection; UA from 09/01 not indicative of infection renal function, liver function, tsh, b12, folate wnl if EEG negative will medically clear mood continue zoloft hold scheduled risperidone continue prn risperidone Urinary retention arriaza catheter in place hematuria avoid AC, [facility] thrombocytopenia no baseline for comparison follow cbc dementia continue aricept, exelon HLD continue statin HTN continue atenolol dvt ppx - mechanical devices due to hematuria code status - DNR/DNI; confirmed with [facility] Stroke Does the patient have a stroke diagnosis?: No VTE Prior VTE?: No VTE Risk Level:: Medical - moderate - high VTE Device Contraindication: N/A - Device Ordered VTE Drug Contraindication: Treatment Not Indicated
--- NOTE | 2021-09-05 14:06 | MHC.CM.PN ---
CM met with Patient and his and answered all dc planning related questions. ultimately, Patient will likely need to go to a LTC/Locked/memory unit and and family are reviewing/considering their options/preference.[facility] at this point and CM will continue to follow.
--- NOTE | 2021-09-05 14:49 | P.CNUR_ITS ---
History of Present Illness Consult details Consult date: 09/04/21 Narrative: 75-year-old male with longstanding history of hemorrhagic stroke and dementia from 2009 Had been treated on geriatric psych floor. Had been seen at multiple [facility] hospitals of a past few months during decline. Minimally verbal at baseline. Had been found with urinary retention Willams catheter placed. Should maximize S prostate medications with terazosin 10 mg and finasteride Remove Willams catheter in 48 hours Would then benefit from [place] catheter should primary concern be toileting. Review of Systems Constitutional: Constitutional: Denies chills and Denies fever(s) Cardiovascular: Cardiovascular: Reports no additional cardiovascular complaints and Denies syncope Respiratory: Respiratory: Denies cough Gastrointestinal: Gastrointestinal: Denies abdominal pain and Denies heartburn Genitourinary: Genitourinary: Reports as per HPI and Denies change in libido Neurologic: Reports confusion and Denies syncope Psychiatric: Psychiatric: Denies change in libido and Reports confusion Endocrine: Endocrine: Denies change in libido [facility] Past Medical History Medical History (Updated 09/05/21 @ 15:08 by Dexter Caceres MD) Dementia Hemorrhagic stroke HLD (hyperlipidemia) HTN (hypertension) Vascular dementia Social History Social History Household Members: Spouse Housing: House Do you presently have visiting nurse or other home services: No Unable to assess alcohol history related to: Unable to respond Patient Tobacco Use Status: Former Tobacco user Second Hand Smoke Exposure: No Use of substances other than those prescribed or required for medical reasons: Unable to respond Currently Displaying Signs/Symptoms of Drug Intoxication Withdrawal: No Advance Directives: No Advance Directives Information Provided: No Do you have thoughts of harming others: None Do you have a plan to hurt others: No Plan Recently lost weight without trying: Unsure Nutrition Risks: Difficulty swallowing service: No Sexual orientation: Straight/Heterosexual Meds Allergies Allergy/AdvReac Type Severity Reaction Status Date / Time No Known Allergies Allergy Verified 08/14/21 11:06 Active Medications: Current Medications Acetaminophen (Acetaminophen 325 Mg Tablet) 650 mg PO Q6H PRN PRN Reason: Pain, Mild (Pain Scale 1-3) Al Hydroxide/Mg Hydroxide (Magnesium Hydrox/Alum Hydrox 30 Ml Oral.Susp) 30 ml PO DAILY PRN PRN Reason: Acid Reflux Atenolol (Atenolol 50 Mg Tablet) 50 mg PO DAILY [facility]; Protocol Last Admin: 09/05/21 10:54 Dose: 50 mg Documented by: Atorvastatin Calcium (Atorvastatin Calcium 10 Mg Tablet) 10 mg PO BEDTIME [facility] Last Admin: 09/04/21 21:52 Dose: 10 mg Documented by: Cyanocobalamin (Cyanocobalamin (Vitamin B-12) 1,000 Mcg Tablet) 1,000 mcg PO DAILY [facility] Last Admin: 09/05/21 10:54 Dose: 1,000 mcg Documented by: Docusate Sodium (Docusate Sodium 100 Mg Capsule) 100 mg PO DAILY [facility] Last Admin: 09/05/21 09:21 Dose: Not Given Documented by: Magnesium Hydroxide (Milk Of Magnesia 30 Ml Oral.Susp) 30 ml PO DAILY PRN PRN Reason: Acid Reflux Pharmacy Consult (Consult Rx Perform Med Rec) 1 each MISCELLANE ONCE PRN PRN Reason: Consult order Risperidone (Risperidone 0.25 Mg Tablet) 0.25 mg PO Q4H PRN PRN Reason: Anxiety/Restlessness Last Admin: 09/03/21 16:35 Dose: 0.25 mg Documented by: Sertraline HCl (Sertraline Hcl 50 Mg Tablet) 50 mg PO DAILY [facility] Last Admin: 09/05/21 10:54 Dose: 50 mg Documented by: Sodium Chloride (0.9 % Sodium Chloride Flush 3 Ml Syringe) [facility] Last Admin: 09/05/21 09:21 Dose: Not Given Documented by: Trazodone HCl (Trazodone Hcl 50 Mg Tablet) 50 mg PO BEDTIME PRN PRN Reason: Insomnia Last Admin: 09/03/21 19:03 Dose: 50 mg Documented by: Home Medications Medication Instructions Recorded Confirmed Last Taken Type acetaminophen 325 mg tablet 650 mg PO Q6H PRN 09/02/21 09/02/21 09/02/21 History aluminum-mag hydroxide-simethicone 30 ml PO DAILY PRN 09/02/21 09/02/21 Unknown History 200 mg-200 mg-20 mg/5 mL oral susp atorvastatin 10 mg tablet 10 mg PO BEDTIME 09/02/21 09/02/21 09/01/21 History loperamide 2 mg tablet 4 mg PO Q4H PRN 09/02/21 09/02/21 08/31/21 History magnesium hydroxide 400 mg/5 mL 2,400 mg PO DAILY PRN 09/02/21 09/02/21 Unknown History oral suspension trazodone 50 mg tablet 50 mg PO BEDTIME PRN 09/02/21 09/02/21 08/18/21 History Physical Exam Vital Signs: Vital Signs: Last Vital Signs Temp 98.3 F 09/05/21 11:46 Pulse 84 09/05/21 11:46 Resp 18 09/05/21 11:46 BP 120/87 09/05/21 11:46 Pulse Ox 98 09/05/21 11:46 Body Mass Index 30.9 Const: General: anxious and confusion Nutritional Appearance: cachectic Orientation/consciousness: confusion Limitations: altered mental status and other limitations HENMT: Face and sinus: Yes normal facial exam Mouth: moist mucous membranes Neck: Neck: Yes normal visual inspection, Yes full ROM and Yes trachea midline Chest: Chest palpation & inspection: normal inspection of the chest Resp: Effort & Inspection: normal respiratory effort, able to speak in complete sentences and no respiratory distress GI: Inspection: Yes normal to inspection Back/Spine/Pelvis: Cervical Spine: normal cervical lordosis Thoracic/Lumbar Spine: thoracic and lumbar spine normal to inspection Skin: General skin exam: no rashes or lesions noted Neuro: Other: Bed-bound General: confusion Extrem: General: Yes normal to inspection and Yes capillary refill normal Results Labs Result diagrams: 09/05/21 06:13 09/05/21 06:13 Labs: Abnormal lab results 09/05/21 09/05/21 Range/Units 06:13 06:13 RBC 4.03 L (4.60-5.80) X10*6/uL Hgb 12.4 L (14.0-18.0) g/dl Hct 36.7 L (42.0-52.0) % Plt Count 148 L D (160-400) X10*3/uL MPV 9.1 L (9.4-12.4) fL BUN 7 L (9-16) mg/dL Calcium 8.0 L (8.4-10.2) mg/dL Short CBC 09/05/21 Range/Units 06:13 WBC 7.9 (4.8-10.8) X10*3/uL Hgb 12.4 L (14.0-18.0) g/dl Hct 36.7 L (42.0-52.0) % Plt Count 148 L D (160-400) X10*3/uL BMP 09/05/21 06:13 Sodium 139 Potassium 3.6 Chloride 104 Carbon Dioxide 24 BUN 7 L Creatinine 0.72 Calcium 8.0 L All other labs normal. Assessment and Plan (1) Urinary retention with incomplete bladder emptying: Status: Acute Initiate prostate medications Remove catheter in 48-72 hours Procedures Date of Service Date of Service: 09/05/21
[2021-09-05 15:23] VITALS: BP 149/58; PULSE 73; RESP 18; TEMP 37.4; O2SAT 96
[2021-09-05 19:03] VITALS: BP 131/59; PULSE 71; RESP 18; TEMP 37; O2SAT 94
[2021-09-05] MEDS: Atorvastatin Calcium 10 MG TABLET PO (20:01)
[2021-09-05] MEDS: Doxazosin Mesylate 2 MG TABLET 4 MG PO (20:02)
[2021-09-05] MEDS: Finasteride 5 MG TABLET PO (20:02)
[2021-09-05] MEDS: 0.9 % Sodium Chloride Flush 3 ML SYRINGE IVFLUSH (20:02)
[2021-09-06] VITALS (9 sets, daily range): BP systolic 104–148; BP diastolic 56–86; PULSE 62–75; RESP 18–22; TEMP 36.1–37.1; O2SAT 92–99; BMI 30.6
[2021-09-06] MEDS: 0.9 % Sodium Chloride Flush 3 ML SYRINGE IVFLUSH ×3 (01:02→18:05)
[2021-09-06] MEDS: atenoloL 50 MG TABLET PO (09:12)
[2021-09-06] MEDS: Cyanocobalamin (Vitamin B-12) 1,000 MCG TABLET 1000 MCG PO (09:13)
[2021-09-06] MEDS: Finasteride 5 MG TABLET PO (09:13)
[2021-09-06] MEDS: Docusate Sodium 100 MG CAPSULE PO (09:13)
[2021-09-06] MEDS: Sertraline HCL 50 MG TABLET PO (09:13)
--- NOTE | 2021-09-06 11:06 | HO.PM.IMPN ---
Subjective Subjective Date of Service: 09/06/21 Interval History: ?cc: ams interval history: still sleepy, no complaints Cardiovascular Cardiovascular: Reports no additional cardiovascular complaints Respiratory Respiratory: Reports no additional respiratory complaints Physical Exam Vital Signs: Vital Signs: Last Vital Signs Temp 97.5 F 09/06/21 11:04 Pulse 65 09/06/21 11:04 Resp 22 H 09/06/21 11:04 BP 148/72 H 09/06/21 11:04 Pulse Ox 96 09/06/21 11:04 Body Mass Index 30.6 General: AO X 2, no acute distress Resp:? CTA bilateral, no accessory muscles used CVS: S1,S2,RRR GI: soft, non tender, non distended Neuro:? lethargic but easilty rousable, right sided hemiparesis, follows simple commands Psych: appropriate affect, impaired insight? Objective Data Active Medications Acetaminophen (Acetaminophen 325 Mg Tablet) 650 mg PO Q6H PRN PRN Reason: Pain, Mild (Pain Scale 1-3) Al Hydroxide/Mg Hydroxide (Magnesium Hydrox/Alum Hydrox 30 Ml Oral.Susp) 30 ml PO DAILY PRN PRN Reason: Acid Reflux Atenolol (Atenolol 50 Mg Tablet) 50 mg PO DAILY [facility]; Protocol Last Admin: 09/06/21 09:12 Dose: 50 mg Documented by: ORALIA Atorvastatin Calcium (Atorvastatin Calcium 10 Mg Tablet) 10 mg PO BEDTIME [facility] Last Admin: 09/05/21 20:01 Dose: 10 mg Documented by: CELESTINA Cyanocobalamin (Cyanocobalamin (Vitamin B-12) 1,000 Mcg Tablet) 1,000 mcg PO DAILY [facility] Last Admin: 09/06/21 09:13 Dose: 1,000 mcg Documented by: ORALIA Docusate Sodium (Docusate Sodium 100 Mg Capsule) 100 mg PO DAILY [facility] Last Admin: 09/06/21 09:13 Dose: 100 mg Documented by: ORALIA Doxazosin Mesylate (Doxazosin Mesylate 2 Mg Tablet) 4 mg PO BEDTIME [facility]; Protocol Last Admin: 09/05/21 20:02 Dose: 4 mg Documented by: CELESTINA Finasteride (Finasteride 5 Mg Tablet) 5 mg PO DAILY [facility] Last Admin: 09/06/21 09:13 Dose: 5 mg Documented by: ORALIA Magnesium Hydroxide (Milk Of Magnesia 30 Ml Oral.Susp) 30 ml PO DAILY PRN PRN Reason: Acid Reflux Pharmacy Consult (Consult Rx Perform Med Rec) 1 each MISCELLANE ONCE PRN PRN Reason: Consult order Risperidone (Risperidone 0.25 Mg Tablet) 0.25 mg PO Q4H PRN PRN Reason: Anxiety/Restlessness Last Admin: 09/03/21 16:35 Dose: 0.25 mg Documented by: JESS Sertraline HCl (Sertraline Hcl 50 Mg Tablet) 50 mg PO DAILY [facility] Last Admin: 09/06/21 09:13 Dose: 50 mg Documented by: ORALIA Sodium Chloride (0.9 % Sodium Chloride Flush 3 Ml Syringe) 3 ml IVFLUSH QSHIFT [facility] Last Admin: 09/06/21 09:13 Dose: 3 ml Documented by: ORALIA Trazodone HCl (Trazodone Hcl 50 Mg Tablet) 50 mg PO BEDTIME PRN PRN Reason: Insomnia Last Admin: 09/03/21 19:03 Dose: 50 mg Documented by: JESS Labs CBC & Chem 7: 09/05/21 06:13 09/05/21 06:13 Assessment and Plan (1) Altered mental status: Status: Acute Assessment and Plan: This is a 75 year old male with a history of hemorrhagic stroke with resulting vascular dementia, HTN, HLD admitted to the [facility] floor for increasing paranoia, anxiety and disorganized behavior. His inpatient psychiatric stay was complicated initially by agitation, aggression, unpredictable behavior and sundowning. then one day or two of lethargy, with decreased PO intake and requiring more nursing care was transferred to the medical floor for further management. metabolic Encephalopathy on a background of vascular dementia seems to be minimally verbal at baseline CT brain from 08/15 showing old infarct in Left MCA territory as well as chronic small vessel ischemic changes repeat CT brain 09/02 with no acute changes was initially agitated and aggressive upon admission, now more hypoactive and lethargic possibly due to medications (though has been held for some time now), hypoactive delerium, seizure less likely - negative eeg has been afebrile, no leukocytosis to suggest infection; UA from 09/01 not indicative of infection renal function, liver function, tsh, b12, folate wnl mood continue zoloft hold scheduled risperidone continue prn risperidone Urinary retention arriaza catheter in place appreciated, started cardura, proscar, voiding trial in 48hrs hematuria avoid AC, APA thrombocytopenia no baseline for comparison follow cbc dementia continue aricept, exelon HLD continue statin HTN continue atenolol dvt ppx - mechanical devices due to hematuria code status - DNR/DNI; confirmed with Quality Stroke Does the patient have a stroke diagnosis?: No VTE Prior VTE?: No VTE Risk Level:: Medical - moderate - high VTE Device Contraindication: N/A - Device Ordered VTE Drug Contraindication: Treatment Not Indicated
--- NOTE | 2021-09-06 14:45 | PC.NURSE ---
PTS UPDATED ON STATUS AND PLAN OF CARE BY RN AND MD.
--- NOTE | 2021-09-06 15:29 | MHC.CM.PN ---
met with pts family agreeable to ltc referrals qand is aware we may have to go outside of our area to find a ltc bed spoke with a finacial advisor and knows that they will not qualify for [facility]
[2021-09-06] MEDS: Doxazosin Mesylate 2 MG TABLET 4 MG PO (21:42)
[2021-09-06] MEDS: Atorvastatin Calcium 10 MG TABLET PO (21:42)
[2021-09-07] VITALS (7 sets, daily range): BP systolic 105–143; BP diastolic 58–67; PULSE 66–84; RESP 18–20; TEMP 36.3–36.9; O2SAT 92–97
[2021-09-07] MEDS: 0.9 % Sodium Chloride Flush 3 ML SYRINGE IVFLUSH ×3 (01:03→20:46)
[2021-09-07] MEDS: atenoloL 50 MG TABLET PO (08:56)
[2021-09-07] MEDS: Cyanocobalamin (Vitamin B-12) 1,000 MCG TABLET 1000 MCG PO (08:56)
[2021-09-07] MEDS: Sertraline HCL 50 MG TABLET PO (08:56)
[2021-09-07] MEDS: Docusate Sodium 100 MG CAPSULE PO (08:56)
--- NOTE | 2021-09-07 10:17 | HO.PM.IMPN ---
Subjective Subjective Date of Service: 09/07/21 Interval History: cc: ams interval history: no changes Cardiovascular Cardiovascular: Reports no additional cardiovascular complaints Respiratory Respiratory: Reports no additional respiratory complaints Physical Exam Vital Signs: Vital Signs: Last Vital Signs Temp 97.6 F 09/07/21 03:36 Pulse 84 09/07/21 08:56 Resp 20 09/07/21 08:00 BP 143/67 H 09/07/21 08:56 Pulse Ox 94 09/07/21 08:00 Body Mass Index 30.6 General: AO X 2, no acute distress Resp:? CTA bilateral, no accessory muscles used CVS: S1,S2,RRR GI: soft, non tender, non distended Neuro:? lethargic but easilty rousable, right sided hemiparesis, follows simple commands Psych: appropriate affect, impaired insight? Objective Data Active Medications Acetaminophen (Acetaminophen 325 Mg Tablet) 650 mg PO Q6H PRN PRN Reason: Pain, Mild (Pain Scale 1-3) Al Hydroxide/Mg Hydroxide (Magnesium Hydrox/Alum Hydrox 30 Ml Oral.Susp) 30 ml PO DAILY PRN PRN Reason: Acid Reflux Atenolol (Atenolol 50 Mg Tablet) 50 mg PO DAILY [facility]; Protocol Last Admin: 09/07/21 08:56 Dose: 50 mg Documented by: MINERVA Atorvastatin Calcium (Atorvastatin Calcium 10 Mg Tablet) 10 mg PO BEDTIME [facility] Last Admin: 09/06/21 21:42 Dose: 10 mg Documented by: CELESTINA Cyanocobalamin (Cyanocobalamin (Vitamin B-12) 1,000 Mcg Tablet) 1,000 mcg PO DAILY [facility] Last Admin: 09/07/21 08:56 Dose: 1,000 mcg Documented by: MINERVA Docusate Sodium (Docusate Sodium 100 Mg Capsule) 100 mg PO DAILY [facility] Last Admin: 09/07/21 08:56 Dose: 100 mg Documented by: MINERVA Doxazosin Mesylate (Doxazosin Mesylate 2 Mg Tablet) 4 mg PO BEDTIME [facility]; Protocol Last Admin: 09/06/21 21:42 Dose: 4 mg Documented by: CELESTINA Finasteride (Finasteride 5 Mg Tablet) 5 mg PO DAILY [facility] Last Admin: 09/07/21 08:52 Dose: Not Given Documented by: MINERVA Non-Admin Reason: Unable to Crush Magnesium Hydroxide (Milk Of Magnesia 30 Ml Oral.Susp) 30 ml PO DAILY PRN PRN Reason: Acid Reflux Pharmacy Consult (Consult Rx Perform Med Rec) 1 each MISCELLANE ONCE PRN PRN Reason: Consult order Risperidone (Risperidone 0.25 Mg Tablet) 0.25 mg PO Q4H PRN PRN Reason: Anxiety/Restlessness Last Admin: 09/03/21 16:35 Dose: 0.25 mg Documented by: JESS Sertraline HCl (Sertraline Hcl 50 Mg Tablet) 50 mg PO DAILY [facility] Last Admin: 09/07/21 08:56 Dose: 50 mg Documented by: MINERVA Sodium Chloride (0.9 % Sodium Chloride Flush 3 Ml Syringe) 3 ml IVFLUSH QSHIFT [facility] Last Admin: 09/07/21 08:56 Dose: 3 ml Documented by: MINERVA Trazodone HCl (Trazodone Hcl 50 Mg Tablet) 50 mg PO BEDTIME PRN PRN Reason: Insomnia Last Admin: 09/03/21 19:03 Dose: 50 mg Documented by: JESS Labs CBC & Chem 7: 09/05/21 06:13 09/05/21 06:13 Assessment and Plan (1) Altered mental status: Status: Acute Assessment and Plan: This is a 75 year old male with a history of hemorrhagic stroke with resulting vascular dementia, HTN, HLD admitted to the [facility] floor for increasing paranoia, anxiety and disorganized behavior. His inpatient psychiatric stay was complicated initially by agitation, aggression, unpredictable behavior and sundowning. then one day or two of lethargy, with decreased PO intake and requiring more nursing care was transferred to the medical floor for further management. metabolic Encephalopathy on a background of vascular dementia seems to be minimally verbal at baseline CT brain from 08/15 showing old infarct in Left MCA territory as well as chronic small vessel ischemic changes repeat CT brain 09/02 with no acute changes was initially agitated and aggressive upon admission, now more hypoactive and lethargic possibly due to medications (though has been held for some time now), hypoactive delerium, seizure less likely - negative eeg has been afebrile, no leukocytosis to suggest infection; UA from 09/01 not indicative of infection renal function, liver function, tsh, b12, folate wnl d/w neuro, no further inpatient work up indicated at this time, unlikely to benefit from further geripsych mood continue zoloft hold scheduled risperidone continue prn risperidone Urinary retention arriaza catheter in place appreciated, started cardura, proscar, voiding trial tomorrow hematuria avoid AC, APA thrombocytopenia no baseline for comparison follow cbc dementia continue aricept, exelon HLD continue statin HTN continue atenolol dvt ppx - mechanical devices due to hematuria code status - DNR/DNI; confirmed with Quality Stroke Does the patient have a stroke diagnosis?: No VTE Prior VTE?: No VTE Risk Level:: Medical - moderate - high VTE Device Contraindication: N/A - Device Ordered VTE Drug Contraindication: Treatment Not Indicated
[2021-09-07] MEDS: Atorvastatin Calcium 10 MG TABLET PO (20:44)
[2021-09-07] MEDS: traZODone HCL 50 MG TABLET PO (20:44)
[2021-09-08] VITALS (9 sets, daily range): BP systolic 111–133; BP diastolic 56–84; PULSE 53–91; RESP 17–53; TEMP 36.3–37.5; O2SAT 93–98
[2021-09-08] MEDS: 0.9 % Sodium Chloride Flush 3 ML SYRINGE IVFLUSH ×3 (10:04→23:58)
[2021-09-08] MEDS: Sertraline HCL 50 MG TABLET PO (10:05)
[2021-09-08] MEDS: Docusate Sodium 100 MG CAPSULE PO (10:05)
[2021-09-08] MEDS: Cyanocobalamin (Vitamin B-12) 1,000 MCG TABLET 1000 MCG PO (10:05)
[2021-09-08] MEDS: Finasteride 5 MG TABLET PO (10:05)
--- NOTE | 2021-09-08 10:38 | P.PNIM_ITS ---
Subjective Subjective Date of Service: 09/08/21 Interval History: cc: ams interval history: no changes Cardiovascular Cardiovascular: Reports no additional cardiovascular complaints Respiratory Respiratory: Reports no additional respiratory complaints Physical Exam Vital Signs: Vital Signs: Last Vital Signs Temp 97.7 F 09/08/21 07:46 Pulse 58 09/08/21 10:07 Resp 53 H 09/08/21 07:46 BP 127/59 L 09/08/21 07:46 Pulse Ox 93 09/08/21 07:46 Body Mass Index 30.6 General: AO X 2, no acute distress Resp:? CTA bilateral, no accessory muscles used CVS: S1,S2,RRR GI: soft, non tender, non distended Neuro:? lethargic but easilty rousable, right sided hemiparesis, follows simple commands Psych: appropriate affect, impaired insight? Objective Data Active Medications Acetaminophen (Acetaminophen 325 Mg Tablet) 650 mg PO Q6H PRN PRN Reason: Pain, Mild (Pain Scale 1-3) Al Hydroxide/Mg Hydroxide (Magnesium Hydrox/Alum Hydrox 30 Ml Oral.Susp) 30 ml PO DAILY PRN PRN Reason: Acid Reflux Atenolol (Atenolol 50 Mg Tablet) 50 mg PO DAILY [facility]; Protocol Last Admin: 09/08/21 10:07 Dose: Not Given Documented by: LISA Non-Admin Reason: low HR Atorvastatin Calcium (Atorvastatin Calcium 10 Mg Tablet) 10 mg PO BEDTIME [facility] Last Admin: 09/07/21 20:44 Dose: 10 mg Documented by: LUDIVINA Cyanocobalamin (Cyanocobalamin (Vitamin B-12) 1,000 Mcg Tablet) 1,000 mcg PO DAILY [facility] Last Admin: 09/08/21 10:05 Dose: 1,000 mcg Documented by: LISA Docusate Sodium (Docusate Sodium 100 Mg Capsule) 100 mg PO DAILY [facility] Last Admin: 09/08/21 10:05 Dose: 100 mg Documented by: LISA Doxazosin Mesylate (Doxazosin Mesylate 2 Mg Tablet) 4 mg PO BEDTIME [facility]; Protocol Last Admin: 09/07/21 20:43 Dose: Not Given Documented by: LUDIVINA Non-Admin Reason: Decreased Blood Pressure Finasteride (Finasteride 5 Mg Tablet) 5 mg PO DAILY [facility] Last Admin: 09/08/21 10:05 Dose: 5 mg Documented by: LISA Magnesium Hydroxide (Milk Of Magnesia 30 Ml Oral.Susp) 30 ml PO DAILY PRN PRN Reason: Acid Reflux Pharmacy Consult (Consult Rx Perform Med Rec) 1 each MISCELLANE ONCE PRN PRN Reason: Consult order Risperidone (Risperidone 0.25 Mg Tablet) 0.25 mg PO Q4H PRN PRN Reason: Anxiety/Restlessness Last Admin: 09/03/21 16:35 Dose: 0.25 mg Documented by: JESS Sertraline HCl (Sertraline Hcl 50 Mg Tablet) 50 mg PO DAILY [facility] Last Admin: 09/08/21 10:05 Dose: 50 mg Documented by: LISA Sodium Chloride (0.9 % Sodium Chloride Flush 3 Ml Syringe) 3 ml IVFLUSH QSHIFT [facility] Last Admin: 09/08/21 10:04 Dose: 3 ml Documented by: LISA Trazodone HCl (Trazodone Hcl 50 Mg Tablet) 50 mg PO BEDTIME PRN PRN Reason: Insomnia Last Admin: 09/07/21 20:44 Dose: 50 mg Documented by: LUDIVINA Labs CBC & Chem 7: 09/05/21 06:13 09/05/21 06:13 Assessment and Plan (1) Altered mental status: Status: Acute Assessment and Plan: This is a 75 year old male with a history of hemorrhagic stroke with resulting vascular dementia, HTN, HLD admitted to the [facility] floor for increasing paranoia, anxiety and disorganized behavior. His inpatient psychiatric stay was complicated initially by agitation, aggression, unpredictable behavior and sun downing. then one day or two of lethargy, with decreased PO intake and requiring more nursing care was transferred to the medical floor for further management. metabolic Encephalopathy on a background of vascular dementia seems to be minimally verbal at baseline CT brain from 08/15 showing old infarct in Left MCA territory as well as chronic small vessel ischemic changes repeat CT brain 09/02 with no acute changes was initially agitated and aggressive upon admission, now more hypoactive and l ethargic possibly due to medications (though has been held for some time now), hypoactive delerium, seizure less likely - negative eeg has been afebrile, no leukocytosis to suggest infection; UA from 09/01 not indicative of infection renal function, liver function, tsh, b12, folate wnl d/w neuro, no further inpatient work up indicated at this time, unlikely to benefit from further geripsych will likely need either STR or optometric coordinator placement mood continue zoloft hold scheduled risperidone continue prn risperidone Urinary retention arriaza catheter in place appreciated, started cardura, proscar, voiding trial today hematuria avoid AC, APA thrombocytopenia no baseline for comparison follow cbc dementia continue aricept, exelon HLD continue statin HTN continue atenolol dvt ppx - mechanical devices due to hematuria code status - DNR/DNI; confirmed with Quality Stroke Does the patient have a stroke diagnosis?: No VTE Prior VTE?: No VTE Risk Level:: Medical - moderate - high VTE Device Contraindication: N/A - Device Ordered VTE Drug Contraindication: Treatment Not Indicated
--- NOTE | 2021-09-08 17:14 | PC.NURSE ---
pt incontinent of large amounts of urine throughout day. per MD order, pt bladder scanned at 1600 for >999mL. order for arriaza catheter to be placed. requiring assistance due to pt vascular dementia/ combativeness f/c placed with 2 assistants at 1500 without complication. catheter immediately drained 900mL of dark yellow/ cloudy urine with strong odor. catheter save placed and pants applied to cover catheter as pt continues to be combative and grabby in [place]lexa area. camera in room to monitor behavior and stat RN if pt attempts to remove catheter. will cont to monitor and assess
--- NOTE | 2021-09-08 18:26 | PC.NURSE ---
Cardiac monitored removed per MD order.
[2021-09-08] MEDS: Atorvastatin Calcium 10 MG TABLET PO (21:19)
[2021-09-08] MEDS: Doxazosin Mesylate 2 MG TABLET 4 MG PO (21:19)
[2021-09-09] VITALS (8 sets, daily range): BP systolic 99–140; BP diastolic 58–66; PULSE 65–90; RESP 16–20; TEMP 36.5–37.2; O2SAT 93–99
[2021-09-09] MEDS: Finasteride 5 MG TABLET PO (08:25)
[2021-09-09] MEDS: Cyanocobalamin (Vitamin B-12) 1,000 MCG TABLET 1000 MCG PO (08:25)
[2021-09-09] MEDS: Sertraline HCL 50 MG TABLET PO (08:26)
[2021-09-09] MEDS: atenoloL 50 MG TABLET PO (08:26)
[2021-09-09] MEDS: Docusate Sodium 100 MG CAPSULE PO (08:26)
--- NOTE | 2021-09-09 10:20 | HO.PM.IMPN ---
Subjective Subjective Date of Service: 09/09/21 Interval History: cc: ams interval history: no complaints Cardiovascular Cardiovascular: Reports no additional cardiovascular complaints Respiratory Respiratory: Reports no additional respiratory complaints Physical Exam Vital Signs: Vital Signs: Last Vital Signs Temp 98.3 F 09/09/21 03:08 Pulse 90 09/09/21 08:26 Resp 20 09/09/21 08:00 BP 140/66 H 09/09/21 08:26 Pulse Ox 95 09/09/21 08:00 Body Mass Index 30.6 General: AO X 2, no acute distress Resp:? CTA bilateral, no accessory muscles used CVS: S1,S2,RRR GI: soft, non tender, non distended Neuro:? lethargic but easilty rousable, right sided hemiparesis, follows simple commands Psych: appropriate affect, impaired insight? Objective Data Active Medications Acetaminophen (Acetaminophen 325 Mg Tablet) 650 mg PO Q6H PRN PRN Reason: Pain, Mild (Pain Scale 1-3) Al Hydroxide/Mg Hydroxide (Magnesium Hydrox/Alum Hydrox 30 Ml Oral.Susp) 30 ml PO DAILY PRN PRN Reason: Acid Reflux Atenolol (Atenolol 50 Mg Tablet) 50 mg PO DAILY [facility]; Protocol Last Admin: 09/09/21 08:26 Dose: 50 mg Documented by: ARIE Atorvastatin Calcium (Atorvastatin Calcium 10 Mg Tablet) 10 mg PO BEDTIME [facility] Last Admin: 09/08/21 21:19 Dose: 10 mg Documented by: ODILIA Cyanocobalamin (Cyanocobalamin (Vitamin B-12) 1,000 Mcg Tablet) 1,000 mcg PO DAILY [facility] Last Admin: 09/09/21 08:25 Dose: 1,000 mcg Documented by: ARIE Docusate Sodium (Docusate Sodium 100 Mg Capsule) 100 mg PO DAILY [facility] Last Admin: 09/09/21 08:26 Dose: 100 mg Documented by: ARIE Doxazosin Mesylate (Doxazosin Mesylate 2 Mg Tablet) 4 mg PO BEDTIME [facility]; Protocol Last Admin: 09/08/21 21:19 Dose: 4 mg Documented by: ODILIA Finasteride (Finasteride 5 Mg Tablet) 5 mg PO DAILY [facility] Last Admin: 09/09/21 08:25 Dose: 5 mg Documented by: ARIE Magnesium Hydroxide (Milk Of Magnesia 30 Ml Oral.Susp) 30 ml PO DAILY PRN PRN Reason: Acid Reflux Pharmacy Consult (Consult Rx Perform Med Rec) 1 each MISCELLANE ONCE PRN PRN Reason: Consult order Risperidone (Risperidone 0.25 Mg Tablet) 0.25 mg PO Q4H PRN PRN Reason: Anxiety/Restlessness Last Admin: 09/03/21 16:35 Dose: 0.25 mg Documented by: JESS Sertraline HCl (Sertraline Hcl 50 Mg Tablet) 50 mg PO DAILY [facility] Last Admin: 09/09/21 08:26 Dose: 50 mg Documented by: ARIE Sodium Chloride (0.9 % Sodium Chloride Flush 3 Ml Syringe) 3 ml IVFLUSH QSHIFT [facility] Last Admin: 09/08/21 23:58 Dose: 3 ml Documented by: AUBREY Trazodone HCl (Trazodone Hcl 50 Mg Tablet) 50 mg PO BEDTIME PRN PRN Reason: Insomnia Last Admin: 09/07/21 20:44 Dose: 50 mg Documented by: LUDIVINA Labs CBC & Chem 7: 09/05/21 06:13 09/05/21 06:13 Assessment and Plan (1) Altered mental status: Status: Acute Assessment and Plan: This is a 75 year old male with a history of hemorrhagic stroke with resulting vascular dementia, HTN, HLD admitted to the [facility] floor for increasing paranoia, anxiety and disorganized behavior. His inpatient psychiatric stay was complicated initially by agitation, aggression, unpredictable behavior and sundowning. then one day or two of lethargy, with decreased PO intake and requiring more nursing care was transferred to the medical floor for further management. metabolic Encephalopathy on a background of vascular dementia seems to be minimally verbal at baseline CT brain from 08/15 showing old infarct in Left MCA territory as well as chronic small vessel ischemic changes repeat CT brain 09/02 with no acute changes was initially agitated and aggressive upon admission, now more hypoactive and lethargic possibly due to medications (though has been held for some time now), hypoactive delerium, seizure less likely - negative eeg has been afebrile, no leukocytosis to suggest infection; UA from 09/01 not indicative of infection renal function, liver function, tsh, b12, folate wnl d/w neuro, no further inpatient work up indicated at this time, unlikely to benefit from further geripsych will likely need either STR or emt intermediate placement follow up pt mood continue zoloft hold scheduled risperidone continue prn risperidone Urinary retention appreciated, started ernestine mandujano voiding trial 09/08 unsuccessful, arriaza replaced hematuria avoid AC, APA thrombocytopenia no baseline for comparison follow cbc dementia continue aricept, exelon HLD continue statin HTN continue atenolol dvt ppx - mechanical devices due to hematuria code status - DNR/DNI; confirmed with Quality Stroke Does the patient have a stroke diagnosis?: No VTE Prior VTE?: No VTE Risk Level:: Medical - moderate - high VTE Device Contraindication: N/A - Device Ordered VTE Drug Contraindication: Treatment Not Indicated
--- NOTE | 2021-09-09 13:06 | MHC.CM.PN ---
per rounds pt ready for dc doing bed search haver not locate a bed as of yet
--- NOTE | 2021-09-09 15:37 | MHC.CLN ---
Addendum entered by Virginia Marin, CAPRICE 09/11/21 14:01: AGREE WITH PROVIDER'S ASSESSMENT BELOW Original Note: RE: CONSULT PT'S PO INTAKE IS GOOD, DOCUMENTED 50-100% PT'S WT IS STABLE CONTINUE PUREED DIET AT THIS TIME MONITOR PO INTAKE CLOSELY
[2021-09-09] MEDS: Atorvastatin Calcium 10 MG TABLET PO (23:01)
[2021-09-09] MEDS: traZODone HCL 50 MG TABLET PO (23:04)
[2021-09-09] MEDS: 0.9 % Sodium Chloride Flush 3 ML SYRINGE IVFLUSH (23:06)
[2021-09-10] VITALS (9 sets, daily range): BP systolic 115–148; BP diastolic 61–90; PULSE 64–88; RESP 14–20; TEMP 36.1–37.2; O2SAT 94–98
[2021-09-10] MEDS: Finasteride 5 MG TABLET PO (08:54)
[2021-09-10] MEDS: Sertraline HCL 50 MG TABLET PO (08:55)
[2021-09-10] MEDS: Cyanocobalamin (Vitamin B-12) 1,000 MCG TABLET 1000 MCG PO (08:55)
[2021-09-10] MEDS: Docusate Sodium 100 MG CAPSULE PO (08:55)
[2021-09-10] MEDS: atenoloL 50 MG TABLET PO (08:55)
[2021-09-10] MEDS: 0.9 % Sodium Chloride Flush 3 ML SYRINGE IVFLUSH ×3 (08:58→20:24)
--- NOTE | 2021-09-10 12:45 | MHC.CM.PN ---
met with pts gave the financial admission packet for [facility] to who will complete and return to
--- NOTE | 2021-09-10 12:50 | P.PNIM_ITS ---
Subjective Subjective Date of Service: 09/10/21 Interval History: ?cc: ams interval history: no complaints Cardiovascular Cardiovascular: Reports no additional cardiovascular complaints Respiratory Respiratory: Reports no additional respiratory complaints Physical Exam Vital Signs: Vital Signs: Last Vital Signs Temp 97.8 F 09/10/21 11:02 Pulse 68 09/10/21 11:02 Resp 20 09/10/21 11:02 BP 120/70 09/10/21 11:02 Pulse Ox 95 09/10/21 11:02 Body Mass Index 30.6 General: AO X 2, no acute distress Resp:? CTA bilateral, no accessory muscles used CVS: S1,S2,RRR GI: soft, non tender, non distended Neuro:? lethargic but easily rousable, right sided hemiparesis, follows simple commands Psych: appropriate affect, impaired insight? Objective Data Active Medications Acetaminophen (Acetaminophen 325 Mg Tablet) 650 mg PO Q6H PRN PRN Reason: Pain, Mild (Pain Scale 1-3) Al Hydroxide/Mg Hydroxide (Magnesium Hydrox/Alum Hydrox 30 Ml Oral.Susp) 30 ml PO DAILY PRN PRN Reason: Acid Reflux Atenolol (Atenolol 50 Mg Tablet) 50 mg PO DAILY [facility]; Protocol Last Admin: 09/10/21 08:55 Dose: 50 mg Documented by: GENO Atorvastatin Calcium (Atorvastatin Calcium 10 Mg Tablet) 10 mg PO BEDTIME [facility] Last Admin: 09/09/21 23:01 Dose: 10 mg Documented by: ODILIA Cyanocobalamin (Cyanocobalamin (Vitamin B-12) 1,000 Mcg Tablet) 1,000 mcg PO DAILY [facility] Last Admin: 09/10/21 08:55 Dose: 1,000 mcg Documented by: GENO Docusate Sodium (Docusate Sodium 100 Mg Capsule) 100 mg PO DAILY [facility] Last Admin: 09/10/21 08:55 Dose: 100 mg Documented by: GENO Doxazosin Mesylate (Doxazosin Mesylate 2 Mg Tablet) 4 mg PO BEDTIME [facility]; Protocol Last Admin: 09/09/21 23:06 Dose: Not Given Documented by: ODILIA Non-Admin Reason: Decreased Blood Pressure Finasteride (Finasteride 5 Mg Tablet) 5 mg PO DAILY [facility] Last Admin: 09/10/21 08:54 Dose: 5 mg Documented by: GENO Magnesium Hydroxide (Milk Of Magnesia 30 Ml Oral.Susp) 30 ml PO DAILY PRN PRN Reason: Acid Reflux Pharmacy Consult (Consult Rx Perform Med Rec) 1 each MISCELLANE ONCE PRN PRN Reason: Consult order Risperidone (Risperidone 0.25 Mg Tablet) 0.25 mg PO Q4H PRN PRN Reason: Anxiety/Restlessness Last Admin: 09/03/21 16:35 Dose: 0.25 mg Documented by: JESS Sertraline HCl (Sertraline Hcl 50 Mg Tablet) 50 mg PO DAILY [facility] Last Admin: 09/10/21 08:55 Dose: 50 mg Documented by: GENO Sodium Chloride (0.9 % Sodium Chloride Flush 3 Ml Syringe) 3 ml IVFLUSH QSHIFT [facility] Last Admin: 09/10/21 08:58 Dose: 3 ml Documented by: GENO Trazodone HCl (Trazodone Hcl 50 Mg Tablet) 50 mg PO BEDTIME PRN PRN Reason: Insomnia Last Admin: 09/09/21 23:04 Dose: 50 mg Documented by: ODILIA Labs CBC & Chem 7: 09/05/21 06:13 09/05/21 06:13 Assessment and Plan (1) Altered mental status: Status: Acute Assessment and Plan: This is a 75 year old male with a history of hemorrhagic stroke with resulting vascular dementia, HTN, HLD admitted [facility] floor for increasing paranoia, anxiety and disorganized behavior. His inpatient psychiatric stay was complicated initially by agitation, aggression, unpredictable behavior and sundowning. then one day or two of lethargy, with decreased PO intake and requiring more nursing care was transferred to the medical floor for further management. metabolic Encephalopathy on a background of vascular dementia seems to be minimally verbal at baseline CT brain from 08/15 showing old infarct in Left MCA territory as well as chronic small vessel ischemic changes repeat CT brain 09/02 with no acute changes was initially agitated and aggressive upon admission, now more hypoactive and lethargic possibly due to medications (though has been held for some time now), hypoactive delerium, seizure less likely - negative eeg has been afebrile, no leukocytosis to suggest infection; UA from 09/01 not indicative of infection renal function, liver function, tsh, b12, folate wnl d/w neuro, no further inpatient work up indicated at this time, unlikely to benefit from further geripsych will likely need either STR or intermediate project manager placement mood continue zoloft hold scheduled risperidone continue prn risperidone Urinary retention appreciated, started ernestine mandujano voiding trial 09/08 unsuccessful, arriaza replaced hematuria avoid AC, APA thrombocytopenia no baseline for comparison dementia continue aricept, exelon HLD continue statin HTN continue atenolol dvt ppx - mechanical devices due to hematuria code status - DNR/DNI; confirmed with Quality Stroke Does the patient have a stroke diagnosis?: No VTE Prior VTE?: No VTE Risk Level:: Medical - moderate - high VTE Device Contraindication: N/A - Device Ordered VTE Drug Contraindication: Treatment Not Indicated
[2021-09-10] MEDS: Atorvastatin Calcium 10 MG TABLET PO (20:16)
[2021-09-10] MEDS: Doxazosin Mesylate 2 MG TABLET 4 MG PO (20:16)
[2021-09-10] MEDS: traZODone HCL 50 MG TABLET PO (20:20)
[2021-09-11] VITALS (7 sets, daily range): BP systolic 102–138; BP diastolic 51–73; PULSE 53–75; RESP 16–18; TEMP 36.2–37.6; O2SAT 94–98
[2021-09-11] MEDS: Cyanocobalamin (Vitamin B-12) 1,000 MCG TABLET 1000 MCG PO (09:59)
[2021-09-11] MEDS: atenoloL 50 MG TABLET PO (09:59)
[2021-09-11] MEDS: Sertraline HCL 50 MG TABLET PO (09:59)
[2021-09-11] MEDS: Finasteride 5 MG TABLET PO (09:59)
[2021-09-11] MEDS: Docusate Sodium 100 MG CAPSULE PO (10:00)
[2021-09-11] MEDS: 0.9 % Sodium Chloride Flush 3 ML SYRINGE IVFLUSH ×2 (10:00→15:17)
--- NOTE | 2021-09-11 11:31 | P.PNIM_ITS ---
Subjective Subjective Date of Service: 09/11/21 Interval History: the patient was seen and evaluated this morning Laying in bed, feels comfortable Denies any fever, chills or shortness of breath No reported other overnight events. Systemic review: No fever, chills or weakness No chest pain, palpitation No shortness of breath or coughing No abdominal pain, nausea or vomiting No urinary symptoms, arriaza in place No any rash or wounds Physical Exam Vital Signs: Vital Signs: Last Vital Signs Temp 97.6 F 09/11/21 07:51 Pulse 73 09/11/21 09:59 Resp 18 09/11/21 07:51 BP 132/68 09/11/21 09:59 Pulse Ox 98 09/11/21 07:51 Body Mass Index 30.6 Const: Other: Constitutional : Alert, oriented, not in distress Neck : Normal inspection, Supple Cardiovascular : RRR, S1 S2, no lower extremity edema Respiratory : fair bilateral air entry, no crackles, wheezes or rhonchi Gastrointestinal: soft, lax, Normal bowel sounds, Non tender Skin : Warm, Dry Neurological : Alert to self , right sided hemiparesis Objective Data Active Medications Acetaminophen (Acetaminophen 325 Mg Tablet) 650 mg PO Q6H PRN PRN Reason: Pain, Mild (Pain Scale 1-3) Al Hydroxide/Mg Hydroxide (Magnesium Hydrox/Alum Hydrox 30 Ml Oral.Susp) 30 ml PO DAILY PRN PRN Reason: Acid Reflux Atenolol (Atenolol 50 Mg Tablet) 50 mg PO DAILY [facility]; Protocol Last Admin: 09/11/21 09:59 Dose: 50 mg Documented by: SARA Atorvastatin Calcium (Atorvastatin Calcium 10 Mg Tablet) 10 mg PO BEDTIME [facility] Last Admin: 09/10/21 20:16 Dose: 10 mg Documented by: LUDIVINA Cyanocobalamin (Cyanocobalamin (Vitamin B-12) 1,000 Mcg Tablet) 1,000 mcg PO DAILY [facility] Last Admin: 09/11/21 09:59 Dose: 1,000 mcg Documented by: SARA Docusate Sodium (Docusate Sodium 100 Mg Capsule) 100 mg PO DAILY [facility] Last Admin: 09/11/21 10:00 Dose: 100 mg Documented by: SARA Doxazosin Mesylate (Doxazosin Mesylate 2 Mg Tablet) 4 mg PO BEDTIME [facility]; Protocol Last Admin: 09/10/21 20:16 Dose: 4 mg Documented by: LUDIVINA Finasteride (Finasteride 5 Mg Tablet) 5 mg PO DAILY [facility] Last Admin: 09/11/21 09:59 Dose: 5 mg Documented by: SARA Magnesium Hydroxide (Milk Of Magnesia 30 Ml Oral.Susp) 30 ml PO DAILY PRN PRN Reason: Acid Reflux Pharmacy Consult (Consult Rx Perform Med Rec) 1 each MISCELLANE ONCE PRN PRN Reason: Consult order Risperidone (Risperidone 0.25 Mg Tablet) 0.25 mg PO Q4H PRN PRN Reason: Anxiety/Restlessness Last Admin: 09/03/21 16:35 Dose: 0.25 mg Documented by: JESS Sertraline HCl (Sertraline Hcl 50 Mg Tablet) 50 mg PO DAILY [facility] Last Admin: 09/11/21 09:59 Dose: 50 mg Documented by: SARA Sodium Chloride (0.9 % Sodium Chloride Flush 3 Ml Syringe) 3 ml IVFLUSH QSHIFT [facility] Last Admin: 09/11/21 10:00 Dose: 3 ml Documented by: SARA Trazodone HCl (Trazodone Hcl 50 Mg Tablet) 50 mg PO BEDTIME PRN PRN Reason: Insomnia Last Admin: 09/10/21 20:20 Dose: 50 mg Documented by: LUDIVINA Labs CBC & Chem 7: 09/05/21 06:13 09/05/21 06:13 Assessment and Plan (1) Urinary retention with incomplete bladder emptying: Status: Acute (2) Altered mental status: Status: Acute Assessment and Plan: This is a 75 year old male with a history of hemorrhagic stroke with resulting vascular dementia, HTN, HLD admitted to the [facility] floor for increasing paranoia, anxiety and disorganized behavior. His inpatient psychiatric stay was complicated initially by agitation, aggression, unpredictable behavior and sundowning. then one day or two of lethargy, with decreased PO intake and requiring more nursing care was transferred to the medical floor for further management. metabolic Encephalopathy on a background of vascular dementia Improving slowly CT brain from 08/15 showing old infarct in Left MCA territory as well as chronic small vessel ischemic changes repeat CT brain 09/02 with no acute changes was initially agitated and aggressive upon admission, now more hypoactive and lethargic possibly due to medications (though has been held for some time now), hypoactive delerium, seizure less likely - negative eeg has been afebrile, no leukocytosis to suggest infection; UA from 09/01 not indicative of infection renal function, liver function, tsh, b12, folate wnl d/w neuro, no further inpatient work up indicated at this time, unlikely to benefit from further geripsych will likely need either STR or [facility] placement mood continue zoloft hold scheduled risperidone continue prn risperidone Urinary retention appreciated, started cardura, proscar voiding trial 09/08 unsuccessful, arriaza replaced hematuria avoid AC, APA thrombocytopenia no baseline for comparison dementia continue aricept, exelon HLD continue statin HTN continue atenolol Dispo - pending placement dvt ppx - mechanical devices due to hematuria code status - DNR/DNI; confirmed with Quality Stroke Does the patient have a stroke diagnosis?: No VTE Prior VTE?: No VTE Risk Level:: Medical - moderate - high VTE Device Contraindication: N/A - Device Ordered VTE Drug Contraindication: Treatment Not Indicated
--- NOTE | 2021-09-11 15:01 | MHC.CM.PN ---
per rounds pt ready for dc sendy met with and is considering pt familia wiley will get back to us re aceepting pt he will speak with his administration,mission care was sent admisison imfo including pts finances await their decision as well
[2021-09-11] MEDS: Atorvastatin Calcium 10 MG TABLET PO (20:38)
[2021-09-11] MEDS: Doxazosin Mesylate 2 MG TABLET 4 MG PO (20:38)
[2021-09-12] VITALS (8 sets, daily range): BP systolic 107–151; BP diastolic 54–72; PULSE 66–101; RESP 17–24; TEMP 36.4–37.6; O2SAT 94–98; BMI 30.6
[2021-09-12] MEDS: 0.9 % Sodium Chloride Flush 3 ML SYRINGE IVFLUSH ×3 (00:25→16:34)
[2021-09-12 07:17] LABS: Anion Gap 11 (12-20); Blood Urea Nitrogen 11 mg/dL (9-16); Calcium 8.3 mg/dL (8.4-10.2); Carbon Dioxide 28 mmol/L (22-29); Chloride 104 mmol/L (96-108); Creatinine Clr Calc Pharmacy 88.3; Estimated Glomerular Filt Rate > 60; Glucose Random 100 mg/dL (60-115); Potassium 3.8 mmol/L (3.3-5.1); Sodium 139 mmol/L (135-145)
[2021-09-12] MEDS: Docusate Sodium 100 MG CAPSULE PO (08:04)
[2021-09-12] MEDS: Sertraline HCL 50 MG TABLET PO (08:04)
[2021-09-12] MEDS: Cyanocobalamin (Vitamin B-12) 1,000 MCG TABLET 1000 MCG PO (08:04)
[2021-09-12] MEDS: Finasteride 5 MG TABLET PO (08:04)
[2021-09-12] MEDS: atenoloL 50 MG TABLET PO (08:04)
--- NOTE | 2021-09-12 09:40 | PC.NURSE ---
Skin assessment completed today. Patient has stage 2 pressure injuries to bilateral buttocks and coccyx. Triad cream applied and left MADDIE. No other skin issues noted at this time.
--- NOTE | 2021-09-12 12:25 | MHC.CLN ---
Addendum entered by Virginia Marin RD 09/12/21 15:06: AGREE WITH PROVIDER'S ASSESSMENT BELOW Original Note: RE: CONSULT PT IS AT INCREASED NUTRITION RISK R/T STAGE II PRESSURE INJURIES DIET RX: REGULAR PUREED (NDD1)-APPROPRIATE PO INTAKE DOCUMENTED 50-100% RECOMMEND ENSURE PLUS SUPPLEMENT BID TO PROMOTE WOUND HEALING SUPPLEMENT PROVIDES 700 KCALS AND 32 GRAMS PROTEIN MONITOR PO INTAKE AND SUPPLEMENT ACCEPTANCE
--- NOTE | 2021-09-12 12:26 | P.PNIM_ITS ---
Subjective Subjective Date of Service: 09/12/21 Interval History: the patient was seen and evaluated this morning Laying in bed, feels comfortable Denies any fever, chills or shortness of breath No reported other overnight events. Systemic review: No fever, chills or weakness No chest pain, palpitation No shortness of breath or coughing No abdominal pain, nausea or vomiting No urinary symptoms No any rash or wounds Physical Exam 2 Vital Signs: Vital Signs: Last Vital Signs Temp 98.1 F 09/12/21 11:07 Pulse 72 09/12/21 11:07 Resp 18 09/12/21 11:07 BP 131/67 09/12/21 11:07 Pulse Ox 98 09/12/21 11:07 Body Mass Index 30.6 Const: Other: Constitutional : Alert, oriented, not in distress Neck : Normal inspection, Supple Cardiovascular : RRR, S1 S2, no lower extremity edema Respiratory : fair bilateral air entry, no crackles, wheezes or rhonchi Gastrointestinal: soft, lax, Normal bowel sounds, Non tender Skin : Warm, Dry Neurological : Alert to self , right sided hemiparesis Objective Data Active Medications Acetaminophen (Acetaminophen 325 Mg Tablet) 650 mg PO Q6H PRN PRN Reason: Pain, Mild (Pain Scale 1-3) Al Hydroxide/Mg Hydroxide (Magnesium Hydrox/Alum Hydrox 30 Ml Oral.Susp) 30 ml PO DAILY PRN PRN Reason: Acid Reflux Atenolol (Atenolol 50 Mg Tablet) 50 mg PO DAILY [facility]; Protocol Last Admin: 09/12/21 08:04 Dose: 50 mg Documented by: FRANCES Atorvastatin Calcium (Atorvastatin Calcium 10 Mg Tablet) 10 mg PO BEDTIME [facility] Last Admin: 09/11/21 20:38 Dose: 10 mg Documented by: CELESTINA Cyanocobalamin (Cyanocobalamin (Vitamin B-12) 1,000 Mcg Tablet) 1,000 mcg PO DAILY [facility] Last Admin: 09/12/21 08:04 Dose: 1,000 mcg Documented by: FRACNES Docusate Sodium (Docusate Sodium 100 Mg Capsule) 100 mg PO DAILY [facility] Last Admin: 09/12/21 08:04 Dose: 100 mg Documented by: FRANCES Doxazosin Mesylate (Doxazosin Mesylate 2 Mg Tablet) 4 mg PO BEDTIME [facility]; Protocol Last Admin: 09/11/21 20:38 Dose: 4 mg Documented by: CELESTINA Finasteride (Finasteride 5 Mg Tablet) 5 mg PO DAILY [facility] Last Admin: 09/12/21 08:04 Dose: 5 mg Documented by: FRANCES Magnesium Hydroxide (Milk Of Magnesia 30 Ml Oral.Susp) 30 ml PO DAILY PRN PRN Reason: Acid Reflux Pharmacy Consult (Consult Rx Perform Med Rec) 1 each MISCELLANE ONCE PRN PRN Reason: Consult order Risperidone (Risperidone 0.25 Mg Tablet) 0.25 mg PO Q4H PRN PRN Reason: Anxiety/Restlessness Last Admin: 09/03/21 16:35 Dose: 0.25 mg Documented by: JESS Sertraline HCl (Sertraline Hcl 50 Mg Tablet) 50 mg PO DAILY [facility] Last Admin: 09/12/21 08:04 Dose: 50 mg Documented by: FRANCES Sodium Chloride (0.9 % Sodium Chloride Flush 3 Ml Syringe) 3 ml IVFLUSH QSHIFT [facility] Last Admin: 09/12/21 08:04 Dose: 3 ml Documented by: FRANCES Trazodone HCl (Trazodone Hcl 50 Mg Tablet) 50 mg PO BEDTIME PRN PRN Reason: Insomnia Last Admin: 09/10/21 20:20 Dose: 50 mg Documented by: LUDIVINA Labs CBC & Chem 7: 09/05/21 06:13 09/12/21 05:54 Labs: Laboratory Results - last 24 hr 09/12/21 05:54 Anion Gap 11 L Estim Creat Clear Calc 88.3 Estimated GFR > 60 Random Glucose 100 Calcium 8.3 L Assessment and Plan (1) Urinary retention with incomplete bladder emptying: Status: Acute (2) Dependent edema: Status: Acute (3) Altered mental status: Status: Acute Assessment and Plan: This is a 75 year old male with a history of hemorrhagic stroke with resulting vascular dementia, HTN, HLD admitted to the [facility] floor for increasing pa ranoia, anxiety and disorganized behavior. His inpatient psychiatric stay was complicated initially by agitation, aggression, unpredictable behavior and sundowning. then one day or two of lethargy, with decreased PO intake and requiring more nursing care was transferred to the medical floor for further management. metabolic Encephalopathy on a background of vascular dementia Improving slowly possibly due to medications (though has been held for some time now), hypoactive delerium, seizure less likely - negative eeg CT brain from 08/15 showing old infarct in Left MCA territory as well as chronic small vessel ischemic changes repeat CT brain 09/02 with no acute changes was initially agitated and aggressive upon admission, now more hypoactive d/w neuro, no further inpatient work up indicated at this time, unlikely to benefit from further geripsych will likely need either STR or buttermaker helper placement mood continue zoloft hold scheduled risperidone continue prn risperidone Urinary retention appreciated, started cardura, proscar voiding trial 09/08 unsuccessful, arriaza replaced hematuria avoid AC, APA thrombocytopenia no baseline for comparison dementia continue aricept, exelon HLD continue statin HTN continue atenolol Dispo - pending placement dvt ppx - mechanical devices due to hematuria code status - DNR/DNI; confirmed with Quality Stroke Does the patient have a stroke diagnosis?: No VTE Prior VTE?: No VTE Risk Level:: Medical - moderate - high VTE Device Contraindication: N/A - Device Ordered VTE Drug Contraindication: Treatment Not Indicated
[2021-09-12] MEDS: risperiDONE 0.25 MG TABLET PO (13:59)
--- NOTE | 2021-09-12 15:19 | MHC.CM.PN ---
i spoke c patient's today and liaison for [facility]. she would like her to go there. this will be a [place] pay situation. pt will be leaving tomorrow am at 10 am , 09/13/21. rojas is aware of dc plan. cm to cont. to follow.
[2021-09-12] MEDS: Doxazosin Mesylate 2 MG TABLET 4 MG PO (21:04)
[2021-09-12] MEDS: traZODone HCL 50 MG TABLET PO (21:04)
[2021-09-12] MEDS: Atorvastatin Calcium 10 MG TABLET PO (21:04)
[2021-09-13] MEDS: 0.9 % Sodium Chloride Flush 3 ML SYRINGE IVFLUSH ×2 (00:11→08:26)
[2021-09-13 04:00] VITALS: BP 119/60; PULSE 73; RESP 20; TEMP 36.9
[2021-09-13 07:04] VITALS: BP 140/73; PULSE 73; RESP 20; TEMP 37.1; O2SAT 95
[2021-09-13] MEDS: Finasteride 5 MG TABLET PO (08:27)
[2021-09-13] MEDS: Sertraline HCL 50 MG TABLET PO (08:27)
[2021-09-13] MEDS: Cyanocobalamin (Vitamin B-12) 1,000 MCG TABLET 1000 MCG PO (08:27)
[2021-09-13] MEDS: Docusate Sodium 100 MG CAPSULE PO (08:27)
[2021-09-13] MEDS: atenoloL 50 MG TABLET PO (08:27)
--- NOTE | 2021-09-13 09:20 | MHC.CM.PN ---
[facility] aware
[2021-09-13 09:29] LABS: COVID-19 Test Negative (Negative); IDNOW Serial# 9DD0AD1C
--- NOTE | 2021-09-13 09:41 | PM.DS ---
DS: Providers Provider Date of Service: 09/13/21 Date of admission: 09/02/21 17:03 Primary care physician: Hailey Wilkerson MD Consults: 09/02/21 17:08 Consult to Neurology Routine Consulting Provider: [facility] Reason for consultation: dementia; h/o cva;from [facility];worsening mental status Has provider been notified: No 09/02/21 17:21 Consult to Urology Routine Consulting Provider: Dexter Caceres Reason for consultation: hematuria, urinary retention Has provider been notified: No 09/02/21 18:06 Consult to Psychiatry Routine Consulting Provider: Psych Covering Reason for consultation: continue psychiatric care Has provider been notified: No DS: Diagnosis Discharge Diagnosis (1) Urinary retention with incomplete bladder emptying: Status: Acute (2) Dependent edema: Status: Acute (3) Altered mental status: Status: Acute (4) Psychosis: Status: Acute DS: Summary Hospital Course Hospital Course: Admission note HPI This is a 75 year old male with history of hemorrhagic stroke and dementia, currently being treated on the Geriatric psych floor for new onset of psychotic symptoms and disorganized behavior.? In 2009 patient suffered a hemorrhagic stroke and since that time his cognition has declined.? Six months ago his memory became worse and he was evaluated at the [facility] where he was diagnosed with vascular dementia.? He was becoming more irritable.? A week and half prior to his admission he became paranoid and anxious.? He was brought to [facility] and eventually referred to [facility] floor for further management.? ? His medications have been adjusted.? At baseline he seems to be minimally verbal but able to follow basic commands.? Over the past day or two staff has noticed that he has become less active, not following commands as easily and not eating or drinking much. He also began retaining urine and a arriaza catheter was placed. He is unable to provide any medical history. Hospital course The patient was admitted for evaluation of altered mentation. CT scan showed low infarct but no new events. Evaluated by psychiatry and neurology team who recommended EEG which was negative. Psychiatry recommended changes in his home medication with adjusting the dose of risperidone and stopping others. His mentation started to improve with recurrent reorientation. Plan to be discharged to SNF. Noticed to have urinary retention. Arriaza catheter placed. Urology team was consulted. Started on doxazosin and finasteride. To follow-up with urology clinic as outpatient. Time Spent with Patient Time attestation: Total time spent providing and/or coordinating discharge services: Discharge coordination time: Greater than 30 minutes Quality: Stroke Does the patient have a stroke diagnosis?: No Physical Exam Vital Signs: Vital Signs: Last Vital Signs Temp 98.7 F 09/13/21 07:04 Pulse 73 09/13/21 07:04 Resp 20 09/13/21 07:04 BP 140/73 H 09/13/21 07:04 Pulse Ox 95 09/13/21 07:04 Body Mass Index 30.6 Const: Other: Constitutional : Alert, oriented, not in distress Neck : Normal inspection, Supple Cardiovascular : RRR, S1 S2, no lower extremity edema Respiratory : fair bilateral air entry, no crackles, wheezes or rhonchi Gastrointestinal: soft, lax, Normal bowel sounds, Non tender Skin : Warm, Dry Neurological : Alert to self , right sided weakness DS: Data Data Completed and Pending Labs on day of discharge: Laboratory Results - last 24 hr 09/13/21 08:50 COVID-19 (CARLO) Negative COVID-19 Clin Com See Note Discharge Plan Discharge Patient Disposition: Xfer SNF Discharge Diagnosis: Urine retention Altered mentation Referrals: [facility] [Other] - 1 Week Hailey Wilkerson MD [Primary Care Provider] - 1 Week Discharge Medications: New docusate sodium 100 mg Capsule 100 mg PO DAILY 30 Days Qty: 30 RF: 0 doxazosin 2 mg Tablet 4 mg PO BEDTIME 30 Days Qty: 60 RF: 0 finasteride [Proscar] 5 mg Tablet 5 mg PO DAILY 30 Days Qty: 30 RF: 0 Continued acetaminophen 325 mg Tablet 650 mg PO Q6H PRN (Reason: Pain) RF: 0 trazodone 50 mg Tablet 50 mg PO BEDTIME PRN (Reason: Insomnia) RF: 0 atorvastatin 10 mg Tablet 10 mg PO BEDTIME RF: 0 loperamide 2 mg Tablet 4 mg PO Q4H PRN (Reason: Diarrhea) RF: 0 magnesium hydroxide 400 mg/5 mL Suspension 2,400 mg PO DAILY PRN (Reason: Acid Reflux) RF: 0 alum-mag hydroxide-simeth 200-200-20 mg/5 mL Suspension 30 ml PO DAILY PRN (Reason: Acid Reflux) RF: 0 rivastigmine tartrate 1.5 mg Capsule 1.5 mg PO BID Qty: 30 RF: 0 donepezil 10 mg Tablet 10 mg PO DAILY Qty: 30 RF: 0 cyanocobalamin (vitamin B-12) [Vitamin B-12] 1,000 mcg Tablet 1,000 mcg PO DAILY Qty: 30 RF: 0 risperidone 0.25 mg Tablet 0.25 mg PO Q4H PRN (Reason: Anxiety/Restlessness) Qty: 30 RF: 0 sertraline 50 mg Tablet 50 mg PO DAILY Qty: 30 RF: 0 risperidone 1 mg Tablet 1 mg PO BEDTIME Qty: 30 RF: 0 atenolol 50 mg Tablet 50 mg PO DAILY Qty: 30 RF: 0 risperidone 0.5 mg Tablet 0.5 mg PO DAILY@1700 Qty: 30 RF: 0 Discharge Orders: Discharge Order (Routine); Ordered 09/13/21 Ordered By: Irving Palma Diet: advance to usual diet Activity on Discharge: As tolerated Stand Alone Forms: Patient Portal Discharge page Care Plan Goals: Read below Health Concerns: Read below Plan of Treatment: Read below Assessment: You were admitted to the hospital for evaluation of abnormal behaviour and mental status changes. You were evaluated by Neurology and Psychiatry team. Your symptoms improved with changing your medications. You were noticed to have urinary retention evaluated by urologist who placed Arriaza catheter. To follow-up with urology office as outpatient Continue new medications of finasteride and doxazosin
--- NOTE | 2021-09-13 09:49 | MHC.INPTTRAN ---
pt is alert and confused and able to answer simple questions, yes and no. pt is incontinent of stool (last BM today) and has a arriaza catheter placed for urinary retention. pt requires total care for bathing/ grooming and eating. pt takes pills crushed in apple sauce. Pt has stage II injury to buttock - extra protective cream applied. repositioned q2hr with 2 assist. LSC. VSS. Covid negative.
== END 2021-09-13 11:47 | disposition skilled nursing facility (03) | DRG 72 ==
PROVIDERS: Internal Medicine; Admitting Provider Physician Assistant Medical; PCP Internal Medicine Geriatric Medicine; Visit Provider Student in an Organized Health Care Education/Training Program
DX: G93.41 Metabolic encephalopathy (principal); I10 Essential (primary) hypertension; R31.9 Hematuria, unspecified; F39 Unspecified mood [affective] disorder; E78.5 Hyperlipidemia, unspecified; I69.319 Unspecified symptoms and signs involving cognitive functions following cerebral infarction; F01.50 Vascular dementia, unspecified severity, without behavioral disturbance, psychotic disturbance, mood disturbance, and anxiety; R33.9 Retention of urine, unspecified; D69.6 Thrombocytopenia, unspecified; Z20.822 Contact with and (suspected) exposure to COVID-19; Z87.891 Personal history of nicotine dependence; Z79.899 Other long term (current) drug therapy; Z66 Do not resuscitate
CPT/HCPCS: 36415; 70450; 80048; 80076; 82607; 82746; 84443; 85025; 85027; 87635; 95816; 97162; C1758

== ENCOUNTER 2021-09-24 09:36 | Inpatient (IN) | payer MEDICARE, SELFPAY ==
--- NOTE | ~2021-09-24 | CT_ITS ---
EXAMINATION: CT CERVICAL SPINE WITHOUT CONTRAST CLINICAL INFORMATION: Unresponsive after fall COMPARISON: None TECHNIQUE: Axial images through the cervical spine without contrast. Sagittal and coronal reconstructions on the technologist workstation were performed. This CT examination was performed using dose optimization techniques as appropriate, variously including the following: *Automated exposure control *Adjustment of mA and/or kV according to patient size (this includes techniques or standardized protocols for targeted exams where dose is matched to indication/reason for exam; i.e. extremities or head) *Use of iterative reconstruction technique DLP: 1113 mGy-cm FINDINGS: Bone alignment is normal. No fracture or dislocation is seen. There is degenerative spondylosis and degenerative disc disease at the T2-T3, C5-C6, and C6-C7. There are degenerative changes at the C1 dens articulation. There is mild bilateral facet arthritis. Prevertebral soft tissues are normal. Lung apices are not included in the [id number]. CT/CT cervical spine wo con IMPRESSION: 1. Degenerative changes. No fracture or dislocation seen. Fleischner guidelines were followed.
--- NOTE | ~2021-09-24 | XR_ITS ---
EXAMINATION: XR ABDOMEN KUB CLINICAL INDICATION: Pre-MRI screening COMPARISON: None TECHNIQUE: AP view of the abdomen. FINDINGS: No radiopaque foreign body is seen. There is stool the colon. There are no dilated loops of bowel. There is no evidence of free air. There are degenerative changes of the spine. Visualized lung bases are clear. XR/XR KUB IMPRESSION: No foreign body seen.
--- NOTE | ~2021-09-24 | XR_ITS ---
EXAMINATION: XR FACIAL BONES CLINICAL INFORMATION: Fall. Left and left face swelling COMPARISON: None TECHNIQUE: 3 views of the facial bones were obtained. FINDINGS: Exam is limited due to patient positioning. No fracture or dislocation is seen. Visualized paranasal sinuses are clear. XR/XR facial bones min 3V IMPRESSION: Limited exam. No fracture seen.
--- NOTE | ~2021-09-24 | MR_ITS ---
EXAMINATION: MR BRAIN WITHOUT CONTRAST CLINICAL INFORMATION: Encephalopathy. COMPARISON: CT head from 09/24/2021. TECHNIQUE: MRI of the brain was obtained using routine sequences without contrast. FINDINGS: No focal restricted diffusion is demonstrated to suggest acute or subacute cerebral ischemia. Chronic encephalomalacia of the left temporal lobe with hemosiderin staining. There is also hemosiderin staining of multiple bilateral frontal, parietal, and occipital sulci suggestive of prior subarachnoid hemorrhage. No demonstrated evidence of acute hemorrhagic products on heme-sensitive imaging. Partially confluent periventricular, deep white matter, and brainstem T2 FLAIR hyperintensities consistent with underlying microangiopathy. Ex vacuo dilatation of the temporal horn of the left lateral ventricle. Otherwise, proportional prominence of the ventricles and sulcal spaces without evidence of obstructive hydrocephalus. No abnormal mass effect. No midline shift. Normal appearance of the pituitary gland. Normal positioning of the cerebellar tonsils. Normal arterial and venous vascular flow voids are present. Normal, homogeneous marrow signal. Mild mucosal thickening of the paranasal sinuses. Small mucous retention cyst within the left maxillary sinus. Small bilateral mastoid effusions. MR/MR head/brain wo con IMPRESSION: 1. No acute intracranial abnormalities. 2. 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 3. Moderate to extensive underlying microangiopathy and generalized cerebral volume loss. 4. Hemosiderin staining of the encephalomalacic cavity of the left temporal lobe and multiple supratentorial sulci suggestive of sequela of prior hemorrhagic products.
--- NOTE | ~2021-09-24 | XR_ITS ---
EXAMINATION: XR CHEST CLINICAL INFORMATION: Unresponsive after fall. COMPARISON: None TECHNIQUE: Frontal view of the chest was obtained. FINDINGS: The lungs are hypoexpanded but clear. Heart size and pulmonary vascularity is normal. No gross bony abnormality seen. XR/XR chest 1V IMPRESSION: Hypoexpanded lungs without acute process.
--- NOTE | ~2021-09-24 | US_ITS ---
EXAMINATION: US VENOUS ULTRASOUND WITH DOPPLER LOWER EXTREMITY, BILATERAL CLINICAL INFORMATION: Swelling. COMPARISON: None TECHNIQUE: Ultrasound of the deep veins is performed from the hip to the calf with compression sonography and color and pulse Doppler assessment. Spectral analysis with color-flow imaging is performed. FINDINGS: RIGHT: There is normal venous compression and respiratory variation and augmented flow. The visualized common femoral vein, superficial femoral vein, profunda femoral vein, popliteal vein, and the trifurcation region shows no evidence of deep venous thrombosis. There is no popliteal fossa cyst. LEFT: There is thrombus seen in the popliteal vein. The left common femoral, superficial femoral, profunda, and visualized peroneal and posterior tibial veins in the calf are patent. There is no significant popliteal fossa cyst. There is no Martínez's cyst. US/US venous duplex LE BI IMPRESSION: Left popliteal vein DVT. No DVT demonstrated in the right lower extremity. Findings were communicated to Dr. Cortes by telephone 09/24/2021 at 12:08 PM.
--- NOTE | ~2021-09-24 | CT_ITS ---
EXAMINATION: CT HEAD WITHOUT CONTRAST CLINICAL INFORMATION: Fall, trauma, unresponsive. COMPARISON: CT head noncontrast 09/02/2021. TECHNIQUE: Contiguous axial imaging was performed from the skull base to vertex without intravenous administration of contrast. Additional 2-D coronal and sagittal reformatted images are generated on the CT workstation and uploaded to PACS. This CT examination was performed using dose optimization techniques as appropriate, variously including the following: *Automated exposure control *Adjustment of mA and/or kV according to patient size (this includes techniques or standardized protocols for targeted exams where dose is matched to indication/reason for exam; i.e. extremities or head) *Use of iterative reconstruction technique DLP: 753 mGy-cm FINDINGS: There is no intracranial hemorrhage, hematoma, or extra-axial fluid collection. There are atrophic changes with prominence of the cortical sulci and fissures and cisterns and mild ventricular prominence similar to prior exam. There is no hydrocephalus. No edema or mass effect. Again, there is scattered periventricular white matter gliosis consistent with chronic small vessel ischemic changes. Old infarct noted posterior left temporal lobe with encephalomalacia. Mild compensatory enlargement left lateral ventricle. There is no visible acute territorial infarct or mass lesion. The calvarium appears intact. There is no pneumocephalus or orbital emphysema. The visualized sinuses and middle ears and mastoid air cells show no significant mucosal thickening. There are no air-fluid levels. CT/CT head/brain wo con IMPRESSION: No acute intracranial abnormality.
[2021-09-24 09:47] VITALS: BP 104/72; PULSE 64; O2SAT 97
[2021-09-24 09:49] VITALS: BP 112/62; PULSE 52; RESP 14; TEMP 36.6; O2SAT 96; BMI 27.3
--- NOTE | 2021-09-24 10:14 | ECG_ITS ---
Test Reason : FALL AMS Blood Pressure : / mmHG Vent. Rate : 051 BPM Atrial Rate : 051 BPM P-R Int : 172 ms QRS Dur : 090 ms QT Int : 494 ms P-R-T Axes : 030 -15 -02 degrees QTc Int : 455 ms Sinus bradycardia with Premature atrial complexes Nonspecific T wave abnormality Inferior leads Abnormal ECG When compared with ECG of 02-SEP-2021 14:48, Premature atrial complexes are now Present Heart rate has decreased Referred By: Gus Cortes Electronically Signed By:RONA FMA MD
--- NOTE | 2021-09-24 10:17 | ED.GENADULT ---
HPI - General Adult General Chief complaint: Fall Stated complaint: S/P FALL, AMS,-THINNERS,+HEADSTRIKE Time Seen by Provider: 09/24/21 10:13 Source: patient, family ( who is healthcare proxy), EMS and old records reviewed Mode of arrival: EMS Limitations: altered mental status History of Present Illness HPI narrative: 75-year-old male came in from senior living via ambulance for evaluation of being unresponsive after fell and hit his head. Patient was baseline advanced dementia, at baseline is minimally verbal, at the bedside providing history, patient fell this morning at the senior living causing swelling in his face but patient becoming more unresponsive. Patient had a history of hemorrhagic stroke and diagnosed with advanced dementia. No reported fever or chills or recent infection. Related Data Home Medications Medication Instructions Recorded Confirmed acetaminophen 325 mg tablet 650 mg PO Q6H PRN 09/02/21 09/24/21 aluminum-mag hydroxide-simethicone 5 ml PO DAILY PRN 09/02/21 09/24/21 200 mg-200 mg-20 mg/5 mL oral susp atorvastatin 10 mg tablet 10 mg PO BEDTIME 09/02/21 09/24/21 loperamide 2 mg tablet 2 mg PO Q4H PRN 09/02/21 09/24/21 trazodone 50 mg tablet 50 mg PO BEDTIME PRN 09/02/21 09/24/21 docusate sodium 100 mg capsule 100 mg PO DAILY 09/24/21 09/24/21 doxazosin 4 mg tablet 4 mg PO BEDTIME 09/24/21 09/24/21 magnesium hydroxide 400 mg/5 mL 5 ml PO BEDTIME PRN 09/24/21 09/24/21 oral suspension (Milk of Magnesia) risperidone 0.25 mg tablet 0.25 mg PO Q4H PRN 09/24/21 09/24/21 Previous Rx's Medication Instructions Recorded atenolol 50 mg tablet 50 mg PO DAILY #30 tab 09/02/21 cyanocobalamin (vitamin B-12) 1,000 mcg PO DAILY #30 tab 09/02/21 1,000 mcg tablet (Vitamin B-12) donepezil 10 mg tablet 10 mg PO DAILY #30 tab 09/02/21 risperidone 0.5 mg tablet 0.5 mg PO DAILY@1700 #30 tab 09/02/21 risperidone 1 mg tablet 1 mg PO BEDTIME #30 tab 09/02/21 rivastigmine tartrate 1.5 mg 1.5 mg PO BID #30 cap 09/02/21 capsule sertraline 50 mg tablet 50 mg PO DAILY #30 tab 09/02/21 finasteride 5 mg tablet (Proscar) 5 mg PO DAILY 30 Days #30 tab 09/13/21 Allergies Allergy/AdvReac Type Severity Reaction Status Date / Time No Known Allergies Allergy Verified 08/14/21 11:06 Review of Systems Review of Systems: Yes Unobtainable due to mental status [facility] Past Medical History Medical History Dementia Hemorrhagic stroke HLD (hyperlipidemia) HTN (hypertension) Vascular dementia Social History Social History Household Members: Spouse Housing: House Do you presently have visiting nurse or other home services: No Unable to assess alcohol history related to: Unable to respond Alcohol intake: unknown Patient Tobacco Use Status: Former Tobacco user Second Hand Smoke Exposure: No Use of substances other than those prescribed or required for medical reasons: No Advance Directives: Yes Advance Directives on File: Yes Advance Directives Date on File: 09/16/21 service: No Sexual orientation: Straight/Heterosexual Physical Exam Vital Signs: Vital Signs: Last Vital Signs Temp 97.8 F 09/24/21 09:49 Pulse 60 09/24/21 13:28 Resp 16 09/24/21 13:28 BP 100/50 L 09/24/21 13:28 Pulse Ox 97 09/24/21 13:28 Body Mass Index 27.3 Vital signs have been reviewed as appeared to be correct. Blood pressure normal. Heart rate normal. Respiration rate normal. Temperature normal. Oxygen saturation normal. Appearance: Unresponsive, do not regard exam. Head: Left cheek swelling, left upper lip swelling, no step-off Eyes: 2 mm reactive bilaterally ENT: TM's Normal. Uvula midline. Moist mucous membranes. No trismus noted. No drooling noted. No muffled voice noted. Neck: Normal inspection. Neck supple. No step-off, no deformity. CVS: Normal heart rate and rhythm. Heart sound normal. No murmurs noted. Pulses normal throughout. Respiratory: No respiratory distress. Painless inspiration. Breath sounds normal. No wheezes/rales/rhonchi noted. Chest nontender. No accessory muscle usage noted or decreased air movement noted. Abdomen: Soft and nontender. Bowel sounds normal in all 4 quadrants. No distention noted. No organomegaly noted. No visible injury noted. Back: No CVA tenderness. Full range of motion noted. Skin: Skin warm and dry. Normal skin color. Normal skin turgor. No rashes/lesions/lacerations noted. Extremities: No lower extremity edema. Extremities exhibit normal range of motion. Extremities nontender. Neuro: Unresponsive to verbal stimuli, but responds to painful stimuli Course Course Course Narrative: Assessment and plan. 75-year-old male history of advanced dementia came from senior living for being unresponsive after a fall, patient emergency room remained unresponsive, had a head CT which showed no posttraumatic intracranial bleed, labs and UA showed patient have UTI. Physical exam also revealed left lower extremity swelling. 1. UTI start the patient on ceftriaxone patient is not meeting criteria for sepsis. 2. Left lower extremity his ultrasound showed DVT because previous history of hemorrhagic stroke I would start the patient on Lovenox instead of direct acting anticoagulation agent. 3. Change mental status with negative CT of the head, I discussed with the hospitalist will get non emergent MRI of the head. 4. Admit the patient. Medical Decision Making Medical Records Medical records reviewed: Yes I reviewed the patient's medical records. Lab Data Lab results reviewed: Yes I reviewed the patient's lab results. Result diagrams: 09/24/21 10:36 09/24/21 10:36 Labs: Lab Results 09/24/21 09/24/21 09/24/21 Range/Units 10:36 10:36 10:36 WBC 7.7 (4.8-10.8) X10*3/uL RBC 4.14 L (4.60-5.80) X10*6/uL Hgb 12.3 L (14.0-18.0) g/dl Hct 38.4 L (42.0-52.0) % MCV 92.8 (80.0-98.0) fL MCH 29.7 (27.0-33.0) pg MCHC 32.0 (31.0-36.0) g/dl RDW 13.0 (11.0-16.0) % Plt Count 120 L (160-400) X10*3/uL MPV 8.9 L (9.4-12.4) fL Immature Gran % (Auto) 0.3 (0.0-0.4) % Neut % (Auto) 85.8 H (45-73) % Lymph % (Auto) 6.5 L (20-40) % Wilkin % (Auto) 7.3 (2-11) % Eos % (Auto) 0.0 (0-4) % Baso % (Auto) 0.1 (0-2) % Lymph # (Auto) 0.5 L (1.2-4.9) X10*3/uL Wilkin # (Auto) 0.6 (0.1-1.2) X10*3/uL Eos # (Auto) 0.0 (0.0-0.4) X10*3/uL Baso # (Auto) 0.0 (0.0-0.2) X10*3/uL Abs Immat Gran (auto) 0.02 (0.00-0.03) X10*3/uL Absolute Neuts (auto) 6.6 (2.0-8.3) x10*3/uL Absolute Nucleated RBC 0.000 (0.0-0.012) X10*3/uL Nucleated RBC % (auto) 0.0 (0.0-0.2) /100WBC PT (9.9-13.0) SEC INR (0.9-1.1) APTT (24.1-38.0) SEC Sodium 143 (135-145) mmol/L Potassium 4.1 (3.3-5.1) mmol/L Chloride 110 H (96-108) mmol/L Carbon Dioxide 25 (22-29) mmol/L Anion Gap 12 (12-20) BUN 18 H D (9-16) mg/dL Creatinine 0.84 (0.5-1.4) mg/dL Estim Creat Clear Calc 79.6 Estimated GFR > 60 Random Glucose 135 H (60-115) mg/dL Lactic Acid (0.5-2.0) mmol/L Calcium 8.8 D (8.4-10.2) mg/dL Troponin I High Sens 6.9 (<3.5-35.0) ng/L B-Natriuretic Peptide (<100) pg/mL Lipase 10 (8-78) U/L Urine Color Urine Appearance Urine pH (5.0-8.0) Ur Specific Hartwick (1.005-1.025) Urine Protein (NEG-TRACE) MG/DL Urine Glucose (UA) (NEG) MG/DL Urine Ketones (NEG) MG/DL Urine Blood (NEG) Urine Nitrite (NEG) Ur Leukocyte Esterase (NEG) Urine RBC (0) /HPF Urine WBC (0-4) /HPF Ur Squamous Epith Cells /LPF Urine Bacteria /LPF Urine Sperm COVID-19 (CARLO) (Negative) COVID-19 Clin Com 09/24/21 09/24/21 09/24/21 Range/Units 10:36 10:36 10:36 WBC (4.8-10.8) X10*3/uL RBC (4.60-5.80) X10*6/uL Hgb (14.0-18.0) g/dl Hct (42.0-52.0) % MCV (80.0-98.0) fL MCH (27.0-33.0) pg MCHC (31.0-36.0) g/dl RDW (11.0-16.0) % Plt Count (160-400) X10*3/uL MPV (9.4-12.4) fL Immature Gran % (Auto) (0.0-0.4) % Neut % (Auto) (45-73) % Lymph % (Auto) (20-40) % Wilkin % (Auto) (2-11) % Eos % (Auto) (0-4) % Baso % (Auto) (0-2) % Lymph # (Auto) (1.2-4.9) X10*3/uL Wilkin # (Auto) (0.1-1.2) X10*3/uL Eos # (Auto) (0.0-0.4) X10*3/uL Baso # (Auto) (0.0-0.2) X10*3/uL Abs Immat Gran (auto) (0.00-0.03) X10*3/uL Absolute Neuts (auto) (2.0-8.3) x10*3/uL Absolute Nucleated RBC (0.0-0.012) X10*3/uL Nucleated RBC % (auto) (0.0-0.2) /100WBC PT 13.3 H (9.9-13.0) SEC INR 1.2 H (0.9-1.1) APTT 34.3 (24.1-38.0) SEC Sodium (135-145) mmol/L Potassium (3.3-5.1) mmol/L Chloride (96-108) mmol/L Carbon Dioxide (22-29) mmol/L Anion Gap (12-20) BUN (9-16) mg/dL Creatinine (0.5-1.4) mg/dL Estim Creat Clear Calc Estimated GFR Random Glucose (60-115) mg/dL Lactic Acid 1.6 (0.5-2.0) mmol/L Calcium (8.4-10.2) mg/dL Troponin I High Sens (<3.5-35.0) ng/L B-Natriuretic Peptide 153 H (<100) pg/mL Lipase (8-78) U/L Urine Color Urine Appearance Urine pH (5.0-8.0) Ur Specific Hartwick (1.005-1.025) Urine Protein (NEG-TRACE) MG/DL Urine Glucose (UA) (NEG) MG/DL Urine Ketones (NEG) MG/DL Urine Blood (NEG) Urine Nitrite (NEG) Ur Leukocyte Esterase (NEG) Urine RBC (0) /HPF Urine WBC (0-4) /HPF Ur Squamous Epith Cells /LPF Urine Bacteria /LPF Urine Sperm COVID-19 (CARLO) (Negative) COVID-19 Clin Com 09/24/21 09/24/21 Range/Units 10:36 11:51 WBC (4.8-10.8) X10*3/uL RBC (4.60-5.80) X10*6/uL Hgb (14.0-18.0) g/dl Hct (42.0-52.0) % MCV (80.0-98.0) fL MCH (27.0-33.0) pg MCHC (31.0-36.0) g/dl RDW (11.0-16.0) % Plt Count (160-400) X10*3/uL MPV (9.4-12.4) fL Immature Gran % (Auto) (0.0-0.4) % Neut % (Auto) (45-73) % Lymph % (Auto) (20-40) % Wilkin % (Auto) (2-11) % Eos % (Auto) (0-4) % Baso % (Auto) (0-2) % Lymph # (Auto) (1.2-4.9) X10*3/uL Wilkin # (Auto) (0.1-1.2) X10*3/uL Eos # (Auto) (0.0-0.4) X10*3/uL Baso # (Auto) (0.0-0.2) X10*3/uL Abs Immat Gran (auto) (0.00-0.03) X10*3/uL Absolute Neuts (auto) (2.0-8.3) x10*3/uL Absolute Nucleated RBC (0.0-0.012) X10*3/uL Nucleated RBC % (auto) (0.0-0.2) /100WBC PT (9.9-13.0) SEC INR (0.9-1.1) APTT (24.1-38.0) SEC Sodium (135-145) mmol/L Potassium (3.3-5.1) mmol/L Chloride (96-108) mmol/L Carbon Dioxide (22-29) mmol/L Anion Gap (12-20) BUN (9-16) mg/dL Creatinine (0.5-1.4) mg/dL Estim Creat Clear Calc Estimated GFR Random Glucose (60-115) mg/dL Lactic Acid (0.5-2.0) mmol/L Calcium (8.4-10.2) mg/dL Troponin I High Sens (<3.5-35.0) ng/L B-Natriuretic Peptide (<100) pg/mL Lipase (8-78) U/L Urine Color YELLOW Urine Appearance CLOUDY Urine pH 6.0 (5.0-8.0) Ur Specific Hartwick 1.025 (1.005-1.025) Urine Protein 1+ H (NEG-TRACE) MG/DL Urine Glucose (UA) NEG (NEG) MG/DL Urine Ketones 15 (NEG) MG/DL Urine Blood 2+ H (NEG) Urine Nitrite NEG (NEG) Ur Leukocyte Esterase 2+ H (NEG) Urine RBC 10-14 H (0) /HPF Urine WBC TNTC H (0-4) /HPF Ur Squamous Epith Cells NONE /LPF Urine Bacteria 2+ /LPF Urine Sperm NOTED COVID-19 (CARLO) Negative (Negative) COVID-19 Clin Com See Note Imaging Data Chest x-ray: Attestation: I personally reviewed and interpreted this imaging study as follows: Radiologist's impression: Hypoexpanded lungs without acute process. ? Head CT: Radiologist's impression: No acute intracranial abnormality. Lower extremities venous Doppler: Radiologist's impression: Left popliteal DVT. Critical Care Time Critical Care Time Critical Care Time: Yes Total Critical Care Time: 60 Attestation: I spent 60 minutes providing critical care service to the patient, this including time spent at the bedside to evaluate the patient, reassess the patient, monitoring vital signs, review labs, and radiographic studies, counseling the patient/family, discussing the case with consultants, disposition the patient. Discharge Plan Discharge Clinical Impression: Acute alteration in mental status, Acute UTI DVT (deep venous thrombosis) Qualifiers: Affected thrombotic vein of extremity: popliteal Chronicity: acute Laterality: left Patient Disposition: Admitted As Inpatient
[2021-09-24] MEDS: 0.9 % Sodium Chloride 1,000 ML 999 ML IVCONT (10:30)
[2021-09-24 10:43] LABS: MANUAL DIFF FLAG NO
[2021-09-24 10:45] LABS: Basophils Percent Auto 0.1 % (0-2); Hematocrit 38.4 % (42.0-52.0); Hemoglobin 12.3 g/dl (14.0-18.0); Imm Gran Abs Auto 0.02 X10*3/uL (0.00-0.03); Imm Gran Pct Auto 0.3 % (0.0-0.4); Lymphocytes Absolute Auto 0.5 X10*3/uL (1.2-4.9); Lymphocytes Percent Auto 6.5 % (20-40); Mean Corpuscular Hemoglobin 29.7 pg (27.0-33.0); Mean Corpuscular Volume 92.8 fL (80.0-98.0); Mean Platelet Volume 8.9 fL (9.4-12.4); Monocytes Absolute Auto 0.6 X10*3/uL (0.1-1.2); Monocytes Percent Auto 7.3 % (2-11); Neutrophils Absolute Auto 6.6 x10*3/uL (2.0-8.3); Neutrophils Percent Auto 85.8 % (45-73); Platelet Count 120 X10*3/uL (160-400); Red Blood Count 4.14 X10*6/uL (4.60-5.80); White Blood Count 7.7 X10*3/uL (4.8-10.8)
[2021-09-24 10:55] LABS: INTERNATIONAL NORM RATIO 1.2 (0.9-1.1); Prothrombin Time 13.3 SEC (9.9-13.0)
[2021-09-24 10:58] LABS: Partial Thromboplastin Time 34.3 SEC (24.1-38.0)
[2021-09-24 10:59] LABS: Lactic Acid 1.6 mmol/L (0.5-2.0)
[2021-09-24 11:03] LABS: Anion Gap 12 (12-20); Blood Urea Nitrogen 18 mg/dL (9-16); Calcium 8.8 mg/dL (8.4-10.2); Carbon Dioxide 25 mmol/L (22-29); Chloride 110 mmol/L (96-108); Creatinine Clr Calc Pharmacy 79.6; Estimated Glomerular Filt Rate > 60; Glucose Random 135 mg/dL (60-115); Lipase 10 U/L (8-78); Potassium 4.1 mmol/L (3.3-5.1); Sodium 143 mmol/L (135-145)
[2021-09-24 11:04] LABS: COVID-19 Test Negative (Negative)
[2021-09-24 11:08] LABS: B Type Natriuretic Peptide 153 pg/mL (<100); Troponin-I High Sensitivity 6.9 ng/L (<3.5-35.0)
[2021-09-24 11:54] VITALS: BP 107/44; PULSE 50; RESP 12; O2SAT 98
[2021-09-24 12:00] LABS: Appearance Urine CLOUDY; Color Urine YELLOW; Glucose Urine UA NEG (NEG); Leukocyte Esterase Urine 2+ (NEG); Nitrite Urine NEG (NEG); Specific Gravity - Urine 1.025 (1.005-1.025); UACC Culture Trigger YES; Urine Blood 2+ (NEG); Urine Ketones 15 MG/DL (NEG); Urine Protein 1+ MG/DL (NEG-TRACE)
[2021-09-24 12:10] LABS: Bacteria Urine 2+ /LPF; WBC Urine TNTC /HPF (0-4)
[2021-09-24 12:11] LABS: Sperm Urine NOTED
[2021-09-24] MEDS: Enoxaparin Sodium 100 MG/ML SYRINGE 85 MG SUBCUT (12:50)
[2021-09-24] MEDS: cefTRIAXone sodium 1 GM in 0.9 % Sodium Chloride 50 ML IV (12:50)
[2021-09-24 13:28] VITALS: BP 100/50; PULSE 60; RESP 16; O2SAT 97
--- NOTE | 2021-09-24 14:03 | P.HPHOSP_ITS ---
History of Present Illness Date of Service: 09/24/21 Chief Complaint: uti/encephalopathy, ams, dvt 75-year-old male came to the hospital because of falling down , altered mental status- his at the bedside- as per patient's patient fell down and subsequently transferred to the hospital because of falling down and altered mental status- patient is generalized weak, altered mental status and open eyes intermittently to verbal stimuli and painful stimuli, spontaneously moving the extremities otherwise does not answer any questions. '' I am cold'' that is the only word he said. Patient has history of hemorrhagic stroke in 2009. also has dementia as per his . ? In 2009 patient suffered a hemorrhagic stroke and since that time his cognition has declined.? Six months ago his memory became worse and he was evaluated at the [facility] where he was diagnosed with vascular dementia.? He was becoming more irritable.? A week and half prior to before previous admission 09/03- he was paranoid and anxious.? He was in [facility] and eventually referred to [facility] psych floor for further management - subsequently admitted to hospitalist service that time also- due to encephalopathy: that time also patient was initially agitated and subsequently was hypoactive- during last admission seen bypsychiatry and neurology team who recommended EEG which was negative.? Psychiatry recommended changes in his home medication with adjusting the dose of risperidone and stopping others.? His mentation started to improve with recurrent reorientation- subsequently discharged to an SNF. brought today again for altered mental status and falling down- As per his that otherwise patient was converse somewhat verbal and able to follow commands. patient does not provide much history. as per patient : In last few days: Denies any new complaint of chest pain or shortness of breath or abdominal pain or fever or chills or nausea or vomiting Denies any cough Denies any weakness or numbness. Review of Systems Review of Systems: as above. Yes all other systems are reviewed and are negative [facility] Medical History (Updated 09/25/21 @ 14:26 by Radha Gomes MD) Dementia Hemorrhagic stroke HLD (hyperlipidemia) HTN (hypertension) Vascular dementia Pertinent family history: Unable to obtain due to patient has dementia. Social History Household Members: Other Housing: Senior Care Do you presently have visiting nurse or other home services: No Unable to assess alcohol history related to: Unknown Alcohol intake: unknown Patient Tobacco Use Status: Former Tobacco user Second Hand Smoke Exposure: No Use of substances other than those prescribed or required for medical reasons: Unable to respond Currently Displaying Signs/Symptoms of Drug Intoxication Withdrawal: No Advance Directives: Yes Advance Directives on File: Yes Advance Directives Date on File: 09/16/21 Do you have thoughts of harming others: None Do you have a plan to hurt others: No Plan Recently lost weight without trying: Unsure service: No Current occupational status: retired Sexual orientation: Straight/Heterosexual Meds Allergies Allergy/AdvReac Type Severity Reaction Status Date / Time No Known Allergies Allergy Verified 08/14/21 11:06 Active Medications: Current Medications Dextrose/Sodium Chloride (D5ns) 1,000 mls @ 80 mls/hr IVCONT .[id number] [facility] Pharmacy Consult (Consult Rx Perform Med Rec) 1 each MISCELLANE ONCE PRN PRN Reason: Consult order Sodium Chloride (0.9 % Sodium Chloride Flush 3 Ml Syringe) 3 ml IVFLUSH QSHIFT [facility] Home Medications Medication Instructions Recorded Confirmed Last Taken Type acetaminophen 325 mg tablet 650 mg PO Q6H PRN 09/02/21 09/24/21 09/02/21 History aluminum-mag hydroxide-simethicone 5 ml PO DAILY PRN 09/02/21 09/24/21 Unknown History 200 mg-200 mg-20 mg/5 mL oral susp atorvastatin 10 mg tablet 10 mg PO BEDTIME 09/02/21 09/24/21 09/01/21 History loperamide 2 mg tablet 2 mg PO Q4H PRN 09/02/21 09/24/21 08/31/21 History trazodone 50 mg tablet 50 mg PO BEDTIME PRN 09/02/21 09/24/21 08/18/21 History docusate sodium 100 mg capsule 100 mg PO DAILY 09/24/21 09/24/21 Unknown History doxazosin 4 mg tablet 4 mg PO BEDTIME 09/24/21 09/24/21 Unknown History magnesium hydroxide 400 mg/5 mL 5 ml PO BEDTIME PRN 09/24/21 09/24/21 Unknown History oral suspension (Milk of Magnesia) risperidone 0.25 mg tablet 0.25 mg PO Q4H PRN 09/24/21 09/24/21 Unknown History Physical Exam Vital Signs and Narrative: Vital Signs: Last Vital Signs Temp 97.8 F 09/24/21 09:49 Pulse 60 09/24/21 13:28 Resp 16 09/24/21 13:28 BP 100/50 L 09/24/21 13:28 Pulse Ox 97 09/24/21 13:28 Body Mass Index 27.3 Physical exam: physical exam limited due to patient advanced dementia/mimimum responsive . Appearance: Intermittent opens eyes, not in distress.? ENT: upper lip swelling,? Moist mucous membranes. cvs: rrr, [id number] , no murmur res: clear to auscultation ,no rhonchii or wheezing abd: soft , nd , bs present, unable to tell any pain patient does not naswer any questions ext pulses present , no cyanosis. neuro: limited exam, does not open eye ( resists even when we tried to open)Intermittent opens eyes, moves all extermites spontaneously Results Labs CBC and Chem 7: 09/25/21 06:33 09/25/21 13:11 Labs: Laboratory Results - last 24 hr 09/24/21 09/24/21 09/24/21 10:36 10:36 10:36 MCV 92.8 MCH 29.7 MCHC 32.0 RDW 13.0 Plt Count 120 L MPV 8.9 L Immature Gran % (Auto) 0.3 Neut % (Auto) 85.8 H Lymph % (Auto) 6.5 L [place] % (Auto) 7.3 Eos % (Auto) 0.0 Baso % (Auto) 0.1 Lymph # (Auto) 0.5 L [place] # (Auto) 0.6 Eos # (Auto) 0.0 Baso # (Auto) 0.0 Abs Immat Gran (auto) 0.02 Absolute Neuts (auto) 6.6 Absolute Nucleated RBC 0.000 Nucleated RBC % (auto) 0.0 PT INR APTT Anion Gap 12 Estim Creat Clear Calc 79.6 Estimated GFR > 60 Random Glucose 135 H Lactic Acid Calcium 8.8 D Troponin I High Sens 6.9 B-Natriuretic Peptide Lipase 10 Urine Color Urine Appearance Urine pH Ur Specific [place] Urine Protein Urine Glucose (UA) Urine Ketones Urine Blood Urine Nitrite Ur Leukocyte Esterase Urine RBC Urine WBC Ur Squamous Epith Cells Urine Bacteria Urine Sperm COVID-19 (CARLO) COVID-19 Clin Com 09/24/21 09/24/21 09/24/21 10:36 10:36 10:36 MCV MCH MCHC RDW Plt Count MPV Immature Gran % (Auto) Neut % (Auto) Lymph % (Auto) [place] % (Auto) Eos % (Auto) Baso % (Auto) Lymph # (Auto) [place] # (Auto) Eos # (Auto) Baso # (Auto) Abs Immat Gran (auto) Absolute Neuts (auto) Absolute Nucleated RBC Nucleated RBC % (auto) PT 13.3 H INR 1.2 H APTT 34.3 Anion Gap Estim Creat Clear Calc Estimated GFR Random Glucose Lactic Acid 1.6 Calcium Troponin I High Sens B-Natriuretic Peptide 153 H Lipase Urine Color Urine Appearance Urine pH Ur Specific [place] Urine Protein Urine Glucose (UA) Urine Ketones Urine Blood Urine Nitrite Ur Leukocyte Esterase Urine RBC Urine WBC Ur Squamous Epith Cells Urine Bacteria Urine Sperm COVID-19 (CARLO) COVID-19 Clin Com 09/24/21 09/24/21 10:36 11:51 MCV MCH MCHC RDW Plt Count MPV Immature Gran % (Auto) Neut % (Auto) Lymph % (Auto) [place] % (Auto) Eos % (Auto) Baso % (Auto) Lymph # (Auto) [place] # (Auto) Eos # (Auto) Baso # (Auto) Abs Immat Gran (auto) Absolute Neuts (auto) Absolute Nucleated RBC Nucleated RBC % (auto) PT INR APTT Anion Gap Estim Creat Clear Calc Estimated GFR Random Glucose Lactic Acid Calcium Troponin I High Sens B-Natriuretic Peptide Lipase Urine Color YELLOW Urine Appearance CLOUDY Urine pH 6.0 Ur Specific [place] 1.025 Urine Protein 1+ H Urine Glucose (UA) NEG Urine Ketones 15 Urine Blood 2+ H Urine Nitrite NEG Ur Leukocyte Esterase 2+ H Urine RBC 10-14 H Urine WBC TNTC H Ur Squamous Epith Cells NONE Urine Bacteria 2+ Urine Sperm NOTED COVID-19 (CARLO) Negative COVID-19 Clin Com See Note Imaging Radiologist's Impressions: Impressions Chest X-Ray 09/24/21 10:48 IMPRESSION: Hypoexpanded lungs without acute process. Head CT 09/24/21 11:08 IMPRESSION: No acute intracranial abnormality. Venous Duplex 09/24/21 11:22 IMPRESSION: Left popliteal vein DVT. No DVT demonstrated in the right lower extremity. Findings were communicated to Dr. Cortes by telephone 09/24/2021 at 12:08 PM. Assessment and Plan (1) Acute alteration in mental status: Status: Acute (2) DVT (deep venous thrombosis): Qualifiers: Affected thrombotic vein of extremity: popliteal Chronicity: acute Laterality: left Status: Acute (3) Acute UTI: Status: Acute (4) Toxic metabolic encephalopathy: Status: Acute 1. altered mental status multifactorial: toxic metabolic encephalopathy UTI, Fall advanced dementia CT head: seems negative except old infarct in left temporal area. face xray-limited no fracture. kub added for mri sceening -since patient could not able to give much hx. MRI head Neuro consult-? poctictal /seizure , eeg added 2. UTI: Continue ceftriaxone, urine culture, blood culture ordered. 3. dvt : started on lovenox. 4.Urinary retention off arriaza pvr with starght cath if >350 ml urine. 5.thrombocytopenia no baseline for comparison but from last admission platlets running 100-130 range follow cbc 6.dementia continue home meds 7.HLD continue statin 8.HTN continue atenolol dvt prophylax: with sc lovenox. Quality Stroke Does the patient have a stroke diagnosis?: No VTE Prior VTE?: No VTE Risk Level:: Medical - moderate - high VTE Device Contraindication: N/A - Device Ordered VTE Drug Contraindication: N/A - Med Ordered
--- NOTE | 2021-09-24 14:21 | PHA.MEDREC ---
med rec complete, no issues, based on list from shelter Pharmacy Consult ? Medication Reconciliation Pharmacy has completed the medication reconciliation.
[2021-09-24] MEDS: Dextrose 5 % and 0.9 % NaCl 1,000 ML 80 ML IVCONT (15:10)
[2021-09-24 15:12] VITALS: BP 101/53; PULSE 54; RESP 13; O2SAT 97
--- NOTE | 2021-09-24 16:19 | MHC.SLORD ---
Speech Language Pathology Order Status: 09/24: Attempted X2 to see PT for Bedside Swallow this p.m., Pt unavailable due to procedure (MRI) and later deeply asleep. Note: Pt's reports that at long term, pt on diet of thin liquid and chopped/advanced, and followed by [facility] there. reports that he was not having difficulty with diet previously.
--- NOTE | 2021-09-24 17:30 | P.CNNE_ITS ---
History of Present Illness Data of Consult Service Date: 09/24/21 Primary Care Provider: Emelia Funes NP HPI Reason for consult: Fallen from bed followed by unresponsiveness Is a 75-year-old man with a history of dementia recently hospitalized at [facility] and discharged [place] [facility] [place] 10 days ago after encephalopathy from which she was recovering. His was with him until the day prior to p resentation and he was walking around the [place] [facility] in conversation with his usual degree of confusion dementia. But today he was found to fall and next to his bed with a swollen lip and unresponsive and was brought into the hospital. CAT scan shows no acute findings. Review of Systems Review of Systems: as above. Yes all other systems are reviewed and are negative and Unobtainable due to mental status Neurologic: Comments: Poorly responsive does not verbalize or follow any commands. He has rigidity in his neck and in his limbs and but moves all 4 extremities against gravvity. Pllantar response are flexor PMFSH Past Medical History Medical History (Updated 09/24/21 @ 17:32 by Osmin Magallon MD) Dementia Hemorrhagic stroke HLD (hyperlipidemia) HTN (hypertension) Vascular dementia Family History Pertinent family history: Unable to obtain due to patient has dementia. Social History Social History Household Members: Spouse Housing: House Do you presently have visiting nurse or other home services: No Unable to assess alcohol history related to: Unable to respond Alcohol intake: unknown Patient Tobacco Use Status: Former Tobacco user Second Hand Smoke Exposure: No Use of substances other than those prescribed or required for medical reasons: No Advance Directives: Yes Advance Directives on File: Yes Advance Directives Date on File: 09/16/21 service: No Sexual orientation: Straight/Heterosexual Meds Allergies Allergy/AdvReac Type Severity Reaction Status Date / Time No Known Allergies Allergy Verified 08/14/21 11:06 Active Medications: Current Medications Dextrose/Sodium Chloride (D5ns) 1,000 mls @ 80 mls/hr IVCONT .[id number] [facility] Last Admin: 09/24/21 15:10 Dose: 80 mls/hr Documented by: Pharmacy Consult (Consult Rx Perform Med Rec) 1 each MISCELLANE ONCE PRN PRN Reason: Consult order Sodium Chloride (0.9 % Sodium Chloride Flush 3 Ml Syringe) 3 ml IVFLUSH [facility] Last Admin: 09/24/21 15:04 Dose: Not Given Documented by: Home Medications Medication Instructions Recorded Confirmed Last Taken Type acetaminophen 325 mg tablet 650 mg PO Q6H PRN 09/02/21 09/24/21 09/02/21 History aluminum-mag hydroxide-simethicone 5 ml PO DAILY PRN 09/02/21 09/24/21 Unknown History 200 mg-200 mg-20 mg/5 mL oral susp atorvastatin 10 mg tablet 10 mg PO BEDTIME 09/02/21 09/24/21 09/01/21 History loperamide 2 mg tablet 2 mg PO Q4H PRN 09/02/21 09/24/21 08/31/21 History trazodone 50 mg tablet 50 mg PO BEDTIME PRN 09/02/21 09/24/21 08/18/21 History docusate sodium 100 mg capsule 100 mg PO DAILY 09/24/21 09/24/21 Unknown History doxazosin 4 mg tablet 4 mg PO BEDTIME 09/24/21 09/24/21 Unknown History magnesium hydroxide 400 mg/5 mL 5 ml PO BEDTIME PRN 09/24/21 09/24/21 Unknown History oral suspension (Milk of Magnesia) risperidone 0.25 mg tablet 0.25 mg PO Q4H PRN 09/24/21 09/24/21 Unknown History Physical Exam Vital Signs: Vital Signs: Last Vital Signs Temp 97.8 F 09/24/21 09:49 Pulse 54 09/24/21 15:12 Resp 13 09/24/21 15:12 BP 101/53 L 09/24/21 15:12 Pulse Ox 97 09/24/21 15:12 Body Mass Index 27.3 Results Labs CBC & Chem 7: 09/24/21 10:36 09/24/21 10:36 Labs: Short CBC 09/24/21 Range/Units 10:36 WBC 7.7 (4.8-10.8) X10*3/uL Hgb 12.3 L (14.0-18.0) g/dl Hct 38.4 L (42.0-52.0) % Plt Count 120 L (160-400) X10*3/uL BMP 09/24/21 10:36 Sodium 143 Potassium 4.1 Chloride 110 H Carbon Dioxide 25 BUN 18 H D Creatinine 0.84 Calcium 8.8 D Urine 09/24/21 Range/Units 11:51 Urine Color YELLOW Urine Appearance CLOUDY Urine pH 6.0 (5.0-8.0) Ur Specific [place] 1.025 (1.005-1.025) Urine Protein 1+ H (NEG-TRACE) MG/DL Urine Glucose (UA) NEG (NEG) MG/DL Assessment and Plan (1) Acute alteration in mental status: Status: Acute Possible unwitnessed seizure followed by postictal unresponsiveness and confusion. Rule out metabolic or infection induced encephalopathy. Recommend EEG, check metabolic parameters. He has baseline dementia no and evidence of a new stroke. MRI is pending Procedures Date of Service Date of Service: 09/24/21
[2021-09-24] MEDS: LORazepam 2 MG/ML VIAL 0.5 MG IVPUSH (18:39)
--- NOTE | 2021-09-24 18:52 | PC.NURSE ---
MRI called stating patient is being uncooperative with care and unable to get patient onto table. Spoke to Dr. Gomes and medicated the patient with ativan and will reattempt.
--- NOTE | 2021-09-24 19:23 | PC.NURSE ---
pt back from mri due to pt pulled his iv out. pt is sleeping at this time no restlessness noted. plan is for a new iv.
[2021-09-24 19:42] VITALS: BP 95/53; PULSE 52; RESP 18; O2SAT 96
[2021-09-24 22:18] LABS: INTERNATIONAL NORM RATIO 1.2 (0.9-1.1); Prothrombin Time 13.1 SEC (9.9-13.0)
[2021-09-24 22:21] LABS: Partial Thromboplastin Time 40.3 SEC (24.1-38.0)
[2021-09-25] VITALS (8 sets, daily range): BP systolic 90–138; BP diastolic 40–70; PULSE 53–86; RESP 15–20; TEMP 36.6–37; O2SAT 94–98; BMI 27.3
--- NOTE | 2021-09-25 | EEG_ITS ---
The background activity consists of a diffuse low-voltage theta of 4-5 hertz with brief periods of sleep. Photic stimulation is without activation. No paroxysmal discharges seen. IMPRESSION: This EEG is considered abnormal due to diffuse slowing consistent with a diffuse encephalopathic process. No epileptiform discharges are seen. MD KATHY Martin/ANY / [id number]
[2021-09-25] MEDS: Enoxaparin Sodium 100 MG/ML SYRINGE 85 MG SUBCUT ×3 (00:04→21:50)
--- NOTE | 2021-09-25 01:13 | PC.NURSE ---
rn has not been notified by the desk that she is getting a pt. rn will call back for report.
[2021-09-25] MEDS: Dextrose 5 % and 0.9 % NaCl 1,000 ML 80 ML IVCONT (03:52)
[2021-09-25 07:06] LABS: Hematocrit 34.7 % (42.0-52.0); Mean Corpuscular HGB Conc 31.7 g/dl (31.0-36.0); Mean Corpuscular Hemoglobin 29.3 pg (27.0-33.0); Mean Corpuscular Volume 92.5 fL (80.0-98.0); Mean Platelet Volume 9.5 fL (9.4-12.4); Platelet Count 122 X10*3/uL (160-400); Red Blood Count 3.75 X10*6/uL (4.60-5.80); Red Cell Distribution Width 13.2 % (11.0-16.0); White Blood Count 8.1 X10*3/uL (4.8-10.8)
[2021-09-25 07:47] LABS: Blood Urea Nitrogen 14 mg/dL (9-16); Estimated Glomerular Filt Rate > 60; Glucose Random 128 mg/dL (60-115)
[2021-09-25 07:57] LABS: Anion Gap 12 (12-20); Carbon Dioxide 24 mmol/L (22-29); Chloride 115 mmol/L (96-108); Potassium 3.9 mmol/L (3.3-5.1); Sodium 147 mmol/L (135-145)
--- NOTE | 2021-09-25 08:12 | P.PNIM_ITS ---
Subjective Subjective Date of Service: 09/25/21 Interval History: toxic metabolic encephalopathy, UTI, possible postictal for possible unwitness seizure Review of Systems patient is more awake today, still minimally verbal as per staff no overnight events including fever Physical Exam Vital Signs: Vital Signs: Last Vital Signs Temp 97.8 F 09/25/21 07:21 Pulse 56 09/25/21 07:21 Resp 20 09/25/21 07:21 BP 128/50 L 09/25/21 07:21 Pulse Ox 98 09/25/21 07:21 Body Mass Index 27.3 Appearance: ? more weak, not in distress.? ENT: upper lip swelling improving,? Moist mucous membranes. cvs: [id number], [id number] , no murmur res: clear to auscultation ,no rhonchii or wheezing abd: soft , nd , bs present, unable to tell any pain patient does not naswer any questions ext pulses present , no cyanosis. neuro: awake, moves extremities spontaneously still does not follow much commands. Objective Data Active Medications Enoxaparin Sodium (Enoxaparin Sodium 100 Mg/Ml Syringe) 85 mg 1 mg/kg (85 mg) SUBCUT Q12H [facility] Last Admin: 09/25/21 00:04 Dose: 85 mg Documented by: RADHA Dextrose/Sodium Chloride (D5ns) 1,000 mls @ 80 mls/hr IVCONT .[id number] [facility] Last Admin: 09/25/21 03:52 Dose: 80 mls/hr Documented by: KATY Dextrose/Sodium Chloride (D51/2ns) 1,000 mls @ 80 mls/hr IVCONT .[id number] [facility] Pharmacy Consult (Consult Rx Perform Med Rec) 1 each MISCELLANE ONCE PRN PRN Reason: Consult order Sodium Chloride (0.9 % Sodium Chloride Flush 3 Ml Syringe) 3 ml IVFLUSH QSHIFT [facility] Last Admin: 09/25/21 00:13 Dose: Not Given Documented by: RADHA Non-Admin Reason: Med Not Available Labs CBC & Chem 7: 09/25/21 06:33 09/25/21 13:11 Labs: Laboratory Results - last 24 hr 09/24/21 09/24/21 09/24/21 10:36 10:36 10:36 MCV 92.8 MCH 29.7 MCHC 32.0 RDW 13.0 Plt Count 120 L MPV 8.9 L Immature Gran % (Auto) 0.3 Neut % (Auto) 85.8 H Lymph % (Auto) 6.5 L [place] % (Auto) 7.3 Eos % (Auto) 0.0 Baso % (Auto) 0.1 Lymph # (Auto) 0.5 L [place] # (Auto) 0.6 Eos # (Auto) 0.0 Baso # (Auto) 0.0 Abs Immat Gran (auto) 0.02 Absolute Neuts (auto) 6.6 Absolute Nucleated RBC 0.000 Nucleated RBC % (auto) 0.0 PT INR APTT Anion Gap 12 Estim Creat Clear Calc 79.6 Estimated GFR > 60 Random Glucose 135 H Lactic Acid Calcium 8.8 D Troponin I High Sens 6.9 B-Natriuretic Peptide Lipase 10 Urine Color Urine Appearance Urine pH Ur Specific [place] Urine Protein Urine Glucose (UA) Urine Ketones Urine Blood Urine Nitrite Ur Leukocyte Esterase Urine RBC Urine WBC Ur Squamous Epith Cells Urine Bacteria Urine Sperm COVID-19 (CARLO) COVID-Applimation 09/24/21 09/24/21 09/24/21 10:36 10:36 10:36 MCV MCH MCHC RDW Plt Count MPV Immature Gran % (Auto) Neut % (Auto) Lymph % (Auto) [place] % (Auto) Eos % (Auto) Baso % (Auto) Lymph # (Auto) [place] # (Auto) Eos # (Auto) Baso # (Auto) Abs Immat Gran (auto) Absolute Neuts (auto) Absolute Nucleated RBC Nucleated RBC % (auto) PT 13.3 H INR 1.2 H APTT 34.3 Anion Gap Estim Creat Clear Calc Estimated GFR Random Glucose Lactic Acid 1.6 Calcium Troponin I High Sens B-Natriuretic Peptide 153 H Lipase Urine Color Urine Appearance Urine pH Ur Specific [place] Urine Protein Urine Glucose (UA) Urine Ketones Urine Blood Urine Nitrite Ur Leukocyte Esterase Urine RBC Urine WBC Ur Squamous Epith Cells Urine Bacteria Urine Sperm COVID-19 (CARLO) COVID-Applimation 09/24/21 09/24/21 09/24/21 10:36 11:51 22:02 MCV MCH MCHC RDW Plt Count MPV Immature Gran % (Auto) Neut % (Auto) Lymph % (Auto) [place] % (Auto) Eos % (Auto) Baso % (Auto) Lymph # (Auto) [place] # (Auto) Eos # (Auto) Baso # (Auto) Abs Immat Gran (auto) Absolute Neuts (auto) Absolute Nucleated RBC Nucleated RBC % (auto) PT 13.1 H INR 1.2 H APTT 40.3 H Anion Gap Estim Creat Clear Calc Estimated GFR Random Glucose Lactic Acid Calcium Troponin I High Sens B-Natriuretic Peptide Lipase Urine Color YELLOW Urine Appearance CLOUDY Urine pH 6.0 Ur Specific [place] 1.025 Urine Protein 1+ H Urine Glucose (UA) NEG Urine Ketones 15 Urine Blood 2+ H Urine Nitrite NEG Ur Leukocyte Esterase 2+ H Urine RBC 10-14 H Urine WBC TNTC H Ur Squamous Epith Cells NONE Urine Bacteria 2+ Urine Sperm NOTED COVID-19 (CARLO) Negative COVID-19 [employer] See Note 09/25/21 09/25/21 06:33 06:33 MCV 92.5 MCH 29.3 MCHC 31.7 RDW 13.2 Plt Count 122 L MPV 9.5 Immature Gran % (Auto) Neut % (Auto) Lymph % (Auto) [place] % (Auto) Eos % (Auto) Baso % (Auto) Lymph # (Auto) [place] # (Auto) Eos # (Auto) Baso # (Auto) Abs Immat Gran (auto) Absolute Neuts (auto) Absolute Nucleated RBC 0.000 Nucleated RBC % (auto) 0.0 PT INR APTT Anion Gap 12 Estim Creat Clear Calc 88.0 Estimated GFR > 60 Random Glucose 128 H Lactic Acid Calcium 8.0 L D Troponin I High Sens B-Natriuretic Peptide Lipase Urine Color Urine Appearance Urine pH Ur Specific [place] Urine Protein Urine Glucose (UA) Urine Ketones Urine Blood Urine Nitrite Ur Leukocyte Esterase Urine RBC Urine WBC Ur Squamous Epith Cells Urine Bacteria Urine Sperm COVID-19 (CARLO) COVID-19 Clin Com Assessment and Plan (1) Toxic metabolic encephalopathy: Status: Acute (2) Acute UTI: Status: Acute (3) DVT (deep venous thrombosis): Status: Acute Assessment and Plan: 1. altered mental status multifactorial: toxic metabolic encephalopathy ? UTI,? Fall advanced dementia ?CT head:? seems negative except old infarct in left temporal area. face xray-limited no fracture. MRi head - similar to CT scan shows old infarct changes. ? Neuro consult-? poctictal /seizure , eeg added. 2. UTI:? Continue ceftriaxone, urine culture, blood culture ? ordered. 3. dvt : started on lovenox. 4.Urinary retention off arriaza pvr with starght cath if >350 ml urine. If consistently retaining urine may need urology evaluation. 5.thrombocytopenia no baseline for comparison but from last admission platlets running 100-130 range follow cbc 6.dementia continue home meds 7.HLD continue statin 8.HTN continue atenolol dvt prophylax: with sc lovenox. Quality Stroke Does the patient have a stroke diagnosis?: No VTE Prior VTE?: No VTE Risk Level:: Medical - moderate - high VTE Device Contraindication: N/A - Device Ordered VTE Drug Contraindication: N/A - Med Ordered
--- NOTE | 2021-09-25 09:00 | P.CDIC_ITS ---
CDI Concurrent Query Documentation Clarification: PHYSICIAN'S DOCUMENTATION REQUEST Date of Query: 09/25/21 0900 Patient Name: Emmett Mccann Admit Date: 09/24/21 Dear Doctor, A review of the medical record indicates additional documentation may be needed. Please review below and update the documentation accordingly. Clinical Indicators: Risk Factors/Clinical Indicators/Treatments Acute alteration of mental status, change in mental status, irritable, diagnosed with UTI. Patient fell negative CT scan. PMH: Vascular Dementia Based on the above, could you clarify in the Progress Notes the appropriate diagnosis, if significant, that supports the above abnormalities and additional evaluation, monitoring, and/or treatment rendered: Encephalopathy, toxic, metabolic or other Dementia, Vascular, Alzheimers, Senile etc. with or without behavioral issues. * Other (please specify) * Unable to determine Use of terms such as suspected, likely, concern for, or probable (associated with a specific diagnosis that is being evaluated, monitored, or treated as if it exists) are acceptable and can be coded in the inpatient setting, when documented at the time of discharge. Thank you, Soo Huntley [facility], CDIS Extension: [phone] Please use your independent medical judgment in providing your response. THIS QUERY IS PART OF THE PERMANENT MEDICAL RECORD Provider Response: Other Other Diagnosis: Toxic metabolic encephalopathy
[2021-09-25] MEDS: Dextrose 5 % and 0.45 % NaCl 1,000 ML 80 ML IVCONT (09:43)
--- NOTE | 2021-09-25 09:45 | PC.NURSE ---
Skin assessment completed today. Patient has a swollen upper lip with small cut, bruising to left outer eye and nose and scratches to left arm from a fall. Patient also has a rash to left inner thigh- Triad applied to area to increase healing. No other skin issues noted at this time.
--- NOTE | 2021-09-25 10:26 | MHC.SLORD ---
Speech Language Pathology Order Status: Order received and chart reviewed. Elizabeth Kevin, HEEL REDUCER attempted to evaluate pt 09/24 though was unable due to pt's lethargy. Updated with RN, who reported that pt continues with significant lethargy and only verbally responded during catheterization. Pt unresponsive to verbal cues or a sternal rub performed by this HEEL REDUCER this morning. RN notified. HEEL REDUCER will continue to follow pt throughout his stay.
[2021-09-25 13:35] LABS: Sodium 147 mmol/L (135-145)
--- NOTE | 2021-09-25 14:17 | MHC.CM.PN ---
IMM 09/25/21 Male 75 DX AMS from LTC private pay@ [facility]. DP return to [facility] via BLS. HCP on file.
--- NOTE | 2021-09-25 20:48 | PM.EVENT ---
Event Note Date of Service: 09/25/21 Event Note: pt retaining urine. will place arriaza cath
[2021-09-25] MEDS: 0.9 % Sodium Chloride Flush 3 ML SYRINGE IVFLUSH (21:51)
[2021-09-26] MEDS: Dextrose 5 % and 0.45 % NaCl 1,000 ML 80 ML IVCONT ×2 (02:19→20:48)
[2021-09-26 04:00] VITALS: BP 105/49; PULSE 56; RESP 18; TEMP 36.4; O2SAT 96
[2021-09-26 06:59] LABS: Anion Gap 11 (12-20); Blood Urea Nitrogen 7 mg/dL (9-16); Calcium 7.9 mg/dL (8.4-10.2); Carbon Dioxide 25 mmol/L (22-29); Chloride 110 mmol/L (96-108); Creatinine Clr Calc Pharmacy 99.8; Estimated Glomerular Filt Rate > 60; Glucose Random 114 mg/dL (60-115); Potassium 3.3 mmol/L (3.3-5.1); Sodium 143 mmol/L (135-145)
[2021-09-26 08:00] VITALS: BP 118/64; PULSE 60; RESP 18; TEMP 37.1; O2SAT 98
[2021-09-26] MEDS: Finasteride 5 MG TABLET PO (08:20)
[2021-09-26 08:21] VITALS: BP 118/64; PULSE 60
[2021-09-26] MEDS: 0.9 % Sodium Chloride Flush 3 ML SYRINGE IVFLUSH ×2 (08:21→20:50)
[2021-09-26] MEDS: Sertraline HCL 50 MG TABLET PO (08:21)
[2021-09-26] MEDS: Cyanocobalamin (Vitamin B-12) 1,000 MCG TABLET 1000 MCG PO (08:21)
[2021-09-26] MEDS: Donepezil HCl 10 MG TABLET PO (08:21)
[2021-09-26] MEDS: atenoloL 50 MG TABLET PO (08:21)
[2021-09-26 11:28] VITALS: BP 119/70; PULSE 68; RESP 18; TEMP 37; O2SAT 98
[2021-09-26] MEDS: Enoxaparin Sodium 100 MG/ML SYRINGE 85 MG SUBCUT (11:37)
[2021-09-26] MEDS: Rivastigmine Tartrate 1.5 MG CAPSULE PO ×2 (11:37→20:43)
--- NOTE | 2021-09-26 11:42 | MHC.SL.SWA ---
Speech Pathologist Impression: Oral Phase Dysphagia Risk of Aspiration Due to: Lethargy Neurological Condition Reduced Cognition Dysphasia Diet Status: Upgrade Liquid Consistency and Strategies for Safe Swallow: Liquid Intake Recommendation: Thin Liquid Intake Strategies: Small Sips Solid Food Consistency: Dietary Recommendations: Grnd/Mech Altered (NDD2) Additional Modifications to Solid Foods: Pt will required close supervision during meals to monitor for impulsivity with liquids (e.g. chain swallow), and neglect/distraction when eating solid foods (e.g. retaining food in mouth without swallowing). Pt will need full assist with taking liquids, should take small sips only from cup. Pt will likely need full assist with eating at this time as well. Oral Medication Intake: Crushed with Puree Compensatory Strategies and Precautions to be Taken for Safe Swallow: Supervision While Eating and Drinking for Safe Swallow: Total Supervision (1:1) Foods to Avoid: Swallowing Recommended Treatments: Recommendation for Speech: Inpatient Speech Therapy Comment 09/26/21:Pt has remote HX L Temporal Lobe CVA, currently -Advanced Dementia. On Bedside Swallow Exam: On thin liquid, Pt had mild delay of oral phase followed by timely swallow and no s/s aspiration. Pt given trials of puree (pudding) and soft solid (bread w/jelly). On puree, mild delay of oral phase, with good laryngeal elevation/movement on swallow, good clearance of oral cavity. On soft solid, mild delay of oral phase with extended chewing, swallow phase wnl. On second presentation of soft solid, Pt neglected bolus in mouth, did not directly respond to cues to chew and swallow, but resumed chewing and swallowing bolus after delay. Pt at risk for aspiration primarily due to impulsivity, lack of orientation/attention to meal and eating. Will need full supervision/assist at all meals, with monitor for aspiration. Comment: INSTALLATION TECHNICIAN will follow daily M-F while inpatient Frequency/Duration: Date Range for Service Req: Timeline to reassess: Water Main Installer Helper Clinican/Clinical Fellow: No Supervisory Statement: I have reviewed and agree with the student/clinical fellow's documentation: Speech Language Pathologist: Elizabeth Kevin M.A., [facility]-INSTALLATION TECHNICIAN
--- NOTE | 2021-09-26 11:54 | P.PNIM_ITS ---
Subjective Subjective Date of Service: 09/26/21 Interval History: toxic metabolic encephalopathy, dementia, UTI. Review of Systems Patient is more awake, still minimal conversive, saying needs food. Physical Exam Vital Signs: Vital Signs: Last Vital Signs Temp 98.6 F 09/26/21 11:28 Pulse 68 09/26/21 11:28 Resp 18 09/26/21 11:28 BP 119/70 09/26/21 11:28 Pulse Ox 98 09/26/21 11:28 BMI result Body Mass Index 27.3 ?Appearance: ?? More awake than yesterday, still confused , not in distress.? ENT: upper lip swelling improved significantly,? Moist mucous membranes. cvs: rrr, [id number] , no murmur res: clear to auscultation ,no rhonchii or wheezing abd: soft , nd , bs present, unable to tell any pain patient does not naswer any questions ext pulses present , no cyanosis. neuro:? awake,? moves extremities?, could able to follow minimum commands - moving legs and hands when asked. Objective Data Active Medications Acetaminophen (Acetaminophen 325 Mg Tablet) 650 mg PO Q6H PRN PRN Reason: Pain (Scale Score 4-6) Al Hydroxide/Mg Hydroxide (Magnesium Hydrox/Alum Hydrox 30 Ml Oral.Susp) 30 ml PO DAILY PRN PRN Reason: Acid Reflux Atenolol (Atenolol 50 Mg Tablet) 50 mg PO DAILY [facility]; Protocol Last Admin: 09/26/21 08:21 Dose: 50 mg Documented by: GENO Atorvastatin Calcium (Atorvastatin Calcium 10 Mg Tablet) 10 mg PO BEDTIME [facility] Cyanocobalamin (Cyanocobalamin (Vitamin B-12) 1,000 Mcg Tablet) 1,000 mcg PO DAILY [facility] Last Admin: 09/26/21 08:21 Dose: 1,000 mcg Documented by: GENO Docusate Sodium (Docusate Sodium 100 Mg Capsule) 100 mg PO DAILY [facility] Last Admin: 09/26/21 08:28 Dose: Not Given Documented by: GENO Non-Admin Reason: unable to crush capsule Donepezil HCl (Donepezil Hcl 10 Mg Tablet) 10 mg PO DAILY [facility] Last Admin: 09/26/21 08:21 Dose: 10 mg Documented by: GENO Doxazosin Mesylate (Doxazosin Mesylate 2 Mg Tablet) 4 mg PO BEDTIME [facility]; Protocol Enoxaparin Sodium (Enoxaparin Sodium 100 Mg/Ml Syringe) 85 mg 1 mg/kg (85 mg) SUBCUT Q12H [facility] Last Admin: 09/26/21 11:37 Dose: 85 mg Documented by: GENO Finasteride (Finasteride 5 Mg Tablet) 5 mg PO DAILY [facility] Last Admin: 09/26/21 08:20 Dose: 5 mg Documented by: GENO Dextrose/Sodium Chloride (D51/2ns) 1,000 mls @ 80 mls/hr IVCONT .[id number] [facility] Last Admin: 09/26/21 02:19 Dose: 80 mls/hr Documented by: ANTOIC Loperamide HCl (Loperamide Hcl 2 Mg Capsule) 2 mg PO Q4H PRN PRN Reason: Diarrhea Magnesium Hydroxide (Milk Of Magnesia 30 Ml Oral.Susp) 30 ml PO BEDTIME PRN PRN Reason: Constipation Pharmacy Consult (Consult Rx Perform Med Rec) 1 each MISCELLANE ONCE PRN PRN Reason: Consult order Risperidone (Risperidone 0.25 Mg Tablet) 0.25 mg PO Q4H PRN PRN Reason: dementia behavioral disturbanc Risperidone (Risperidone 0.5 Mg Tablet) 0.5 mg PO DAILY@1700 MEDARDO Risperidone (Risperidone 1 Mg Tablet) 1 mg PO BEDTIME [facility] Rivastigmine Tartrate (Rivastigmine Tartrate 1.5 Mg Capsule) 1.5 mg PO BID [facility] Last Admin: 09/26/21 11:37 Dose: 1.5 mg Documented by: GENO Sertraline HCl (Sertraline Hcl 50 Mg Tablet) 50 mg PO DAILY [facility] Last Admin: 09/26/21 08:21 Dose: 50 mg Documented by: GENO Sodium Chloride (0.9 % Sodium Chloride Flush 3 Ml Syringe) 3 ml IVFLUSH QSHIFT [facility] Last Admin: 09/26/21 08:21 Dose: 3 ml Documented by: GENO Trazodone HCl (Trazodone Hcl 50 Mg Tablet) 50 mg PO BEDTIME PRN PRN Reason: Insomnia Labs CBC & Chem 7: 09/25/21 06:33 09/26/21 06:13 Labs: Laboratory Results - last 24 hr 09/26/21 06:13 Anion Gap 11 L Estim Creat Clear Calc 99.8 Estimated GFR > 60 Random Glucose 114 Calcium 7.9 L Microbiology Microbiology Results: Microbiology 09/24/21 Unknown Urine Culture - Final Urine clean catch - Urine valencia top Aerococcus urinae Coag negative Staphylococcus 09/24/21 11:39 Blood Culture - Preliminary Blood - Venous No growth after 24 hours. 09/24/21 10:36 Blood Culture - Preliminary Blood - Venous No growth after 24 hours. Assessment and Plan (1) Toxic metabolic encephalopathy: Status: Acute (2) DVT (deep venous thrombosis): Status: Acute (3) Acute UTI: Status: Acute Assessment and Plan: 1. altered mental status multifactorial: toxic metabolic encephalopathy ? UTI,? Fall advanced dementia ?CT head:? seems negative except old infarct in left temporal area. face xray-limited no fracture. ?MRi head - similar to CT scan shows old infarct changes. ? Neuro consult-? poctictal /seizure , eeg pending patient seems to be more awake than yesterday. Will continue to monitor 2. UTI:? Continue ceftriaxone, urine culture-aerococcus sp. and coagulase neg staph , blood culture-neg @24-48hrs. 3. dvt : started on lovenox. 4.Urinary retention off arriaza pvr with starght cath if >350 ml urine. ? If consistently retaining urine may need urology evaluation. urology eval. 5.thrombocytopenia no baseline for comparison but from last admission platlets running 100-130 range follow cbc 6.dementia continue home meds 7.HLD continue statin 8.HTN continue atenolol dvt prophylax: with sc lovenox. Quality Stroke Does the patient have a stroke diagnosis?: No VTE Prior VTE?: No VTE Risk Level:: Medical - moderate - high VTE Device Contraindication: N/A - Device Ordered VTE Drug Contraindication: N/A - Med Ordered
[2021-09-26 20:43] VITALS: BP 118/57; PULSE 55
[2021-09-26] MEDS: risperiDONE 1 MG TABLET PO (20:43)
[2021-09-26] MEDS: Doxazosin Mesylate 2 MG TABLET 4 MG PO (20:43)
[2021-09-26] MEDS: traZODone HCL 50 MG TABLET PO (20:43)
[2021-09-26] MEDS: Atorvastatin Calcium 10 MG TABLET PO (20:43)
[2021-09-27] VITALS (8 sets, daily range): BP systolic 112–133; BP diastolic 58–76; PULSE 58–67; RESP 18; TEMP 36.4–37.6; O2SAT 95–97
[2021-09-27] MEDS: Enoxaparin Sodium 100 MG/ML SYRINGE 85 MG SUBCUT ×3 (00:05→22:27)
[2021-09-27] MEDS: Amoxicillin/Potassium Clav 500 MG TABLET PO ×2 (05:42→17:47)
[2021-09-27] MEDS: atenoloL 50 MG TABLET PO (08:38)
[2021-09-27] MEDS: Donepezil HCl 10 MG TABLET PO (08:38)
[2021-09-27] MEDS: Rivastigmine Tartrate 1.5 MG CAPSULE PO ×2 (08:38→20:25)
[2021-09-27] MEDS: Finasteride 5 MG TABLET PO (08:38)
[2021-09-27] MEDS: Sertraline HCL 50 MG TABLET PO (08:38)
[2021-09-27] MEDS: Cyanocobalamin (Vitamin B-12) 1,000 MCG TABLET 1000 MCG PO (08:43)
[2021-09-27] MEDS: 0.9 % Sodium Chloride Flush 3 ML SYRINGE IVFLUSH ×3 (08:43→20:25)
[2021-09-27] MEDS: Dextrose 5 % and 0.45 % NaCl 1,000 ML 80 ML IVCONT (08:51)
--- NOTE | 2021-09-27 12:46 | HO.PM.IMPN ---
Subjective Subjective Date of Service: 09/28/21 Interval History: toxic metabolic encephalopathy, dementia, UTI. Review of Systems Still more awake slightly more calmer than yesterday, possible near his baseline. pulled out his Arriaza yesterday night. ? episode of sundowning over the evening. Physical Exam Vital Signs: Vital Signs: Last Vital Signs Temp 97.6 F 09/27/21 11:11 Pulse 67 09/27/21 08:38 Resp 18 09/27/21 11:11 BP 112/66 09/27/21 11:11 Pulse Ox 96 09/27/21 11:11 BMI result Body Mass Index 27.3 Appearance: ??? More awake , still confused , not in distress.? ENT: upper lip swelling improved significantly,? Moist mucous membranes. cvs: rrr, [id number] , no murmur res: clear to auscultation ,no rhonchii or wheezing abd: soft , nd, nt , bs present ext pulses present , no cyanosis. neuro:? awake,? moves extremities?, could able to follow minimum commands -moving legs and hands when asked Objective Data Active Medications Acetaminophen (Acetaminophen 325 Mg Tablet) 650 mg PO Q6H PRN PRN Reason: Pain (Scale Score 4-6) Al Hydroxide/Mg Hydroxide (Magnesium Hydrox/Alum Hydrox 30 Ml Oral.Susp) 30 ml PO DAILY PRN PRN Reason: Acid Reflux Amoxicillin/Clavulanate Potassium (Amoxicillin/Potassium Clav 500 Mg Tablet) 500 mg PO Q12H [facility] Stop: 10/01/21 23:59 Last Admin: 09/27/21 05:42 Dose: 500 mg Documented by: LUDIVINA Atenolol (Atenolol 50 Mg Tablet) 50 mg PO DAILY [facility]; Protocol Last Admin: 09/27/21 08:38 Dose: 50 mg Documented by: GENO Atorvastatin Calcium (Atorvastatin Calcium 10 Mg Tablet) 10 mg PO BEDTIME [facility] Last Admin: 09/26/21 20:43 Dose: 10 mg Documented by: LUDIVINA Cyanocobalamin (Cyanocobalamin (Vitamin B-12) 1,000 Mcg Tablet) 1,000 mcg PO DAILY [facility] Last Admin: 09/27/21 08:43 Dose: 1,000 mcg Documented by: GENO Docusate Sodium (Docusate Sodium 100 Mg Capsule) 100 mg PO DAILY [facility] Last Admin: 09/27/21 08:39 Dose: Not Given Documented by: GENO Non-Admin Reason: unable to crush Donepezil HCl (Donepezil Hcl 10 Mg Tablet) 10 mg PO DAILY [facility] Last Admin: 09/27/21 08:38 Dose: 10 mg Documented by: GENO Doxazosin Mesylate (Doxazosin Mesylate 2 Mg Tablet) 4 mg PO BEDTIME [facility]; Protocol Last Admin: 09/26/21 20:43 Dose: 4 mg Documented by: LUDIVINA Enoxaparin Sodium (Enoxaparin Sodium 100 Mg/Ml Syringe) 85 mg 1 mg/kg (85 mg) SUBCUT Q12H [facility] Last Admin: 09/27/21 00:05 Dose: 85 mg Documented by: LUDIVINA Finasteride (Finasteride 5 Mg Tablet) 5 mg PO DAILY [facility] Last Admin: 09/27/21 08:38 Dose: 5 mg Documented by: GENO Dextrose/Sodium Chloride (D51/2ns) 1,000 mls @ 80 mls/hr IVCONT .[id number] [facility] Last Admin: 09/27/21 08:51 Dose: 80 mls/hr Documented by: GENO Loperamide HCl (Loperamide Hcl 2 Mg Capsule) 2 mg PO Q4H PRN PRN Reason: Diarrhea Magnesium Hydroxide (Milk Of Magnesia 30 Ml Oral.Susp) 30 ml PO BEDTIME PRN PRN Reason: Constipation Pharmacy Consult (Consult Rx Perform Med Rec) 1 each MISCELLANE ONCE PRN PRN Reason: Consult order Risperidone (Risperidone 0.25 Mg Tablet) 0.25 mg PO Q4H PRN PRN Reason: dementia behavioral disturbanc Risperidone (Risperidone 0.5 Mg Tablet) 0.5 mg PO DAILY@1700 [facility] Last Admin: 09/26/21 16:25 Dose: Not Given Documented by: NEO Non-Admin Reason: pt agitated, refusing care and meds Risperidone (Risperidone 1 Mg Tablet) 1 mg PO BEDTIME [facility] Last Admin: 09/26/21 20:43 Dose: 1 mg Documented by: LUDIVINA Rivastigmine Tartrate (Rivastigmine Tartrate 1.5 Mg Capsule) 1.5 mg PO BID [facility] Last Admin: 09/27/21 08:38 Dose: 1.5 mg Documented by: GENO Sertraline HCl (Sertraline Hcl 50 Mg Tablet) 50 mg PO DAILY [facility] Last Admin: 09/27/21 08:38 Dose: 50 mg Documented by: GENO Sodium Chloride (0.9 % Sodium Chloride Flush 3 Ml Syringe) 3 ml IVFLUSH QSHIFT [facility] Last Admin: 09/27/21 08:43 Dose: 3 ml Documented by: GENO Trazodone HCl (Trazodone Hcl 25 Mg Halftab) 12.5 mg PO DAILY@1400 [facility] Trazodone HCl (Trazodone Hcl 25 Mg Halftab) 25 mg PO BEDTIME PRN PRN Reason: Insomnia Labs CBC & Chem 7: 09/28/21 06:51 09/26/21 06:13 Microbiology Microbiology Results: Microbiology 09/24/21 11:39 Blood Culture - Preliminary Blood - Venous No growth after 48 hours. 09/24/21 10:36 Blood Culture - Preliminary Blood - Venous No growth after 48 hours. 09/24/21 Unknown Urine Culture - Final Urine clean catch - Urine valencia top Aerococcus urinae Coag negative Staphylococcus Assessment and Plan (1) Toxic metabolic encephalopathy: Status: Acute (2) Acute UTI: Status: Acute (3) DVT (deep venous thrombosis): Status: Acute Assessment and Plan: 1. altered mental status multifactorial: toxic metabolic encephalopathy ? UTI,? Fall advanced dementia ?CT head:? seems negative except old infarct in left temporal area. face xray-limited no fracture. ?MRi head - similar to CT scan shows old infarct changes. ? Neuro consult-? poctictal /seizure , eeg -prelim showin slowing patient? seems to be more awake than yesterday. ? Will continue to monitor 2. UTI:? Continue ceftriaxone, urine culture-aerococcus sp. and coagulase neg staph , blood culture-neg @48hrs. 3. dvt : started on lovenox. 4.Urinary retention off foleypulle last night again 1 liter retention this morning -may need arriaza urology eval. 5.thrombocytopenia no baseline for comparison but from last admission platlets running 100-130 range follow cbc jaydon 6.dementia with behavioural changes adjuested trazodone. continue home meds 7.HLD continue statin 8.HTN continue atenolol dvt prophylax: with sc lovenox. Quality Stroke Does the patient have a stroke diagnosis?: No VTE Prior VTE?: No VTE Risk Level:: Medical - moderate - high VTE Device Contraindication: N/A - Device Ordered VTE Drug Contraindication: N/A - Med Ordered
--- NOTE | 2021-09-27 13:13 | MHC.SLORD ---
Speech Language Pathology Order Status: Patient was seen for bedside dysphagia evaluation yesterday and was recommended GROUND/MECH ALTERED (NDD2) solids and THIN liquids, with pills CRUSHED in PUREE. Per COMPUTER SCIENTIST note yesterday, family reported patient is on chopped diet and thin liquids at baseline, and is followed by COMPUTER SCIENTIST at alf. COMPUTER SCIENTIST reviewed patient's documentation from [facility]- At baseline, patient is on GROUND/MECH ALTERED (NDD2) solids and THIN liquids. COMPUTER SCIENTIST attempted to see patient this morning for dysphagia treatment. Patient would not wake to verbal stimuli, change in position, and sternal rub. No PO trials presented d/t lethargic state. Recommend continue baseline diet consistencies. Tolerance of PO is dependent on mental status. Tray may need to be withheld d/t lethargy. COMPUTER SCIENTIST will continue to follow.
--- NOTE | 2021-09-27 13:17 | P.CNPS_ITS ---
History of Present Illness Date of Service: 09/27/21 Chief Complaint: Encephalopathy/UTI Reason for Consult: dementia with behavioral disturbances Requesting physician: Radha Gomes Discussed with referring provider: Yes Sources of Information: patient interviewed and chart reviewed Additional Sources of Information: , and Patient's RN HPI Narrative: Patient is a 75-year-old male, admitted due to a fall and altered mental status at SNF. Mr. Mccann had recently been admitted to Geriatric psych Unit here in July 2021 due to reports of adjustment disorder with disturbance of conduct. He was treated in this facility, and who was transferred to a [facility] surge floor due to being septic. He was then stablized and sent to a SNF. He presented again to this hospital after a fall at the nursing facility. He has since been admitted for further care and treatment of toxic metabolic encephalopathy, UTI, fall related to advanced dementia. A DVT was also found, patient has been started on Lovenox. Patient has a history of hemorrhagic stroke in 2009. He also has been diagnosed with vascular dementia approximately 8 months ago. As per chart review, patient is a male, and father of 1 adult child. He had been living with his up until his most recent hospitalization in July. 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 He had initially presented in July to [facility] for increased agitation, paranoia, and other psychotic symptoms. He was stabilized while here, with medication changes. This advertising copywriter reviewed chart, spoke with RN, and then met with patient today. RN reports that patient appeared mostly calm today. He does appear to get restless as the day progresses, afternoon into the evening hours. She reported that he did have some difficulties with behavioral control last evening. Chart review shows that patient had pulled his IV out on 09/24/2021. He has had a Willams cath placed today. His medications, including risperidone, trazodone, sertraline, E xelon, donepezil have been restarted. This advertising copywriter entered room, met with patient and his , who was present. Patient was resting in bed, in NAD. Appeared comfortable. Patient was A&Ox1. He was able to state his first name, but was unable to state his location, date, etc.. He was noted to be touching right arm at edge of migue type bandage that was put over his IV site, so as to protect patency. Patient was pleasant, but otherwise unable to engage further with this advertising copywriter due to level of dementia, AMS. His reports that he has had some behavioral control issues [facility] jail, becoming more restless as afternoon progresses into early evenings. She does report that when patient receives trazodone 50 mg at bedtime, he appears over- sedated in the morning. We discussed treatment options. This advertising copywriter suggested adding a low-dose trazodone at 14:00 daily, such as 12.5 mg. It was explained that this would help regarding sundowning type symptoms as described as restlessness in the afternoon into the evening. It was also suggested that the trazodone bedtime medication could be lowered to 25 mg, as to prevent morning over sedation. Patient's was in agreement with this plan. Past Psychiatric History: [facility] on [facility]olly unit 07/2021 Diagnosed with vascular dementia approx 8 months ago ([facility]). 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 Lives with up until July 2021. Has 1 adult daughter. Born and raised in [place], moved to [facility] in 2014. Review of Systems Review of Systems Yes Unobtainable due to mental status [facility] Medical History Dementia Hemorrhagic stroke HLD (hyperlipidemia) HTN (hypertension) Vascular dementia Family History: Denies Social History: The patient was born and raised in [place], his milestones were achieved at expected age he had a good childhood. He was raised by his parents, he readily from high school and then he got into college. 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 Substance History: Denies. Trauma History: Denies Diagnostics Vital Signs (24Hr): Vital Signs - 24 hr 09/26/21 20:43 09/27/21 04:00 09/27/21 07:11 Temperature 97.5 F Pulse Rate 55 61 67 Respiratory Rate 18 18 Blood Pressure 118/57 L 133/69 128/76 Pulse Oximetry 97 97 09/27/21 08:38 09/27/21 11:11 Temperature 97.6 F Pulse Rate 67 Respiratory Rate 18 Blood Pressure 128/76 112/66 Pulse Oximetry 96 BMI result Body Mass Index 27.3 Labs Results: 09/25/21 06:33 09/26/21 06:13 Labs: Laboratory Results - last 48 hr 09/25/21 09/26/21 13:11 06:13 Sodium 147 H 143 Potassium 3.3 Chloride 110 H Carbon Dioxide 25 Anion Gap 11 L BUN 7 L Creatinine 0.67 Estim Creat Clear Calc 99.8 Estimated GFR > 60 Random Glucose 114 Calcium 7.9 L Imaging Radiology Impressions: ITS Impressions Chest X-Ray 09/24/21 10:48 IMPRESSION: Hypoexpanded lungs without acute process. Cervical Spine CT 09/24/21 11:08 IMPRESSION: 1. Degenerative changes. No fracture or dislocation seen. Fleischner guidelines were followed. Head CT 09/24/21 11:08 IMPRESSION: No acute intracranial abnormality. Venous Duplex 09/24/21 11:22 IMPRESSION: Left popliteal vein DVT. No DVT demonstrated in the right lower extremity. Findings were communicated to Dr. Cortes by telephone 09/24/2021 at 12:08 PM. Face X-Ray 09/24/21 14:24 IMPRESSION: Limited exam. No fracture seen. KUB X-Ray 09/24/21 14:52 IMPRESSION: No foreign body seen. Brain MRI 09/24/21 19:15 IMPRESSION: 1. No acute intracranial abnormalities. 2. 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 3. Moderate to extensive underlying microangiopathy and generalized cerebral volume loss. 4. Hemosiderin staining of the encephalomalacic cavity of the left temporal lobe and multiple supratentorial sulci suggestive of sequela of prior hemorrhagic products. Mental Status Exam Mental Status Exam Narrative: Well-developed, well-nourished male, in NAD. Reclining in bed, appears comfortable, no evidence of any type of pain or discomfort noted. Patient Appearance: Appropriate Patient Orientation: Person (Oriented to self only, stated his 1st name when asked.) Level of Consciousness: Awake and Disoriented Patient Behavior: Confused and Sundowning (Sundowning type behaviors reported by RN and his . ) Mood Description: Blunted Affect Description: Blunted Ability to Follow Directions: Poor Speech Pattern: Impoverished, No Speech (minimal, one word answers, only to state name and say yes when asked if he was hungry) and Delayed Memory Description: Remote Impaired, Immediate Impaired, Shelter Impaired, Recent Impaired and Working Impaired Hallucinations: None (None reported by patient or his , did not appear to be responding to any type of internal stimuli.) Delusions: Not Present (Unable to ascertain whether patient was experiencing any type of delusional thoughts.) Thought Process: Disoriented Thought Content: positive for Disoriented Abnormal Motor Activity Signs and Symptoms: Restlessness (Restless at times. Patient began to pick at site on right arm antecubital space where IV was inserted.) Judgement: Poor Medications Medications Current Medications Acetaminophen (Acetaminophen 325 Mg Tablet) 650 mg PO Q6H PRN PRN Reason: Pain (Scale Score 4-6) Al Hydroxide/Mg Hydroxide (Magnesium Hydrox/Alum Hydrox 30 Ml Oral.Susp) 30 ml PO DAILY PRN PRN Reason: Acid Reflux Amoxicillin/Clavulanate Potassium (Amoxicillin/Potassium Clav 500 Mg Tablet) 500 mg PO Q12H [facility] Stop: 10/01/21 23:59 Last Admin: 09/27/21 05:42 Dose: 500 mg Documented by: Atenolol (Atenolol 50 Mg Tablet) 50 mg PO DAILY [facility]; Protocol Last Admin: 09/27/21 08:38 Dose: 50 mg Documented by: Atorvastatin Calcium (Atorvastatin Calcium 10 Mg Tablet) 10 mg PO BEDTIME [facility] Last Admin: 09/26/21 20:43 Dose: 10 mg Documented by: Cyanocobalamin (Cyanocobalamin (Vitamin B-12) 1,000 Mcg Tablet) 1,000 mcg PO DAILY [facility] Last Admin: 09/27/21 08:43 Dose: 1,000 mcg Documented by: Docusate Sodium (Docusate Sodium 100 Mg Capsule) 100 mg PO DAILY [facility] Last Admin: 09/27/21 08:39 Dose: Not Given Documented by: Donepezil HCl (Donepezil Hcl 10 Mg Tablet) 10 mg PO DAILY [facility] Last Admin: 09/27/21 08:38 Dose: 10 mg Documented by: Doxazosin Mesylate (Doxazosin Mesylate 2 Mg Tablet) 8 mg PO BEDTIME [facility]; Protocol Enoxaparin Sodium (Enoxaparin Sodium 100 Mg/Ml Syringe) 85 mg 1 mg/kg (85 mg) SUBCUT Q12H [facility] Last Admin: 09/27/21 00:05 Dose: 85 mg Documented by: Finasteride (Finasteride 5 Mg Tablet) 5 mg PO DAILY [facility] Last Admin: 09/27/21 08:38 Dose: 5 mg Documented by: Loperamide HCl (Loperamide Hcl 2 Mg Capsule) 2 mg PO Q4H PRN PRN Reason: Diarrhea Magnesium Hydroxide (Milk Of Magnesia 30 Ml Oral.Susp) 30 ml PO BEDTIME PRN PRN Reason: Constipation Pharmacy Consult (Consult Rx Perform Med Rec) 1 each MISCELLANE ONCE PRN PRN Reason: Consult order Risperidone (Risperidone 0.25 Mg Tablet) 0.25 mg PO Q4H PRN PRN Reason: dementia behavioral disturbanc Risperidone (Risperidone 0.5 Mg Tablet) 0.5 mg PO DAILY@1700 [facility] Last Admin: 09/26/21 16:25 Dose: Not Given Documented by: Risperidone (Risperidone 1 Mg Tablet) 1 mg PO BEDTIME [facility] Last Admin: 09/26/21 20:43 Dose: 1 mg Documented by: Rivastigmine Tartrate (Rivastigmine Tartrate 1.5 Mg Capsule) 1.5 mg PO BID [facility] Last Admin: 09/27/21 08:38 Dose: 1.5 mg Documented by: Sertraline HCl (Sertraline Hcl 50 Mg Tablet) 50 mg PO DAILY [facility] Last Admin: 09/27/21 08:38 Dose: 50 mg Documented by: Sodium Chloride (0.9 % Sodium Chloride Flush 3 Ml Syringe) 3 ml IVFLUSH QSHIFT [facility] Last Admin: 09/27/21 08:43 Dose: 3 ml Documented by: Trazodone HCl (Trazodone Hcl 25 Mg Halftab) 12.5 mg PO DAILY@1400 [facility] Trazodone HCl (Trazodone Hcl 25 Mg Halftab) 25 mg PO BEDTIME PRN PRN Reason: Insomnia Allergies Allergies Allergy/AdvReac Type Severity Reaction Status Date / Time No Known Allergies Allergy Verified 08/14/21 11:06 Assessment & Plan Assessment & Plan (1) Dementia: Qualifiers: Dementia type: vascular dementia Status: Acute Code(s): F03.90 - Unspecified dementia without behavioral disturbance Assessment and Plan: Patient diagnosed with vascular dementia approximately 8 months ago. Currently receiving medications including risperidone 0.5 scheduled at 17:00 daily, risperidone 1 mg schedule daily at bedtime, risperidone 0.25 mg q.4 hours p.r.n., sertraline 50 mg daily scheduled, Exelon 1.5 mg p.o. b.i.d., donepezil 10 mg daily scheduled, and trazodone 50 mg at bedtime p.r.n.. Patient was resting comfortably during encounter, was present. Patient did not appear to be displaying any type of behavioral disturbance during encounter. does report that as afternoon progresses into early evening patient tends to become restless, with behavioral disturbances at times. (2) Acute alteration in mental status: Status: Acute Code(s): R41.82 - Altered mental status, unspecified Assessment and Plan: 1. Recommend adding trazodone 12.5 mg scheduled daily at 14:00. 2. Recommend decrease bedtime dose of trazodone to 25 mg p.r.n. for sleep. 3. Recommend encouragement of nursing staff to utilize p.r.n. risperidone 0.25 p.r.n. for behavioral disturbance. I have shared these recommendations with Dr. Radha Gomes, in person. Thank you for this consultation. We will sign off on this patient's care at this time. If you have any further questions or concerns, please do not hesitate to contact Psychiatry Service. I spent minutes with the patient and/or on the patient floor today, greater than?50% of which was spent counseling/coordinating care.
[2021-09-27] MEDS: traZODone HCL 25 MG HALFTAB 12.5 MG PO (13:20)
[2021-09-27] MEDS: risperiDONE 0.5 MG TABLET PO (17:47)
[2021-09-27] MEDS: Doxazosin Mesylate 2 MG TABLET 8 MG PO (20:23)
[2021-09-27] MEDS: risperiDONE 1 MG TABLET PO (20:25)
[2021-09-27] MEDS: Atorvastatin Calcium 10 MG TABLET PO (20:25)
[2021-09-28] VITALS (8 sets, daily range): BP systolic 102–148; BP diastolic 56–81; PULSE 53–77; RESP 18–20; TEMP 36.2–37.2; O2SAT 93–100
[2021-09-28] MEDS: Amoxicillin/Potassium Clav 500 MG TABLET PO ×2 (06:21→17:27)
[2021-09-28 07:32] LABS: Hematocrit 35.1 % (42.0-52.0); Hemoglobin 11.4 g/dl (14.0-18.0)
[2021-09-28] MEDS: Finasteride 5 MG TABLET PO (08:43)
[2021-09-28] MEDS: Docusate Sodium 100 MG CAPSULE PO (08:43)
[2021-09-28] MEDS: 0.9 % Sodium Chloride Flush 3 ML SYRINGE IVFLUSH ×3 (08:44→21:16)
[2021-09-28] MEDS: Sertraline HCL 50 MG TABLET PO (08:44)
[2021-09-28] MEDS: Cyanocobalamin (Vitamin B-12) 1,000 MCG TABLET 1000 MCG PO (08:44)
[2021-09-28] MEDS: atenoloL 50 MG TABLET PO (08:44)
[2021-09-28] MEDS: Rivastigmine Tartrate 1.5 MG CAPSULE PO ×2 (08:44→21:14)
[2021-09-28] MEDS: Donepezil HCl 10 MG TABLET PO (08:44)
[2021-09-28] MEDS: Enoxaparin Sodium 100 MG/ML SYRINGE 85 MG SUBCUT ×2 (12:18→23:59)
--- NOTE | 2021-09-28 13:11 | HO.PM.IMPN ---
Subjective Subjective Date of Service: 09/28/21 Interval History: toxic metabolic encephalopathy, dementia, UTI. Review of Systems Awake, says I am fine, does not answer more questions. Physical Exam Vital Signs: Vital Signs: Last Vital Signs Temp 98.1 F 09/28/21 11:18 Pulse 63 09/28/21 11:18 Resp 20 09/28/21 11:18 BP 116/66 09/28/21 11:18 Pulse Ox 96 09/28/21 11:18 BMI result Body Mass Index 27.3 Appearance: ??? More awake , still confused , not in distress.? ENT: upper lip swelling improved significantly,? Moist mucous membranes. cvs: rrr, [id number] , no murmur res: clear to auscultation ,no rhonchii or wheezing abd: soft , nd, nt , bs present ext pulses present , no cyanosis. neuro:? awake,? moves extremities?, could able to follow minimum commands -moving upper and lower ext. Objective Data Active Medications Acetaminophen (Acetaminophen 325 Mg Tablet) 650 mg PO Q6H PRN PRN Reason: Pain (Scale Score 4-6) Al Hydroxide/Mg Hydroxide (Magnesium Hydrox/Alum Hydrox 30 Ml Oral.Susp) 30 ml PO DAILY PRN PRN Reason: Acid Reflux Amoxicillin/Clavulanate Potassium (Amoxicillin/Potassium Clav 500 Mg Tablet) 500 mg PO Q12H [facility] Stop: 10/01/21 23:59 Last Admin: 09/28/21 06:21 Dose: 500 mg Documented by: JONA Atenolol (Atenolol 50 Mg Tablet) 50 mg PO DAILY [facility]; Protocol Last Admin: 09/28/21 08:44 Dose: 50 mg Documented by: ARIE Atorvastatin Calcium (Atorvastatin Calcium 10 Mg Tablet) 10 mg PO BEDTIME [facility] Last Admin: 09/27/21 20:25 Dose: 10 mg Documented by: JONA Cyanocobalamin (Cyanocobalamin (Vitamin B-12) 1,000 Mcg Tablet) 1,000 mcg PO DAILY [facility] Last Admin: 09/28/21 08:44 Dose: 1,000 mcg Documented by: ARIE Docusate Sodium (Docusate Sodium 100 Mg Capsule) 100 mg PO DAILY [facility] Last Admin: 09/28/21 08:43 Dose: 100 mg Documented by: ARIE Donepezil HCl (Donepezil Hcl 10 Mg Tablet) 10 mg PO DAILY [facility] Last Admin: 09/28/21 08:44 Dose: 10 mg Documented by: ARIE Doxazosin Mesylate (Doxazosin Mesylate 2 Mg Tablet) 8 mg PO BEDTIME [facility]; Protocol Last Admin: 09/27/21 20:23 Dose: 8 mg Documented by: JONA Enoxaparin Sodium (Enoxaparin Sodium 100 Mg/Ml Syringe) 85 mg 1 mg/kg (85 mg) SUBCUT Q12H [facility] Last Admin: 09/28/21 12:18 Dose: 85 mg Documented by: ARIE Finasteride (Finasteride 5 Mg Tablet) 5 mg PO DAILY [facility] Last Admin: 09/28/21 08:43 Dose: 5 mg Documented by: ARIE Loperamide HCl (Loperamide Hcl 2 Mg Capsule) 2 mg PO Q4H PRN PRN Reason: Diarrhea Magnesium Hydroxide (Milk Of Magnesia 30 Ml Oral.Susp) 30 ml PO BEDTIME PRN PRN Reason: Constipation Pharmacy Consult (Consult Rx Perform Med Rec) 1 each MISCELLANE ONCE PRN PRN Reason: Consult order Risperidone (Risperidone 0.25 Mg Tablet) 0.25 mg PO Q4H PRN PRN Reason: dementia behavioral disturbanc Risperidone (Risperidone 0.5 Mg Tablet) 0.5 mg PO DAILY@1700 [facility] Last Admin: 09/27/21 17:47 Dose: 0.5 mg Documented by: GENO Risperidone (Risperidone 1 Mg Tablet) 1 mg PO BEDTIME [facility] Last Admin: 09/27/21 20:25 Dose: 1 mg Documented by: JONA Rivastigmine Tartrate (Rivastigmine Tartrate 1.5 Mg Capsule) 1.5 mg PO BID [facility] Last Admin: 09/28/21 08:44 Dose: 1.5 mg Documented by: ARIE Sertraline HCl (Sertraline Hcl 50 Mg Tablet) 50 mg PO DAILY [facility] Last Admin: 09/28/21 08:44 Dose: 50 mg Documented by: ARIE Sodium Chloride (0.9 % Sodium Chloride Flush 3 Ml Syringe) 3 ml IVFLUSH QSHIFT [facility] Last Admin: 09/28/21 08:44 Dose: 3 ml Documented by: ARIE Trazodone HCl (Trazodone Hcl 25 Mg Halftab) 12.5 mg PO DAILY@1400 [facility] Last Admin: 09/27/21 13:20 Dose: 12.5 mg Documented by: GENO Trazodone HCl (Trazodone Hcl 25 Mg Halftab) 25 mg PO BEDTIME PRN PRN Reason: Insomnia Labs CBC & Chem 7: 09/28/21 06:51 09/26/21 06:13 Assessment and Plan (1) Toxic metabolic encephalopathy: Status: Acute (2) DVT (deep venous thrombosis): Status: Acute (3) Acute UTI: Status: Acute Assessment and Plan: 1. altered mental status multifactorial: toxic metabolic encephalopathy ? UTI,? Fall advanced dementia ?CT head:? seems negative except old infarct in left temporal area. face xray-limited no fracture. ?MRi head - similar to CT scan shows old infarct changes. ? Neuro consult-? poctictal /seizure , eeg -This EEG is considered abnormal due to diffuse slowing consistent with a diffuse encephalopathic process.? No epileptiform discharges are seen. patient? seems to be more awake than yesterday. ? Will continue to monitor-adjusted trazodone as per psych. 2. UTI:? Co urine culture-aerococcus sp. and coagulase neg staph , blood culture-neg @48hrs. afebrile switch to po antibiotics 3. dvt : on lovenox. 4.Urinary retention off foleypulle last night urology eval noted- continue doxazosin/finasteride, voiding trial in next 48 -72 hrs. 5.thrombocytopenia no baseline for comparison but from last admission platlets running 100-130 range follow cbc jaydon 6.dementia with behavioural changes adjuested trazodone. continue home meds 7.HLD continue statin 8.HTN continue atenolol dvt prophylax: with sc lovenox. Quality Stroke Does the patient have a stroke diagnosis?: No VTE Prior VTE?: No VTE Risk Level:: Medical - moderate - high VTE Device Contraindication: N/A - Device Ordered VTE Drug Contraindication: N/A - Med Ordered
[2021-09-28] MEDS: traZODone HCL 25 MG HALFTAB 12.5 MG PO (14:34)
[2021-09-28] MEDS: risperiDONE 0.5 MG TABLET PO (17:27)
[2021-09-28] MEDS: Doxazosin Mesylate 2 MG TABLET 8 MG PO (21:15)
[2021-09-28] MEDS: risperiDONE 1 MG TABLET PO (21:16)
[2021-09-28] MEDS: Atorvastatin Calcium 10 MG TABLET PO (21:16)
[2021-09-29 03:10] VITALS: BP 120/58; PULSE 56; RESP 20; TEMP 36.7; O2SAT 94
[2021-09-29] MEDS: Amoxicillin/Potassium Clav 500 MG TABLET PO ×2 (06:03→17:03)
[2021-09-29 07:15] LABS: Hematocrit 36.1 % (42.0-52.0); Hemoglobin 11.8 g/dl (14.0-18.0); Mean Corpuscular HGB Conc 32.7 g/dl (31.0-36.0); Mean Corpuscular Hemoglobin 29.4 pg (27.0-33.0); Mean Corpuscular Volume 89.8 fL (80.0-98.0); Mean Platelet Volume 9.5 fL (9.4-12.4); Platelet Count 143 X10*3/uL (160-400); Red Blood Count 4.02 X10*6/uL (4.60-5.80); Red Cell Distribution Width 13.4 % (11.0-16.0); White Blood Count 7.3 X10*3/uL (4.8-10.8)
[2021-09-29 07:35] VITALS: BP 117/61; PULSE 61; RESP 18; TEMP 36.5; O2SAT 95
[2021-09-29 07:38] LABS: Anion Gap 9 (12-20); Blood Urea Nitrogen 7 mg/dL (9-16); Calcium 8.5 mg/dL (8.4-10.2); Carbon Dioxide 30 mmol/L (22-29); Chloride 106 mmol/L (96-108); Creatinine Clr Calc Pharmacy 92.9; Estimated Glomerular Filt Rate > 60; Glucose Random 110 mg/dL (60-115); Potassium 3.4 mmol/L (3.3-5.1); Sodium 142 mmol/L (135-145)
[2021-09-29 08:13] VITALS: BP 117/61; PULSE 61
[2021-09-29] MEDS: Cyanocobalamin (Vitamin B-12) 1,000 MCG TABLET 1000 MCG PO (08:13)
[2021-09-29] MEDS: Donepezil HCl 10 MG TABLET PO (08:13)
[2021-09-29] MEDS: Rivastigmine Tartrate 1.5 MG CAPSULE PO ×2 (08:13→19:46)
[2021-09-29] MEDS: Sertraline HCL 50 MG TABLET PO (08:13)
[2021-09-29] MEDS: atenoloL 50 MG TABLET PO (08:13)
[2021-09-29] MEDS: 0.9 % Sodium Chloride Flush 3 ML SYRINGE IVFLUSH ×3 (08:13→19:56)
[2021-09-29] MEDS: Docusate Sodium 100 MG CAPSULE PO (08:13)
[2021-09-29] MEDS: Finasteride 5 MG TABLET PO (08:14)
[2021-09-29 11:23] VITALS: BP 114/65; PULSE 75; RESP 18; TEMP 36.4; O2SAT 95
[2021-09-29] MEDS: Enoxaparin Sodium 100 MG/ML SYRINGE 85 MG SUBCUT ×2 (11:23→23:20)
--- NOTE | 2021-09-29 13:06 | P.PNIM_ITS ---
Subjective Subjective Date of Service: 09/29/21 Interval History: ?toxic metabolic encephalopathy, dementia, UTI. Review of Systems Lying comfortably in the bed, open eyes also took , eating breakfast with assistance. Has Arriaza no overnight events. Physical Exam Vital Signs: Vital Signs: Last Vital Signs Temp 97.6 F 09/29/21 11:23 Pulse 75 09/29/21 11:23 Resp 18 09/29/21 11:23 BP 114/65 09/29/21 11:23 Pulse Ox 95 09/29/21 11:23 BMI result Body Mass Index 27.3 ?Appearance: ??? More awake , still confused , not in distress.? ENT: upper lip swelling improved ,? Moist mucous membranes. cvs: rrr, [id number] , no murmur res: clear to auscultation ,no rhonchii or wheezing abd: soft , nd, nt , bs present ext pulses present , no cyanosis. neuro:? awake,? moves extremities?, could able to follow minimum commands - moving legs and hands when aske Objective Data Active Medications Acetaminophen (Acetaminophen 325 Mg Tablet) 650 mg PO Q6H PRN PRN Reason: Pain (Scale Score 4-6) Al Hydroxide/Mg Hydroxide (Magnesium Hydrox/Alum Hydrox 30 Ml Oral.Susp) 30 ml PO DAILY PRN PRN Reason: Acid Reflux Amoxicillin/Clavulanate Potassium (Amoxicillin/Potassium Clav 500 Mg Tablet) 500 mg PO Q12H [facility] Stop: 10/01/21 23:59 Last Admin: 09/29/21 06:03 Dose: 500 mg Documented by: JONA Atenolol (Atenolol 50 Mg Tablet) 50 mg PO DAILY [facility]; Protocol Last Admin: 09/29/21 08:13 Dose: 50 mg Documented by: ARIE Atorvastatin Calcium (Atorvastatin Calcium 10 Mg Tablet) 10 mg PO BEDTIME [facility] Last Admin: 09/28/21 21:16 Dose: 10 mg Documented by: JONA Cyanocobalamin (Cyanocobalamin (Vitamin B-12) 1,000 Mcg Tablet) 1,000 mcg PO DAILY [facility] Last Admin: 09/29/21 08:13 Dose: 1,000 mcg Documented by: ARIE Docusate Sodium (Docusate Sodium 100 Mg Capsule) 100 mg PO DAILY [facility] Last Admin: 09/29/21 08:13 Dose: 100 mg Documented by: ARIE Donepezil HCl (Donepezil Hcl 10 Mg Tablet) 10 mg PO DAILY [facility] Last Admin: 09/29/21 08:13 Dose: 10 mg Documented by: ARIE Doxazosin Mesylate (Doxazosin Mesylate 2 Mg Tablet) 8 mg PO BEDTIME [facility]; Protocol Last Admin: 09/28/21 21:15 Dose: 8 mg Documented by: JONA Enoxaparin Sodium (Enoxaparin Sodium 100 Mg/Ml Syringe) 85 mg 1 mg/kg (85 mg) SUBCUT Q12H [facility] Last Admin: 09/29/21 11:23 Dose: 85 mg Documented by: ARIE Finasteride (Finasteride 5 Mg Tablet) 5 mg PO DAILY [facility] Last Admin: 09/29/21 08:14 Dose: 5 mg Documented by: ARIE Loperamide HCl (Loperamide Hcl 2 Mg Capsule) 2 mg PO Q4H PRN PRN Reason: Diarrhea Magnesium Hydroxide (Milk Of Magnesia 30 Ml Oral.Susp) 30 ml PO BEDTIME PRN PRN Reason: Constipation Pharmacy Consult (Consult Rx Perform Med Rec) 1 each MISCELLANE ONCE PRN PRN Reason: Consult order Risperidone (Risperidone 0.25 Mg Tablet) 0.25 mg PO Q4H PRN PRN Reason: dementia behavioral disturbanc Risperidone (Risperidone 0.5 Mg Tablet) 0.5 mg PO DAILY@1700 [facility] Last Admin: 09/28/21 17:27 Dose: 0.5 mg Documented by: ARIE Risperidone (Risperidone 1 Mg Tablet) 1 mg PO BEDTIME [facility] Last Admin: 09/28/21 21:16 Dose: 1 mg Documented by: JONA Rivastigmine Tartrate (Rivastigmine Tartrate 1.5 Mg Capsule) 1.5 mg PO BID [facility] Last Admin: 09/29/21 08:13 Dose: 1.5 mg Documented by: ARIE Sertraline HCl (Sertraline Hcl 50 Mg Tablet) 50 mg PO DAILY [facility] Last Admin: 09/29/21 08:13 Dose: 50 mg Documented by: ARIE Sodium Chloride (0.9 % Sodium Chloride Flush 3 Ml Syringe) 3 ml IVFLUSH QSHIFT [facility] Last Admin: 09/29/21 08:13 Dose: 3 ml Documented by: ARIE Trazodone HCl (Trazodone Hcl 25 Mg Halftab) 12.5 mg PO DAILY@1400 [facility] Last Admin: 09/28/21 14:34 Dose: 12.5 mg Documented by: ARIE Trazodone HCl (Trazodone Hcl 25 Mg Halftab) 12.5 mg PO BEDTIME PRN PRN Reason: Insomnia Labs CBC & Chem 7: 09/29/21 06:51 09/29/21 06:51 Labs: Laboratory Results - last 24 hr 09/29/21 09/29/21 06:51 06:51 MCV 89.8 MCH 29.4 MCHC 32.7 RDW 13.4 Plt Count 143 L MPV 9.5 Absolute Nucleated RBC 0.000 Nucleated RBC % (auto) 0.0 Anion Gap 9 L Estim Creat Clear Calc 92.9 Estimated GFR > 60 Random Glucose 110 Calcium 8.5 D Microbiology Microbiology Results: Microbiology 09/24/21 10:36 Blood Culture - Final Blood - Venous No growth after 5 days. Assessment and Plan (1) Toxic metabolic encephalopathy: Status: Acute (2) Acute UTI: Status: Acute Assessment and Plan: 1. altered mental status multifactorial: toxic metabolic encephalopathy ? UTI,? Fall advanced dementia on a background of vascular dementia Improving slowly possibly due to medications (adjusted ), hypoactive delerium, seizure less likel y - negative eeg CT head:? seems negative except old infarct in left temporal area. face xray-limited no fracture. MRi head - similar to CT scan shows old infarct changes. was initially agitated and aggressive upon admission, now? more hypoactive d/w neuro, no further inpatient work up indicated at this time 2. UTI:? Continue ceftriaxone, urine culture-aerococcus sp. and coagulase neg staph , blood culture-neg @48hrs. switched to augmentin 3. dvt : started on lovenox. 4.Urinary retention off foleypulle last night again 1 liter retention this morning -may need arriaza urology eval. 5.thrombocytopenia: ch , stable in range 143. no baseline for comparison but from last admission platlets running 100-130 range 6.dementia with behavioural changes adjuested trazodone.hold resperidone scheduled today 7.HLD continue statin 8.HTN continue atenolol dvt prophylax: with sc lovenox. Quality Stroke Does the patient have a stroke diagnosis?: No VTE Prior VTE?: No VTE Risk Level:: Medical - moderate - high VTE Device Contraindication: N/A - Device Ordered VTE Drug Contraindication: N/A - Med Ordered
[2021-09-29] MEDS: risperiDONE 0.5 MG TABLET PO (17:03)
[2021-09-29 19:46] VITALS: BP 123/67; PULSE 77
[2021-09-29] MEDS: traZODone HCL 25 MG HALFTAB 12.5 MG PO (19:46)
[2021-09-29] MEDS: Doxazosin Mesylate 2 MG TABLET 8 MG PO (19:46)
[2021-09-29] MEDS: Atorvastatin Calcium 10 MG TABLET PO (19:46)
--- NOTE | 2021-09-29 22:14 | PC.NURSE ---
Pt refusing to keep tele monitor on. Will continue to monitor.
[2021-09-29 23:00] VITALS: BP 151/65; PULSE 77; RESP 19; TEMP 36.7; O2SAT 97
[2021-09-30 03:13] VITALS: BP 148/72; PULSE 76; RESP 20; TEMP 37.1; O2SAT 96
[2021-09-30] MEDS: Amoxicillin/Potassium Clav 500 MG TABLET PO (05:32)
[2021-09-30 08:00] VITALS: BP 115/60; PULSE 55; RESP 18; TEMP 36.6; O2SAT 94
--- NOTE | 2021-09-30 08:12 | P.DS_ITS ---
DS: Providers Provider Date of Service: 09/30/21 Date of admission: 09/24/21 14:03 Primary care physician: Emelia Funes NP Consults: 09/24/21 13:41 Consult to Neurology Routine Consulting Provider: [facility] Reason for consultation: encephalopathy -unclear etiology Has provider been notified: No 09/25/21 09:46 Consult to Urology Routine Consulting Provider: Dexter Caceres Reason for consultation: urinary retention Has provider been notified: No 09/27/21 09:52 Consult to Psychiatry Routine Consulting Provider: [facility] Reason for consultation: dementia with behavioural disturbances Has provider been notified: No DS: Diagnosis Discharge Diagnosis (1) Toxic metabolic encephalopathy: Status: Acute (2) Acute UTI: Status: Acute DS: Summary Hospital Course Hospital Course: 75-year-old male came to the hospital because of falling down , altered mental status- his at the bedside- as per patient's patient fell down and subsequently transferred to the hospital because of falling down and altered mental status- patient is generalized weak, altered mental status and open eyes intermittently to verbal stimuli? and painful stimuli,? spontaneously moving the extremities otherwise does not answer any questions. '' I am? cold'' that is the only word he said. ? Patient has history of hemorrhagic stroke in 2009.? also has dementia as per his . ? In 2009 patient suffered a hemorrhagic stroke and since that time his cognition has declined.? Six months ago his memory became worse and he was evaluated at the [facility] where he was diagnosed with vascular dementia.? He was becoming more irritable.? A week and half prior to before previous admission 09/03- he was paranoid and anxious.? [facility] for further management - subsequently admitted to hospitalist service that time also- due to? encephalopathy:? that time also patient was initially agitated and subsequently was hypoactive- during last admission seen bypsychiatry and neurology team who recommended EEG which was negative.? Psychiatry recommended changes in his home medication with adjusting the dose of risperidone and stopping others.? His mentation started to improve with recurrent reorientation- subsequently discharged to an SNF. ?brought today again for altered mental status and falling down- ? As per his that otherwise patient was converse somewhat verbal and able to follow commands. ?patient does not provide much history. hospital course: Patient came with dementia, toxic metabolic encephalopathy- UTI, DVT: started on IV antibiotic, subQ Lovenox, also adjusted his dementia medications and campos bsequently patient was feeling mental status ruiz near his baseline. Please complete the course of antibiotics. DVT ruiz on Lovenox- consider outpatient hematology evaluation for further management. dementia and sleepiness, behavior changes: we adjusted patient trazodone 12.5 mg at night, consider adding trazodone in the afternoon 12.5 mg to start with if needed also. we hold risperidone at at night- consider adding slowly at low-dose out patiently. Urinary retention: seen by Urology- doxazosin adjusted to 8 mg daily, consider voiding trial in 24-48 hours outpatient. If patient still has urinary retention consider outpatient urology evaluation. Discussed with patient's in detail- patient is near his baseline, will be going back to rehab. Assessment and plan time spent 50 minutes. Time Spent with Patient Time attestation: Total time spent providing and/or coordinating discharge services: Discharge coordination time: Greater than 30 minutes Quality: Stroke Does the patient have a stroke diagnosis?: No Physical Exam Vital Signs: Vital Signs: Last Vital Signs Temp 97.8 F 09/30/21 08:00 Pulse 55 09/30/21 08:00 Resp 18 09/30/21 08:00 BP 115/60 09/30/21 08:00 Pulse Ox 94 09/30/21 08:00 BMI result Body Mass Index 27.3 Constitutional : Alert, oriented, not in distress Neck : Normal inspection, Supple Cardiovascular : RRR, S1 S2, no lower extremity edema Respiratory : fair bilateral air entry,? no crackles, wheezes or rhonchi Gastrointestinal:? soft, lax, Normal bowel sounds, Non tender Skin : Warm, Dry Neurological : Alert to self ( near his baseline). at baseline has right hemiparesis DS: Data Additional Comments Additional comments: 09/28/21 06:51? Ct head: IMPRESSION: No acute intracranial abnormality. face xray: IMPRESSION: Limited exam. No fracture seen. ?09/26/21 06:13? MRI head:IMPRESSION: 1. No acute intracranial abnormalities. 2. 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 3. Moderate to extensive underlying microangiopathy and generalized cerebral volume loss. 4. Hemosiderin staining of the encephalomalacic cavity of the left temporal lobe and multiple supratentorial sulci suggestive of sequela of prior hemorrhagic products. EEG: IMPRESSION:? This EEG is considered abnormal due to diffuse slowing consistent with a diffuse encephalopathic process.? No epileptiform discharges are seen. ? Labs: Laboratory Results - last 24 hr ? 09/26/21 ? 06:13 Anion Gap ?11 L Estim Creat Clear Calc ?99.8 Estimated GFR ?> 60 Random Glucose ?114 Calcium ?7.9 L Microbiology Microbiology Results: Microbiology ?09/24/21 Unknown Urine Culture - Final ?Urine clean catch - Urine valencia top ?? Aerococcus urinae ? ?? Coag negative Staphylococcus ?09/24/21 11:39 Blood Culture - Preliminary ?Blood - Venous ?? No growth after 24 hours. ?09/24/21 10:36 Blood Culture - Preliminary ?Blood - Venous ?? No growth after 24 hours. 09/26/21 06:13? Discharge Plan Discharge Patient Disposition: [facility] Discharge Diagnosis: dementia, dvt Referrals: [facility] [Outside] - 1 Week Emelia Funes NP [Primary Care Provider] - 1 Week Discharge Medications: New amoxicillin-pot clavulanate 500-125 mg Tablet 500 mg PO Q12H Qty: 4 RF: 0 enoxaparin 100 mg/mL Syringe 85 mg subcut Q12H Qty: 10 RF: 0 Continued acetaminophen 325 mg Tablet 650 mg PO Q6H PRN (Reason: Pain (Scale Score 4-6)) RF: 0 atorvastatin 10 mg Tablet 10 mg PO BEDTIME RF: 0 loperamide 2 mg Tablet 2 mg PO Q4H PRN (Reason: Diarrhea) RF: 0 alum-mag hydroxide-simeth 200-200-20 mg/5 mL Suspension 5 ml PO DAILY PRN (Reason: Acid Reflux) RF: 0 finasteride [Proscar] 5 mg Tablet 5 mg PO DAILY 30 Days Qty: 30 RF: 0 rivastigmine tartrate 1.5 mg Capsule 1.5 mg PO BID Qty: 30 RF: 0 donepezil 10 mg Tablet 10 mg PO DAILY Qty: 30 RF: 0 cyanocobalamin (vitamin B-12) [Vitamin B-12] 1,000 mcg Tablet 1,000 mcg PO DAILY Qty: 30 RF: 0 sertraline 50 mg Tablet 50 mg PO DAILY Qty: 30 RF: 0 atenolol 50 mg Tablet 50 mg PO DAILY Qty: 30 RF: 0 risperidone 0.5 mg Tablet 0.5 mg PO DAILY@1700 Qty: 30 RF: 0 docusate sodium 100 mg Capsule 100 mg PO DAILY RF: 0 magnesium hydroxide [Milk of Magnesia] 400 mg/5 mL Suspension 5 ml PO BEDTIME PRN (Reason: Constipation) RF: 0 risperidone 0.25 mg Tablet 0.25 mg PO Q4H PRN (Reason: dementia behavioral disturbanc) RF: 0 Changed trazodone 50 mg Tablet 12.5 mg PO BEDTIME PRN (Reason: Insomnia) Qty: 0 RF: 0 doxazosin 4 mg Tablet 8 mg PO BEDTIME Qty: 0 RF: 0 Held risperidone 1 mg Tablet 1 mg PO BEDTIME Qty: 30 RF: 0 Hold Instructions: Resume on 10/02/21. Discharge Orders: Discharge Order (Routine); Ordered 09/30/21 Ordered By: Radha Gomes Diet: advance to usual diet Activity on Discharge: As tolerated Stand Alone Forms: Patient Portal Discharge page Care Plan Goals: Patient came with dementia, toxic metabolic encephalopathy- UTI, DVT: started on IV antibiotic, subQ Lovenox, also adjusted his dementia medications and subsequently patient was feeling mental status ruiz near his baseline. Please complete the course of antibiotics. DVT ruiz on Lovenox- consider outpatient hematology evaluation for further management. dementia and sleepiness, behavior changes: we adjusted patient trazodone 12.5 mg at night, consider adding trazodone in the afternoon 12.5 mg to start with if needed also. we hold risperidone at at night- consider adding slowly at low-dose out patiently. Urinary retention: seen by Urology- doxazosin adjusted to 8 mg daily, consider voiding trial in 24-48 hours outpatient. If patient still has urinary retention consider outpatient urology evaluation. Health Concerns: As above. Plan of Treatment: As above. Assessment: As above.
[2021-09-30 09:05] VITALS: PULSE 55
[2021-09-30] MEDS: Donepezil HCl 10 MG TABLET PO (09:05)
[2021-09-30] MEDS: Cyanocobalamin (Vitamin B-12) 1,000 MCG TABLET 1000 MCG PO (09:05)
[2021-09-30] MEDS: Sertraline HCL 50 MG TABLET PO (09:05)
[2021-09-30] MEDS: Finasteride 5 MG TABLET PO (09:05)
[2021-09-30] MEDS: Rivastigmine Tartrate 1.5 MG CAPSULE PO (09:06)
[2021-09-30] MEDS: 0.9 % Sodium Chloride Flush 3 ML SYRINGE IVFLUSH (09:06)
[2021-09-30] MEDS: Docusate Sodium 100 MG CAPSULE PO (09:06)
--- NOTE | 2021-09-30 09:38 | MHC.CM.PN ---
Addendum entered by Barbara Franco 09/30/21 12:32: PT IS SCHEDULED TO RETURN TO [facility] AT 1200 HOURS [facility]IA [facility] CM CALLED PTS /HCP, AGNES KIM ([phone]) SHE REPORTS BEING AGREEABLE TO THE DC PLAN AND TIME. SHE REPORTS SHE IS CONSIDERING MOVING THE PT TO [facility] BUT HAS NOT SEEN IT SO IS UNSURE. SHE REPORTS SHE HAS BEEN TRYING TO REACH THE CONTACT AT [facility], [facility], BUT HAS BEEN UNABLE TO REACH HER. CM OFFERED TO CONTACT LIAISON AND ASK HIM TO FOLLOW UP ON THIS. PTS MEDICARE RIGHTS WERE REVIEWED. [facility]IAISON FOR [facility] AND [facility] WAS MESSAGED VIA [employer] AND HE WILL HAVE SOME ONE CALL AGNES TO FIELD HER QUESTIONS. Original Note: PT CLEARED TO DC TODAY BACK TO [facility]. PER PREVIOUS CM, PTS WAS REQUESTING HE BE MOVED TO A FACILITY CLOSER TO HER. REFERRALS WERE MADE TO [facility] AND [facility] HOWEVER NEITHER WERE ABLE TO OFFER A BED PLAN IS FOR PT TO [facility] AT [facility]. [facility] WILL WORK WITH SISTER FACILITY, [facility], TO HAVE PT TRANSFERRED THERE WHEN A BED BECOMES AVAILABLE. UPDATES WERE SENT TO [facility] ALONG WITH NOTICE OF DC. ONCE A TIME IS SET, CM WILL CALL PTS TO INFORM HER. PT WILL RETURN TO [facility] VIA BLS TODAY
[2021-09-30 11:18] LABS: COVID-19 Test Negative (Negative); IDNOW Serial# 9DD0AD1C
[2021-09-30] MEDS: Enoxaparin Sodium 100 MG/ML SYRINGE 85 MG SUBCUT (11:44)
== END 2021-09-30 13:11 | disposition skilled nursing facility (03) | DRG 689 ==
LOC: HO.ED 10:26 → HO.EDOVER 14:11 → HO.IMC 09-25 01:08
PROVIDERS: Internal Medicine; Admitting Provider Internal Medicine; Emergency Provider Emergency Medicine; PCP Nurse Practitioner Family; Visit Provider Internal Medicine
DX: N39.0 Urinary tract infection, site not specified (principal); G92.9 Unspecified toxic encephalopathy; F03.91 Unspecified dementia, unspecified severity, with behavioral disturbance; E78.5 Hyperlipidemia, unspecified; I10 Essential (primary) hypertension; D69.6 Thrombocytopenia, unspecified; R33.9 Retention of urine, unspecified; Z20.822 Contact with and (suspected) exposure to COVID-19; Z86.73 Personal history of transient ischemic attack (TIA), and cerebral infarction without residual deficits; Z87.891 Personal history of nicotine dependence; Z79.899 Other long term (current) drug therapy
CPT/HCPCS: 36415; 70150; 70450; 70551; 71045; 72125; 74018; 80048; 81001; 81003; 83605; 83690; 83880; 84295; 84484; 85014; 85018; 85025; 85027; 85610; 85730; 87040; 87086; 87088; 87147; 87635; 92610; 93005; 93970; 95816; 96361; 96365; 96372; 97162; 97167; 99285; 99291; C1758; J0696; J1650; J2060

== ENCOUNTER → 2021-10-16 09:19 | Outpatient (BNVA) | payer MEDICARE, SELFPAY | PROVIDERS: PCP Nurse Practitioner Family; Visit Provider Urology | DX: N40.1 Benign prostatic hyperplasia with lower urinary tract symptoms (principal); N13.8 Other obstructive and reflux uropathy; R33.9 Retention of urine, unspecified; F03.90 Unspecified dementia, unspecified severity, without behavioral disturbance, psychotic disturbance, mood disturbance, and anxiety | CPT/HCPCS: 51700; 51798; 99212 ==

== ENCOUNTER 2021-10-21 17:07 | Emergency (ER) | payer MEDICARE, SELFPAY ==
--- NOTE | ~2021-10-21 | XR_ITS ---
EXAMINATION: XR CHEST CLINICAL INFORMATION: pt has dementia, pt unable to hold still or follow instructions for exam, no repeat necessary per ordering md. Shortness of breath. COMPARISON: Chest x-ray 09/24/2021 TECHNIQUE: Frontal view of the chest was obtained. 6:17 PM FINDINGS: A portion of the left peripheral chest not included in study. The visualized portions of lungs are normally aerated. No pulmonary vascular congestion. The cardiac and mediastinal contours are normal. XR/XR chest 1V IMPRESSION: There is no acute abnormality of the chest.
--- NOTE | ~2021-10-21 | US_ITS ---
EXAMINATION: US VENOUS ULTRASOUND WITH DOPPLER LOWER EXTREMITY, BILATERAL CLINICAL INFORMATION: Lower extremity swelling, hypoxia and history of DVT COMPARISON: Prior bilateral lower extremity ultrasound 09/24/2021 TECHNIQUE: Ultrasound of the deep veins is performed from the hip to the calf with compression sonography and color and pulse Doppler assessment. Spectral analysis with color-flow imaging is performed. FINDINGS: RIGHT: There is normal venous compression and respiratory variation and augmented flow. The visualized common femoral vein, superficial femoral vein, profunda femoral vein, popliteal vein, and the trifurcation region shows no evidence of deep venous thrombosis. There is no significant popliteal fossa cyst. LEFT: There is normal venous compression and respiratory variation and augmented flow. The visualized common femoral vein, superficial femoral vein, profunda femoral vein, popliteal vein, and the trifurcation region shows no evidence of deep venous thrombosis. The previously seen popliteal thrombus has resolved There is no significant popliteal fossa cyst. If the patient's symptoms persist, followup ultrasound in 5 days 7 days might be of value to exclude proximal propagation from a non-visualized calf vein. US/US venous duplex LE BI IMPRESSION: No DVT demonstrated in either lower extremity. Previously seen left popliteal thrombus has resolved.
--- NOTE | ~2021-10-21 | CT_ITS ---
EXAMINATION: CT ANGIOGRAM OF THE CHEST WITH AND WITHOUT CONTRAST (CT PULMONARY ANGIOGRAM FOR PE) CLINICAL INFORMATION: Reason for Exam Dyspnea, hypoxic, elevated D-dimer, rule out PE COMPARISON: None TECHNIQUE: Prior to contrast administration, noncontrast localization images were obtained. Subsequently, multidetector volumetric imaging was performed from the thoracic inlet to below the diaphragms following the administration of 68 mL Omnipaque 350 intravenous contrast. No contrast reaction reported Sagittal, coronal, and MIP oblique sagittal reformatted images were obtained on the CT workstation, uploaded to PACS, and reviewed. This CT examination was performed using dose optimization techniques as appropriate, variously including the following: *Automated exposure control *Adjustment of mA and/or kV according to patient size (this includes techniques or standardized protocols for targeted exams where dose is matched to indication/reason for exam; i.e. extremities or head) *Use of iterative reconstruction technique Total exam dose-length product 526 mGy-cm FINDINGS: QUALITY OF STUDY/CONTRAST BOLUS: Suboptimal. PULMONARY ARTERIES: No central or proximal segmental pulmonary emboli are identified. Assessment of the more distal vasculature is limited due to suboptimal bolus timing and respiratory motion artifact. THORACIC AORTA: Mild scattered atherosclerotic calcifications are noted. No evidence of aortic dissection. LUNG: Semisolid material along the right lateral margin of the trachea may represent secretions or debris. Limited detailed evaluation of some regions of the lung parenchyma due to respiratory motion artifact. Mild subsegmental atelectasis is noted bilaterally without additional consolidation. PLEURA: No pleural effusion or pneumothorax. MEDIASTINUM: The visualized thyroid gland is unremarkable. There are subcentimeter mediastinal lymph nodes within the range of normal variation. Mild cardiomegaly without pericardial effusion. CHEST WALL/AXILLA: No axillary or internal mammary lymphadenopathy. OSSEOUS STRUCTURES: No acute or suspicious osseous abnormality. UPPER ABDOMEN: Right upper pole renal cyst noted; no follow-up recommended. No reflux of contrast into the hepatic veins to suggest elevated right heart pressures. CT/CT angio chest PE protocol IMPRESSION: No central or proximal segmental pulmonary embolus identified; incomplete assessment of the more distal vessels due to suboptimal bolus timing and respiratory motion artifact. VTE: negative
[2021-10-21 17:19] VITALS: BP 102/61; BP 118/63; PULSE 77; PULSE 80; RESP 14; TEMP 36.7; O2SAT 95; O2SAT 96; BMI 29.0
--- NOTE | 2021-10-21 17:31 | ECG_ITS ---
Test Reason : AMS Blood Pressure : / mmHG Vent. Rate : 067 BPM Atrial Rate : 067 BPM P-R Int : 174 ms QRS Dur : 086 ms QT Int : 436 ms P-R-T Axes : 041 -13 006 degrees QTc Int : 460 ms Normal sinus rhythm Normal ECG When compared with ECG of 24-SEP-2021 10:36, Premature atrial complexes are no longer Present Referred By: Judson Do Electronically Signed By:Jameson Akhtar
--- NOTE | 2021-10-21 17:33 | ED_ITS ---
HPI - General Adult General Chief complaint: General Medical Stated complaint: ?PE/DVT PER SNF Time Seen by Provider: 10/21/21 17:22 Source: EMS and RN notes reviewed Mode of arrival: EMS Limitations: altered mental status (Dementia) History of Present Illness HPI narrative: 76-year-old male [facility] who was sent to the emergency department for evaluation of O2 saturation in the 90% r ady. Patient has a history of DVT and there was a concern that the patient may have recurrence of his DVT or PE as the cause of his low O2 saturation. No other information was provided on the patient. The patient has vascular dementia and is a poor informant and has no complaints. He denies chest pain, shortness of breath, abdominal pain, nausea or vomiting. He is oriented to person and knows that he is in a hospital. Patient was admitted on 08/24/2021 until 09/30/2021 for falling down, altered mental status and he was found to have a toxic metabolic encephalopathy secondary to urinary tract infection and a left lower extremity DVT. Ultrasound done on 09/24/2021 revealed a left popliteal vein DVT. Patient was treated with IV antibiotics and Lovenox.In reviewing his medication list sent in from the nursing facility, it appears that he is not on any anticoagulation at this time. Related Data Home Medications Medication Instructions Recorded Confirmed acetaminophen 325 mg tablet 650 mg PO Q6H PRN 09/02/21 09/24/21 aluminum-mag hydroxide-simethicone 5 ml PO DAILY PRN 09/02/21 09/24/21 200 mg-200 mg-20 mg/5 mL oral susp atorvastatin 10 mg tablet 10 mg PO BEDTIME 09/02/21 09/24/21 loperamide 2 mg tablet 2 mg PO Q4H PRN 09/02/21 09/24/21 docusate sodium 100 mg capsule 100 mg PO DAILY 09/24/21 09/24/21 magnesium hydroxide 400 mg/5 mL 5 ml PO BEDTIME PRN 09/24/21 09/24/21 oral suspension (Milk of Magnesia) risperidone 0.25 mg tablet 0.25 mg PO Q4H PRN 09/24/21 09/24/21 Previous Rx's Medication Instructions Recorded atenolol 50 mg tablet 50 mg PO DAILY #30 tab 09/02/21 cyanocobalamin (vitamin B-12) 1,000 mcg PO DAILY #30 tab 09/02/21 1,000 mcg tablet (Vitamin B-12) donepezil 10 mg tablet 10 mg PO DAILY #30 tab 09/02/21 risperidone 0.5 mg tablet 0.5 mg PO DAILY@1700 #30 tab 09/02/21 risperidone 1 mg tablet 1 mg PO BEDTIME #30 tab 09/02/21 rivastigmine tartrate 1.5 mg 1.5 mg PO BID #30 cap 09/02/21 capsule sertraline 50 mg tablet 50 mg PO DAILY #30 tab 09/02/21 finasteride 5 mg tablet (Proscar) 5 mg PO DAILY 30 Days #30 tab 09/13/21 amoxicillin 500 mg-potassium 500 mg PO Q12H #4 tab 09/30/21 clavulanate 125 mg tablet doxazosin 4 mg tablet 8 mg PO BEDTIME #0 tab 09/30/21 enoxaparin 100 mg/mL subcutaneous 85 mg (0.85 mL) SUBCUT Q12H #10 ml 09/30/21 syringe trazodone 50 mg tablet 12.5 mg PO BEDTIME PRN #0 tab 09/30/21 Allergies Allergy/AdvReac Type Severity Reaction Status Date / Time No Known Allergies Allergy Verified 10/21/21 17:15 Review of Systems Review of Systems: Yes Unobtainable due to mental status (Vascular dementia) [facility] Past Medical History Medical History Acute alteration in mental status Acute UTI Dementia Hemorrhagic stroke HLD (hyperlipidemia) HTN (hypertension) Toxic metabolic encephalopathy Urinary retention Vascular dementia Social History Social History Household Members: Other Housing: [facility] Do you presently have visiting nurse or other home services: No Unable to assess alcohol history related to: Unknown Alcohol intake: unknown Patient Tobacco Use Status: Former Tobacco user Second Hand Smoke Exposure: No Advance Directives: Yes Advance Directives on File: Yes Advance Directives Date on File: 09/16/21 service: No Current occupational status: retired Sexual orientation: Straight/Heterosexual Physical Exam Vital Signs: Vital Signs: Last Vital Signs Temp 98.7 F 10/21/21 19:39 Pulse 56 12/27/21 22:25 Resp 16 10/21/21 22:25 BP 111/68 10/21/21 22:25 Pulse Ox 95 10/21/21 22:25 BMI result Body Mass Index 29.0 Const: Other: Awake, alert, elderly male patient, he is pleasant, cooperative, he is oriented to person, he lacks insight as to why he is here in the emergency department, he has no complaints. Orientation/consciousness: oriented to person HENMT: Head: Yes normal to inspection, Yes normocephalic and Yes atraumatic Ears: external ears normal General nose exam: Normal external nose present Face and sinus: Yes normal facial exam Mouth: Normal oral and palatal mucosa present Throat: Yes posterior oropharynx normal Eyes: General: appearance normal, both eyes and all related structures Pupils: Equal, round and reactive pupils present Neck: Neck: Yes normal visual inspection, Yes no lymphadenopathy, Yes trachea midline and Yes supple Chest: Chest palpation & inspection: normal inspection of the chest and normal palpation of entire chest wall Resp: Effort & Inspection: normal respiratory effort and able to speak in complete sentences Auscultation: clear to auscultation bilaterally Cardio: Rate: regular rate Rhythm: regular rhythm Heart sounds: S1 normal heart sound present, S2 normal heart sound present and no murmurs GI: Inspection: Yes normal to inspection Palpation (GI): Soft to palpation, nontender and no guarding Auscultation: normal bowel sounds : General: Yes no CVA tenderness Back/Spine/Pelvis: Back: no CVA tenderness Skin: General skin exam: no rashes or lesions noted Neuro: General: oriented to person Cranial nerves: Yes CN's II-XII intact bilaterally and Yes Equal, round and reactive pupils present Cognition (Neuro): normal cognition Motor exam (neuro): 5/5 motor strength present throughout Extrem: Other: 2+ pitting edema, lower extremities, bilaterally symmetric Psych: Appearance: grossly normal Speech and movement: Normal speech and movement present Affect: normal affect Attitude: cooperative Course Course Course Narrative: 76-year-old male who was sent to the emergency department [facility] for evaluation of an O2 saturation of 90% on room air. Patient was recently hospitalized and discharged on 09/30/2021 for urosepsis and left DVT. While the patient was in the hospital he was treated with Lovenox it is unclear to me if he was continued on anticoagulants since there is no anticoagulant listed on his medication she had sent in from the nursing facility. On examination here in the emergency department the patient has no complaints. His vital signs were normal with a pulse of 77, respiratory rate 14 and an O2 saturation of 96% on room air. Lung exam was clear. Lower extremity revealed bilaterally symmetric 2+ pitting edema. I ordered a CBC, CMP, lactic acid, lipase, BNP, D-dimer, troponin, urinalysis, bilateral lower extremity Doppler ultrasounds and a chest x-ray. 1827: The patient has become agitated uncooperative, he is getting up the stretcher and wandering around the emergency department, he is not listening to staff, it required two security guards to escort him back to his bed and he has been pushing against the security guards trying to get out of bed. Therefore, in order to complete the patient's workup, I ordered a chemical restraint of Haldol 5 mg IM and Ativan 1 mg IM. We will reassess the patient in determine if he needs more medications. 0005: Laboratory evaluation: WBC was normal 5500, mild anemia with an H&H of 10.8 and 34.1, similar to previous values. Thrombocytopenia with a platelet count of a 842343, similar to previous values. D-dimer was elevated 442. Chloride was elevated 109. BNP was elevated to 202. COVID-19 test was negative. Doppler ultrasound of both lower extremities revealed no DVT. CT pulmonary angiogram PE protocol revealed no large pulmonary embolism and no other significant abnormalities. Chest x-ray revealed no significant abnormalities. The patient's workup was negative for pulmonary embolism, congestive heart failure or pneumonia. Also there was no documented DVT of the lower extremities so he does not need to be on anticoagulation. The patient has not been hypoxic since he has been here in the emergency department. I did discuss the patient's with the attending physician [facility], Dr. Tiarra Rodriguez and the patient will be discharged back to his care facility. Medical Decision Making Lab Data Result diagrams: 10/21/21 20:08 10/21/21 20:08 Labs: Lab Results 10/21/21 10/21/21 10/21/21 Range/Units 20:08 20:08 20:08 WBC 5.5 (4.8-10.8) X10*3/uL RBC 3.75 L (4.60-5.80) X10*6/uL Hgb 10.8 L (14.0-18.0) g/dl Hct 34.1 L (42.0-52.0) % MCV 90.9 (80.0-98.0) fL MCH 28.8 (27.0-33.0) pg MCHC 31.7 (31.0-36.0) g/dl RDW 14.6 (11.0-16.0) % Plt Count 114 L (160-400) X10*3/uL MPV 9.0 L (9.4-12.4) fL Immature Gran % (Auto) 0.4 (0.0-0.4) % Neut % (Auto) 66.3 (45-73) % Lymph % (Auto) 19.0 L (20-40) % [place] % (Auto) 10.8 (2-11) % Eos % (Auto) 3.1 (0-4) % Baso % (Auto) 0.4 (0-2) % Lymph # (Auto) 1.0 L (1.2-4.9) X10*3/uL [place] # (Auto) 0.6 (0.1-1.2) X10*3/uL Eos # (Auto) 0.2 (0.0-0.4) X10*3/uL Baso # (Auto) 0.0 (0.0-0.2) X10*3/uL Abs Immat Gran (auto) 0.02 (0.00-0.03) X10*3/uL Absolute Neuts (auto) 3.6 (2.0-8.3) x10*3/uL Absolute Nucleated RBC 0.000 (0.0-0.012) X10*3/uL Nucleated RBC % (auto) 0.0 (0.0-0.2) /100WBC D-Dimer High Sensitivty 442 NG/ML Sodium 143 (135-145) mmol/L Potassium 3.7 (3.3-5.1) mmol/L Chloride 109 H (96-108) mmol/L Carbon Dioxide 27 (22-29) mmol/L Anion Gap 11 L (12-20) BUN 14 D (9-16) mg/dL Creatinine 0.84 (0.5-1.4) mg/dL Estim Creat Clear Calc 78.7 Estimated GFR > 60 Random Glucose 100 (60-115) mg/dL Lactic Acid (0.5-2.0) mmol/L Calcium 8.6 (8.4-10.2) mg/dL Total Bilirubin 0.5 (0.0-1.0) mg/dL AST 21 (5-37) U/L ALT 17 (0-40) U/L Alkaline Phosphatase 78 (39-117) U/L Troponin I High Sens (<3.5-35.0) ng/L B-Natriuretic Peptide (<100) pg/mL Total Protein 5.3 L (6.5-8.0) g/dL Albumin 3.1 L (3.5-5.0) g/dL Lipase 10 (8-78) U/L COVID-19 (CARLO) (Negative) COVID-19 Clin Com 10/21/21 10/21/21 10/21/21 Range/Units 20:08 20:08 20:08 WBC (4.8-10.8) X10*3/uL RBC (4.60-5.80) X10*6/uL Hgb (14.0-18.0) g/dl Hct (42.0-52.0) % MCV (80.0-98.0) fL MCH (27.0-33.0) pg MCHC (31.0-36.0) g/dl RDW (11.0-16.0) % Plt Count (160-400) X10*3/uL MPV (9.4-12.4) fL Immature Gran % (Auto) (0.0-0.4) % Neut % (Auto) (45-73) % Lymph % (Auto) (20-40) % [place] % (Auto) (2-11) % Eos % (Auto) (0-4) % Baso % (Auto) (0-2) % Lymph # (Auto) (1.2-4.9) X10*3/uL [place] # (Auto) (0.1-1.2) X10*3/uL Eos # (Auto) (0.0-0.4) X10*3/uL Baso # (Auto) (0.0-0.2) X10*3/uL Abs Immat Gran (auto) (0.00-0.03) X10*3/uL Absolute Neuts (auto) (2.0-8.3) x10*3/uL Absolute Nucleated RBC (0.0-0.012) X10*3/uL Nucleated RBC % (auto) (0.0-0.2) /100WBC D-Dimer High Sensitivty NG/ML Sodium (135-145) mmol/L Potassium (3.3-5.1) mmol/L Chloride (96-108) mmol/L Carbon Dioxide (22-29) mmol/L Anion Gap (12-20) BUN (9-16) mg/dL Creatinine (0.5-1.4) mg/dL Estim Creat Clear Calc Estimated GFR Random Glucose (60-115) mg/dL Lactic Acid 0.8 (0.5-2.0) mmol/L Calcium (8.4-10.2) mg/dL Total Bilirubin (0.0-1.0) mg/dL AST (5-37) U/L ALT (0-40) U/L Alkaline Phosphatase (39-117) U/L Troponin I High Sens (<3.5-35.0) ng/L B-Natriuretic Peptide 202 H (<100) pg/mL Total Protein (6.5-8.0) g/dL Albumin (3.5-5.0) g/dL Lipase (8-78) U/L COVID-19 (CARLO) Negative (Negative) COVID-19 Clin Com See Note 10/21/21 Range/Units 20:08 WBC (4.8-10.8) X10*3/uL RBC (4.60-5.80) X10*6/uL Hgb (14.0-18.0) g/dl Hct (42.0-52.0) % MCV (80.0-98.0) fL MCH (27.0-33.0) pg MCHC (31.0-36.0) g/dl RDW (11.0-16.0) % Plt Count (160-400) X10*3/uL MPV (9.4-12.4) fL Immature Gran % (Auto) (0.0-0.4) % Neut % (Auto) (45-73) % Lymph % (Auto) (20-40) % [place] % (Auto) (2-11) % Eos % (Auto) (0-4) % Baso % (Auto) (0-2) % Lymph # (Auto) (1.2-4.9) X10*3/uL [place] # (Auto) (0.1-1.2) X10*3/uL Eos # (Auto) (0.0-0.4) X10*3/uL Baso # (Auto) (0.0-0.2) X10*3/uL Abs Immat Gran (auto) (0.00-0.03) X10*3/uL Absolute Neuts (auto) (2.0-8.3) x10*3/uL Absolute Nucleated RBC (0.0-0.012) X10*3/uL Nucleated RBC % (auto) (0.0-0.2) /100WBC D-Dimer High Sensitivty NG/ML Sodium (135-145) mmol/L Potassium (3.3-5.1) mmol/L Chloride (96-108) mmol/L Carbon Dioxide (22-29) mmol/L Anion Gap (12-20) BUN (9-16) mg/dL Creatinine (0.5-1.4) mg/dL Estim Creat Clear Calc Estimated GFR Random Glucose (60-115) mg/dL Lactic Acid (0.5-2.0) mmol/L Calcium (8.4-10.2) mg/dL Total Bilirubin (0.0-1.0) mg/dL AST (5-37) U/L ALT (0-40) U/L Alkaline Phosphatase (39-117) U/L Troponin I High Sens 6.8 (<3.5-35.0) ng/L B-Natriuretic Peptide (<100) pg/mL Total Protein (6.5-8.0) g/dL Albumin (3.5-5.0) g/dL Lipase (8-78) U/L COVID-19 (CARLO) (Negative) COVID-19 Clin Com Discharge Plan Discharge Clinical Impression: Hypoxia Patient Disposition: Xfer SNF Additional Instructions: You were given Haldol 10 mg IM and Ativan 2 mg IM to help calm me down so that we can complete your evaluation today. The duplex ultrasounds of both lower extremities did not reveal a DVT/blood clots, therefore you do not need to be on any blood thinners. Your laboratory evaluation revealed mild anemia and a low platelet count with an H&H of 10.8 and 34.4 and platelet count of a 125366. These are unchanged from your previous values. Your D-dimer was elevated at 442. Your chest x-ray was normal with no evidence of pneumonia or congestive heart failure. The CT pulmonary angiogram PE protocol of your chest revealed no pulmonary embolism in no other acute abnormalities to explain the hypoxia that you had at the nursing facility. While you were here in the emergency department we did not document any further episodes of hypoxia. I did discuss your workup with your attending physician at your [facility] facility, Dr. Rodriguez Prescriptions: No Action acetaminophen 325 mg Tablet 650 mg PO Q6H PRN (Reason: Pain (Scale Score 4-6)) RF: 0 atorvastatin 10 mg Tablet 10 mg PO BEDTIME RF: 0 loperamide 2 mg Tablet 2 mg PO Q4H PRN (Reason: Diarrhea) RF: 0 alum-mag hydroxide-simeth 200-200-20 mg/5 mL Suspension 5 ml PO DAILY PRN (Reason: Acid Reflux) RF: 0 finasteride [Proscar] 5 mg Tablet 5 mg PO DAILY 30 Days Qty: 30 RF: 0 rivastigmine tartrate 1.5 mg Capsule 1.5 mg PO BID Qty: 30 RF: 0 donepezil 10 mg Tablet 10 mg PO DAILY Qty: 30 RF: 0 cyanocobalamin (vitamin B-12) [Vitamin B-12] 1,000 mcg Tablet 1,000 mcg PO DAILY Qty: 30 RF: 0 sertraline 50 mg Tablet 50 mg PO DAILY Qty: 30 RF: 0 risperidone 1 mg Tablet 1 mg PO BEDTIME Qty: 30 RF: 0 Hold Instructions: Resume on 10/02/21. atenolol 50 mg Tablet 50 mg PO DAILY Qty: 30 RF: 0 risperidone 0.5 mg Tablet 0.5 mg PO DAILY@1700 Qty: 30 RF: 0 docusate sodium 100 mg Capsule 100 mg PO DAILY RF: 0 magnesium hydroxide [Milk of Magnesia] 400 mg/5 mL Suspension 5 ml PO BEDTIME PRN (Reason: Constipation) RF: 0 risperidone 0.25 mg Tablet 0.25 mg PO Q4H PRN (Reason: dementia behavioral disturbanc) RF: 0 trazodone 50 mg Tablet 12.5 mg PO BEDTIME PRN (Reason: Insomnia) Qty: 0 RF: 0 amoxicillin-pot clavulanate 500-125 mg Tablet 500 mg PO Q12H Qty: 4 RF: 0 doxazosin 4 mg Tablet 8 mg PO BEDTIME Qty: 0 RF: 0 enoxaparin 100 mg/mL Syringe 85 mg subcut Q12H Qty: 10 RF: 0
[2021-10-21] MEDS: LORazepam 2 MG/ML VIAL 1 MG IM ×2 (18:34→19:04)
[2021-10-21] MEDS: Haloperidol Lactate 5 MG/ML VIAL IM (18:34)
--- NOTE | 2021-10-21 18:34 | PC.NURSE ---
Pt arrived from [facility] and oriented only to self and birthday. Pt states he understands he is in the ER but is quickly forgetful. As time progressed, pt became more agitated and continuously getting out of bed despite redirection from staff. MD Do made aware and order received for IM haldol and ativian. Order carried out. RN will continue to monitor.
[2021-10-21] MEDS: Haloperidol Lactate 5 MG/ML VIAL 1 MG IM (19:04)
[2021-10-21 19:39] VITALS: BP 114/61; PULSE 72; RESP 16; TEMP 37.1; O2SAT 98
[2021-10-21 20:15] LABS: MANUAL DIFF FLAG NO
[2021-10-21 20:16] LABS: Basophils Percent Auto 0.4 % (0-2); Eosinophils Absolute Auto 0.2 X10*3/uL (0.0-0.4); Eosinophils Percent Auto 3.1 % (0-4); Hematocrit 34.1 % (42.0-52.0); Hemoglobin 10.8 g/dl (14.0-18.0); Imm Gran Abs Auto 0.02 X10*3/uL (0.00-0.03); Imm Gran Pct Auto 0.4 % (0.0-0.4); Mean Corpuscular HGB Conc 31.7 g/dl (31.0-36.0); Mean Corpuscular Hemoglobin 28.8 pg (27.0-33.0); Mean Corpuscular Volume 90.9 fL (80.0-98.0); Monocytes Absolute Auto 0.6 X10*3/uL (0.1-1.2); Monocytes Percent Auto 10.8 % (2-11); Neutrophils Absolute Auto 3.6 x10*3/uL (2.0-8.3); Neutrophils Percent Auto 66.3 % (45-73); Platelet Count 114 X10*3/uL (160-400); Red Blood Count 3.75 X10*6/uL (4.60-5.80); Red Cell Distribution Width 14.6 % (11.0-16.0); White Blood Count 5.5 X10*3/uL (4.8-10.8)
[2021-10-21 20:23] LABS: D Dimer High Sensitivity 442 NG/ML
[2021-10-21 20:27] LABS: Lactic Acid 0.8 mmol/L (0.5-2.0)
[2021-10-21 20:32] LABS: Alanine Aminotransferase 17 U/L (0-40); Albumin Level 3.1 g/dL (3.5-5.0); Alkaline Phosphatase 78 U/L (39-117); Aspartate Amino Transferase 21 U/L (5-37); Bilirubin Total 0.5 mg/dL (0.0-1.0); Blood Urea Nitrogen 14 mg/dL (9-16); Calcium 8.6 mg/dL (8.4-10.2); Creatinine Clr Calc Pharmacy 78.7; Estimated Glomerular Filt Rate > 60; Glucose Random 100 mg/dL (60-115); Lipase 10 U/L (8-78); Total Protein 5.3 g/dL (6.5-8.0)
[2021-10-21 20:34] LABS: COVID-19 Test Negative (Negative)
[2021-10-21 20:36] LABS: Troponin-I High Sensitivity 6.8 ng/L (<3.5-35.0)
[2021-10-21 20:37] LABS: B Type Natriuretic Peptide 202 pg/mL (<100)
[2021-10-21 20:52] LABS: Anion Gap 11 (12-20); Carbon Dioxide 27 mmol/L (22-29); Chloride 109 mmol/L (96-108); Potassium 3.7 mmol/L (3.3-5.1); Sodium 143 mmol/L (135-145)
[2021-10-21 22:25] VITALS: BP 111/68; PULSE 56; RESP 16; O2SAT 95
[2021-10-21] MEDS: iohexoL 350 MG/ML 100 ML INFUS..BTL IV (22:39)
--- NOTE | 2021-10-22 05:12 | PC.NURSE ---
I assumed care of this patient at 1900 on 10/21. At that time the pt was confused, pacing around his room and being redirected back to bed. ER MD at bedside had requested additional Ativan and Haldol (see EMAR) to be given in order to obtain necessary studies to evaluate for presence of DT adn/or PE. Bedside U/S and CT were able to be performed after these meds were given and since that time the pt has mostly remained in bed, requiring redirection a few times. Ultimately we placed a camera in his room in order to ensure he was being watched at all times. At approximately 2029 I updated the pts Teresita who was in the waiting room. She verbalized an understanding of the plan of care and went home for the night. The pt has been sleeping in bed, opens eyes to verbal and physical stimuli at which times he makes eye contact with staff but is not oriented at all, which is consistent with his baseline. There is no respiratory distress. The pt does not complain of or indicate that he is in pain. He has remained on the c d still operator throughout the night and has mostly been in sinus bradycardia with a rate in this high 40's-high 50's/low 60's. i spoke with a staff member from [facility] at about 2230 on 10/21 who requested an update on the pt and they informed me that nursing staff would be going home for the night and would return in the [facility], therefore f he required nursing staff upon return he should not return overnight. Currently the pt is discharged but is remaining in the ED until that time.
[2021-10-22 06:33] VITALS: RESP 16
--- NOTE | 2021-10-22 09:10 | PC.NURSE ---
report called to the [facility] RN
[2021-10-22 10:02] VITALS: BP 95/33; PULSE 51; RESP 16; O2SAT 98
[2021-10-22 11:09] VITALS: RESP 18
--- NOTE | 2021-10-22 11:10 | PC.NURSE ---
patient currently sleeping, remote monitoring for safety in room, call chavarria within reach, will continue to monitor.
== END 2021-10-22 11:27 | disposition skilled nursing facility (03) ==
PROVIDERS: Emergency Provider Emergency Medicine Emergency Medical Services
DX: R09.02 Hypoxemia (principal); R45.1 Restlessness and agitation; R79.1 Abnormal coagulation profile; F01.50 Vascular dementia, unspecified severity, without behavioral disturbance, psychotic disturbance, mood disturbance, and anxiety; I10 Essential (primary) hypertension; D64.9 Anemia, unspecified; Z86.718 Personal history of other venous thrombosis and embolism; Z20.822 Contact with and (suspected) exposure to COVID-19
CPT/HCPCS: 36415; 71045; 71275; 80053; 83605; 83690; 83880; 84484; 85025; 85379; 87635; 93005; 93970; 96372; 99284; 99285; J2060; Q9967

== ENCOUNTER 2022-01-21 14:41 | Inpatient (IN) | payer MEDICARE, SELFPAY ==
--- NOTE | ~2022-01-21 | CT_ITS ---
EXAMINATION: CT HEAD WITHOUT CONTRAST CLINICAL INFORMATION: Fall COMPARISON: Previous head CT August 2021 TECHNIQUE: Contiguous axial imaging was performed from the skull base to vertex without intravenous administration of contrast. This CT examination was performed using dose optimization techniques as appropriate, variously including the following: *Automated exposure control *Adjustment of mA and/or kV according to patient size (this includes techniques or standardized protocols for targeted exams where dose is matched to indication/reason for exam; i.e. extremities or head) *Use of iterative reconstruction technique DLP: 720 mGy-cm FINDINGS: There is no evidence of an extra-axial collection. There is no evidence of intra or extra-axial hemorrhage. The ventricles and extra-axial CSF spaces are prominent suggestive of generalized atrophy. There is nonspecific periventricular white matter disease. There is an old left temporal infarct or encephalomalacia and extra-axial dilatation of the temporal horn of the left lateral ventricle. This appears unchanged. No mass, mass effect or acute infarct is seen. Review at bone windows is normal. No skull fracture is seen. There is a small polyp or cyst in the left maxillary sinus. CT/CT head/brain wo con IMPRESSION: No acute findings. Generalized atrophy, periventricular white matter disease and old left temporal lobe infarct or encephalomalacia similar to August 2021 exams.
--- NOTE | ~2022-01-21 | XR_ITS ---
EXAMINATION: XR CHEST CLINICAL INFORMATION: Fall. Weakness. COMPARISON: Previous chest x-ray most recent September 2020 TECHNIQUE: Frontal view of the chest was obtained. FINDINGS: The cardiac and mediastinal contours are stable. The lungs are clear. There is no pleural effusion or pneumothorax. There are degenerative changes of the spine. XR/XR chest 1V IMPRESSION: Unremarkable examination.
--- NOTE | ~2022-01-21 | CT_ITS ---
EXAMINATION: CT CERVICAL SPINE WITHOUT CONTRAST CLINICAL INFORMATION: Fall COMPARISON: Previous cervical spine CT August 2021 TECHNIQUE: Axial images through the cervical spine without contrast. Sagittal and coronal reconstructions on the technologist workstation were performed. This CT examination was performed using dose optimization techniques as appropriate, variously including the following: *Automated exposure control *Adjustment of mA and/or kV according to patient size (this includes techniques or standardized protocols for targeted exams where dose is matched to indication/reason for exam; i.e. extremities or head) *Use of iterative reconstruction technique DLP: 331 mGy-cm FINDINGS: Bone alignment is normal. No fracture or dislocation is seen. There is mild degenerative spondylosis and degenerative disc disease at C2-C3 C5-C6 and C6-C7. There are degenerative changes at the C1 dens articulation. There is mild bilateral facet arthritis, left greater than right. Prevertebral soft tissues are normal. The lung apices are clear. CT/CT cervical spine wo con IMPRESSION: Degenerative changes. No fracture or dislocation seen. Fleischner guidelines were followed.
--- NOTE | ~2022-01-21 | XR_ITS ---
EXAMINATION: XR CHEST CLINICAL INFORMATION: Question aspiration. COMPARISON: Findings abdomen and a short TECHNIQUE: Frontal view of the chest was obtained. FINDINGS: The lungs are well-expanded and clear of acute process. Heart size and pulmonary vascularity is normal. No gross bony abnormality seen. XR/XR chest 1V IMPRESSION: Unremarkable chest exam.
[2022-01-21 14:49] VITALS: BP 120/63; BP 132/76; PULSE 81; PULSE 84; RESP 20; TEMP 37.9; O2SAT 95; BMI 21.6
--- NOTE | 2022-01-21 14:53 | ECG_ITS ---
Test Reason : FALL Blood Pressure : / mmHG Vent. Rate : 096 BPM Atrial Rate : 096 BPM P-R Int : 182 ms QRS Dur : 090 ms QT Int : 378 ms P-R-T Axes : 052 007 -07 degrees QTc Int : 477 ms Normal sinus rhythm Normal ECG When compared with ECG of 21-OCT-2021 20:11, No significant changes seen Referred By: Sarahi Rosario Electronically Signed By:ISRAEL ASH
--- NOTE | 2022-01-21 14:57 | ED_ITS ---
HPI - Fall General Chief Complaint: Fall Stated Complaint: AMS Time Seen by Provider: 01/21/22 14:46 Source: family and EMS Mode of arrival: EMS Limitations: altered mental status (dementia) History of Present Illness HPI Narrative: initially not here but she was able to provide a good history. Staff found him on the floor this AM at 7am near his bed. He did eat and perk up a bit he was able to move around. After lunch today almost fell again so transfer to the hospital was placed. complaint: fall Onset (ago): unknown Fall from: standing Fall witnessed: no Place fall occurred: [facility] Loss of consciousness: unsure Prolonged down time: unclear Symptoms prior to fall: other (unwitnesses) Context: history of frequent falls Severity: mild Associated symptoms (after fall): other (per EMS patient at baseline, hx here of falls when he has a UTI, no AC therapy seen on his med form, he has a temp of 100.3 here) Related Data Home Medications Medication Instructions Recorded Confirmed acetaminophen 325 mg tablet 650 mg PO Q6H PRN 09/02/21 09/24/21 aluminum-mag hydroxide-simethicone 5 ml PO DAILY PRN 09/02/21 09/24/21 200 mg-200 mg-20 mg/5 mL oral susp atorvastatin 10 mg tablet 10 mg PO BEDTIME 09/02/21 09/24/21 loperamide 2 mg tablet 2 mg PO Q4H PRN 09/02/21 09/24/21 docusate sodium 100 mg capsule 100 mg PO DAILY 09/24/21 09/24/21 magnesium hydroxide 400 mg/5 mL 5 ml PO BEDTIME PRN 09/24/21 09/24/21 oral suspension (Milk of Magnesia) risperidone 0.25 mg tablet 0.25 mg PO Q4H PRN 09/24/21 09/24/21 Previous Rx's Medication Instructions Recorded atenolol 50 mg tablet 50 mg PO DAILY #30 tab 09/02/21 cyanocobalamin (vitamin B-12) 1,000 mcg PO DAILY #30 tab 09/02/21 1,000 mcg tablet (Vitamin B-12) donepezil 10 mg tablet 10 mg PO DAILY #30 tab 09/02/21 risperidone 0.5 mg tablet 0.5 mg PO DAILY@1700 #30 tab 09/02/21 risperidone 1 mg tablet 1 mg PO BEDTIME #30 tab 09/02/21 rivastigmine tartrate 1.5 mg 1.5 mg PO BID #30 cap 09/02/21 capsule sertraline 50 mg tablet 50 mg PO DAILY #30 tab 09/02/21 finasteride 5 mg tablet (Proscar) 5 mg PO DAILY 30 Days #30 tab 09/13/21 amoxicillin 500 mg-potassium 500 mg PO Q12H #4 tab 09/30/21 clavulanate 125 mg tablet doxazosin 4 mg tablet 8 mg PO BEDTIME #0 tab 09/30/21 enoxaparin 100 mg/mL subcutaneous 85 mg (0.85 mL) SUBCUT Q12H #10 ml 09/30/21 syringe trazodone 50 mg tablet 12.5 mg PO BEDTIME PRN #0 tab 09/30/21 Allergies Allergy/AdvReac Type Severity Reaction Status Date / Time No Known Allergies Allergy Verified 10/21/21 17:15 Review of Systems Review of Systems: ROS unable to be obtained due to altered mental status [facility] Past Medical History Source: old records reviewed Medical History Acute alteration in mental status Acute UTI Dementia DVT (deep venous thrombosis) Hemorrhagic stroke HLD (hyperlipidemia) HTN (hypertension) Toxic metabolic encephalopathy Urinary retention Vascular dementia Social History Social History Household Members: Other Housing: Correction Do you presently have visiting nurse or other home services: No Unable to assess alcohol history related to: Unknown Alcohol intake: unknown Patient Tobacco Use Status: Former Tobacco user Second Hand Smoke Exposure: No Advance Directives: Yes Advance Directives on File: Yes Advance Directives Date on File: 09/16/21 service: No Current occupational status: retired Sexual orientation: Straight/Heterosexual Physical Exam Vital Signs: Vital Signs: Last Vital Signs Temp 98.3 F 01/21/22 16:20 Pulse 72 01/21/22 16:20 Resp 12 01/21/22 16:20 BP 115/52 L 01/21/22 16:20 Pulse Ox 96 01/21/22 16:20 BMI result Body Mass Index 21.6 Appearance: Somnolent, confused - says yes or no, mild acute distress. Eyes: Pupils equal, round and reactive to light. ENT: Pharynx dry MM Neck: Normal inspection. Neck supple. CVS: Normal heart rate and rhythm. Pulses normal. Respiratory: No respiratory distress. Breath sounds normal. Abdomen: Soft and non-tender. Does not grimace Back: no grimace to palpation Skin: Skin warm and dry. pale skin color. Normal skin turgor. Extremities: trace pitting edema around ankles. No pain with ROM of bilateral UE and LE no pain with axial loading Neuro: cannot fully participate, pulls away all extremities, will not allow me to open his eyes, answers yes or no, responds to his name Course Course Course Narrative: signed out to Dr. Gao pending full workup MDM - Fall MDM Narrative Medical decision making narrative: 76 yo male from dementia unit with fall sometime today it was not witnessed he is febrile here hx of UTI in the past that responded to ceftriaxone. At this time given falls will need EKG, CT head/cspine for trauma , CXR for trauma / pneumonia. Labs, cultures, lactic acid and UA. Empiric ceftriaxone based off last UTI and illness. Possible admit given falls / fever / UTI. Dispo per results and findings. Lab Data Result diagrams: 01/21/22 15:07 01/21/22 15:07 Labs: Lab Results 01/21/22 01/21/22 01/21/22 Range/Units 15:01 15:07 15:07 WBC 6.6 (4.8-10.8) X10*3/uL RBC 4.23 L (4.60-5.80) X10*6/uL Hgb 12.1 L (14.0-18.0) g/dl Hct 38.8 L (42.0-52.0) % MCV 91.7 (80.0-98.0) fL MCH 28.6 (27.0-33.0) pg MCHC 31.2 (31.0-36.0) g/dl RDW 16.2 H (11.0-16.0) % Plt Count 76 L D (160-400) X10*3/uL MPV 10.1 (9.4-12.4) fL Immature Gran % (Auto) 0.6 H (0.0-0.4) % Neut % (Auto) 73.6 H (45-73) % Lymph % (Auto) 9.9 L (20-40) % [place] % (Auto) 10.4 (2-11) % Eos % (Auto) 5.3 H (0-4) % Baso % (Auto) 0.2 (0-2) % Lymph # (Auto) 0.7 L (1.2-4.9) X10*3/uL [place] # (Auto) 0.7 (0.1-1.2) X10*3/uL Eos # (Auto) 0.4 (0.0-0.4) X10*3/uL Baso # (Auto) 0.0 (0.0-0.2) X10*3/uL Abs Immat Gran (auto) 0.04 H (0.00-0.03) X10*3/uL Absolute Neuts (auto) 4.8 (2.0-8.3) x10*3/uL Absolute Nucleated RBC 0.000 (0.0-0.012) X10*3/uL Nucleated RBC % (auto) 0.0 (0.0-0.2) /100WBC Smear Tech's Comments VERIFIED PT 14.3 H (9.9-13.0) SEC INR 1.3 H (0.9-1.1) Sodium (135-145) mmol/L Potassium (3.3-5.1) mmol/L Chloride (96-108) mmol/L Carbon Dioxide (22-29) mmol/L Anion Gap (12-20) BUN (9-16) mg/dL Creatinine (0.5-1.4) mg/dL Estim Creat Clear Calc Estimated GFR Random Glucose (60-115) mg/dL Lactic Acid (0.5-2.0) mmol/L Calcium (8.4-10.2) mg/dL Magnesium (1.6-2.6) mg/dL Total Bilirubin (0.0-1.0) mg/dL Direct Bilirubin (0.0-0.5) mg/dL AST (5-37) U/L ALT (0-40) U/L Alkaline Phosphatase (39-117) U/L Total Creatine Kinase (38-174) U/L Troponin I High Sens (<3.5-35.0) ng/L Total Protein (6.5-8.0) g/dL Albumin (3.5-5.0) g/dL Lipase (8-78) U/L Urine Color Urine Appearance Urine pH (5.0-8.0) Ur Specific [place] (1.005-1.025) Urine Protein (NEG-TRACE) MG/DL Urine Glucose (UA) (NEG) MG/DL Urine Ketones (NEG) MG/DL Urine Blood (NEG) Urine Nitrite (NEG) Ur Leukocyte Esterase (NEG) COVID-19 (CARLO) Negative (Negative) COVID-19 Clin Com See Note 01/21/22 01/21/22 01/21/22 Range/Units 15:07 15:07 15:07 WBC (4.8-10.8) X10*3/uL RBC (4.60-5.80) X10*6/uL Hgb (14.0-18.0) g/dl Hct (42.0-52.0) % MCV (80.0-98.0) fL MCH (27.0-33.0) pg MCHC (31.0-36.0) g/dl RDW (11.0-16.0) % Plt Count (160-400) X10*3/uL MPV (9.4-12.4) fL Immature Gran % (Auto) (0.0-0.4) % Neut % (Auto) (45-73) % Lymph % (Auto) (20-40) % [place] % (Auto) (2-11) % Eos % (Auto) (0-4) % Baso % (Auto) (0-2) % Lymph # (Auto) (1.2-4.9) X10*3/uL [place] # (Auto) (0.1-1.2) X10*3/uL Eos # (Auto) (0.0-0.4) X10*3/uL Baso # (Auto) (0.0-0.2) X10*3/uL Abs Immat Gran (auto) (0.00-0.03) X10*3/uL Absolute Neuts (auto) (2.0-8.3) x10*3/uL Absolute Nucleated RBC (0.0-0.012) X10*3/uL Nucleated RBC % (auto) (0.0-0.2) /100WBC Smear Tech's Comments PT (9.9-13.0) SEC INR (0.9-1.1) Sodium 151 H (135-145) mmol/L Potassium 3.7 (3.3-5.1) mmol/L Chloride 112 H (96-108) mmol/L Carbon Dioxide 30 H (22-29) mmol/L Anion Gap 13 (12-20) BUN 17 H (9-16) mg/dL Creatinine 1.00 (0.5-1.4) mg/dL Estim Creat Clear Calc 54.7 Estimated GFR > 60 Random Glucose 104 (60-115) mg/dL Lactic Acid 1.0 (0.5-2.0) mmol/L Calcium 9.0 (8.4-10.2) mg/dL Magnesium 2.3 (1.6-2.6) mg/dL Total Bilirubin 1.0 (0.0-1.0) mg/dL Direct Bilirubin 0.5 (0.0-0.5) mg/dL AST 19 (5-37) U/L ALT 25 (0-40) U/L Alkaline Phosphatase 101 D (39-117) U/L Total Creatine Kinase 68 (38-174) U/L Troponin I High Sens 5.2 (<3.5-35.0) ng/L Total Protein 6.8 D (6.5-8.0) g/dL Albumin 3.9 D (3.5-5.0) g/dL Lipase 7 L (8-78) U/L Urine Color Urine Appearance Urine pH (5.0-8.0) Ur Specific [place] (1.005-1.025) Urine Protein (NEG-TRACE) MG/DL Urine Glucose (UA) (NEG) MG/DL Urine Ketones (NEG) MG/DL Urine Blood (NEG) Urine Nitrite (NEG) Ur Leukocyte Esterase (NEG) COVID-19 (CARLO) (Negative) COVID-19 Clin Com 01/21/22 Range/Units 15:15 WBC (4.8-10.8) X10*3/uL RBC (4.60-5.80) X10*6/uL Hgb (14.0-18.0) g/dl Hct (42.0-52.0) % MCV (80.0-98.0) fL MCH (27.0-33.0) pg MCHC (31.0-36.0) g/dl RDW (11.0-16.0) % Plt Count (160-400) X10*3/uL MPV (9.4-12.4) fL Immature Gran % (Auto) (0.0-0.4) % Neut % (Auto) (45-73) % Lymph % (Auto) (20-40) % [place] % (Auto) (2-11) % Eos % (Auto) (0-4) % Baso % (Auto) (0-2) % Lymph # (Auto) (1.2-4.9) X10*3/uL [place] # (Auto) (0.1-1.2) X10*3/uL Eos # (Auto) (0.0-0.4) X10*3/uL Baso # (Auto) (0.0-0.2) X10*3/uL Abs Immat Gran (auto) (0.00-0.03) X10*3/uL Absolute Neuts (auto) (2.0-8.3) x10*3/uL Absolute Nucleated RBC (0.0-0.012) X10*3/uL Nucleated RBC % (auto) (0.0-0.2) /100WBC Smear Tech's Comments PT (9.9-13.0) SEC INR (0.9-1.1) Sodium (135-145) mmol/L Potassium (3.3-5.1) mmol/L Chloride (96-108) mmol/L Carbon Dioxide (22-29) mmol/L Anion Gap (12-20) BUN (9-16) mg/dL Creatinine (0.5-1.4) mg/dL Estim Creat Clear Calc Estimated GFR Random Glucose (60-115) mg/dL Lactic Acid (0.5-2.0) mmol/L Calcium (8.4-10.2) mg/dL Magnesium (1.6-2.6) mg/dL Total Bilirubin (0.0-1.0) mg/dL Direct Bilirubin (0.0-0.5) mg/dL AST (5-37) U/L ALT (0-40) U/L Alkaline Phosphatase (39-117) U/L Total Creatine Kinase (38-174) U/L Troponin I High Sens (<3.5-35.0) ng/L Total Protein (6.5-8.0) g/dL Albumin (3.5-5.0) g/dL Lipase (8-78) U/L Urine Color DK YELLOW Urine Appearance CLEAR Urine pH 6.0 (5.0-8.0) Ur Specific [place] 1.020 (1.005-1.025) Urine Protein TRACE (NEG-TRACE) MG/DL Urine Glucose (UA) NEG (NEG) MG/DL Urine Ketones 5 (NEG) MG/DL Urine Blood NEG (NEG) Urine Nitrite NEG (NEG) Ur Leukocyte Esterase NEG (NEG) COVID-19 (CARLO) (Negative) COVID-19 Clin Com ECG Data Attestation: I personally reviewed and interpreted this ECG as follows: ECG interpretation date: 01/21/22 ECG interpretation time: 15:24 Interpretation: Rate: 96 Rhythm: NSR [place]: normal Normal P waves. Normal ROWAN. Normal QRS complex. ST T wave : artifact noted, no FEDE qTC: normal prior studies: no acute ischemia The study has been interpreted contemporaneously by me. Discharge Plan Discharge Clinical Impression: Acute hypernatremia Fall Qualifiers: Encounter type: initial encounter Qualified Code(s): W19.XXXA - Unspecified fall, initial encounter Fever Qualifiers: Fever type: unspecified Qualified Code(s): R50.9 - Fever, unspecified Patient Disposition: Still a Patient Prescriptions: No Action acetaminophen 325 mg Tablet 650 mg PO Q6H PRN (Reason: Pain (Scale Score 4-6)) 0RF atorvastatin 10 mg Tablet 10 mg PO BEDTIME 0RF loperamide 2 mg Tablet 2 mg PO Q4H PRN (Reason: Diarrhea) 0RF alum-mag hydroxide-simeth 200-200-20 mg/5 mL Suspension 5 ml PO DAILY PRN (Reason: Acid Reflux) 0RF finasteride [Proscar] 5 mg Tablet 5 mg PO DAILY 30 Days Qty: 30 0RF rivastigmine tartrate 1.5 mg Capsule 1.5 mg PO BID Qty: 30 0RF donepezil 10 mg Tablet 10 mg PO DAILY Qty: 30 0RF cyanocobalamin (vitamin B-12) [Vitamin B-12] 1,000 mcg Tablet 1,000 mcg PO DAILY Qty: 30 0RF sertraline 50 mg Tablet 50 mg PO DAILY Qty: 30 0RF risperidone 1 mg Tablet 1 mg PO BEDTIME Qty: 30 0RF Hold Instructions: Resume on 10/02/21. atenolol 50 mg Tablet 50 mg PO DAILY Qty: 30 0RF Protocol: Hold for SBP/HR < HOLD for SBP < : 90 HOLD for HR < : 60 risperidone 0.5 mg Tablet 0.5 mg PO DAILY@1700 Qty: 30 0RF docusate sodium 100 mg Capsule 100 mg PO DAILY 0RF magnesium hydroxide [Milk of Magnesia] 400 mg/5 mL Suspension 5 ml PO BEDTIME PRN (Reason: Constipation) 0RF risperidone 0.25 mg Tablet 0.25 mg PO Q4H PRN (Reason: dementia behavioral disturbanc) 0RF Rx Instructions: ORDERED FOR 14 DAYS, WITH STOP DATE OF 09/27/21 trazodone 50 mg Tablet 12.5 mg PO BEDTIME PRN (Reason: Insomnia) Qty: 0 0RF amoxicillin-pot clavulanate 500-125 mg Tablet 500 mg PO Q12H Qty: 4 0RF doxazosin 4 mg Tablet 8 mg PO BEDTIME Qty: 0 0RF enoxaparin 100 mg/mL Syringe 85 mg subcut Q12H Qty: 10 0RF
[2022-01-21] MEDS: 0.9 % Sodium Chloride 1,000 ML 999 ML IV (15:10)
[2022-01-21 15:14] LABS: Eosinophils Percent Auto 5.3 % (0-4); Hemoglobin 12.1 g/dl (14.0-18.0); Neutrophils Percent Auto 73.6 % (45-73); PLT CLUMP 1; Red Cell Distribution Width 16.2 % (11.0-16.0); SCAN SMEAR FLAG 1
[2022-01-21 15:16] LABS: Basophils Percent Auto 0.2 % (0-2); Eosinophils Absolute Auto 0.4 X10*3/uL (0.0-0.4); Hematocrit 38.8 % (42.0-52.0); Imm Gran Abs Auto 0.04 X10*3/uL (0.00-0.03); Imm Gran Pct Auto 0.6 % (0.0-0.4); Lymphocytes Absolute Auto 0.7 X10*3/uL (1.2-4.9); Lymphocytes Percent Auto 9.9 % (20-40); MANUAL DIFF FLAG SCAN; Mean Corpuscular HGB Conc 31.2 g/dl (31.0-36.0); Mean Corpuscular Hemoglobin 28.6 pg (27.0-33.0); Mean Corpuscular Volume 91.7 fL (80.0-98.0); Mean Platelet Volume 10.1 fL (9.4-12.4); Monocytes Absolute Auto 0.7 X10*3/uL (0.1-1.2); Monocytes Percent Auto 10.4 % (2-11); Neutrophils Absolute Auto 4.8 x10*3/uL (2.0-8.3); Red Blood Count 4.23 X10*6/uL (4.60-5.80)
[2022-01-21] MEDS: cefTRIAXone sodium 1 GM in 0.9 % Sodium Chloride 50 ML IV (15:18)
[2022-01-21] MEDS: Acetaminophen Oral Liquid 650 MG/20.3 ML SOLUTION PO (15:18)
[2022-01-21 15:20] LABS: INTERNATIONAL NORM RATIO 1.3 (0.9-1.1); Prothrombin Time 14.3 SEC (9.9-13.0)
[2022-01-21 15:23] LABS: Appearance Urine CLEAR; Color Urine DK YELLOW; Glucose Urine UA NEG (NEG); Leukocyte Esterase Urine NEG (NEG); Nitrite Urine NEG (NEG); Urine Blood NEG (NEG); Urine Ketones 5 MG/DL (NEG); Urine Protein TRACE MG/DL (NEG-TRACE)
[2022-01-21 15:30] LABS: COVID-19 Test Negative (Negative); IDNOW Serial# 16C4AD1C
[2022-01-21 15:36] LABS: Troponin-I High Sensitivity 5.2 ng/L (<3.5-35.0)
[2022-01-21 15:38] LABS: Platelet Count 76 X10*3/uL (160-400); White Blood Count 6.6 X10*3/uL (4.8-10.8)
[2022-01-21 15:43] LABS: SLIDE REVIEW VERIFIED
[2022-01-21 15:46] LABS: Alanine Aminotransferase 25 U/L (0-40); Albumin Level 3.9 g/dL (3.5-5.0); Alkaline Phosphatase 101 U/L (39-117); Anion Gap 13 (12-20); Aspartate Amino Transferase 19 U/L (5-37); Bilirubin Direct 0.5 mg/dL (0.0-0.5); Blood Urea Nitrogen 17 mg/dL (9-16); Carbon Dioxide 30 mmol/L (22-29); Chloride 112 mmol/L (96-108); Creatinine Clr Calc Pharmacy 54.7; Estimated Glomerular Filt Rate > 60; Glucose Random 104 mg/dL (60-115); Lipase 7 U/L (8-78); Magnesium 2.3 mg/dL (1.6-2.6); Potassium 3.7 mmol/L (3.3-5.1); Sodium 151 mmol/L (135-145); Total Protein 6.8 g/dL (6.5-8.0)
[2022-01-21 16:20] VITALS: BP 115/52; PULSE 72; RESP 12; TEMP 36.8; O2SAT 96
--- NOTE | 2022-01-21 16:40 | PHA.MEDREC ---
Pharmacy Consult ? Medication Reconciliation Pharmacy has completed the medication reconciliation. per [place] mar list, though there weren't any documentations of meds given throughout the month.
[2022-01-21 16:57] LABS: Influenza A Negative (Negative); Influenza B2 Negative (Negative)
[2022-01-21 17:45] VITALS: BP 126/69; PULSE 87; RESP 16; TEMP 36.9; O2SAT 98
[2022-01-21 17:56] VITALS: BP 126/69; PULSE 66; RESP 12; TEMP 36.5; O2SAT 97
[2022-01-21 18:01] VITALS: TEMP 36.5
[2022-01-21 20:02] LABS: Influenza A PCR NEGATIVE (Negative); Influenza B PCR NEGATIVE (Negative); Resp Syncy Virus RNA Qual PCR NEGATIVE (Negative); SARS COV2 PCR INHOUSE NEGATIVE (Negative)
[2022-01-21 20:51] VITALS: BP 119/62; PULSE 75; RESP 14; O2SAT 96
[2022-01-21] MEDS: Heparin Sodium,Porcine 5,000 UNIT/ML VIAL 5000 UNIT SUBCUT (21:09)
[2022-01-21] MEDS: Doxazosin Mesylate 2 MG TABLET 8 MG PO (21:26)
[2022-01-21] MEDS: Mirtazapine 15 MG TABLET PO (21:27)
[2022-01-21] MEDS: Atorvastatin Calcium 10 MG TABLET PO (21:27)
[2022-01-21] MEDS: Finasteride 5 MG TABLET PO (21:27)
[2022-01-21] MEDS: Rivastigmine Tartrate 1.5 MG CAPSULE PO (22:23)
--- NOTE | 2022-01-21 22:36 | P.HPHOSP_ITS ---
History of Present Illness Date of Service: 01/21/22 Chief Complaint: fall 76-year-old male with a past medical history of hyperlipidemia, BPH, dementia, psychosis, resides in assisted living presented to the hospital with a chief complaint of fall. Most of the history obtained from records. Also spoke to the patient's . Reportedly patient was doing fine yesterday when she saw her; today she received a call saying that patient had a fall in the afternoon, found on the floor, unwitnessed; denies any loss of consciousness. Mentioned that she probably had a head strike. Later he was noted to be unsteady. Subsequently brought into the hospital for further evaluation. Denies patient having any fever chills cough. Denies patient complaining of any pain. Reports patient is usually alert and awake, fairly ambulatory. Denies any nausea vomiting or diarrhea. Review of all other systems is negative except mentioned above ER course: Per ER team patient noted to have grossly nonfocal examination; CT head and CT cervical spine no showed no acute findings; EKG nonischemic; troponin 5.9; UA and chest x-ray negative for infection. On labs noted to have hypernatremia. Likely contributing to his encephalopathy. Admitted to the hospital for further management PMFSH Medical History Acute alteration in mental status Acute UTI Dementia DVT (deep venous thrombosis) Hemorrhagic stroke HLD (hyperlipidemia) HTN (hypertension) Toxic metabolic encephalopathy Urinary retention Vascular dementia Pertinent family history: pt unable provide information Social History Household Members: Other Housing: Shelter Do you presently have visiting nurse or other home services: No Unable to assess alcohol history related to: Unknown Alcohol intake: unknown Patient Tobacco Use Status: Former Tobacco user Second Hand Smoke Exposure: No Advance Directives: Yes Advance Directives on File: Yes Advance Directives Date on File: 09/16/21 service: No Current occupational status: retired Sexual orientation: Straight/Heterosexual Meds Allergies Allergy/AdvReac Type Severity Reaction Status Date / Time No Known Allergies Allergy Verified 10/21/21 17:15 Active Medications: Current Medications Acetaminophen (Acetaminophen 325 Mg Tablet) 650 mg PO Q6H PRN PRN Reason: Fever Or Pain Atorvastatin Calcium (Atorvastatin Calcium 10 Mg Tablet) 10 mg PO BEDTIME [facility] Last Admin: 01/21/22 21:27 Dose: 10 mg Documented by: Cyanocobalamin (Cyanocobalamin (Vitamin B-12) 1,000 Mcg Tablet) 1,000 mcg PO DAILY [facility] Docusate Sodium (Docusate Sodium 100 Mg/10 Ml Liquid) 100 mg PO DAILY [facility] Doxazosin Mesylate (Doxazosin Mesylate 2 Mg Tablet) 8 mg PO BEDTIME [facility]; Protocol Last Admin: 01/21/22 21:26 Dose: 8 mg Documented by: Finasteride (Finasteride 5 Mg Tablet) 5 mg PO BEDTIME [facility] Last Admin: 01/21/22 21:27 Dose: 5 mg Documented by: Heparin Sodium (Porcine) (Heparin Sodium,Porcine 5,000 Unit/Ml Vial) 5,000 unit SUBCUT Q8H [facility] Last Admin: 01/21/22 21:09 Dose: 5,000 unit Documented by: Dextrose (D5w) 1,000 mls @ 50 mls/hr IVCONT .Q20H [facility] Lamotrigine (Lamotrigine 25 Mg Tablet) 50 mg PO DAILY [facility] Melatonin (Melatonin 3 Mg Tablet) 6 mg PO BEDTIME PRN PRN Reason: Insomnia Mirtazapine (Mirtazapine 15 Mg Tablet) 15 mg PO BEDTIME [facility] Last Admin: 01/21/22:27 Dose: 15 mg Documented by: Pharmacy Consult (Consult Rx Perform Med Rec) 1 each MISCELLANE ONCE PRN PRN Reason: Consult order Risperidone (Risperidone 0.25 Mg Tablet) 0.25 mg PO BID PRN PRN Reason: dementia behavioral disturbanc Risperidone (Risperidone 0.25 Mg Tablet) 0.75 mg PO DAILY@1700 [facility] Rivastigmine Tartrate (Rivastigmine Tartrate 1.5 Mg Capsule) 1.5 mg PO BID [facility] Last Admin: 01/21/22 22:23 Dose: 1.5 mg Documented by: Senna (Sennosides 8.6 Mg Tablet) 17.2 mg PO BEDTIME PRN PRN Reason: Constipation Sertraline HCl (Sertraline Hcl 50 Mg Tablet) 50 mg PO DAILY [facility] Sodium Chloride (0.9 % Sodium Chloride Flush 3 Ml Syringe) 3 ml IVFLUSH QSHIFT [facility] Temazepam (Temazepam 15 Mg Capsule) 15 mg PO BEDTIME PRN PRN Reason: Insomnia Home Medications Medication Instructions Recorded Confirmed Last Taken Type acetaminophen 325 mg tablet 650 mg PO Q6H PRN Fever Or Pain 09/02/21 01/21/22 09/02/21 History atorvastatin 10 mg tablet 10 mg PO BEDTIME 09/02/21 01/21/22 09/01/21 History risperidone 0.25 mg tablet 0.25 mg PO BID PRN dementia 09/24/21 01/21/22 Unknown History behavioral disturbanc docusate sodium 50 mg/5 mL oral 10 ml PO DAILY 01/21/22 01/21/22 Unknown History liquid finasteride 5 mg tablet (Proscar) 5 mg PO BEDTIME 01/21/22 01/21/22 Unknown History melatonin 10 mg tablet 10 mg PO BEDTIME 01/21/22 01/21/22 Unknown History mirtazapine 15 mg tablet 1 tab PO BEDTIME 01/21/22 01/21/22 Unknown History risperidone 0.5 mg tablet 0.75 mg PO DAILY@1700 01/21/22 01/21/22 Unknown History Physical Exam Vital Signs and Narrative: Vital Signs: Last Vital Signs Temp 97.7 F 01/21/22 18:01 Pulse 75 01/21/22 20:51 Resp 14 01/21/22 20:51 BP 119/62 01/21/22 20:51 Pulse Ox 96 01/21/22 20:51 BMI result Body Mass Index 21.6 Gen: Appears be in no acute distress HEENT: NCAT, Moist mucosa. Pulmonary: Vesicular breath sounds, fair air entry CVS: Normal S1-S2 Abdomen: BS+, Soft, Nontender Extremities: Warm well perfused Neuro: Alert and awake. Moves all extremities equally Results Labs CBC and Chem 7: 01/23/22 10:50 01/23/22 10:50 Labs: Laboratory Results - last 24 hr 01/21/22 01/21/22 01/21/22 15:01 15:07 15:07 MCV 91.7 MCH 28.6 MCHC 31.2 RDW 16.2 H Plt Count 76 L D MPV 10.1 Immature Gran % (Auto) 0.6 H Neut % (Auto) 73.6 H Lymph % (Auto) 9.9 L [place] % (Auto) 10.4 Eos % (Auto) 5.3 H Baso % (Auto) 0.2 Lymph # (Auto) 0.7 L [place] # (Auto) 0.7 Eos # (Auto) 0.4 Baso # (Auto) 0.0 Abs Immat Gran (auto) 0.04 H Absolute Neuts (auto) 4.8 Absolute Nucleated RBC 0.000 Nucleated RBC % (auto) 0.0 Smear Tech's Comments VERIFIED PT 14.3 H INR 1.3 H Anion Gap Estim Creat Clear Calc Estimated GFR Random Glucose Lactic Acid Calcium Magnesium Total Bilirubin Direct Bilirubin AST ALT Alkaline Phosphatase Total Creatine Kinase Troponin I High Sens Total Protein Albumin Lipase Urine Color Urine Appearance Urine pH Ur Specific [place] Urine Protein Urine Glucose (UA) Urine Ketones Urine Blood Urine Nitrite Ur Leukocyte Esterase COVID-19 (CARLO) Negative COVID-19 Clin Com See Note Influenza Type A (NARGIS) Influenza Type A (PCR) Influenza Type B (NARGIS) Influenza Type B (PCR) Influenza A & B Note RSV RNA Qual (PCR) SARS-CoV-2 RNA (RT-PCR) 01/21/22 01/21/22 01/21/22 15:07 15:07 15:07 MCV MCH MCHC RDW Plt Count MPV Immature Gran % (Auto) Neut % (Auto) Lymph % (Auto) [place] % (Auto) Eos % (Auto) Baso % (Auto) Lymph # (Auto) [place] # (Auto) Eos # (Auto) Baso # (Auto) Abs Immat Gran (auto) Absolute Neuts (auto) Absolute Nucleated RBC Nucleated RBC % (auto) Smear Tech's Comments PT INR Anion Gap 13 Estim Creat Clear Calc 54.7 Estimated GFR > 60 Random Glucose 104 Lactic Acid 1.0 Calcium 9.0 Magnesium 2.3 Total Bilirubin 1.0 Direct Bilirubin 0.5 AST 19 ALT 25 Alkaline Phosphatase 101 D Total Creatine Kinase 68 Troponin I High Sens 5.2 Total Protein 6.8 D Albumin 3.9 D Lipase 7 L Urine Color Urine Appearance Urine pH Ur Specific [place] Urine Protein Urine Glucose (UA) Urine Ketones Urine Blood Urine Nitrite Ur Leukocyte Esterase COVID-19 (CARLO) COVID-19 Clin Com Influenza Type A (NARGIS) Influenza Type A (PCR) Influenza Type B (NARGIS) Influenza Type B (PCR) Influenza A & B Note RSV RNA Qual (PCR) SARS-CoV-2 RNA (RT-PCR) 01/21/22 01/21/22 01/21/22 15:15 16:32 19:15 MCV MCH MCHC RDW Plt Count MPV Immature Gran % (Auto) Neut % (Auto) Lymph % (Auto) [place] % (Auto) Eos % (Auto) Baso % (Auto) Lymph # (Auto) [place] # (Auto) Eos # (Auto) Baso # (Auto) Abs Immat Gran (auto) Absolute Neuts (auto) Absolute Nucleated RBC Nucleated RBC % (auto) Smear Tech's Comments PT INR Anion Gap Estim Creat Clear Calc Estimated GFR Random Glucose Lactic Acid Calcium Magnesium Total Bilirubin Direct Bilirubin AST ALT Alkaline Phosphatase Total Creatine Kinase Troponin I High Sens Total Protein Albumin Lipase Urine Color DK YELLOW Urine Appearance CLEAR Urine pH 6.0 Ur Specific [place] 1.020 Urine Protein TRACE Urine Glucose (UA) NEG Urine Ketones 5 Urine Blood NEG Urine Nitrite NEG Ur Leukocyte Esterase NEG COVID-19 (CARLO) COVID-19 Clin Com Influenza Type A (NARGIS) Negative Influenza Type A (PCR) NEGATIVE Influenza Type B (NARGIS) Negative Influenza Type B (PCR) NEGATIVE Influenza A & B Note See Note RSV RNA Qual (PCR) NEGATIVE SARS-CoV-2 RNA (RT-PCR) NEGATIVE Imaging Radiologist's Impressions: Impressions Chest X-Ray 01/21/22 15:45 IMPRESSION: Unremarkable examination. Cervical Spine CT 01/21/22 16:06 IMPRESSION: Degenerative changes. No fracture or dislocation seen. Fleischner guidelines were followed. Head CT 01/21/22 16:06 IMPRESSION: No acute findings. Generalized atrophy, periventricular white matter disease and old left temporal lobe infarct or encephalomalacia similar to August 2021 exams. Assessment and Plan (1) Fall: Qualifiers: Encounter type: initial encounter Qualified Code(s): W19.XXXA - Unspecified fall, initial encounter Status: Resolved (2) Fever: Qualifiers: Fever type: unspecified Qualified Code(s): R50.9 - Fever, unspecified Status: Resolved (3) Acute hypernatremia: Status: Resolved Plan 76-year-old male with a past medical history of severe dementia, hyperlipidemia, BPH, resides in assisted living presented to the hospital with a chief complaint of unwitnessed fall Altered mental status: Patient has baseline dementia. More confused than his baseline as per the patient's . Metabolic encephalopathy. UA negative. Chest x-ray negative for infection. Fever: No obvious source of infection. Patient empirically received ceftriaxone. Follow up cultures. Follow fever curve. Unwitnessed fall: CT head and CT cervical spine showed no acute findings. Fall precautions. PT/OT. EKG nonischemic. Troponin negative. Hypernatremia: Likely in setting of dehydration. Will give the patient on D5 water. Nephrology consult. History of hyperlipidemia: Continue home statin History of severe dementia: Continue home rivastigmine, risperidone, mirtazapine, lamotrigine, sertraline History of BPH: Continue home finasteride DVT prophylaxis: Subcu heparin Code status: DNR/DNI. Confirmed with the patient's Quality Stroke Does the patient have a stroke diagnosis?: No VTE Prior VTE?: No VTE Risk Level:: Medical - moderate - high VTE Device Contraindication: Treatment Not Indicated VTE Drug Contraindication: N/A - Med Ordered
[2022-01-22] VITALS (9 sets, daily range): BP systolic 100–125; BP diastolic 52–82; PULSE 68–98; RESP 11–16; TEMP 37.1–38.3; O2SAT 95–97
[2022-01-22] MEDS: Dextrose 5 % 1,000 ML 50 ML IVCONT ×2 (00:09→23:59)
[2022-01-22] MEDS: Heparin Sodium,Porcine 5,000 UNIT/ML VIAL 5000 UNIT SUBCUT ×3 (05:44→21:23)
[2022-01-22 08:10] LABS: Anion Gap 11 (12-20); Blood Urea Nitrogen 10 mg/dL (9-16); Calcium 8.2 mg/dL (8.4-10.2); Carbon Dioxide 26 mmol/L (22-29); Chloride 112 mmol/L (96-108); Creatinine Clr Calc Pharmacy 76.1; Estimated Glomerular Filt Rate > 60; Glucose Random 112 mg/dL (60-115); Sodium 145 mmol/L (135-145)
[2022-01-22] MEDS: lamoTRIgine 25 MG TABLET 50 MG PO (09:07)
[2022-01-22] MEDS: Cyanocobalamin (Vitamin B-12) 1,000 MCG TABLET 1000 MCG PO (09:07)
[2022-01-22] MEDS: Docusate Sodium 100 MG/10 ML LIQUID PO (09:07)
[2022-01-22] MEDS: Sertraline HCL 50 MG TABLET PO (09:07)
[2022-01-22] MEDS: Rivastigmine Tartrate 1.5 MG CAPSULE PO (09:08)
[2022-01-22] MEDS: 0.9 % Sodium Chloride Flush 3 ML SYRINGE IVFLUSH (09:08)
[2022-01-22 09:36] LABS: Basophils Percent Auto 0.1 % (0-2); Eosinophils Absolute Auto 0.4 X10*3/uL (0.0-0.4); Eosinophils Percent Auto 5.4 % (0-4); Hematocrit 38.2 % (42.0-52.0); Hemoglobin 11.9 g/dl (14.0-18.0); Imm Gran Abs Auto 0.04 X10*3/uL (0.00-0.03); Imm Gran Pct Auto 0.5 % (0.0-0.4); Lymphocytes Absolute Auto 0.8 X10*3/uL (1.2-4.9); Lymphocytes Percent Auto 10.7 % (20-40); Mean Corpuscular HGB Conc 31.2 g/dl (31.0-36.0); Mean Corpuscular Hemoglobin 28.5 pg (27.0-33.0); Mean Corpuscular Volume 91.6 fL (80.0-98.0); Mean Platelet Volume 9.6 fL (9.4-12.4); Monocytes Absolute Auto 0.6 X10*3/uL (0.1-1.2); Neutrophils Absolute Auto 5.9 x10*3/uL (2.0-8.3); Neutrophils Percent Auto 75.3 % (45-73); Red Blood Count 4.17 X10*6/uL (4.60-5.80); Red Cell Distribution Width 16.4 % (11.0-16.0); White Blood Count 7.8 X10*3/uL (4.8-10.8)
[2022-01-22 09:37] LABS: Platelet Count 67 X10*3/uL (160-400)
--- NOTE | 2022-01-22 09:41 | MHC.CM.PN ---
Addendum entered by Barbara Franco 01/22/22 09:57: TASK SENT TO [facility] [place] REG TO UPDATE PTS ADDRESS AND PCP INFORMATION Original Note: CM CALLED PTS /HCP, AGNES ([phone]) WHO REPORTED THE PT [facility] [place] S[facility] LAST SEPTEMBER SHE REPORTS DUE TO HIS ADVANCED DEMENTIA SHE WAS UNABLE TO CARE FOR HIM AT HOME. SHE REPORTS HE WAS AT [facility] ON THEIR [place] UNIT FOR ABOUT THREE WEEKS PRIOR TO M[facility]ING [facility] HOWEVER SHE REPORTED THAT WAS A VERY BAD EXPERIENCE. SHE SAYS THE CURRENT LIVING ENVIRONMENT IS GREAT AND SHE PLANS TO KEEP HIM THERE LONG SHE CAN AGNES REPORTS THE PTS PCP IS AGATA HUBBARD PT HAS A HCP, GIOVANNI, LIVING WILL, AND POA ON FILE. PTS HCP IS INVOKED AGNES REPORTS THE PT DID RECEIVE THE COVID-19 VACCINES AND BOOSTER IMM DELIVERED, COPY SENT TO [facility] CURRENT DC PLAN IS [facility]
--- NOTE | 2022-01-22 10:54 | PM.NEUROCN ---
History of Present Illness Data of Consult Service Date: 01/22/22 Primary Care Provider: Unknown Physician HPI Reason for consult: Encephalopathy 76 years old man with a diagnosis of severe dementia for many years. Exact details were unclear, but reviewing his previous images including CT scan of brain and MRI of brain it looked like that he had a left temporal insult probably from encephalitis or a bleed. This resulted in dementia and aphasia, though his aphasia was global and could not be completely explained based upon this lesion. He was residing in a [facility] and I saw him in emergency room where he was brought for change in mental status and falling and his was on his bedside. no cold or flu-like illness or seizures were noted. Review of Systems Review of Systems: Could not be done with him PMFSH Past Medical History Medical History Acute alteration in mental status Acute UTI Dementia DVT (deep venous thrombosis) Hemorrhagic stroke HLD (hyperlipidemia) HTN (hypertension) Toxic metabolic encephalopathy Urinary retention Vascular dementia Social History Social History Household Members: Other Housing: [facility] Do you presently have visiting nurse or other home services: No Unable to assess alcohol history related to: Unknown Alcohol intake: unknown Patient Tobacco Use Status: Former Tobacco user Second Hand Smoke Exposure: No Advance Directives: Yes Advance Directives on File: Yes Advance Directives Date on File: 09/16/21 service: No Current occupational status: retired Sexual orientation: Straight/Heterosexual Meds Allergies Allergy/AdvReac Type Severity Reaction Status Date / Time No Known Allergies Allergy Verified 10/21/21 17:15 Active Medications: Current Medications Acetaminophen (Acetaminophen 325 Mg Tablet) 650 mg PO Q6H PRN PRN Reason: Fever Or Pain Atorvastatin Calcium (Atorvastatin Calcium 10 Mg Tablet) 10 mg PO BEDTIME [facility] Last Admin: 01/21/22 21:27 Dose: 10 mg Documented by: Cyanocobalamin (Cyanocobalamin (Vitamin B-12) 1,000 Mcg Tablet) 1,000 mcg PO DAILY [facility] Last Admin: 01/22/22 09:07 Dose: 1,000 mcg Documented by: Docusate Sodium (Docusate Sodium 100 Mg/10 Ml Liquid) 100 mg PO DAILY [facility] Last Admin: 01/22/22 09:07 Dose: 100 mg Documented by: Doxazosin Mesylate (Doxazosin Mesylate 2 Mg Tablet) 8 mg PO BEDTIME [facility]; Protocol Last Admin: 01/21/22 21:26 Dose: 8 mg Documented by: Finasteride (Finasteride 5 Mg Tablet) 5 mg PO BEDTIME [facility] Last Admin: 01/21/22 21:27 Dose: 5 mg Documented by: Heparin Sodium (Porcine) (Heparin Sodium,Porcine 5,000 Unit/Ml Vial) 5,000 unit SUBCUT Q8H [facility] Last Admin: 01/22/22 05:44 Dose: 5,000 unit Documented by: Dextrose (D5w) 1,000 mls @ 50 mls/hr IVCONT .Q20H [facility] Last Admin: 01/22/22 00:09 Dose: 50 mls/hr Documented by: Lamotrigine (Lamotrigine 25 Mg Tablet) 50 mg PO DAILY [facility] Last Admin: 01/22/22 09:07 Dose: 50 mg Documented by: Melatonin (Melatonin 3 Mg Tablet) 6 mg PO BEDTIME PRN PRN Reason: Insomnia Mirtazapine (Mirtazapine 15 Mg Tablet) 15 mg PO BEDTIME [facility] Last Admin: 01/21/22 21:27 Dose: 15 mg Documented by: Pharmacy Consult (Consult Rx Perform Med Rec) 1 each MISCELLANE ONCE PRN PRN Reason: Consult order Risperidone (Risperidone 0.25 Mg Tablet) 0.25 mg PO BID PRN PRN Reason: dementia behavioral disturbanc Risperidone (Risperidone 0.25 Mg Tablet) 0.75 mg PO DAILY@1700 MEDARDO Rivastigmine Tartrate (Rivastigmine Tartrate 1.5 Mg Capsule) 1.5 mg PO BID [facility] Last Admin: 01/22/22 09:08 Dose: 1.5 mg Documented by: Senna (Sennosides 8.6 Mg Tablet) 17.2 mg PO BEDTIME PRN PRN Reason: Constipation Sertraline HCl (Sertraline Hcl 50 Mg Tablet) 50 mg PO DAILY [facility] Last Admin: 01/22/22 09:07 Dose: 50 mg Documented by: Sodium Chloride (0.9 % Sodium Chloride Flush 3 Ml Syringe) 3 ml IVFLUSH QSHIFT [facility] Last Admin: 01/22/22 09:08 Dose: 3 ml Documented by: Temazepam (Temazepam 15 Mg Capsule) 15 mg PO BEDTIME PRN PRN Reason: Insomnia Home Medications Medication Instructions Recorded Confirmed Last Taken Type acetaminophen 325 mg tablet 650 mg PO Q6H PRN 09/02/21 01/21/22 09/02/21 History atorvastatin 10 mg tablet 10 mg PO BEDTIME 09/02/21 01/21/22 09/01/21 History risperidone 0.25 mg tablet 0.25 mg PO BID PRN 09/24/21 01/21/22 Unknown History docusate sodium 50 mg/5 mL oral 10 ml PO DAILY 01/21/22 01/21/22 Unknown History liquid finasteride 5 mg tablet (Proscar) 5 mg PO BEDTIME 01/21/22 01/21/22 Unknown History lamotrigine 25 mg tablet 50 mg PO DAILY 01/21/22 01/21/22 Unknown History melatonin 10 mg tablet 10 mg PO BEDTIME 01/21/22 01/21/22 Unknown History mirtazapine 15 mg tablet 1 tab PO BEDTIME 01/21/22 01/21/22 Unknown History risperidone 0.5 mg tablet 0.75 mg PO DAILY@1700 01/21/22 01/21/22 Unknown History Physical Exam Vital Signs: Vital Signs: Last Vital Signs Temp 100.3 F 01/22/22 00:09 Pulse 74 01/22/22 08:20 Resp 13 01/22/22 08:20 BP 103/82 01/22/22 08:20 Pulse Ox 95 01/22/22 08:20 BMI result Body Mass Index 21.6 Neuro: Other: no word output and he did not follow any commands. He was keeping his eyes for simply closed. Face seems symmetrical. He was moving his extremities. Examination was limited. Plantars were flat. Results Labs CBC & Chem 7: 01/22/22 09:22 01/22/22 07:21 Labs: Short CBC 01/21/22 01/22/22 Range/Units 15:07 09:22 WBC 6.6 7.8 (4.8-10.8) X10*3/uL Hgb 12.1 L 11.9 L (14.0-18.0) g/dl Hct 38.8 L 38.2 L (42.0-52.0) % Plt Count 76 L D 67 L (160-400) X10*3/uL BMP 01/21/22 01/22/22 15:07 07:21 Sodium 151 H 145 Potassium 3.7 4.0 Chloride 112 H 112 H Carbon Dioxide 30 H 26 BUN 17 H 10 Creatinine 1.00 0.72 Calcium 9.0 8.2 L D Cardiac Enzymes 01/21/22 Range/Units 15:07 Total Creatine Kinase 68 (38-174) U/L Liver Function 01/21/22 Range/Units 15:07 Total Bilirubin 1.0 (0.0-1.0) mg/dL Direct Bilirubin 0.5 (0.0-0.5) mg/dL AST 19 (5-37) U/L ALT 25 (0-40) U/L Alkaline Phosphatase 101 D (39-117) U/L Albumin 3.9 D (3.5-5.0) g/dL Urine 01/21/22 Range/Units 15:15 Urine Color DK YELLOW Urine Appearance CLEAR Urine pH 6.0 (5.0-8.0) Ur Specific [place] 1.020 (1.005-1.025) Urine Protein TRACE (NEG-TRACE) MG/DL Urine Glucose (UA) NEG (NEG) MG/DL Noncontrast head CT revealed previously seen left temporal encephalomalacia cerebral atrophy and microvascular ischemic changes. Assessment and Plan (1) Toxic metabolic encephalopathy: Status: Acute metabolic toxic encephalopathy from hypernatremia likely from dehydration in this man who has underlying global aphasia. His previous imaging has revealed left temporal lesion, probably either from viral encephalitis he might have suffered from or intracerebral hemorrhage. Because of global nature of aphasia, I prefer encephalitis over stroke. In any case, he was resident of a [facility] because of his cognitive difficulties. His recent admission was likely due to hypernatremia and associated mental and physical changes. Mainstay of management is dehydration and transfer back to mcc as soon as possible to avoid any further complications. Procedures Date of Service Date of Service: 01/22/22
--- NOTE | 2022-01-22 15:35 | P.DS_ITS ---
DS: Providers Provider Date of Service: 01/22/22 <Sandrita Meyers NP - Last Filed: 01/22/22 15:50> Date of admission: 01/21/22 19:27 <Sandrita Meyers NP - Last Filed: 01/22/22 15:50> Primary care physician: Unknown Physician <Sandrita Meyers NP - Last Filed: 01/22/22 15:50> Consults: 01/21/22 19:27 Consult to Nephrology Routine Consulting Provider: Jv David Reason for consultation: Hypernatremia Consult to Neurology Routine Consulting Provider: [facility] [place] [facility] Reason for consultation: Unsteady gait <Sandrita Meyers NP - Last Filed: 01/22/22 15:50> Attending physician on discharge: Balta Lutz <Sandrita Meyers NP - Last Filed: 01/22/22 15:50> Discharging clinician: Sandrita Meyers <Sandrita Meyers NP - Last Filed: 01/22/22 15:50> DS: Diagnosis Discharge Diagnosis (1) Toxic metabolic encephalopathy: Status: Acute <Sandrita Meyers NP - Last Filed: 01/22/22 15:50> DS: Summary Hospital Course Hospital Course: HP as per admitting provider 76-year-old male with a past medical history of hyperlipidemia, BPH, dementia, psychosis, resides in assisted living presented to the hospital with a chief complaint of fall. Most of the history obtained from records.? Also spoke to the patient's .?Reportedly patient was doing fine yesterday when she saw her; today she received a call saying that patient had a fall in the afternoon, found on the floor, unwitnessed; denies any loss of consciousness.? Mentioned that she probably had a head strike.?Later he was noted to be unsteady.? Subsequently brought into the hospital for further evaluation.? Denies patient having any fever chills cough.? Denies patient complaining of any pain.?Reports patient is usually alert and awake, fairly ambulatory.?Denies any nausea vomiting or diarrhea.?Review of all other systems is negative except mentioned above ER course: Per ER team patient noted to have grossly nonfocal examination; CT head and CT cervical spine no showed no acute findings; EKG nonischemic; troponin 5.9; UA and chest x-ray negative for infection.? On labs noted to have hypernatremia.? Likely contributing to his encephalopathy.? Admitted to the hospital for further management Acute metabolic encephalopathy. Patient has baseline dementia or sleep. His reported that he was started on Lamictal approximately 1 week ago for behavioral issues and this is likely the cause of his encephalopathy. His Lamictal should be held and his psychiatric provider should re-evaluate dosing or medication altogether.? More confused than his baseline as per the patient's .? UA negative.? Chest x-ray negative for infection. no other signs of infection low-grade fever. Again no other signs of infection. Blood cultures are pending. Unwitnessed fall. CT head and CT cervical spine showed no acute findings.? Fall precautions.? PT/OT rec walking with staff in [place] and he may do that at [facility].? EKG nonischemic.? Troponin negative. Hyponatremia. Likely in setting of dehydration.? Will give the patient on D5 water.? Nephrology consult. History of hyperlipidemia. Continue home statin History of severe dementia. Continue home rivastigmine, risperidone, mirtazapine, sertraline , stop lamotrigine and re-evaluate does. History of BPH. Continue home finasteride Attending Attestation: Case d/w Brenda Meyers. Patient presented with unwitnessed fall. No fractures/dislocations on imaging. Had an isolated temp of 100.3 without any known infectious etiology. Patient's felt that given his advanced dementia, he would do better in his baseline SNF setting and requested discharge. We agr eed and will d/c back to SNF. Will follow up culture data, but at this time, no antibiotics are needed. <Sandrita Meyers NP - Last Filed: 01/22/22 15:50> Time Spent with Patient Time attestation: Total time spent providing and/or coordinating discharge services: <Sandrita Meyers NP - Last Filed: 01/22/22 15:50> Discharge coordination time: Greater than 30 minutes <Sandrita Meyers NP - Last Filed: 01/22/22 15:50> Quality: Stroke Does the patient have a stroke diagnosis?: No <Sandrita Meyers NP - Last Filed: 01/22/22 15:50> Physical Exam Vital Signs: Vital Signs: Last Vital Signs Temp 98.7 F 01/22/22 15:08 Pulse 83 01/22/22 15:08 Resp 13 01/22/22 15:08 BP 113/52 L 01/22/22 15:08 Pulse Ox 97 01/22/22 15:08 BMI result Body Mass Index 21.6 <Sandrita Meyers NP - Last Filed: 01/22/22 15:50> Appearing in no acute distress, sleeping head is normocephalic atraumatic eyes pupils are PERRLA sclera is anicteric mouth throat mucous membranes are intact and moist neck is supple no lymphadenopathy, no JVD noted lung sounds are clear to auscultation heart regular rate rhythm, clear S1, S2 positive bowel sounds, abdomen is soft, nontender neuro patient is alert, confused, demented <Sandrita Meyers NP - Last Filed: 01/22/22 15:50> DS: Data Data Completed and Pending Labs on day of discharge: Laboratory Results - last 24 hr 01/21/22 01/21/22 01/21/22 15:07 15:07 15:07 WBC 6.6 RBC 4.23 L Hgb 12.1 L Hct 38.8 L MCV 91.7 MCH 28.6 MCHC 31.2 RDW 16.2 H Plt Count 76 L D MPV 10.1 Immature Gran % (Auto) 0.6 H Neut % (Auto) 73.6 H Lymph % (Auto) 9.9 L [place] % (Auto) 10.4 Eos % (Auto) 5.3 H Baso % (Auto) 0.2 Lymph # (Auto) 0.7 L [place] # (Auto) 0.7 Eos # (Auto) 0.4 Baso # (Auto) 0.0 Abs Immat Gran (auto) 0.04 H Absolute Neuts (auto) 4.8 Absolute Nucleated RBC 0.000 Nucleated RBC % (auto) 0.0 Smear Tech's Comments VERIFIED Sodium 151 H Potassium 3.7 Chloride 112 H Carbon Dioxide 30 H Anion Gap 13 BUN 17 H Creatinine 1.00 Estim Creat Clear Calc 54.7 Estimated GFR > 60 Random Glucose 104 Calcium 9.0 Magnesium 2.3 Total Bilirubin 1.0 Direct Bilirubin 0.5 AST 19 ALT 25 Alkaline Phosphatase 101 D Total Creatine Kinase 68 Troponin I High Sens 5.2 Total Protein 6.8 D Albumin 3.9 D Lipase 7 L Influenza Type A (NARGIS) Influenza Type A (PCR) Influenza Type B (NARGIS) Influenza Type B (PCR) Influenza A & B Note RSV RNA Qual (PCR) SARS-CoV-2 RNA (RT-PCR) 01/21/22 01/21/22 01/22/22 16:32 19:15 07:21 WBC RBC Hgb Hct MCV MCH MCHC RDW Plt Count MPV Immature Gran % (Auto) Neut % (Auto) Lymph % (Auto) [place] % (Auto) Eos % (Auto) Baso % (Auto) Lymph # (Auto) [place] # (Auto) Eos # (Auto) Baso # (Auto) Abs Immat Gran (auto) Absolute Neuts (auto) Absolute Nucleated RBC Nucleated RBC % (auto) Smear Tech's Comments Sodium 145 Potassium 4.0 Chloride 112 H Carbon Dioxide 26 Anion Gap 11 L BUN 10 Creatinine 0.72 Estim Creat Clear Calc 76.1 Estimated GFR > 60 Random Glucose 112 Calcium 8.2 L D Magnesium Total Bilirubin Direct Bilirubin AST ALT Alkaline Phosphatase Total Creatine Kinase Troponin I High Sens Total Protein Albumin Lipase Influenza Type A (NARGIS) Negative Influenza Type A (PCR) NEGATIVE Influenza Type B (NARGIS) Negative Influenza Type B (PCR) NEGATIVE Influenza A & B Note See Note RSV RNA Qual (PCR) NEGATIVE SARS-CoV-2 RNA (RT-PCR) NEGATIVE 01/22/22 09:22 WBC 7.8 RBC 4.17 L Hgb 11.9 L Hct 38.2 L MCV 91.6 MCH 28.5 MCHC 31.2 RDW 16.4 H Plt Count 67 L MPV 9.6 Immature Gran % (Auto) 0.5 H Neut % (Auto) 75.3 H Lymph % (Auto) 10.7 L [place] % (Auto) 8.0 Eos % (Auto) 5.4 H Baso % (Auto) 0.1 Lymph # (Auto) 0.8 L [place] # (Auto) 0.6 Eos # (Auto) 0.4 Baso # (Auto) 0.0 Abs Immat Gran (auto) 0.04 H Absolute Neuts (auto) 5.9 Absolute Nucleated RBC 0.000 Nucleated RBC % (auto) 0.0 Smear Tech's Comments Sodium Potassium Chloride Carbon Dioxide Anion Gap BUN Creatinine Estim Creat Clear Calc Estimated GFR Random Glucose Calcium Magnesium Total Bilirubin Direct Bilirubin AST ALT Alkaline Phosphatase Total Creatine Kinase Troponin I High Sens Total Protein Albumin Lipase Influenza Type A (NARGIS) Influenza Type A (PCR) Influenza Type B (NARGIS) Influenza Type B (PCR) Influenza A & B Note RSV RNA Qual (PCR) SARS-CoV-2 RNA (RT-PCR) <Sandrita Meyers NP - Last Filed: 01/22/22 15:50> Discharge Plan Discharge Anticipated Discharge Date/Time: 01/22/22 12:16 <Sandrita Meyers NP - Last Filed: 01/22/22 15:50> Patient Disposition: Xfer LTC <Sandrita Meyers NP - Last Filed: 01/22/22 15:50> Discharge Diagnosis: Hypernatremia <Sandrita Meyers NP - Last Filed: 01/22/22 15:50> Discharge Medications: Continued acetaminophen 325 mg Tablet 650 mg PO Q6H PRN (Reason: Fever Or Pain) 0RF atorvastatin 10 mg Tablet 10 mg PO BEDTIME 0RF docusate sodium 50 mg/5 mL liquid 10 ml PO DAILY 0RF mirtazapine 15 mg tablet 1 tab PO BEDTIME 0RF melatonin 10 mg Tablet 10 mg PO BEDTIME 0RF finasteride [Proscar] 5 mg tablet 5 mg PO BEDTIME 0RF risperidone 0.5 mg tablet 0.75 mg PO DAILY@1700 0RF rivastigmine tartrate 1.5 mg Capsule 1.5 mg PO BID Qty: 30 0RF cyanocobalamin (vitamin B-12) [Vitamin B-12] 1,000 mcg Tablet 1,000 mcg PO DAILY Qty: 30 0RF sertraline 50 mg Tablet 50 mg PO DAILY Qty: 30 0RF risperidone 0.25 mg Tablet 0.25 mg PO BID PRN (Reason: dementia behavioral disturbanc) 0RF Rx Instructions: ORDERED FOR 14 DAYS, WITH STOP DATE OF 09/27/21 doxazosin 4 mg Tablet 8 mg PO BEDTIME Qty: 0 0RF Discontinued lamotrigine 25 mg tablet 50 mg PO DAILY 0RF <Sandrita Meyers NP - Last Filed: 01/22/22 15:50> Discharge Orders: Discharge Order (Routine); Ordered 01/22/22 Ordered By: Sandrita Meyers <Sandrita Meyers NP - Last Filed: 01/22/22 15:50> Diet: advance to usual diet <Sandrita Meyers NP - Last Filed: 01/22/22 15:50> Activity on Discharge: As tolerated <Sandrita Meyers NP - Last Filed: 01/22/22 15:50> Stand Alone Forms: Patient Portal Discharge page <Sandrita Meyers NP - Last Filed: 01/22/22 15:50> Care Plan Goals: resolution of symptoms <Sandrita Meyers NP - Last Filed: 01/22/22 15:50> Health Concerns: Hypernatremia <Sandrita Meyers NP - Last Filed: 01/22/22 15:50> Plan of Treatment: With primary provider as needed Follow-up with your psychiatrist to adjust medications including Lamictal which may have caused sedation <Sandrita Meyers NP - Last Filed: 01/22/22 15:50> Assessment: See discharge summary <Sandrita Meyers NP - Last Filed: 01/22/22 15:50>
--- NOTE | 2022-01-22 15:49 | MHC.CM.PN ---
Received notification that patient will be discharged back to [facility]. [facility] booked. Med nec with chart. Patient, , Helena RN and Sandrita SPEARS aware. Continue to monitor for d/c needs.
[2022-01-22] MEDS: risperiDONE 0.25 MG TABLET 0.75 MG PO (19:47)
[2022-01-22] MEDS: Acetaminophen 325 MG TABLET 650 MG PO (20:00)
--- NOTE | 2022-01-22 20:02 | PM.EVENT ---
Event Note Date of Service: 01/22/22 Event Note: Fever: Patient being plan for discharge today. Noted to have temperature of 100.9 degrees F; unclear source. Patient being given ceftriaxone empirically Id consult Discharge held. Family made aware.
[2022-01-22] MEDS: cefTRIAXone sodium 1 GM in 0.9 % Sodium Chloride 50 ML IV (21:24)
[2022-01-22] MEDS: Doxazosin Mesylate 2 MG TABLET 8 MG PO (21:24)
[2022-01-22] MEDS: Atorvastatin Calcium 10 MG TABLET PO (21:25)
[2022-01-22] MEDS: Mirtazapine 15 MG TABLET PO (21:25)
--- NOTE | 2022-01-22 21:37 | PC.NURSE ---
call to [facility] facility to make staff aware that patient will not be returning tonight
--- NOTE | 2022-01-22 23:22 | PC.NURSE ---
pt had difficulty taking medications earlier, so this RN crushed the rest of the meds and admin with applesauce. The remaining evening medications- finasteride and exelon came from the pharmacy later on and the pt is asleep and not arousable enough to swallow medications Unable to crush finasteride, or open the capsule. I am not comfortable giving whole pill/capsule in applesauce due to patients dysphagia and decreased level of conciousness. MD Selby made aware
[2022-01-23] VITALS (10 sets, daily range): BP systolic 91–113; BP diastolic 55–68; PULSE 62–83; RESP 12–16; TEMP 36.6–37.2; O2SAT 95–100
--- NOTE | 2022-01-23 00:52 | PC.NURSE ---
pt grossly incontinent of urine. pt given incontinent care with assist of ecologist technician, complete bed change. pt resting in bed at this time
[2022-01-23] MEDS: Heparin Sodium,Porcine 5,000 UNIT/ML VIAL 5000 UNIT SUBCUT ×3 (03:53→20:32)
--- NOTE | 2022-01-23 07:49 | PC.NURSE ---
Sleeping. skin pwd. visible chest rise.
--- NOTE | 2022-01-23 08:33 | PC.NURSE ---
pt sleeping. more or less slept through vitals including recal temp. skin pwd. unlabroed resp. ls cta. arousable to firm touch but falls asleep quickly.
[2022-01-23] MEDS: Docusate Sodium 100 MG/10 ML LIQUID PO (10:19)
[2022-01-23] MEDS: Sertraline HCL 50 MG TABLET PO (10:20)
[2022-01-23] MEDS: Cyanocobalamin (Vitamin B-12) 1,000 MCG TABLET 1000 MCG PO (10:20)
--- NOTE | 2022-01-23 10:24 | PC.NURSE ---
incontinent of urine. combative during changing. skin pwd. taking crushed meds w/applesauce after changing and patient is alert. is disoriented to place/time. unable to follow commands. awaits transfer to floor. good skin integrity on buttocks. fluids infusing. no focal deficits noted.
--- NOTE | 2022-01-23 10:47 | MHC.SL.SWA ---
Speech Pathologist Impression: Risk of Aspiration Due to: Reduced Cognition Dysphasia Diet Status: Liquid Consistency and Strategies for Safe Swallow: Liquid Intake Recommendation: Thin Liquid Intake Strategies: Small Sips No Straws Solid Food Consistency: Dietary Recommendations: Grnd/Mech Altered (NDD2) Additional Modifications to Solid Foods: Pt must be awake, alert and oriented to task to safely swallow, will be at risk for aspiration if not adequately engaged in meal or medication administration. Pt will need close and strict supervision for every meal due to level of confusion, potential lethargy and potential impulsivity. Oral Medication Intake: Crushed with Puree Please contact the pharmacy regarding appropriate crushable or liquid drug formulations that are available whenever modified delivery is recommended. Compensatory Strategies and Precautions to be Taken for Safe Swallow: Sitting Upright (90 deg) No Straw Small Bites and Sips Alternate Liquids/Solids Supervision While Eating and Drinking for Safe Swallow: Total Supervision (1:1) Foods to Avoid: DIfficult to chew solids, foods w/ mixed consistencies (liquids w/ solids) Swallowing Recommended Treatments: Compens. Strategy Educat. Recommendation for Speech: Inpatient Speech Therapy Comment: Pt presented w/ Swallow on thin liquid and soft solids WNL, but only after extensive effort to assure Pt was alert and oriented to tasks required for Swallow Eval. Pt is highly confused, has waxing/waning lethargy, and waxing/waning orientation to activity of eating/drinking, putting him at risk for aspiration. Recommend START/ORDER diet of Ground/Mech/Alt (NDD2) w/ THIN liquids, Pills CRUSHED in Puree. Nursing reports that some medications cannot be crushed, would recommend attempting those meds whole in puree, or if Pt is WELL ORIENTED, w/ sip of liquid (BUT NO STRAWS). Pt will require very strict supervision and assistance during all meals, assure that pt is alert and adequately oriented to task of meal, and closely monitor pt for ongoing engagement. Discontinue if Pt is lethargic, distracted, confused. Recommendations sent by secure text to MD, Tap Builder, Nursing and discussed w/ nurse. Frequency/Duration: PAD MACHINE OFFBEARER to follow M-F while inpt. Date Range for Service Req: Timeline to reassess: Wood Heel Attacher Clinican/Clinical Fellow: No Supervisory Statement: I have reviewed and agree with the student/clinical fellow's documentation: N/A Speech Language Pathologist: Elizabeth Kevin M.A., CCC-PAD MACHINE OFFBEARER
--- NOTE | 2022-01-23 10:49 | PC.NURSE ---
rn to rn lorena church on [facility].
[2022-01-23] MEDS: Rivastigmine Tartrate 1.5 MG CAPSULE PO ×2 (10:56→20:38)
[2022-01-23 10:58] LABS: Monocytes Percent Auto 9.1 % (2-11); PLT CLUMP 1; SCAN SMEAR FLAG 1
[2022-01-23 10:59] LABS: VBG Base Excess 4.9 mmol/L; VBG HCO3 30 mmol/L (22-26); VBG pCO2 48 mmHg; VBG pO2 40 mmHg
[2022-01-23 11:00] LABS: Basophils Percent Auto 0.2 % (0-2); Eosinophils Absolute Auto 0.4 X10*3/uL (0.0-0.4); Hemoglobin 12.4 g/dl (14.0-18.0); Imm Gran Abs Auto 0.02 X10*3/uL (0.00-0.03); Imm Gran Pct Auto 0.4 % (0.0-0.4); Lymphocytes Absolute Auto 0.7 X10*3/uL (1.2-4.9); Lymphocytes Percent Auto 13.8 % (20-40); Mean Corpuscular HGB Conc 32.6 g/dl (31.0-36.0); Mean Corpuscular Hemoglobin 29.7 pg (27.0-33.0); Mean Corpuscular Volume 91.1 fL (80.0-98.0); Monocytes Absolute Auto 0.5 X10*3/uL (0.1-1.2); Neutrophils Absolute Auto 3.7 x10*3/uL (2.0-8.3); Neutrophils Percent Auto 69.5 % (45-73); Red Blood Count 4.17 X10*6/uL (4.60-5.80); Red Cell Distribution Width 16.9 % (11.0-16.0); Venous Blood Gas Refer to POC result
[2022-01-23 11:13] LABS: MANUAL DIFF FLAG NO; White Blood Count 5.3 X10*3/uL (4.8-10.8)
[2022-01-23 11:14] LABS: Platelet Count 70 X10*3/uL (160-400)
[2022-01-23 11:18] LABS: Anion Gap 11 (12-20); Blood Urea Nitrogen 11 mg/dL (9-16); Calcium 8.4 mg/dL (8.4-10.2); Carbon Dioxide 29 mmol/L (22-29); Chloride 106 mmol/L (96-108); Creatinine Clr Calc Pharmacy 72.1; Estimated Glomerular Filt Rate > 60; Glucose Random 121 mg/dL (60-115); Potassium 3.9 mmol/L (3.3-5.1); Sodium 142 mmol/L (135-145)
--- NOTE | 2022-01-23 11:24 | HO.PM.IMPN ---
Subjective Subjective Date of Service: 01/23/22 Interval History: seen and examined this morning follow up for encephalopathy patient is not responding to verbal stimuli this morning Review of Systems Review of Systems: Yes Unobtainable due to mental status Physical Exam Vital Signs: Vital Signs: Last Vital Signs Temp 98.9 F 01/23/22 08:16 Pulse 83 01/23/22 08:16 Resp 12 01/23/22 08:16 BP 113/68 01/23/22 08:16 Pulse Ox 96 01/23/22 08:16 BMI result Body Mass Index 21.6 Const: Other: appears comfortable; respirations unlabored; not responding to verbal stimuli or painful stimuli at this time General: lethargic Orientation/consciousness: lethargic Resp: Effort & Inspection: normal respiratory effort, able to speak in complete sentences, no respiratory distress and no use of accessory muscles Cardio: Rate: regular rate Rhythm: regular rhythm GI: Inspection: No distended Palpation (GI): Soft to palpation Neuro: Other: not responding to verbal stimuli at the time of my eval, not following commands Extrem: Other: no leg edema; Objective Data Active Medications Acetaminophen (Acetaminophen 325 Mg Tablet) 650 mg PO Q6H PRN PRN Reason: Fever Or Pain Last Admin: 01/22/22 20:00 Dose: 650 mg Documented by: ANIBAL Atorvastatin Calcium (Atorvastatin Calcium 10 Mg Tablet) 10 mg PO BEDTIME [facility] Last Admin: 01/22/22 21:25 Dose: 10 mg Documented by: ANIBAL Cyanocobalamin (Cyanocobalamin (Vitamin B-12) 1,000 Mcg Tablet) 1,000 mcg PO DAILY [facility] Last Admin: 01/23/22 10:20 Dose: 1,000 mcg Documented by: MT Docusate Sodium (Docusate Sodium 100 Mg/10 Ml Liquid) 100 mg PO DAILY [facility] Last Admin: 01/23/22 10:19 Dose: 100 mg Documented by: MT Doxazosin Mesylate (Doxazosin Mesylate 2 Mg Tablet) 8 mg PO BEDTIME [facility]; Protocol Last Admin: 01/22/22 21:24 Dose: 8 mg Documented by: ANIBAL Finasteride (Finasteride 5 Mg Tablet) 5 mg PO BEDTIME [facility] Last Admin: 01/22/22 23:22 Dose: Not Given Documented by: ANIBAL Non-Admin Reason: Patient Condition Contraindication Heparin Sodium (Porcine) (Heparin Sodium,Porcine 5,000 Unit/Ml Vial) 5,000 unit SUBCUT Q8H [facility] Last Admin: 01/23/22 03:53 Dose: 5,000 unit Documented by: ANIBAL Dextrose (D5w) 1,000 mls @ 50 mls/hr IVCONT .Q20H [facility] Last Admin: 01/22/22 23:59 Dose: 50 mls/hr Documented by: ANIBAL Ceftriaxone Sodium 1 gm/ (Sodium Chloride) 50 mls @ 100 mls/hr IV Q24H [facility] Last Infusion: 01/22/22 21:54 Dose: 0 mls/hr Documented by: ANIBAL Lamotrigine (Lamotrigine 25 Mg Tablet) 50 mg PO DAILY [facility] Last Admin: 01/23/22 10:56 Dose: Not Given Documented by: MT Non-Admin Reason: Medication Discontinued Melatonin (Melatonin 3 Mg Tablet) 6 mg PO BEDTIME PRN PRN Reason: Insomnia Mirtazapine (Mirtazapine 15 Mg Tablet) 15 mg PO BEDTIME [facility] Last Admin: 01/22/22 21:25 Dose: 15 mg Documented by: ANIBAL Pharmacy Consult (Consult Rx Perform Med Rec) 1 each MISCELLANE ONCE PRN PRN Reason: Consult order Risperidone (Risperidone 0.25 Mg Tablet) 0.25 mg PO BID PRN PRN Reason: dementia behavioral disturbanc Risperidone (Risperidone 0.25 Mg Tablet) 0.75 mg PO DAILY@1700 [facility] Last Admin: 01/22/22 19:47 Dose: 0.75 mg Documented by: ANIBAL Rivastigmine Tartrate (Rivastigmine Tartrate 1.5 Mg Capsule) 1.5 mg PO BID [facility] Last Admin: 01/23/22 10:56 Dose: 1.5 mg Documented by: TM Senna (Sennosides 8.6 Mg Tablet) 17.2 mg PO BEDTIME PRN PRN Reason: Constipation Sertraline HCl (Sertraline Hcl 50 Mg Tablet) 50 mg PO DAILY [facility] Last Admin: 01/23/22 10:20 Dose: 50 mg Documented by: MT Sodium Chloride (0.9 % Sodium Chloride Flush 3 Ml Syringe) 3 ml IVFLUSH QSHIFT [facility] Last Admin: 01/23/22 09:39 Dose: Not Given Documented by: MT Non-Admin Reason: Med Not Available Temazepam (Temazepam 15 Mg Capsule) 15 mg PO BEDTIME PRN PRN Reason: Insomnia Labs CBC & Chem 7: 01/23/22 10:50 01/23/22 10:50 Labs: Laboratory Results - last 24 hr 01/23/22 01/23/22 01/23/22 10:50 10:50 10:52 MCV 91.1 MCH 29.7 MCHC 32.6 RDW 16.9 H Plt Count 70 L MPV 10.0 Immature Gran % (Auto) 0.4 Neut % (Auto) 69.5 Lymph % (Auto) 13.8 L [place] % (Auto) 9.1 Eos % (Auto) 7.0 H Baso % (Auto) 0.2 Lymph # (Auto) 0.7 L [place] # (Auto) 0.5 Eos # (Auto) 0.4 Baso # (Auto) 0.0 Abs Immat Gran (auto) 0.02 Absolute Neuts (auto) 3.7 Absolute Nucleated RBC 0.000 Nucleated RBC % (auto) 0.0 VBG pH 7.40 VBG pCO2 48 VBG pO2 40 VBG HCO3 30 H VBG O2 Saturation 63.0 VBG Base Excess 4.9 Anion Gap 11 L Estim Creat Clear Calc 72.1 Estimated GFR > 60 Random Glucose 121 H Calcium 8.4 Microbiology Microbiology Results: Microbiology 01/21/22 15:07 Blood Culture - Preliminary Blood - Venous No growth after 24 hours. 01/21/22 15:07 Blood Culture - Preliminary Blood - Venous No growth after 24 hours. Assessment and Plan (1) Toxic metabolic encephalopathy: Status: Acute Plan This is a 76-year-old male with a past medical history of severe dementia, hyperlipidemia, BPH, resides in assisted living presented to the hospital with a chief complaint of unwitnessed fall Toxic metabolic encephalopathy on a background of dementia.? Hypernatremia resolved with IVF. lamictal recently started, thought to be contributing to encephalopathy as well, will d/c seen by neurology - felt AMS r/t hypernatremia fever 100.9 last night, d/c held - UA negative.? Chest x-ray negative. Flu, RSV, covid negative BCx negative to date, repeat BCx ordered empiric ceftriaxone given Unwitnessed fall:? CT head and CT cervical spine showed no acute findings.? Fall precautions.?EKG nonischemic.? Troponin negative. Hypernatremia:? resolved with IVF? History of hyperlipidemia: Continue home statin History of severe dementia:? Continue home rivastigmine, risperidone, mirtazapine, sertraline History of BPH: Continue home finasteride DVT prophylaxis:? Subcu heparin Code status:? DNR/DNI.? HCP is Teresita - HCP invoked Dispo: will likely return to the [facility] in [place] Required ongoing hospitalization secondary to workup for fever; AMS Quality Stroke Does the patient have a stroke diagnosis?: No VTE Prior VTE?: No VTE Risk Level:: Medical - moderate - high VTE Device Contraindication: Treatment Not Indicated VTE Drug Contraindication: N/A - Med Ordered
[2022-01-23] MEDS: 0.9 % Sodium Chloride Flush 3 ML SYRINGE IVFLUSH ×2 (15:35→20:33)
[2022-01-23] MEDS: risperiDONE 0.25 MG TABLET 0.75 MG PO (15:35)
[2022-01-23] MEDS: cefTRIAXone sodium 1 GM in 0.9 % Sodium Chloride 50 ML IV (20:33)
[2022-01-23] MEDS: Atorvastatin Calcium 10 MG TABLET PO (20:38)
[2022-01-23] MEDS: Finasteride 5 MG TABLET PO (20:38)
[2022-01-23] MEDS: Doxazosin Mesylate 2 MG TABLET 8 MG PO (20:38)
[2022-01-23] MEDS: Mirtazapine 15 MG TABLET PO (20:38)
[2022-01-24 03:39] VITALS: BP 112/58; PULSE 72; RESP 16; TEMP 36.4; O2SAT 95
[2022-01-24] MEDS: Heparin Sodium,Porcine 5,000 UNIT/ML VIAL 5000 UNIT SUBCUT (05:33)
[2022-01-24 07:39] VITALS: BP 117/59; PULSE 81; RESP 18; TEMP 36.6; O2SAT 96
[2022-01-24] MEDS: 0.9 % Sodium Chloride Flush 3 ML SYRINGE IVFLUSH (10:26)
[2022-01-24] MEDS: Sertraline HCL 50 MG TABLET PO (10:27)
[2022-01-24] MEDS: Docusate Sodium 100 MG/10 ML LIQUID PO (10:27)
[2022-01-24] MEDS: Rivastigmine Tartrate 1.5 MG CAPSULE PO (10:27)
[2022-01-24] MEDS: Cyanocobalamin (Vitamin B-12) 1,000 MCG TABLET 1000 MCG PO (10:27)
--- NOTE | 2022-01-24 10:43 | MHC.SLORD ---
Speech Language Pathology Order Status: Pt is in room with family who had fed him breakfast. She worries that his weight loss is related to a lack of support for feeding. We discussed the fact that he appears disoriented possibly due to novel environment. Tolerating thin and ground without support. DC structured IT LEAD tx
[2022-01-24 11:07] VITALS: BP 103/53; PULSE 85; RESP 18; TEMP 36.7; O2SAT 95
--- NOTE | 2022-01-24 11:24 | MHC.CM.PN ---
Patient has been medically cleared for dc today to return to LTC at [facility]. Patient will return to [facility] today at noon via [facility]. Last IMM addressed on 01/22/22. Patient and his are aware of and pleased with the dc plan.DC Summary has been faxed to JACKY/Gabriela at [phone] and uploaded into [email or web address].
== END 2022-01-24 12:02 | DRG 640 ==
LOC: HO.ED 18:11 → HO.EDOVER 19:40 → HO.IMC 01-23 08:36
PROVIDERS: Internal Medicine; Admitting Provider Hospitalist; Emergency Provider Emergency Medicine; PCP Internal Medicine; Visit Provider Physician Assistant Medical
DX: E87.0 Hyperosmolality and hypernatremia (principal); G93.41 Metabolic encephalopathy; F03.91 Unspecified dementia, unspecified severity, with behavioral disturbance; R29.6 Repeated falls; N40.0 Benign prostatic hyperplasia without lower urinary tract symptoms; E86.0 Dehydration; D69.6 Thrombocytopenia, unspecified; R50.9 Fever, unspecified; E78.5 Hyperlipidemia, unspecified; Z86.718 Personal history of other venous thrombosis and embolism; Z91.81 History of falling; Z87.891 Personal history of nicotine dependence; Z79.899 Other long term (current) drug therapy; Z66 Do not resuscitate
CPT/HCPCS: 0241U; 36415; 70450; 71045; 72125; 80048; 80076; 81003; 82550; 82803; 83605; 83690; 83735; 84484; 85025; 85610; 87040; 87502; 87635; 92610; 93005; 96361; 96365; 97163; 99285; J0696

== ENCOUNTER 2022-01-24 15:25 | Emergency (ER) | payer MEDICARE, SELFPAY ==
--- NOTE | ~2022-01-24 | CT_ITS ---
EXAMINATION: CT CHEST, ABDOMEN AND PELVIS WITH CONTRAST. CLINICAL INFORMATION: Reason for Exam fall, r/o rib fx . COMPARISON: CT angiogram chest 10/21/2021. TECHNIQUE: Multidetector volumetric imaging was performed from the thoracic inlet through the pubic symphysis following the administration of: Oral contrast: None Intravenous contrast: 150 mL Omnipaque 350 No contrast reaction reported Sagittal and coronal reformatted images were obtained on the technologist workstation. In addition, thin section, high resolution reconstruction, targeted reformatted images through the thoracic and lumbar spine were obtained with coronal and sagittal high resolution reformatted images as well. This CT examination was performed using dose optimization techniques as appropriate, variously including the following: *Automated exposure control *Adjustment of mA and/or kV according to patient size (this includes techniques or standardized protocols for targeted exams where dose is matched to indication/reason for exam; i.e. extremities or head) *Use of iterative reconstruction technique Total exam dose-length product 555 chest and 832 abdomen and pelvis mGy-cm FINDINGS: CHEST: VASCULAR: The aorta is normal; no evidence of dissection, aneurysm, or traumatic aortic injury. The central pulmonary arteries enhance normally. AORTIC ISTHMUS: Normal. MEDIASTINUM: No mediastinal fluid or hematoma. No hilar or mediastinal lymphadenopathy. LUNG: Bibasilar atelectasis is present. No nodules, mass, or focal consolidation. PLEURA: No pleural effusion. No pneumothorax. No pleural mass or thickening. CHEST WALL/AXILLA: Unremarkable. ABDOMEN/PELVIS : LIVER : The liver is normal in size, shape, and attenuation. No focal hepatic lesion or biliary ductal dilatation is present. GALLBLADDER, AND BILIARY TREE The gallbladder is contracted but otherwise unremarkable with no evidence of radiopaque gallstones, gallbladder wall thickening, or obvious pericholecystic inflammatory changes. PANCREAS: Normal; no mass or surrounding fluid. SPLEEN: Normal size. No focal lesion. ADRENAL GLANDS: Normal; no mass. KIDNEYS AND URETERS: The kidneys are normal in size, shape, and attenuation. Multiple right sided Bosniak class I benign renal cysts are present which need no further imaging or follow-up. No solid renal masses are seen. No hydronephrosis, hydroureter, or calculi. URINARY BLADDER: No focal mass or wall thickening seen. No bladder calculi. GASTROINTESTINAL TRACT: Stomach and small bowel non-dilated. No colonic wall thickening or pericolonic inflammatory changes. Normal appendix. VASCULAR STRUCTURES: There is no evidence of aortic or iliac injury. Calcific atherosclerotic plaque present in the aorta and iliofemoral vessels without aneurysm. The inferior vena cava is intact. ACTIVE BLEEDING: None LYMPH NODES: No lymphadenopathy. The aorta is unremarkable. PELVIC VISCERA: There is mild BPH. FREE FLUID: None. ABDOMINAL WALL: No significant hernia is appreciated. OSSEOUS STRUCTURES : No clavicle or scapula fracture. No displaced rib fracture seen. No sternal fracture seen. Normal sagittal alignment of the thoracic and lumbar spine. Vertebral body and disc heights are maintained aside from degenerative changes at L2-L3 with scattered degenerative changes present elsewhere; no compression fracture. Posterior elements intact. No sacral or pelvic fracture, The visualized hips are intact. CT/CT abdomen pelvis w con IMPRESSION: No evidence of acute traumatic injury in the chest, abdomen or pelvis.
--- NOTE | ~2022-01-24 | CT_ITS ---
EXAMINATION: CT HEAD WITHOUT CONTRAST CT CERVICAL SPINE WITHOUT CONTRAST CLINICAL INFORMATION: Fall, loss of consciousness, neck pain. COMPARISON: CT head and cervical spine dated from 01/21/2022. TECHNIQUE: Contiguous axial imaging was performed from the skull base to vertex without intravenous administration of contrast. Contiguous axial imaging was performed from the upper chest through the skull base without intravenous administration of contrast. Coronal and sagittal reformats were obtained at the acquisition workstation. This CT examination was performed using dose optimization techniques as appropriate, variously including the following: *Automated exposure control *Adjustment of mA and/or kV according to patient size (this includes techniques or standardized protocols for targeted exams where dose is matched to indication/reason for exam; i.e. extremities or head) *Use of iterative reconstruction technique DLP: 704 and 370 mGy-cm FINDINGS: Head: Chronic encephalomalacia/gliosis with associated ex vacuo dilatation of the lateral ventricle in the left temporal lobe. There is no evidence of acute intracranial hemorrhage or edematous territorial infarction. 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 Potter-white matter differentiation is preserved. Proportional prominence of the ventricles and sulcal spaces. No evidence for obstructive hydrocephalus. No abnormal mass effect or midline shift. No extra-axial fluid collections. No acute soft tissue or osseous abnormalities. Small mucous retention cyst in the left maxillary sinus. Cervical Spine: The atlantooccipital and atlantoaxial articulations remain well aligned. Straightening of the normal cervical lordosis. Otherwise, there is anatomic alignment of the vertebral bodies and posterior elements. No evidence of acute fracture or subluxation. Moderate multilevel cervical spondylosis with varying degrees of disc space narrowing, disc osteophyte complexes, and uncovertebral hypertrophy. There is no prevertebral soft tissue swelling. The thyroid gland and remaining cervical soft tissues are normal in appearance. The lung apices demonstrate mild subpleural thickening. CT/CT cervical spine wo con IMPRESSION: Evaluation is somewhat degraded by motion. However, accounting for these limitations, no definite acute intracranial abnormalities or cervical spinal fracture identified. Encephalomalacia/gliosis in the left temporal lobe is again noted.
[2022-01-24 15:34] VITALS: BP 104/69; BP 135/90; PULSE 73; PULSE 92; O2SAT 96; O2SAT 97; BMI 20.8
--- NOTE | 2022-01-24 16:01 | ED_ITS ---
HPI - Fall General Chief Complaint: Fall Stated Complaint: FALL Time Seen by Provider: 01/24/22 16:01 Source: patient Mode of arrival: ambulatory Limitations: no limitations History of Present Illness HPI Narrative: This is a 76-year-old male past medical history significant for dementia, BPH, frequent falls, [facility] for 2 falls today. One of them was unwitnessed. The other 1 was witness, patient fell hit his head and his forehead. Patient is confused at baseline and unable to answer questions. He appears well, smiling, appears to be in no acute distress. No evidence signs of trauma. Patient is not on blood thinners. According to report obtained from EMS patient was recently discharged from our hospital from the inpatient unit. MD complaint: fall Onset (ago): day(s) (1) Fall from: standing Fall witnessed: no and yes, by living facility staff Place fall occurred: [facility] Loss of consciousness: yes Prolonged down time: no Symptoms prior to fall: none Context: tripped/slipped Related Data Home Medications Medication Instructions Recorded Confirmed acetaminophen 325 mg tablet 650 mg PO Q6H PRN 09/02/21 01/21/22 atorvastatin 10 mg tablet 10 mg PO BEDTIME 09/02/21 01/21/22 risperidone 0.25 mg tablet 0.25 mg PO BID PRN 09/24/21 01/21/22 docusate sodium 50 mg/5 mL oral 10 ml PO DAILY 01/21/22 01/21/22 liquid finasteride 5 mg tablet (Proscar) 5 mg PO BEDTIME 01/21/22 01/21/22 melatonin 10 mg tablet 10 mg PO BEDTIME 01/21/22 01/21/22 mirtazapine 15 mg tablet 1 tab PO BEDTIME 01/21/22 01/21/22 risperidone 0.5 mg tablet 0.75 mg PO DAILY@1700 01/21/22 01/21/22 Previous Rx's Medication Instructions Recorded cyanocobalamin (vitamin B-12) 1,000 mcg PO DAILY #30 tab 09/02/21 1,000 mcg tablet (Vitamin B-12) rivastigmine tartrate 1.5 mg 1.5 mg PO BID #30 cap 09/02/21 capsule sertraline 50 mg tablet 50 mg PO DAILY #30 tab 09/02/21 doxazosin 4 mg tablet 8 mg PO BEDTIME #0 tab 09/30/21 Allergies Allergy/AdvReac Type Severity Reaction Status Date / Time No Known Allergies Allergy Verified 10/21/21 17:15 Review of Systems 2 Review of Systems: Yes Unobtainable due to mental status [facility] Past Medical History Attestation statement: The following information was validated with the patient. Source: old records reviewed and nursing notes reviewed Medical History Acute alteration in mental status Acute UTI Dementia DVT (deep venous thrombosis) Hemorrhagic stroke HLD (hyperlipidemia) HTN (hypertension) Toxic metabolic encephalopathy Urinary retention Vascular dementia Social History Social History Household Members: Other Housing: Longterm Do you presently have visiting nurse or other home services: No Unable to assess alcohol history related to: Unknown Alcohol intake: unknown Patient Tobacco Use Status: Former Tobacco user Second Hand Smoke Exposure: No Advance Directives: Yes Advance Directives on File: Yes Advance Directives Date on File: 09/16/21 service: No Current occupational status: retired Sexual orientation: Straight/Heterosexual Physical Exam Vital Signs: Vital Signs: Last Vital Signs Pulse 92 01/24/22 19:15 Resp 18 01/24/22 19:15 BP 124/70 01/24/22 19:15 Pulse Ox 94 01/24/22 19:15 BMI result Body Mass Index 20.8 Vital signs stable. Appearance: Awake, alert, moving all extremities. Speaking to himself, not making sense. Appears to be in no acute distress. Head: Normocephalic, atraumatic, no step-offs or deformities Eyes: Pupils equal, round and reactive to light.? ENT: Pharynx normal.? Neck: Normal inspection.? Neck supple.? CVS: Normal heart rate and rhythm.? Pulses normal.? Respiratory: No respiratory distress.? Breath sounds normal.? Abdomen: Soft and nontender.? Skin: Skin warm and dry.? Normal skin color.? Normal skin turgor.? Extremities: No lower extremity edema.? No calf ttp. 5/5 strength to bilateral upper and lower extremities Back: No midline tenderness, no C-spine tenderness, full range of motion, no CVA tenderness bilaterally Neuro: Awake, alert, moving all extremities, appropriate for patient's neuro status. Course Reevaluation(s) Reevaluation #1: Patient's CBC appears to be at patient's baseline, within normal limits. Ch emistry with no acute electrolyte abnormalities requiring intervention. COVID negative. CT with no acute intracranial abnormalities, no fractures or dislocations noted to the cervical spine. Encephalomalacia gliosis noted in the left temporal lobe which was noted previously. No evidence of traumatic injury in the chest, abdomen or pelvis. No rib fractures noted. Time: 18:52 Reevaluation #2: Patient's urine is clean. COVID negative. EKG w/out acute changes. At this time patient will be discharge back [facility]. This is likely secondary to physical deconditioning and dementia. Comfortable discharge home with PCP follow-up. Time: 21:10 MDM - Fall MDM Narrative Medical decision making narrative: 1605 76 yo m presents from [facility] unit s/p two falls one of which was witness with positive head strike and loss of consciousness. He is not on blood thinners. Patient has no evident signs of trauma, appears to be in no acute distress. To note patient was recently admitted for acute hypernatremia here to the hospital. He was here from 01/21/2022 and discharged yesterday. Physical examination appears to be at patient's baseline. Lungs clear. Regular rate and rhythm. Patient awake, alert, moving all extremities appears to be in no acute distress. He was put into a cervical collar out of precaution by EMS. Vital signs are stable. Plan at this time is to obtain imaging, lab work. Will rule out ICH, a UTI, infection, rib fractures. Medical Records Attestation: I reviewed the patient's medical records. Lab Data Attestation: I reviewed the patient's lab results. Result diagrams: 01/24/22 16:34 01/24/22 16:34 Labs: Lab Results 01/24/22 01/24/22 01/24/22 Range/Units 16:34 16:34 16:34 WBC 5.9 (4.8-10.8) X10*3/uL RBC 4.33 L (4.60-5.80) X10*6/uL Hgb 12.2 L (14.0-18.0) g/dl Hct 38.6 L (42.0-52.0) % MCV 89.1 (80.0-98.0) fL MCH 28.2 (27.0-33.0) pg MCHC 31.6 (31.0-36.0) g/dl RDW 16.5 H (11.0-16.0) % Plt Count 77 L (160-400) X10*3/uL MPV 10.7 (9.4-12.4) fL Immature Gran % (Auto) 0.5 H (0.0-0.4) % Neut % (Auto) 66.9 (45-73) % Lymph % (Auto) 14.0 L (20-40) % [place] % (Auto) 11.5 H (2-11) % Eos % (Auto) 6.9 H (0-4) % Baso % (Auto) 0.2 (0-2) % Lymph # (Auto) 0.8 L (1.2-4.9) X10*3/uL [place] # (Auto) 0.7 (0.1-1.2) X10*3/uL Eos # (Auto) 0.4 (0.0-0.4) X10*3/uL Baso # (Auto) 0.0 (0.0-0.2) X10*3/uL Abs Immat Gran (auto) 0.03 (0.00-0.03) X10*3/uL Absolute Neuts (auto) 4.0 (2.0-8.3) x10*3/uL Absolute Nucleated RBC 0.000 (0.0-0.012) X10*3/uL Nucleated RBC % (auto) 0.0 (0.0-0.2) /100WBC Smear Tech's Comments VERIFIED Sodium 141 (135-145) mmol/L Potassium 4.0 (3.3-5.1) mmol/L Chloride 104 (96-108) mmol/L Carbon Dioxide 30 H (22-29) mmol/L Anion Gap 11 L (12-20) BUN 13 (9-16) mg/dL Creatinine 0.83 (0.5-1.4) mg/dL Estim Creat Clear Calc 75.8 Estimated GFR > 60 Random Glucose 105 (60-115) mg/dL Calcium 8.2 L (8.4-10.2) mg/dL Magnesium 2.2 (1.6-2.6) mg/dL Total Bilirubin 0.5 (0.0-1.0) mg/dL AST 31 D (5-37) U/L ALT 32 (0-40) U/L Alkaline Phosphatase 91 (39-117) U/L Total Protein 5.7 L (6.5-8.0) g/dL Albumin 3.2 L (3.5-5.0) g/dL Urine Color Urine Appearance Urine pH (5.0-8.0) Ur Specific [place] (1.005-1.025) Urine Protein (NEG-TRACE) MG/DL Urine Glucose (UA) (NEG) MG/DL Urine Ketones (NEG) MG/DL Urine Blood (NEG) Urine Nitrite (NEG) Ur Leukocyte Esterase (NEG) COVID-19 (CARLO) Negative (Negative) COVID-19 Clin Com See Note 01/24/22 Range/Units 19:18 WBC (4.8-10.8) X10*3/uL RBC (4.60-5.80) X10*6/uL Hgb (14.0-18.0) g/dl Hct (42.0-52.0) % MCV (80.0-98.0) fL MCH (27.0-33.0) pg MCHC (31.0-36.0) g/dl RDW (11.0-16.0) % Plt Count (160-400) X10*3/uL MPV (9.4-12.4) fL Immature Gran % (Auto) (0.0-0.4) % Neut % (Auto) (45-73) % Lymph % (Auto) (20-40) % [place] % (Auto) (2-11) % Eos % (Auto) (0-4) % Baso % (Auto) (0-2) % Lymph # (Auto) (1.2-4.9) X10*3/uL [place] # (Auto) (0.1-1.2) X10*3/uL Eos # (Auto) (0.0-0.4) X10*3/uL Baso # (Auto) (0.0-0.2) X10*3/uL Abs Immat Gran (auto) (0.00-0.03) X10*3/uL Absolute Neuts (auto) (2.0-8.3) x10*3/uL Absolute Nucleated RBC (0.0-0.012) X10*3/uL Nucleated RBC % (auto) (0.0-0.2) /100WBC Smear Tech's Comments Sodium (135-145) mmol/L Potassium (3.3-5.1) mmol/L Chloride (96-108) mmol/L Carbon Dioxide (22-29) mmol/L Anion Gap (12-20) BUN (9-16) mg/dL Creatinine (0.5-1.4) mg/dL Estim Creat Clear Calc Estimated GFR Random Glucose (60-115) mg/dL Calcium (8.4-10.2) mg/dL Magnesium (1.6-2.6) mg/dL Total Bilirubin (0.0-1.0) mg/dL AST (5-37) U/L ALT (0-40) U/L Alkaline Phosphatase (39-117) U/L Total Protein (6.5-8.0) g/dL Albumin (3.5-5.0) g/dL Urine Color YELLOW Urine Appearance CLEAR Urine pH 7.5 (5.0-8.0) Ur Specific [place] 1.010 (1.005-1.025) Urine Protein NEG (NEG-TRACE) MG/DL Urine Glucose (UA) NEG (NEG) MG/DL Urine Ketones NEG (NEG) MG/DL Urine Blood NEG (NEG) Urine Nitrite NEG (NEG) Ur Leukocyte Esterase NEG (NEG) COVID-19 (CARLO) (Negative) COVID-19 Clin Com ECG Data Attestation: I personally reviewed and interpreted this ECG as follows: ECG interpretation date: 01/24/22 ECG interpretation time: 21:11 Prior ECG tracings: available for review Interpretation: Ventricular rate of 78, OK normal, QRS normal, QT/QTC normal. EKG shows normal sinus rhythm no ST elevations or inversions concerning for ischemia. No significant changes when compared to EKG from last month Critical Care Time Critical Care Time Critical Care Time: No Discharge Plan Discharge Clinical Impression: Fall, Physical deconditioning Patient Disposition: Xfer SNF Transfer Details: Transfer back to [facility] Instructions: Fall Prevention for Older Adults (ED), Fall Prevention (ED) Additional Instructions: Take your medications as prescribed. Follow-up with your primary care provider this week. Return to the emergency department with new or worsening symptoms. Such as fevers, chills, chest pain, shortness of breath, nausea, vomiting, dizziness, headache, vision changes, lethargy In case of emergency call [address] CT/CT head/brain wo con IMPRESSION: Evaluation is somewhat degraded by motion. However, accounting for these limitations, no definite acute intracranial abnormalities or cervical spinal fracture identified. ? Encephalomalacia/gliosis in the left temporal lobe is again noted. Prescriptions: No Action acetaminophen 325 mg Tablet 650 mg PO Q6H PRN (Reason: Fever Or Pain) 0RF atorvastatin 10 mg Tablet 10 mg PO BEDTIME 0RF docusate sodium 50 mg/5 mL liquid 10 ml PO DAILY 0RF mirtazapine 15 mg tablet 1 tab PO BEDTIME 0RF melatonin 10 mg Tablet 10 mg PO BEDTIME 0RF finasteride [Proscar] 5 mg tablet 5 mg PO BEDTIME 0RF risperidone 0.5 mg tablet 0.75 mg PO DAILY@1700 0RF rivastigmine tartrate 1.5 mg Capsule 1.5 mg PO BID Qty: 30 0RF cyanocobalamin (vitamin B-12) [Vitamin B-12] 1,000 mcg Tablet 1,000 mcg PO DAILY Qty: 30 0RF sertraline 50 mg Tablet 50 mg PO DAILY Qty: 30 0RF risperidone 0.25 mg Tablet 0.25 mg PO BID PRN (Reason: dementia behavioral disturbanc) 0RF Rx Instructions: ORDERED FOR 14 DAYS, WITH STOP DATE OF 09/27/21 doxazosin 4 mg Tablet 8 mg PO BEDTIME Qty: 0 0RF Referrals: Tiarra Oakes MD [Primary Care Provider] - 2 days
[2022-01-24 16:53] LABS: Basophils Percent Auto 0.2 % (0-2); Eosinophils Absolute Auto 0.4 X10*3/uL (0.0-0.4); Hemoglobin 12.2 g/dl (14.0-18.0); Imm Gran Abs Auto 0.03 X10*3/uL (0.00-0.03); Imm Gran Pct Auto 0.5 % (0.0-0.4); MANUAL DIFF FLAG SCAN; PLT CLUMP 1; Red Cell Distribution Width 16.5 % (11.0-16.0); SCAN SMEAR FLAG 1
[2022-01-24 16:54] LABS: Eosinophils Percent Auto 6.9 % (0-4); Hematocrit 38.6 % (42.0-52.0); Lymphocytes Absolute Auto 0.8 X10*3/uL (1.2-4.9); Mean Corpuscular HGB Conc 31.6 g/dl (31.0-36.0); Mean Corpuscular Hemoglobin 28.2 pg (27.0-33.0); Mean Corpuscular Volume 89.1 fL (80.0-98.0); Mean Platelet Volume 10.7 fL (9.4-12.4); Monocytes Absolute Auto 0.7 X10*3/uL (0.1-1.2); Monocytes Percent Auto 11.5 % (2-11); Neutrophils Percent Auto 66.9 % (45-73); Red Blood Count 4.33 X10*6/uL (4.60-5.80)
[2022-01-24 17:05] LABS: Alanine Aminotransferase 32 U/L (0-40); Albumin Level 3.2 g/dL (3.5-5.0); Alkaline Phosphatase 91 U/L (39-117); Anion Gap 11 (12-20); Aspartate Amino Transferase 31 U/L (5-37); Bilirubin Total 0.5 mg/dL (0.0-1.0); Blood Urea Nitrogen 13 mg/dL (9-16); COVID-19 Test Negative (Negative); Calcium 8.2 mg/dL (8.4-10.2); Carbon Dioxide 30 mmol/L (22-29); Chloride 104 mmol/L (96-108); Creatinine Clr Calc Pharmacy 75.8; Estimated Glomerular Filt Rate > 60; Glucose Random 105 mg/dL (60-115); Magnesium 2.2 mg/dL (1.6-2.6); Sodium 141 mmol/L (135-145); Total Protein 5.7 g/dL (6.5-8.0)
[2022-01-24 17:22] LABS: Platelet Count 77 X10*3/uL (160-400); SLIDE REVIEW VERIFIED; White Blood Count 5.9 X10*3/uL (4.8-10.8)
[2022-01-24] MEDS: iohexoL 350 MG/ML 100 ML INFUS..BTL IV (17:24)
[2022-01-24 19:15] VITALS: BP 124/70; PULSE 92; RESP 18; O2SAT 94
[2022-01-24 19:27] LABS: Appearance Urine CLEAR; Color Urine YELLOW; Glucose Urine UA NEG (NEG); Leukocyte Esterase Urine NEG (NEG); Nitrite Urine NEG (NEG); PH 7.5 (5.0-8.0); Urine Blood NEG (NEG); Urine Ketones NEG (NEG); Urine Protein NEG (NEG-TRACE)
--- NOTE | 2022-01-24 19:49 | ECG_ITS ---
Test Reason : FALL Blood Pressure : / mmHG Vent. Rate : 078 BPM Atrial Rate : 078 BPM P-R Int : 160 ms QRS Dur : 080 ms QT Int : 402 ms P-R-T Axes : 048 -15 -09 degrees QTc Int : 458 ms Normal sinus rhythm Nonspecific ST abnormality Abnormal ECG When compared with ECG of 21-JAN-2022 15:17, No significant changes seen Referred By: Sunita Gonzalez Electronically Signed By:ISRAEL ASH
[2022-01-24 21:57] VITALS: BP 110/60; PULSE 72; RESP 18; O2SAT 96
[2022-01-24 22:17] VITALS: RESP 14
[2022-01-24 23:01] VITALS: BP 101/59
== END 2022-01-25 01:04 | disposition skilled nursing facility (03) ==
PROVIDERS: Physician Assistant; Emergency Provider Emergency Medicine Emergency Medical Services; PCP Internal Medicine
DX: R53.81 Other malaise (principal); Z91.81 History of falling; Z20.822 Contact with and (suspected) exposure to COVID-19; I10 Essential (primary) hypertension; E78.5 Hyperlipidemia, unspecified; F03.90 Unspecified dementia, unspecified severity, without behavioral disturbance, psychotic disturbance, mood disturbance, and anxiety; Z79.02 Long term (current) use of antithrombotics/antiplatelets; Z79.899 Other long term (current) drug therapy
CPT/HCPCS: 51701; 70450; 71260; 72125; 74177; 80053; 81003; 83735; 85025; 87635; 93005; 99284; 99285; Q9967